=== PATIENT | male | born 1980 | race Two or more races ===

== ENCOUNTER 2023-10-29 08:32 | Emergency (ER) | payer MEDICAID, SELFPAY ==
[2023-10-29 08:35] VITALS: BP 142/93; PULSE 77; RESP 14; TEMP 36.6; O2SAT 99; BMI 21.1
--- NOTE | 2023-10-29 08:53 | EX.ED.DYSGE1 ---
HPI History of Present Illness Chief Complaint: Nausea/Vomiting Informant: patient Onset/Context/Timing Onset: Today Current Severity: Mild Maximum Severity: Mild Narrative Narrative: 43-year-old male currently homeless uses meth and cocaine did use meth in the last 12 hours. Also states he may be diabetic. Currently does not have a primary care physician. States he is having some nausea and feels lightheaded. He denies any headache, chest or abdominal pain. No fever. No dysuria. No melena. Denies any recent illness or hospitalization. Prior similar symptoms: Yes Recent Illness/Hospitalization: No PFSH PFSH Medical History Arthritis PTSD (post-traumatic stress disorder) Home Medications NK 10/29/23 [History Last Taken Unknown] ondansetron 4 mg disintegrating tablet 4 mg PO Q6H PRN nausea and vomiting #10 tabs 10/29/23 [Rx Last Taken Unknown] Allergy/AdvReac Type Severity Reaction Status Date / Time strawberry AdvReac Mild Hives Verified 10/29/23 08:38 Social History Smoking Status: Current every day smoker tobacco type: cigarettes ROS ROS ED ROS Narrative Nausea. Lightheadedness. Review of Systems ROS Unobtainable: Denies due to encephalopathy Constitutional Constitutional ED: Denies chills or fever(s) Eyes Eyes: Denies blurry vision ENT ENT ED: Denies ear pain Cardiovascular Cardiovascular: Denies chest pain Respiratory/Chest Respiratory/Chest: Denies cough or dyspnea Gastrointestinal Gastrointestinal: Reports nausea; Denies abdominal pain, constipation, diarrhea, melena or vomiting Genitourinary Genitourinary ED: Denies dysuria or hematuria Musculoskeletal Musculoskeletal: Denies arthralgias Integumentary Denies abscess Neurologic Neurologic: Denies headache(s) Psychiatric Psychiatric: Denies anxiety Endocrine Endocrinology: Denies cold intolerance or heat intolerance Hematologic/Lymphatic Hematologic/Lymphatic: Reports none Allergic/Immunologic Allergic/Immunologic ED: Denies mouth swelling, tongue swelling or urticaria EXAM Physical Exam Narrative Exam Narrative: Well-appearing 43-year-old male. Vital signs stable afebrile. Pulse ox 99% on room air no hypoxia. No distress. H EENT exam pupils round and light. Moist mucous membranes. Neck nontender. No lymphadenopathy. Lungs clear to auscultation bilaterally. Heart regular rhythm rate about 75 no murmur. Chest wall and ribs nontender. Abdomen soft nontender. Nondistended. Normal bowel sounds no peritoneal signs. Right upper and right lower quadrant unremarkable. No hernia or mass. No distention. Moving all 4 extremities. Nontender without edema. Normal motor strength. Calves are nontender without edema or cords. Back nontender. Several tattoos. Neurologically is awake and alert. Answering questions following commands. He does seem to be intoxicated. No smell of alcohol. Const Vital Signs: 10/29/23 08:35 Temperature 97.9 F Temperature Source Temporal Pulse Rate 77 Respiratory Rate 14 Blood Pressure 142/93 H Blood Pressure Mean 109 Pulse Ox 99 Oxygen Delivery Method Room Air Positive well nourished and well developed; Negative for obese, cachectic, contractures or unkempt General Appearance ED: well developed and NAD; Negative for unkempt, cachectic, contractures, cyanotic, diaphoretic or pallor Nutritional Appearance: Negative for cachectic or obese HEENT Reports moist mucous membranes Negative for trauma or tenderness Eyes EOMs intact bilaterally General Eye ED: Negative for pale conjunctiva or scleral icterus Neck no lymphadenopathy, supple and no JVD General: Negative for tenderness Lymph Lymphatic: Negative for other Chest Wall inspection of chest normal and palpation of chest normal Chest: Negative for other Resp normal respiratory effort and clear to auscultation bilaterally Effort and Inspection: Negative for retractions Auscultation: Negative for rales, rhonchi or wheezes Cardio regular rate, regular rhythm, S1 normal heart sound, S2 normal heart sound and no murmurs Palpation: Negative for palpable S3 or palpable S4 Rate: Negative for bradycardia or tachycardic Rhythm: Negative for abnormal rhythm GI normal to inspection, nondistended, normoactive bowel sounds, non-tender, non-distended and no masses Inspection: Negative for abdominal distention Auscultation: normoactive bowel sounds Palpation: soft; Negative for tender or guarding Back/Spine no CVA tenderness General Back: Negative for CVA tenderness Cervical Spine: Negative for cervical spine tenderness Thoracic Spine / Upper Back: Negative for thoracic spinal tenderness or paraspinal muscle tenderness Lumbar Spine / Lower Back: Negative for lumbar spinal tenderness Extremity General Extremety ED: Negative for edema or tenderness General Extremity: Negative for edema Neuro oriented x3 and CN's II-XII intact bilaterally Sensorium / Orientation: alert; Negative for orientation impaired, lethargic or stuporous Sensory Exam: No sensory level loss detected Motor Exam: strength 5/5 throughout; Negative for general weakness or strength abnormal Psych mental status grossly normal Appearance: Negative for unkempt or other Attitude: No agitated Mood & Affect: Negative for depressed, anxious or tearful Skin no rashes or lesions noted, no wounds and skin turgor normal General Skin Exam: elasticity normal; Negative for jaundice or pallor Lesions: No lesion noted Rashes: No rashes noted Trauma: Negative for abrasion Wounds: Negative for wounds noted MDM MDM MDM Narrative Medical decision making narrative: 43-year-old history of drug abuse and homeless complaining of nausea and lightheadedness. Exam normal. He appears high. Screening labs. IV Zofran. Repeat exam at 9:35 AM patient doing well. Abdomen benign. Patient doing well. I discussed with him following up with 180 for his meth amphetamine abuse. History & Record Review Discussion w/independent historian: Patient Lab Data Attestation: I reviewed the patient's lab results. Lab results narrative: CBC normal. White count of 5. H&H 15 and 46. Platelets 286.\ Chemistries show a gap of 3. Normal BUN of 16 creatinine 1. Glucose 96. Liver enzymes normal. Labs: Laboratory Results - last 24 hr 10/29/23 08:45 WBC 5.1 RBC 5.66 Hgb 15.4 Hct 46.7 MCV 82.5 MCH 27.2 MCHC 33.0 RDW Std Deviation 40.2 RDW Coeff of Disha 13.6 Plt Count 286 MPV 9.9 Immature Gran % (Auto) 0.200 Neut % (Auto) 75.2 H Lymph % (Auto) 16.3 L Simpson % (Auto) 6.7 Eos % (Auto) 1.0 Baso % (Auto) 0.6 Absolute Neuts (auto) 3.8 Absolute Lymphs (auto) 0.83 Nucleated RBC % 0 Sodium 137 Potassium 3.5 Chloride 109 H Carbon Dioxide 25.0 Anion Gap 3 L BUN 16 Creatinine 1.00 Estim Creat Clear Calc 84.88 Est GFR (MDRD) Af Amer 105 Est GFR (MDRD) Non-Af 87 BUN/Creatinine Ratio 16.0 Glucose 96 Calcium 9.7 Total Bilirubin 0.60 AST 20 ALT 26 Alkaline Phosphatase 88 Total Protein 9.1 H Albumin 4.3 Globulin 4.8 H Albumin/Globulin Ratio 0.9 Discharge Plan Triage Chief Complaint: Nausea/Vomiting ED Provider: Ghulam Walton Dx/Rx/DC Orders Clinical Impression: History of drug abuse, Nausea & vomiting Instructions: Treating Drug Abuse and Addiction, ED Vomiting (Adult) Prescriptions: New ondansetron 4 mg tablet,disintegrating 4 mg PO Q6H PRN (Reason: nausea and vomiting) Qty: 10 0RF No Action NK Primary Care Provider: Care Physician,Ruplai Primary Referrals: Traci Nagy [Non-Staff] - As Needed NOT,DEFINED [Non-Staff] - [facility] [Non-Staff] - As soon as possible Activity Restrictions/Additional Instructions: Strongly consider following up with [facility] drug abuse counseling and treatment. Zofran as needed for nausea which she can either swallowed or let it dissolve under your tongue. Plenty of fluids and rest. Increase your diet slowly as tolerated. Disposition Disposition: Home, Self Care
[2023-10-29] MEDS: Ondansetron 4 MG/2 ML Vial IV (08:59)
[2023-10-29 09:12] LABS: Absolute Lymphocyte Count 0.83 X10^3/uL (0.83-4.51); Absolute Neutrophil Count 3.8 X10^3/uL (2.0-7.7); Basophil# 0.03 X10^3/uL; Basophil% 0.6 % (0-1); Eosinophil# 0.05 X10^3/uL; Hematocrit 46.7 % (40-54); Hemoglobin 15.4 g/dL (13.0-16.5); Lymphocyte # 0.83 X10^3/ul (0.83-4.51); Lymphocyte % 16.3 % (19-41); Mean Corpuscular Hgb 27.2 pg (27.0-32.0); Mean Corpuscular Volume 82.5 fL (80-94); Mean Platelet Vol. 9.9 fl (6.2-12.0); Monocyte# 0.34 X10^3/uL; Monocyte% 6.7 % (0-10); NRBC Flagged by Analyzer 0 % (0-5); Neutrophil # 3.83 X10^3/uL (2.7-7.7); Neutrophil % 75.2 % (47-70); Platelet Count 286 K/mm3 (150-450); RBC Distribution Width CV 13.6 % (11.6-14.6); RBC Distribution Width SD 40.2 fl (35.1-43.9); Red Blood Count 5.66 M/mm3 (4.6-6.2); White Blood Count 5.1 K/mm3 (4.4-11.0)
[2023-10-29 09:30] LABS: ALB/GLOB Ratio 0.9 RATIO (0.9-2.4); AST(SGOT) 20 U/L (15-37); Alanine Aminotransfer ALT/SGPT 26 U/L (16-61); Albumin, Serum 4.3 g/dL (3.2-5.0); Alkaline Phosphatase 88 U/L (45-117); Anion Gap 3 (5-15); BUN 16 mg/dL (7-18); Calcium,Total 9.7 mg/dL (8.5-10.1); Chloride 109 mmol/L (98-107); EST Glomerular Filtration Rate 87 mL/min (>60); Est Glom Filt Rate - Afr Amer 105 mL/min (>60); Estimated Creatinine Clearance 84.88 ml/min; Globulin 4.8 g/dL (2.2-4.2); Glucose 96 mg/dL (74-106); Potassium 3.5 mmol/L (3.5-5.1); Protein, Total 9.1 g/dL (6.4-8.2); Sodium Level 137 mmol/L (136-145)
[2023-10-29 09:54] VITALS: BP 143/88; PULSE 76; RESP 16; TEMP 36.6; O2SAT 99
== END 2023-10-29 09:57 | disposition home or self-care (01) ==
PROVIDERS: Emergency Provider Emergency Medicine; Visit Provider Emergency Medicine
DX: R11.2 Nausea with vomiting, unspecified (principal); F15.11 Other stimulant abuse, in remission; F17.210 Nicotine dependence, cigarettes, uncomplicated; Z59.00 Homelessness unspecified
CPT/HCPCS: 80053; 85025; 96374; 99283; J7030; A4216; J2405

== ENCOUNTER 2023-10-30 18:00 | Emergency (ER) | payer MEDICAID, SELFPAY ==
[2023-10-30 18:00] VITALS: BP 151/78; PULSE 101; RESP 18; TEMP 36.6; O2SAT 99; BMI 21.2
--- NOTE | 2023-10-30 18:19 | ED.RN ---
given fluids and sandwich per dr request. to seen how pt tolerates
--- OUTSIDE RECORDS SUMMARY | 2023-10-30 18:34 | XMS RPT_ITS | CCD ---
Author Name Unknown Address [address] [place] [address] Organization [facility] Care Team Providers Care Engine Service Repairer Name Role Phone SUNNY LAI Unavailable Unavailabl court Samson MD, Freddy Barnhart Primary Care Provider Self, Self Primary Care Provider Unavailabl e CONSULT, ADDICTION MEDICINE Consulting Unav ailable SELF, SELF Primary Care Unavailable ALESSANDRO HENSON Attending Unavailable IZA JOLLEY Admitting Unavailable Meagan Irwin Primary Care Physician Stephen Marsh Attending Unavailabl Stephen Baker Admitting Unavailabl Meagan Cleaning Primary Care Unavailable Boogie Martinez Attending Unavailable No, Physician Primary Care Provider [facility] Primary Care Provider [phone] NO, PHYSICIAN Primary Care Unavailable PIOTR HURST Attending Unava ilable NO, PHYSICIAN Primary Care Unavailable LINDSAY TAFOYA Attending Unavailable NO, PHYSICIAN Primary Care Unavailable [facility] Consulting Unavai SAURAV Bateman Admitting Unavailab LOREE Greer Attending Unavaila ble NEO LAM Consulting Unavai lable NO, PHYSICIAN Primary Care Unavailable LILA MEDRANO Admitting Unavailable LILIANA TOLEDO Attending Unav ailNEO Mosquera Consulting Unavai lable NO, PHYSICIAN Primary Care Unavailable STANTON HENDERSON Attending Unavailable ALECIA BYRD Consulting Unavailabl e Allergies Allergy Classification Reported Allergen(s) Allergy Type Date of Onset Reaction(s) Facility (2 sources) Penicillin; Translations: [penicillin] Drug Allergy [facility] (2 sources) Penicillins; Translations: [PENICILLINS] Drug allergy (disorder) 3 [facility] Repository (1 source) No Known Medication Allergies; Translations: [No Known Medication Allergies] Propensity to adverse reactions (disorder) [facility] Repository (1 source) Penicillins Propensity to adverse reactions to drug 3 [facility] Medications Current Medications Medication Drug Class(es) Dates Sig (Normalized) Sig (Original) CHOLECALCIFEROL, VITAMIN D3, ORAL (2 sources) take 1 capsule by mo ut once daily CHOLECALCIFEROL, VITAMIN D3, ORAL Take 1 capsule by mouth once daily . 0 Active Completed/Discontinued Medications Medication Drug Class(es) Dates Sig (Normalized) Sig (Original) acetaminophen 325 mg oral tablet (4 sources) Start: 09-23-2023 End: 09-27-2023 take 1 tablet by mouth every six hours as needed for pain acetaminophen (TYLENOL) tablet 650 mg Problems Active Problems Problem Classification Problem Date Documented Date Episodic/Chronic Abdominal pain (1 source) Left upper quadrant pain; Translations: [Abdominal pain, left upper quadrant] Episodic Deficiency and other anemia (1 source) Anemia; Translations: [Anemia, unspecified] Episodic Essential hypertension (2 sources) Essential (primary) hypertension; Translations: [Essential (primary) hypertension] Onset: 10-23-2022 Chronic Genitourinary symptoms and ill-defined conditions (4 sources) Asymptomatic bacteriuria; Translations: [Bacteriuria] Onset: 09-04-2022 Episodic HIV infection (11 sources) H/O: viral illness; Translations: [Human immunodeficiency virus [HIV] disease] Onset: 09-01-2022 Chronic Miscellaneous mental health disorders (1 source) Mental disorder; Translations: [Mental disorder, not otherwise specified] Onset: 11-13-2022 Chronic Miscellaneous mental health disorders (6 sources) Symptoms of depression; Translations: [Other symptoms and signs involving emotional state] Onset: 09-01-2022 Episodic Mood disorders (2 sources) Bipolar disorder, unspecified; Translations: [Recurrent major depressive episodes, moderate ] Onset: 11-04-2022 11-04-2022 Chronic Residual codes; unclassified (1 source) Noncompliance with medication regimen; Translations: [Noncompliance with medication regimen] 09-21-2023 Episodic Schizophrenia and other psychotic disorders (13 sources) Psychotic disorder; Translations: [Unspecified psychosis not due to a substance or known physiological condition] Onset: 09-01-2022 Chronic Substance-related disorders (15 sources) Methamphetamine abuse; Translations: [Other stimulant abuse, uncomplicated] Onset: 09-01-2022 Chronic Substance-related disorders (11 sources) Finding related to substance use; Translations: [Other stimulant use, unspecified, uncomplicated] Onset: 09-01-2022 Episodic Unclassified (2 sources) New Patient Onset: 10-05-2022 10-05-2022 Unclassified (2 sources) Access to Medication(s) Onset: 10-05-2022 10-05-2022 Unclassified (2 sources) Safety: Avoid toxicity that would cause discontinuation Onset: 10-05-2022 10-05-2022 Unclassified (2 sources) Identify and eliminate barriers to patient adherence Onset: 10-05-2022 10-05-2022 Unclassified (2 sources) Ensure that patient is receiving therapeutic benefit Onset: 10-05-2022 10-05-2022 Unclassified (1 source) Patient's other noncompliance with medication regimen for other reason; Translations: [Patient's other noncompliance with medication regimen for other reason] Onset: 09-20-2023 Urinary tract infections (1 source) Renal abscess; Translations: [Renal and perinephric abscess] Episodic Viral infection (2 sources) Disease caused by 2019-nCoV; Translations: [COVID-19] Onset: 09-21-2023 09-21-2023 Episodic Past or Other Problems Problem Classification Problem Date Documented Date Episodic/Chronic Administrative/social admission (2 sources) Encounter for administrative examinations, unspecified; Translations: [Encounter for administrative examinations, unspecified] Onset: 05-17-2017 Episodic Attention-deficit, conduct, and disruptive behavior disorders (2 sources) Other symptoms and signs involving appearance and behavior; Translations: [Other symptoms and signs involving appearance and behavior] Onset: 01-18-2023 Episodic Cardiac dysrhythmias (2 sources) Tachycardia, unspecified; Translations: [Tachycardia, unspecified] Onset: 10-20-2022 Episodic Open wounds of head; neck; and trunk (2 sources) Laceration without foreign body of scalp, initial encounter; Translations: [Laceration without foreign body of scalp, initial encounter] Onset: 10-23-2022 Episodic Other injuries and conditions due to external causes (2 sources) Elevated urine levels of drugs, medicaments and biological substances; Translations: [Elevated urine levels of drugs, medicaments and biological substances] Onset: 01-18-2023 Episodic Other screening for suspected conditions (not mental disorders or infectious disease) (2 sources) Unspecified abnormal finding in cerebrospinal fluid; Translations: [Unspecified abnormal finding in cerebrospinal fluid] Onset: 11-03-2022 Episodic Residual codes; unclassified (1 source) Altered mental status; Translations: [Altered mental status, unspecified] Onset: 11-03-2022 11-04-2022 Episodic Residual codes; unclassified (1 source) At risk of self-injurious behavior; Translations: [Other specified personal risk factors, not elsewhere classified] Onset: 11-04-2022 11-04-2022 Episodic Residual codes; unclassified (2 sources) Altered mental status, unspecified; Translations: [Altered mental status, unspecified] Onset: 11-03-2022 Episodic Schizophrenia and other psychotic disorders (1 source) Brief reactive psychosis; Translations: [Brief psychotic disorder] Onset: 10-23-2022 10-23-2022 Episodic Screening and history of mental health and substance abuse codes (3 sources) H/O: schizophrenia; Translations: [Personal history of other mental and behavioral disorders] Onset: 01-18-2023 09-21-2023 Episodic Septicemia (except in labor) (4 sources) Sepsis; Translations: [Sepsis, unspecified organism] Onset: 11-24-2021 Episodic Suicide and intentional self-inflicted injury (6 sources) Suicidal thoughts; Translations: [Suicidal ideations] Onset: 09-01-2022 Episodic Unclassified (1 source) Patient's other noncompliance with medication regimen for other reason; Translations: [Patient's other noncompliance with medication regimen for other reason] Onset: 09-20-2023 Results Test Name Value Interpretation Reference Range Facil ity Vital Signs Date Time Vital Sign Value Performing Clinician Faci lity 09-27-2023 15:19-0500 Body temperature 97.81 [degF] Liliana Toledo DO Work Phone: [facility] 09-27-2023 15:19-0500 Diastolic blood pressure 74 mm[Hg] Liliana Earlmilagrosourav DO Work Phone: [facility] 09-27-2023 15:19-0500 Heart rate 81 /min Liliana Earlallisoneleki DO Work Phone: [facility] 09-27-2023 15:19-0500 Respiratory rate 18 /min Liliana Earlmilagrosourav DO Work Phone: [facility] 09-27-2023 15:19-0500 SaO2% (BldA) [Mass fraction] 97 % Liliana Earlmilagrosourav DO Work Phone: [facility] 09-27-2023 15:19-0500 Systolic blood pressure 114 mm[Hg] Liliana Earlmilagrosourav DO Work Phone: [facility] 09-27-2023 03:58-0500 Body mass index (BMI) [Ratio] 21.58 kg/m2 Liliana Earlnoérm DO Work Phone: [facility] 09-27-2023 03:58-0500 Body weight 62.5 kg Liliana Earlnoérm DO Work Phone: [facility] 09-21-2023 21:53-0500 Body height 170.2 cm Liliana Earlallisoncarmelo DO Work Phone: [facility] 09-21-2023 09:00-0500 SaO2% (BldA) [Mass fraction] 136 % Liliana Earlmilagromariahki DO Work Phone: [facility] 09-21-2023 09:00-0500 SaO2% (BldA) [Mass fraction] 85 % Liliana Madyearleneki DO Work Phone: [facility] 11-13-2022 14:06-0400 Body temperature 98.6 [degF] Boogie Martinez [facility] 03-17-2023 14:06-0400 Diastolic blood pressure 91 mm[Hg] Boogie Martinez [facility] 11-13-2022 14:06-0400 Heart rate 105 /min Boogie Martinez [facility] 11-13-2022 14:06-0400 Respiratory rate 16 /min Boogie Martinez [facility] 11-13-2022 14:06-0400 SaO2% (BldA) [Mass fraction] 99 % Boogie Martinez [facility] 11-13-2022 14:06-0400 Systolic blood pressure 146 mm[Hg] Boogie Martinez [facility] 09-08-2022 06:34-0500 Body temperature 97.81 [degF] Horace Henry MD Work Phone: [facility] 09-08-2022 06:34-0500 Diastolic blood pressure 79 mm[Hg] Horace Henry MD Work Phone: [facility] 09-08-2022 06:34-0500 Heart rate 64 /min Horace Henry MD Work Phone: [facility] 09-08-2022 06:34-0500 Respiratory rate 16 /min Horace Henry MD Work Phone: [facility] 09-08-2022 06:34-0500 SaO2% (BldA) [Mass fraction] 98 % Horace Henry MD Work Phone: [facility] 09-08-2022 06:34-0500 Systolic blood pressure 127 mm[Hg] Horace Henry MD Work Phone: [facility] 09-03-2022 13:21-0500 Body height 170.2 cm Horace Henry MD Work Phone: [facility] 09-03-2022 13:21-0500 Body mass index (BMI) [Ratio] 18.97 kg/m2 Horace Henry MD Work Phone: [facility] 09-03-2022 13:21-0500 Body weight 54.93 kg Horace Henry MD Work Phone: [facility] 11-29-2021 09:07-0400 Respiratory rate 16 /min Jarret Fisher MD Work Phone: [facility] 11-29-2021 07:25-0400 Body temperature 98.71 [degF] Jarret Fisher MD Work Phone: [facility] 11-29-2021 07:25-0400 Diastolic blood pressure 79 mm[Hg] Jarret Fisher MD Work Phone: [facility] 11-29-2021 07:25-0400 Heart rate 82 /min Jarret Fisher MD Work Phone: [facility] 11-29-2021 07:25-0400 SaO2% (BldA) [Mass fraction] 98 % Jarret Fisher MD Work Phone: [facility] 11-29-2021 07:25-0400 Systolic blood pressure 122 mm[Hg] Jarret Fisher MD Work Phone: [facility] 11-29-2021 03:15-0400 Body mass index (BMI) [Ratio] 19.98 kg/m2 Jarret Fisher MD Work Phone: [facility] 11-29-2021 03:15-0400 Body weight 59.6 kg Jarret Fisher MD Work Phone: [facility] 11-25-2021 09:12-0400 Body height 172.7 cm Jarret Fisher MD Work Phone: [facility] Encounters Encounter Date Encounter Type Care Provider Facility Start: 09-20-2023 End: 09-27-2023 ambulatory PHYSICIAN ALIRIO [facility] Start: 09-20-2023 End: 09-27-2023 Emergency department patient visit Torsten Scott Ld EVANS Work Phone: [facility] Start: 01-18-2023 End: 01-20-2023 Emergency department patient visit PHYSICIAN ALIRIO [facility] Start: 11-14-2022 End: 11-23-2022 Evaluation and management of inpatient Stephen Marsh Facility:[facility] Start: 11-13-2022 End: 11-14-2022 Emergency department patient visit Boogie Martinez Facility:[facility] Start: 11-13-2022 End: 11-13-2022 Emergency department patient visit Boogie Martinez [facility] Start: 11-03-2022 End: 11-05-2022 Evaluation and management of inpatient PHYSICIAN ALIRIO [facility] Start: 11-02-2022 ambulatory Mitchel Trevino [facility] Work Phone: [facility] [place] Start: 11-02-2022 Patient encounter procedure Mitchel Trevino [facility] Work Phone: [facility] [place] Start: 10-23-2022 End: 10-25-2022 Emergency department patient visit PHYSICIAN ALIRIO [facility] Start: 10-20-2022 End: 10-21-2022 Emergency department patient visit PHYSICIAN [facility] Start: 09-01-2022 End: 09-08-2022 Evaluation and management of inpatient ADDICTION MEDICINE CONSULT Facility:[facility] Start: 09-01-2022 End: 09-08-2022 Evaluation and management of inpatient Horace Henry MD Work Phone: [facility] Procedures Date Procedure Procedure Detail Performing Clinician Start: 09-25-2023 Basic metabolic panel calcium total Nan Feldman MD Work Phone: Start: 09-21-2023 SARS-CoV-2 (COVID-19) RNA [Presence] in Respiratory specimen by TALHA with probe detection Kenisha Liz MD Work Phone: Start: 09-20-2023 T cells absolute cd4 count Aysha allen DO Work Phone: Start: 09-20-2023 Acetaminophen blood measurement Aysha Reed DO Work Phone: Start: 09-20-2023 Basic metabolic panel calcium total Aysha Reed DO Work Phone: Start: 09-20-2023 Blood ethanol measurement Aysha Huizar ick DO Work Phone: Start: 09-20-2023 LAVENDER TOP Triage Protocol Emergency MD Start: 09-20-2023 MINT GREEN TOP Triage Protocol Emergency MD Start: 09-20-2023 RAINBOW DRAW Triage Protocol Emergency MD Start: 09-20-2023 Salicylate blood measurement Aysha lugo DO Work Phone: Start: 09-20-2023 Ecg routine ecg w/least 12 lds w/i&r Aysha Reed DO Work Phone: Start: 09-07-2022 Hepatitis b core antibody hbcab total Logan Wharton MD Work Phone: Start: 09-05-2022 Hemoglobin glycosylated a1c Katelyn Gonzales s SALES ESTIMATOR-EXHIBIT ARTIST Work Phone: Start: 09-05-2022 Lipid panel Katelyn Raymundo SALES ESTIMATOR-C WATER LEAK REPAIRER Work Phone: Start: 09-02-2022 SARS-CoV-2 (COVID-19) RNA [Presence] in Unspecified specimen by TALHA with probe detection Mitchel Ibrahim MD Work Phone: Start: 09-02-2022 ALCOHOL (ETHANOL),BLOOD Kell Castro DO Work Phone: Start: 09-02-2022 Assay of folic acid serum Kell Rea t DO Work Phone: Start: 09-02-2022 Culture bct isol&prsmptv id isolate ea urine Kell Castro DO Work Phone: Start: 09-02-2022 EXTRA MICRO Kell Castro DO Work Phone: Start: 09-02-2022 T cells absolute cd4&cd8 count ratio Kell Castro DO Work Phone: Start: 09-02-2022 URINALYSIS REFLEX TO CULTURE Kell Goldstein DO Work Phone: Start: 09-02-2022 Drug tst prsmv instrmnt chem analyzers pr date Flaca Mu Benavides SALES ESTIMATOR-EXHIBIT ARTIST Work Phone: Start: 09-01-2022 Basic metabolic panel calcium total Chris Díaz MD Work Phone: Start: 09-01-2022 CBC AND ELECTRONIC DIFF Chris powers MD Work Phone: Start: 09-01-2022 Complete blood count with white cell differential, automated Chris Díaz MD Work Phone: Start: 09-01-2022 Hepatic function panel Kell Castro D O Work Phone: Start: 11-29-2021 Creatinine blood Michelle Jose Elias RP,PharmD Start: 11-28-2021 Creatinine blood Michelle Jose Elias RP,PharmD Start: 11-28-2021 Echo transthorc r-t 2d w/wo m-mode rec f-up/lmtd Neo Lam MD Work Phone: Start: 11-27-2021 Drug screen quantitative vancomycin Levi Dorantes RPh,PharmD Start: 11-27-2021 Comprehensive metabolic panel Nickolas porter MD Work Phone: Start: 11-26-2021 Drug screen quantitative vancomycin Carina Hernandez PharmD Start: 11-26-2021 Comprehensive metabolic panel Nickolas porter MD Work Phone: Start: 11-25-2021 Img-guide fluid collxn drainag cath periton perq Nickolas Rowland MD Work Phone: Start: 11-25-2021 Ct thorax w/o contrast material Nickolas Rowland MD Work Phone: Start: 11-25-2021 End: 11-25-2021 T cells absolute cd4 count Nickolas qiu MD Work Phone: Start: 11-25-2021 Prothrombin time Parker Salmon MD Work Phone: Start: 11-25-2021 Electrocardiogram Provider Not In Syst em Start: 11-25-2021 End: 11-25-2021 Culture bacterial quanttative colony count urine Nickolas Rowland MD Work Phone: Start: 11-25-2021 Comprehensive metabolic panel Nickolas porter MD Work Phone: Start: 11-24-2021 Ct abdomen & pelvis w/contrast material Amisha Martinez DO Work Phone: Start: 11-24-2021 Culture bacterial blood aerobic w/id isolates Amisha Martinez DO Work Phone: Start: 11-24-2021 Radiologic exam chest single view Amisha Martinez DO Work Phone: Start: 11-24-2021 End: 11-24-2021 Comprehensive metabolic panel Amisha Marsh DO Work Phone: Start: 11-24-2021 Hepatic function panel Amisha Martinez DO Work Phone: Start: 11-24-2021 Influenza virus A and B RNA and SARS-CoV-2 (COVID-19) N gene panel - Respiratory specimen by TALHA with probe detection Amisha Martinez DO Work Phone: Start: 11-24-2021 Ecg routine ecg w/least 12 lds w/i&r Jarret Fisher MD Work Phone: Plan of Treatment Date Care Activity Detail Author Start: 10-23-2032 Tetanus vaccination [facility]ANUS [facility] Start: 07-07-2023 Tetanus vaccination TETANUS [facility] Start: 11-06-2022 End: 11-06-2022 Patient encounter procedure 11/06/2022 Office Visit Infectious Diseases Raf Garner MD, PhD [address] [place] [address] Infectious Diseases Care [facility] Start: 04-30-2022 Influenza vaccination INFLUENZA VACCINE (#1) [facility] Start: 03-11-2007 Zoster vaccine hzv live for subcutaneous use ZOSTER (SHINGLES) VACCINE (1 of 2) [facility] Start: 03-11-1994 PNEUMOCOCCAL VACCINE SERIES (1 - PCV) PNEUMOCOCCAL VACCINE SERIES (1 - PCV) [facility] Start: 09-11-1988 COVID-19 VACCINE (#1) COVID-19 VACCINE (#1) [facility] End: 09-23-2023 Aerobic microbial culture Wound Aerobic Culture Microbiology Routine Once for 1 Occurrences starting 09/23/2023 until 09/23/2023 [facility] Work Phone: Immunizations Immunization Date Immunization Notes Care Provider [facility] 10-23-2022 tetanus toxoid, redu flako diphtheria toxoid, and acellular pertussis vaccine, adsorbed Liliana Toledo DO Work Phone: [facility] 11-25-2021 pneumococcal vaccine , unspecified formulation Jarret Fisher MD Work Phone: [facility] 06-05-2020 influenza, injectabl e, quadrivalent, preservative free Jarret Fisher MD Work Phone: [facility] 06-05-2020 influenza virus vaccine, unspecified formulation Horace Henry MD Work Phone: [facility] 07-07-2013 influenza, injectabl e, quadrivalent, preservative free Jarret Fisher MD Work Phone: [facility] 07-07-2013 tetanus toxoid, redu flako diphtheria toxoid, and acellular pertussis vaccine, adsorbed Jarret Fisher MD Work Phone: [facility] 06-21-2009 influenza virus vaccine, live, attenuated, for intranasal use Jarret Fisher MD Work Phone: [facility] 05-23-2008 hepatitis A and hepatitis B vaccine Jarret Fisher MD Work Phone: [facility] 05-23-2008 tuberculin skin test ; purified protein derivative solution, intradermal Jarret Fisher MD Work Phone: [facility] 01-09-2008 yellow fever vaccine Nancy Fisher MD Work Phone: [facility] 11-02-2007 typhoid capsular polysaccharide vaccine Jarret Fisher MD Work Phone: [facility] 08-08-2007 hepatitis A and hepatitis B vaccine Jarret Fisher MD Work Phone: [facility] 08-08-2007 influenza virus vaccine, live, attenuated, for intranasal use Jarret Fisher MD Work Phone: [facility] 08-08-2007 poliovirus vaccine, inactivated Jarret Fisher MD Work Phone: [facility] 07-01-2007 hepatitis A and hepatitis B vaccine Jarret Fisher MD Work Phone: [facility] 07-01-2007 measles, mumps and rubella virus vaccine Jarret Fisher MD Work Phone: [facility] 07-01-2007 meningococcal polysaccharide (groups A, C, Y and W-135) diphtheria toxoid conjugate vaccine (MCV4P) Jarret Fisher MD Work Phone: [facility] 07-01-2007 meningococcal polysaccharide vaccine (MPSV4) Jarret Fisher MD Work Phone: [facility] 07-01-2007 tetanus and diphther ia toxoids, adsorbed, preservative free, for adult use (2 Lf of tetanus toxoid and 2 Lf of diphtheria toxoid) Jarret Fisher MD Work Phone: [facility] 07-01-2007 tetanus toxoid, redu flako diphtheria toxoid, and acellular pertussis vaccine, adsorbed Jarret Fisher MD Work Phone: [facility] 08-30-2005 tetanus toxoid, redu flako diphtheria toxoid, and acellular pertussis vaccine, adsorbed Jarret Fisher MD Work Phone: [facility] 05-11-2002 diphtheria and tetan us toxoids, adsorbed for pediatric use Jarret Fisher MD Work Phone: [facility] 05-11-2002 varicella virus vaccine Jonathon Fisher MD Work Phone: [facility] 05-11-2002 zoster vaccine, unspecified formulation Horace Henry MD Work Phone: [facility] 04-15-1999 hepatitis B vaccine, pediatric or pediatric/adolescent dosage Jarret Fisher MD Work Phone: [facility] 03-14-1999 measles, mumps and rubella virus vaccine Jarret Fisher MD Work Phone: [facility] 11-15-1998 hepatitis B vaccine, pediatric or pediatric/adolescent dosage Jarret Fisher MD Work Phone: [facility] 10-09-1998 hepatitis B vaccine, pediatric or pediatric/adolescent dosage Jarret Fisher MD Work Phone: [facility] 03-13-1993 diphtheria, tetanus toxoids and acellular pertussis vaccine, unspecified formulation Jarret Fisher MD Work Phone: [facility] 03-13-1993 poliovirus vaccine, inactivated Jarret Fisher MD Work Phone: [facility] 02-08-1991 haemophilus influenz ae type b vaccine, PRP-T conjugate Jarret Fisher MD Work Phone: [facility] 01-26-1991 measles, mumps and rubella virus vaccine Jarret Fisher MD Work Phone: [facility] 01-26-1991 poliovirus vaccine, inactivated Jarret Fisher MD Work Phone: [facility] 06-07-1989 diphtheria, tetanus toxoids and acellular pertussis vaccine, unspecified formulation Jarret Fisher MD Work Phone: [facility] 01-21-1989 poliovirus vaccine, inactivated Jarret Fisher MD Work Phone: [facility] 09-30-1988 diphtheria, tetanus toxoids and acellular pertussis vaccine, unspecified formulation Jarret Fisher MD Work Phone: [facility] 08-23-1988 diphtheria, tetanus toxoids and acellular pertussis vaccine, unspecified formulation Jarret Fisher MD Work Phone: [facility] 07-24-1988 diphtheria, tetanus toxoids and acellular pertussis vaccine, unspecified formulation Jarret Fisher MD Work Phone: [facility] 07-24-1988 poliovirus vaccine, inactivated Jarret Fisher MD Work Phone: [facility] 06-05-1988 poliovirus vaccine, inactivated Jarret Fisher MD Work Phone: [facility] Payers Date Payer Category Payer Self-pay 2022 Unknown FILIPE DENT [id number] 2022-Present [address] [address] [place] [address] [id number] 2020 Medicaid FILIPE RAY [place] [place] [employer] [employer] [place] [id number] 2020-Present [phone] [address] [address] [place] [address] [id number] 2020 Unknown [id number] 1988 Unknown [id number] 1988 Unknown [id number] 1988 Unknown [id number] 1988 Unknown [id number] 1988 Unknown [id number] 1988 Unknown [id number] 1988 Unknown [id number] Unknown [id number] Unknown [id number] Social History Date Type Detail Facility Start: 11-24-2021 End: 10-20-2022 Tobacco smoking status NHIS Smokes tobacco daily [facility] Start: 11-24-2021 End: 09-25-2023 Cigarettes smoked current (pack per day) - Reported 1 [facility] Start: 11-25-2021 Alcohol intake Current drinker of alcohol (finding) [facility] Start: 09-16-2015 History SDOH Alcohol Comment rarely [facility] Start: 03-11-1988 Sex Assigned At Not on file [facility] Start: 11-14-2021 End: 09-01-2022 Exposure to SARS-CoV-2 (event) Not sure [facility] History of tobacco use Cigarette Smoker [facility] Start: 09-01-2022 Tobacco use and exposure Smokeless tobacco non-user [facility] Start: 09-01-2022 End: 09-22-2023 Alcohol intake Ex-drinker (finding) [facility] Start: 09-03-2022 History SDOH Alcohol Frequency 1 [facility] Start: 09-03-2022 History SDOH Alcohol Std Drinks 0 [facility] Tobacco smoking status No Smokin g Status Entered [facility] Start: 09-22-2023 End: 09-25-2023 Sex Assigned At Male [facility] Has the Intell[employer], Lum[employer], or water [employer] threatened to shut off services in your home in past 12Mo No [facility] (I/We) worried wheth er (my/our) food would run out before (I/we) got money to buy more. Often true [facility] In the past 12 month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 clearance Patient requires continued hospitalization due to: Inpatient psych admission after COVID isolation Discharge Location: Inpatient psych Primary Contact Information Subjective Patient seen and examined. Complains of cough otherwise denies chest pain, shortness of breath, abdominal pain, nausea/vomiting. Afebrile. Objective BP (!) 138/90 (BP Location: Left arm, Patient Position: Lying) Pulse 75 Temp 98.4 F (36.9 C) (Oral) Resp 14 Ht 5' 7 Wt 59 kg (130 lb) SpO2 98% BMI 20.36 kg/m Physical Examination General Appearance: alert; well appearing; in no acute distress HEENT: Head- normocephalic; Eyes- EOMI, sclera anicteric; Throat- mucous membranes moist Cardiovascular: regular rate and rhythm; normal S1, S2; no murmurs, rubs, clicks or gallops; peripheral edema absent Respiratory: lungs clear to auscultation; without wheezes, rales or rhonchi; on room air Abdomen: soft, non-tender, non-distended Neurological: oriented x 3; normal speech; no focal findings or movement disorder noted Musculoskeletal: no significant deformity or tenderness to palpation Skin: normal coloration Psych: normal mood and affect Infectious Disease Progress Note Out of an abundance of caution, to protect all patients and providers from extraneous personal contact in the midst of the COVID-19 pandemic, this visit was performed via chart review only. I feel confident that I am able to address your clinical queston via this method. However, if there are clinical changes and/or any questions or concerns arise, please do not hesitate to reach out to our team at any time. Subjective: resting quietly Review of Systems: The following system(s) were reviewed: Constitutional, Cardiac, Pulmonary, GI, Dermatologic, Allergic, Musc Physical Examination: BP (!) 138/90 (BP Location: Left arm, Patient Position: Lying) Pulse 75 Temp 98.4 F (36.9 C) (Oral) Resp 14 Ht 5' 7 Wt 59 kg (130 lb) SpO2 98% BMI 20.36 kg/m Results/Medications Reviewed: Current Facility-Administered Medications Medication Dose Route Frequency Provider Last Rate Last Admin acetaminophen (TYLENOL) tablet 650 mg 650 mg Oral Q6H PRN Piotr Levi DO 650 mg at 09/23/23 0227 kzpmjmdlzua-ppiobnxigzrxy-gdxpkf vir (BIKTARVY) 50-200-25 mg per tablet 1 tablet 1 tablet Oral Daily Lila Medrano MD 1 tablet at 09/23/23 1052 cholecalciferol (vitamin D3) tablet 400 Units 400 Units Oral Daily Lila Medrano MD 400 Units at 09/23/23 0750 LORazepam (ATIVAN) tablet 2 mg 2 mg Oral Q6H PRN Marlon Hannah DO Or diazePAM (VALIUM) syringe 5 mg 5 mg Intramuscular Q6H PRN Marlon Hannah DO heparin (porcine) injection 5,000 Units 5,000 Units Subcutaneous Q8H Lila Ochoa MD 5,000 Units at 09/23/23 0750 nirmatrelvir-ritonavir (PAXLOVID) tablet therapy pack 3 tablet 3 tablet Oral Q12H Neo Burnett MD 3 tablet at 09/23/23 1053 ondansetron (ZOFRAN-ODT) disintegrating tablet 4 mg 4 mg Oral Q6H PRN Clarisa Webber MD 4 mg at 09/23/23 0750 sodium chloride (PF) (NS) flush 5 mL 5 mL Intravenous PRN Aysha Reed DO And sodium chloride 0.9% (NS) 0-150 mL/hr Intravenous PRN Aysha Reed DO sodium chloride (PF) (NS) flush 5 mL 5 mL Intravenous PRN Lila Medrano MD And sodium chloride (PF) (NS) flush 5 mL 5 mL Intravenous Q8H POONAM Lila Medrano MD 5 mL at 09/22/23 1400 And sodium chloride 0.9% (NS) 0-150 mL/hr Intravenous PRN Lila Medrano MD Lab Results Component Value Date WBC 4.99 09/20/2023 HGB 15.8 09/20/2023 HCT 47.4 09/20/2023 MCV 82.7 09/20/2023 PLT 262 09/20/2023 Results from last 7 days Lab Units 09/20/23 1642 SODIUM mmol/L 142 POTASSIUM mmol/L 3.8 CHLORIDE mmol/L 107 BUN mg/dL 23 CREATININE mg/dL 1.10 GLUCOSE mg/dL 102* CALCIUM mg/dL 9.2 Invalid input(s): LABALBU Cultures: SARS-CoV-2 Radiology: EKG 12-lead Result Date: 09/21/2023 Normal sinus rhythm with sinus arrhythmia Rightward axis Borderline ECG Confirmed by IBRAHIMA TAM, ARTIE PARKER ([id number]) on 09/21/2023 9:00:13 AM Assessment/Plan: 1)covid-19 2)HIV 3)schizophrenia 4)substance abuse 5)right axilla cellulitis All labs and cultures reviewed. Continue Biktarvy for HIV; patient will be going to inpatient psych at ID facility. Continue 5 day course of Paxlovid. Agree with addition of doxycycline. Prognosis is good for short term recovery. Neo Lam M.D. Per Sera Ye [phone] at ID patient follows with Yellow Team Jewel Rodriguez at [facility] he has a ID housing BENOIT Aldana [phone] if planning to admit to [facility] we will need to contact them and that is done through [facility] Progress Note Patient Name: Ced Hernandez Admit Date: [id number] MR #: [id number] : 03/11/1988 Perpetual Assessment Ced Hernandez is a 35 y.o. male with past medical history significant for HIV, nephrolithiasis, tobacco use who initially presented to the [facility] emergency department on 09/20/2023 via CPD after roommate called for help when he awoke to find the patient standing over him while sleeping in context of medication noncompliance. Roommate reported to police that patient has been progressively more agitated and saying things that do not make sense. Patient was initially lethargic and uncooperative with ED staff. He was evaluated by PSS on 09/21/2023. He was irritable, guarded, and remained uncooperative. He refused to consent for PSS to speak with his roommate. He did consent for him to speak with a friend but per friend he had not had contact with the patient since and could not comment on patient's current functioning or safety concerns. Patient was evaluated by ED psychiatrist (Dr. Gutiérrez) on 09/21/2023. He was noted to be psychotic on exam, with question of whether this was indicative of a substance-induced psychosis (UDS positive for amphetamines and cannabis) or an underlying organic psychosis. However, given the duration of time that he been in the ED with continued symptoms, recommendation was for inpatient psychiatric hospitalization. Plan was for transfer to the [facility] but patient incidentally tested positive for COVID and was medically admitted. Psychiatry has been consulted to follow while patient is on the medical floor. Diagnosis & Plan/Recommendations Stimulant use disorder Assessment & Plan Encourage cessation, particularly given potential for amphetamine use to cause and/or worsen psychotic symptoms. Mr. Hernandez was educated about the risks related to substance use, including overdose and/or withdrawal, as well as resources to address substance use issues. Motivational interviewing techniques were utilized to promote advancement through the states of change. Mr. Hernandez is difficult to engage andseems to be in the precontemplative stage of change related to his substance use. * Psychosis, unspecified (HCC) Assessment & Plan Patient remains delusional, perseverative on his and roommate, and refuses to engage in discussion about treatment. I am not able to even begin to consider or discuss an alternative disposition plan 1 patient is unable to tolerate a discussion about or engage meaningfully in his own treatment. Plan remains for psychiatric admission once medically clear from Covid isolation. In the meantime, continue No AMA / psychiatric precautions. Patient declines offer for psychiatric medications. Order in for PRN lorazepam for agitation management. Treatment options and alternatives reviewed with patient. Risks, benefits, side effects of all psychiatric medications discussed with patient and informed consent obtained. All questions were answered. Comorbid issues impacting my care plan include HIV, non-adherence, and substance use. Our service will follow as needed. Following for psychosis Interval History: Ced Hernandez was seen today as follow up from the initial psychiatric consultation. The chart and documented events since the last consultation note have been reviewed. Required as needed Tylenol and Zofran. On evaluation of the patient today, he is initially asleep. He is able to be woken. Eye contact is poor throughout assessment. Verbal responses are initially very limited. Tells me that he does not need any psychiatric care. Tells me all that he needs is to be linked with his VA benefits so that he can get away from his . However, later in assessment he asks that I try to contact his although he does not know his phone number and when I ask more details about the nature of their relationship, he describes as being supportive. Contradicts himself throughout assessment with regard to his marriage and marital stressors. Refuses to engage in any discussion about his psychiatric history. Will not talk about any medications that may or may not have been helpful. Volume of his speech continues to escalate over course of assessment. Ultimately he says I just need to get Siavashi off my shit. On asking him if he is referring to psychiatrist Dr. Katarzyna Briggs, he says yeah, he's a terrible doctor. When I ask what Dr. Malloy is treating him for, he says he just sees me for 5 minutes and give me some bullshit prescription. States that Dr. Malloy has diagnosed him with schizophrenia but insist I do not have any of that crazy shit. Again attempted to discuss with patient that there is some difficulty with regard to narrowing down his diagnoses and determining whether it is a primary thought disorder versus a substance-induced thought disorder given his ongoing amphetamine use, but patient does not engage and ultimately interrupts and tries to steer the conversation elsewhere. When asked if he would like me to try to reach out to Dr. Bañuelos for further information, he states no, I want him off my paperwork. Review of Systems: No acute physical complaints at time of assessment. Physical Examination: Vital Signs: BP (!) 143/80 (BP Location: Left arm, Patient Position: Lying) Pulse (!) 59 Temp 98.1 F (36.7 C) Resp 16 Ht 5' 7 Wt 59 kg (130 lb) SpO2 98% BMI 20.36 kg/m Mental Status Evaluation: General Appearance & Behavior: age appropiate, minimally engaged, defensive, and poor eye contact Grooming & Hygiene: hospital gown Psychomotor Activity: no psychomotor abnormalities or muscle atrophy noted Gait & Station gait and station not observed as patient laying in bed Speech: loud and profane language Flow of Thought: perseveration Thought Associations: Loose Content of Thought: No evidence of SI/HI Mood: I just need to get my VA benefits so I can get away from my Affect: irritable and labile Insight: impaired Judgment: impaired Orientation: alert and oriented to person, place, time, and circumstances Memory: Grossly intact Attention: impaired Concentration: impaired Language: intact Fund of Knowledge: estimated average intelligence Laboratory and Additional Data Reviewed: Laboratory 09/23/23 2:56 PM None new today; for reference, positive COVID-19 test was completed on 09/21/2023 Radiology 09/22/23 1:57 PM 11/03/2022 CT head of brain without contrast FINDINGS: The ventricles and the cortical sulci have normal size contour and symmetry. There is no evidence for intracranial hemorrhage. There is no mass effect and or midline shift. No extra-axial collections. Limited evaluation of the orbits and the paranasal sinuses are normal. IMPRESSION: No acute intracranial abnormality. Cardiology 09/22/23 1:57 PM 09/20/2023 EKG QT/QTc 350/418 Medications 09/23/23 2:56 PM Ashley Leslie MD 09/23/2023 2:56 PM [facility] PROGRESS NOTE Assessment and Plan Ced Hernandez is a 35 y.o. male patient of [facility] with history of schizophrenia, HIV, substance abuse presented to [facility] with psychiatric evaluation. Psychiatric evaluation Schizophrenia Patient was brought in by CPD secondary to thoughts of harming others and self Placed no AMA Agitated on presentation however denies suicidal or homicidal ideation on evaluation Admits to be noncompliant with medications BH consulted in the ED. Appreciate input. SW consulted for DC needs HIV Noncompliant with antiretroviral therapy Continue Biktarvy CD4 count 266 Consult ID Polysubstance abuse Urine tox positive for cannabinoid, amphetamine COVID-19 positive Vitals stable, afebrile, O2 sat 98% on RA Incidental finding Patient will need to be held for 5 days before he can be transferred to ID psychiatric unit Will consult ID given immunocompromised state if candidate for Paxlovid Quality Measures DVT Prophylaxis: heparin sc Perea Catheter: absent Code Status Full Code; code status verified on 09/21/2023 with patient (capacity intact) Discharge Planning Medically Stable for Discharge Date: Pending clearance Patient requires continued hospitalization due to: ID/BH recs Discharge Location: Possible inpatient psych Primary Contact Information Subjective Patient seen and examined. Complains of a headache and scratchy throat otherwise denies chest pain, shortness of breath, abdominal pain, nausea/vomiting. Afebrile. Objective BP 120/78 Pulse 77 Temp 97.8 F (36.6 C) (Oral) Resp 14 Ht 5' 7 Wt 59 kg (130 lb) SpO2 98% BMI 20.36 kg/m Physical Examination General Appearance: alert; well appearing; in no acute distress HEENT: Head- normocephalic; Eyes- EOMI, sclera anicteric; Throat- mucous membranes moist Cardiovascular: regular rate and rhythm; normal S1, S2; no murmurs, rubs, clicks or gallops; peripheral edema absent Respiratory: lungs clear to auscultation; without wheezes, rales or rhonchi; on room air Abdomen: soft, non-tender, non-distended Neurological: oriented x 3; normal speech; no focal findings or movement disorder noted Musculoskeletal: no significant deformity or tenderness to palpation Skin: normal coloration Psych: normal mood and affect [facility] reviewing ED work list noted that pt does not have a PCP. Upon further review, pt is being held for SI/HI. Substance abuse, mental health and Find-a-doc resources added to AVS. No further needs seen. Will remain available. 09/21/23 0828 Patient Information Source of Information Chart Does Patient have a PCP? No Interventions Community Resources Medication Resources;Health education;Substance abuse;Mental health services [facility] attempted to meet with pt at bedside and he was asleep. [facility] will attempt again later. Addendum: [facility] met with pt at bedside who refused PCP scheduling at this time. Pt stated he would work on this when he goes home. [facility] verbalized understanding. documented in this encounter [facility] 09-27-2023 Hospital course Narrative [facility] DISCHARGE SUMMARY -- [facility] Ced Hernandez Admitted: 09/20/2023 Discharge Date: 09/27/23 PCP Handoff Recommended Outpatient Testing Go to emergency intake on 09/30/[address] [facility] Get to homeless [facility] room before midnight 09/27 Results Pending At Discharge none Clinical Summary Ced Hernandez is a 35 y.o. male patient of [facility] with history of schizophrenia, HIV, substance abuse presented to [facility] with psychiatric evaluation. Psychosis Stimulant use disorder Patient was brought in by CPD secondary to thoughts of harming others and self Placed no AMA Agitated on presentation however denies suicidal or homicidal ideation on evaluation Admits to be noncompliant with medications consulted in the ED and following. Appreciate input. Discussed with Dr. Lou 09/27-has had improvement in psychosis without psychiatric medications with minimal antipsychotic medication load. High suspicion for recent methamphetamine use as a major contributor to recent psychosis. Although there was initial concern for psychosis on presentation delusions present in the context of active methamphetamine use and appears to have resolved with minimal medication load. Does not wish to be associated with certain friends. He has not displayed any lethality to self or others while hospitalized and has been attending to activities consistent with self-preservation. He has an appointment with the [facility] on 09/30/2023 and connected with the sales warehouse driver with the [facility] who will assist with permanent housing for patient. He has called for homelessness resources and has a spot at [facility] today. Given his improvement without further signs of psychotic decompensation and modification of risk factors including follow-up with the VA and housing he does not meet criteria for involuntary psychiatric hospitalization. Discontinue Abilify. Do not prescribe any benzodiazepines on discharge. No [facility] beds available. Homeless hotline provided patient. Already has follow-up appointment with [facility] mental health clinic. Declines rehabilitative services, voluntary inpatient psychiatric admission or referral/transfer to mental health or addiction rehabilitation facilities. Discontinue no AMA HIV Noncompliant with antiretroviral therapy Continue Biktarvy- continue on discharge- states he fills this medication at [facility] CD4 count 266 ID consulted. Appreciate input. Has declined paxlovid. Polysubstance abuse Urine tox positive for cannabinoid, amphetamine COVID-19 positive Vitals stable, afebrile, O2 sat 98% on RA Incidental finding Day 0 09/21 or day of positive test- on Day 6, no fevers in last 24 hrs ID consulted given immunocompromised state and possible need for Paxlovid. Started on Paxlovid- took 3 days worth and declined other doses Right axillary furuncle/wound cellulitis Noted swelling and wound in R axilla Wound culture- not collected, continue doxycycline- finish off 7 day total course Has 3 more days left Monitor Patient seen and examined. Doing well this morning denies any shortness of breath, chest pain, nausea/vomiting. Discussed with case management and nursing as well as behavioral health attending. Psychiatry not recommending inpatient psychiatric admission. They have already scheduled patient with a ID mental health clinic on 09/30/2023 at 2 PM. Patient called [facility] hotline 09/27 and they told him he has a room until midnight. States he will need to stop his place together as things. Conditional discharge orders placed. No admitted discontinue by behavioral health. AVS updated. Nursing to see about coming him to pharmacy and then homeless [facility] Discharge Medications Discharge Medications New Medications Details doxycycline hyclate 100 MG capsule Commonly known as: VIBRAMYCIN Take 1 (one) capsule (100 mg total) by mouth 2 (two) times a day First home dose due 9PM 09/27/23 for 3 days . Quantity: 6 capsule Modified Medications Details zlubdjzisox-mdeiymthacgwq-ebrynq vir 50-200-25 mg per tablet Commonly known as: BIKTARVY What changed: Another medication with the same name was removed. Continue taking this medication, and follow the directions you see here. Take 1 (one) tablet by mouth daily . Quantity: 30 tablet Medications To Continue Details CHOLECALCIFEROL (VITAMIN D3) ORAL Take 1 capsule by mouth once daily . Stopped Medications Biktarvy 50-200-25 mg per tablet Generic drug: bklysjjvyab-zlucmbthmlvik-cxrnao vir You also have another medication with the same name that you need to continue taking as instructed. buprenorphine-nalOXone 8-2 mg Film Commonly known as: SUBOXONE escitalopram oxalate 20 MG tablet Commonly known as: LEXAPRO OLANZapine 10 MG tablet Commonly known as: ZYPREXA paliperidone 3 MG 24 hr tablet Commonly known as: YONATAN Physician(s) Follow Up[facility] - [facility] - [address] [place] [address] Follow up on 09/30/2023 Please attend your Mental Health intake in person at the [facility] at 2:00pm on 09/30/23. Objective BP (!) 140/90 Pulse 65 Temp 97.8 F (36.6 C) (Oral) Resp 16 Ht 5' 7 Wt 62.5 kg (137 lb 12.6 oz) SpO2 97% BMI 21.58 kg/m Physical Examination General Appearance: alert; well appearing; in no acute distress HEENT: Head- normocephalic; Eyes- EOMI, sclera anicteric; Throat- mucous membranes moist Cardiovascular: regular rate and rhythm; normal S1, S2; no murmurs, rubs, clicks or gallops; peripheral edema absent Respiratory: lungs clear to auscultation; without wheezes, rales or rhonchi; on room air Abdomen: soft, non-tender, non-distended Neurological: oriented x 3; normal speech; no focal findings or movement disorder noted Musculoskeletal: no significant deformity Skin: normal coloration Psych: calm, coordinating discharge planning with BH Condition at Discharge: Stable Disposition: Homeless [facility] I reviewed discharge recommendations with the patient in person. Patient instructions, including activity, were given to the patient/family at discharge via provider instructions. On day of discharge I saw Ced Hernandez and spent: > 30 minutes on discharge. Completed by: Liliana Toledo on 09/27/23, 2:28 PM documented in this encounter [facility] 09-27-2023 Hospital Discharge instructions Liliana Toledo DO - 09/27/2023 2:22 PM EST Please attend your Mental Health intake in person at the [facility] at 2:00pm on 09/30/23. You are positive for COVID-19 on 09/21. If you did not have any symptoms prior to that day 0 of isolation would be 09/21/2023. That would make your discharge day day 6 from your positive test. You have not had any fevers for 24 hrs before discharge from the hospital 09/27/23 Continue your Biktarvy. Your absolute CD4 count was 266 09/20/2023. Continue compliance with your HIV medication as if your CD4 count falls to 200 or below or that would put you into the more high risk category for developing life-threatening infections ID recommendation was to continue a 1 week total course of antibiotics for the right axillary cellulitis. You have already received 4 total days of antibiotics she will have 3 remaining days or 6 remaining doses. Your next dose of doxycycline is due around 9 PM on 09/27/2023- complete full antibiotic course Avoid all amphetamine use as use Sandhya Lacey LISW - 09/21/2023 8:26 AM EST Images from the original note were not included. [facility] FIND A PROVIDER: Connecting with a Primary Care Provider or Family Doctor is important for your continued health. [email or web address] and search primary care You may also call [phone], or Or Call our Patient Service Center at [phone] to get set up with a primary care provider Wednesday-Wednesday 7am-5:30pm [facility] URGENT CARE LOCATIONS: [email or web address] SAME DAY APPOINTMENT CENTERS: *[facility] Express Appointment Center: (use only if you are established with an [facility] provider) Address: [facility] [facility], [place] [id number] [address] [facility] [address] [address] [address] [address] *[facility]- Walk in Primary Care Address: [address] [place] [address] *[facility]- Walk in Family Practice Wednesday-Wednesday 9-5pm Address: [address] [facility] *https://www.[place].[facility]/public health/programs/health-resources -lists/ Mental Health is health..... our emotional health can range from thriving to struggling. There are things that you can do to strengthen your mental health, for more details go to https://www.mentalhealthishealth .us/ and obtain resources for substance abuse, disaster relief, LGBTQ, teens and more. [facility] Mental Health Centers All have mental health counseling, psychiatry, case management, and substance abuse treatment Access [facility]: [address] [facility] [place] [address]; [phone] Central: [address] [facility] [address]; 444- North: [address] [facility] [address] [facility] [address]; [phone] West: [address] [facility] [address] [facility] [address]; [phone] [facility] [address] [facility] [address] North Community Counseling Four locations to choose from: West: [address] [place] [address]; [phone] The Bridge: [address] [place] [address]; [phone] South: [address] [place] [address]; [phone] North: [address] [place] [address]; [phone] [facility] [address] [facility] [address] WALK IN HOURS AT [facility] WEDNESDAY-WEDNESDAY 16 W [facility] AT 8:00 AM Mental Health and Crisis Hotline: call 988 or Mental Health & Counseling Services: [facility] Behavioral Health: [phone] [facility] Access: [phone]- 72 hour mental health & substance abuse services (walk[facility]) [facility]: [phone] [facility]: [phone] [facility]: [phone] [place] [phone] Primary One: [phone] or [phone] [facility] Out[facility] Clinic: [phone] [facility], [phone] Access [place]: [phone] ([facility]) [phone] ([facility]) [phone] ([facility]) [phone] ([facility]) [facility] [employer]ch Felled Seam Operator: [phone]- mental health, support, food/homemaker support for the community, transport for seniors, accepts most insurances (sliding scale) [place] [phone]- case management, anger management, senior programs, AOD counseling schizophrenic anonymous, support groups for families of the mental ill (sliding scale) [facility]: [phone]- anger management, AOD counseling/education, At a Loss Support Group Directions for Youth & Families: [phone]- behavioral health, AOD, violence, aggression, teen , child abuse/neglect Emotions Anonymous: [phone] [facility] Services: [phone]- outpatient children/adult counseling (sliding scale) [facility] Crime/Trauma Assistance Program: [phone] (sliding scale) [facility] [phone] [facility] Associates: [phone] [facility] [phone] Counseling LTD: [phone] [facility]: [phone] [facility] Counseling & Consultation [phone] [facility]: [phone]- comprehensive mental health, AOD prevention/treatment/recovery [facility] Counseling Services: [phone]- AOD evaluation/counseling, mental health [facility] Services: [phone]- outpatient mental health & AOD abuse/counseling [facility] Services: [phone]- outpatient counseling, AOD services for all ages [facility]: [phone] [place] [phone] [facility] [phone] Children & Adolescent Mental Health Services: Count Includes [facility]: [phone] [facility] Behavioral Health: [phone] [facility]: [phone] [facility]: [phone] [facility] in the [facility] Offers providers and parents resources to help children thrive and deal with some common issues that affect children s lives. Explore topics related to health and wellness, social-emotional skills, and school readiness. Managing Asthma, Autism, Divorce, Parents in Correction, Eating Well, Grief, Handling Emergencies [facility] hospitalreetincommunities.org Counseling on a sliding scale or free: Child/Adult Guidance Center: [phone] [facility]- mental health, AOD counseling, accepts Medicaid [facility] [phone] [facility] [phone] [place] [facility]: [phone]- counseling for adults and families, AOD services, [facility]: [phone]- mental health, anger management, DV counseling [facility]: [phone]- mental health, counseling for DV/sex offenders [facility]: [phone]: therapeutic offender program (cannot have a pending DV charge) Javier Montanez & Osorio: [phone]- outpatient therapy and counseling [facility]: [phone]- counseling only [facility] Counseling Services: [phone] Kriss[facility] [phone]- has a psychiatrist, sees both children and adults [facility]: [phone]- counseling and psychiatry, AOD counseling & hypnotherapy [facility] Counseling Services: [phone] [facility] Psychological Services: [phone] [facility] Family Focus: [phone] [facility]: [phone]- children, adult & family counseling Grieving Resources [facility] Grief Support Services Offers several grief support classes, support groups and one-on-one counseling for kids and parents of all ages at several different locations in [facility]. They have teen groups, preschool groups, infant loss groups and more. [address] [place], [place] [phone] [place] [address]: [place]: Toll-free [employer] International[facility]. [facility].InstallMonetizer/ytlwgxch-znf-pkkc tors/support/bcokb-wgmwsbe-zkhoa s [facility] Provides grief support to children, teens, and adults who are grieving the loss of a loved one. Services for individuals and families include counseling, support groups, in-school grief support groups, workshops, and camps; Camp Memory, a day camp for children ages 6-13 and Camp Soco, an overnight camp for children ages 8-17. Families may also participate in remembrance ceremonies such as a butterfly release and candle lighting. Self-pay and insurance options are both available for individual counseling. Click here for information about their summer camps and support offered to schools. [address] [place], [place] [address] [facility]: [facility].org/[place] Alive in My Heart Supports families impacted by and loss by connecting them to each other (through grief support) and to community resources in [facility]. Visit the website for contact information. [address], [place] [id number] [facility].MaxVision [place] Baljit This summer program is a free, week-long, overnight grief camp for children and teens who have experienced the of a parent, sibling, or primary caregiver. It s full of activities such as swimming, hiking, games and crafts, while having structured grief group counseling sessions with trained, licensed professionals. The camp takes place at [facility] karlee in [facility], operating under [employer] Brother Xolve of [facility]. Administration Office: [address] [place] [address] [facility] hospitalNixon Companions on a Journey Grief Support Open to anyone who grieves the of a loved one. Offers over 35 grief specific support groups assisting with every type of loss, including loss of a spouse, parent, sibling, child, infant (including miscarriage), friend and those whose loved ones who by suicide and murder. They also provide support through their newsletter, grief workshops, retreats and educational classes. [address] [place] [address] [facility].org [facility] Program: [facility] is a [facility]-accredited behavioral health agency, that offers comprehensive and multidisciplinary substance-abuse and behavioral health services. Substance use disorder services include: outpatient services, relapse prevention, case management and more. Their behavioral health services include: grief counseling, trauma intervention, stress management, school-based social work, case management and more. They also host a summer day camp for youth ages 5-15 years old. Eligibility: serves youth and adults Cost: contact the organization for cost information Referral: individuals may refer themselves or be referred by a physician or organization [place] Office: [address] [facility], [facility] B, [place] [id number] Po[facility]os [facility] Substance Abuse Rehabilitation Resources Mental Health is health..... Our emotional health can range from thriving to struggling. There are things that you can do to strengthen your mental health, for more details go to https://www.mentalhealthishealth .us/ and obtain resources for substance abuse, disaster relief, LGBTQ, teens and more. [place] Department of Health Alcohol and Drug Resources: https://www.[place].[facility]/public ealt/programs/Kdawxsh-ojh-Nhyf- Abuse/Rpttizw-wfe-Byii-Program/ https://www.FindLocalTreatment.c om/ Substance Use Navigator: Doctors ED: [phone] Additional Community Resources for substance use: Scan bar QR code to be linked with application for free Narcan Kit Addiction affects everyone Support groups for families and addicts INPATIENT CENTERS [facility] [address] [place] [address] [facility] [address] [place], [place] [id number] [place] [address]24 [place], [place] 6004125 [facility] [address] [place] [address] [address] (P) [phone] [facility] [address] [facility] [place], [place] [address] (P) [phone] WALK-IN CENTERS [facility] [address] [facility] [phone] http://[facility] o'bleness hospitalSuperBetter Labs/ [facility] Program [address] Walk-ins on Wednesday (1pm-2pm) [phone] [facility] Offer 22/03 assessments [facility] ([phone]) and [place] ([phone]) OUTPATIENT CENTERS [facility] (Several Locations) [address] [employer], [place] [address] (P) [phone] (Walk-ins welcomed) [facility] [address] [place] [address] [facility] for New Directions [address] [place] [address] [address] [place] [address] [facility] [address] [place] [address] [facility] [address] [facility] [address] [place] [address] (Walk-ins welcomed) [facility] [address] [place] [address] [facility] [address] [place] [address] [facility] Medical Services (Methadone Treatment) [address] [place], [place] [address] (D) [phone] [facility] (Methadone Treatment) [address] [place], [place] [address] (P) [phone] [facility] Suboxone/Methadone Clinics [facility] [address] [place] [address] [facility] [address] [place] [address] [facility] [address] [place] [address] [facility] Outpatient Addiction Medicine [address] [facility] [address], [place] [address] [facility] [address] [place] [address] [facility] [address] [place] [address] [facility] [place], [place] [address] [place] [address] [facility] [address] [place] [address] [facility] Treatment [place] [address] [place] [address] Opioid Treatment Options & Harm Reduction when Using Drugs We are ready and available 22/03 to help you with your substance use disorder (YOSELIN). If you chose to continue using drugs, then take these steps to reduce your harm. There are health risks associated with injection drug use, as well as other types of drug use. If you are using drugs, we want to make sure you know strategies to reduce drug related harms, and prevent things like skin and soft tissue infections, disease transmission, and overdose. The safest option for your physical health is to stop using drugs - if you're interested in treatment options, we have listed clinics at the bottom of this list. Feel free to call any of them for questions about treatment or to get started. 1. NEEDLE AND SYRINGE EXCHANGE Sharing needles increases your risk of diseases like HIV and Hepatitis. It is *very* important that you always use a new, sterile needle and syringe if you are going to inject drugs, even reusing your own can cause vein and tissue damage. 2. BE CLEAN & CAREFUL WHEN INJECTING! Always clean the area you are going to inject first with alcohol swabs or soap and water to prevent getting bacteria into your blood. You also want to be careful not to miss veins because this can lead to abscesses/infections and other complications. For details on how to inject more safely, search on YouTube for how to inject heroin and it will show you the safest ways. The National Harm Reduction Coalition (https://harmreduction.org) also has harm reduction strategies to reduce infections, take care of your veins and get the safest possible supplies. 3. IF YOU ARE USING ANY DRUGS, BUT ESPECIALLY OPIOIDS LIKE HEROIN OR FENTANYL, ALWAYS HAVE NALOXONE ( NARCAN ) WITH YOU IN CASE SOMEBODY OVERDOSES Naloxone is available free from several locations (https://www.[place].gov/public health/programs/Psuvkqs-rna-Rusb -Abuse/Wwdjaj-mh-Uivlwoor/), by mail (https://Jigsaw.MaxVision/[place]) or with a prescription from your doctor. You should *always* have Naloxone in your pocket since it can save somebody's life just by spraying it into the back of their nose after an overdose. Many drugs like methamphetamines or cocaine also contain fentanyl. So, it is best to always have Naloxone with you no matter what drug you are using. 4. WHEN IN DOUBT, YOU ALWAYS HAVE US HERE! We know drug use is complicated, scary, and has its ups and downs. If you get sick, overdose, are withdrawing from drugs, or have any other urgent concerns and need a safe place to go, you can *ALWAYS* come here!!! We are open 24 hours a day, 7 days a week, and 365 days of the year. We're here for you any time. [facility] Housing Resources: https://[facility].Slanissue/ Central Hotlines for Shelters & Crisis Housing Families and Single Adults: Victims of Domestic Violence: Youth: Street Card: [facility]/ [facility] ([facility]) Resource Lists These neighborhood resource lists are extremely helpful in finding resources in and around your neighborhood. They provide detailed listings of free and low cost health care, vision care, dental care, prescription help, food pantries, transportation, job help, transportation, resources and much more. They are updated frequently and reviewed by the [facility] social work team. www.[place].[facility]/publichealth/pr ograms/gmsefr-fsptpydkq-dhduo *[facility] Authority [address] [place] [address] Https://AMX/ *Coalition on Homelessness and Housing in [place] [address] General: Housing Information Line: *Coalition for the Homeless [address] [place] [address] *[employer] [place] [address] [place] [address] [phone] *norin.tv Housing [facility] for [place] and [facility] Simply type in your city, state and zip code to find a list of affordable homes and rentals in your neighborhood. Ritani *[facility] Senior Options Https://officeonaging.org/ *Homeless Families [facility] [address] [place] [id number] https://homelessfamiliesfoundati on.org/ *[employer]- single 1 bedroom occupancy & emergency family, men's & women's usp services available [phone] (women housing) [phone] (men housing) https://www.ywcacolumbus.org/patrick t-we-do/oxintyu-qfsvj-kt-need/yw wk-zoqjcj-ibsnnn/ [facility] Residences Helps low-income families, single persons and seniors find quality affordable housing throughout [place]. Also assists homeless and people with disabilities. Visit the website for additional contact and location information. (800) 388-215 Utility Resources: *[facility] Payment Assistance Customers who have received a disconnect notice or are unable to pay their electric bill can call the toll-free number to set up a payment extension or a discount plan. Customers who have special needs or medical conditions can request a medical certification form. *[facility] Is a multi-service omar-based agency that serves families and seniors in [place] and [facility]. [facility] helps working-poor families stabilize and become self-sufficient through case management, training, food and emergency assistance. They also offer supportive services and community-impact opportunities for low-income seniors. [place] [address] *[facility] Department Utilities Discount Programs Offers a utility discount for water and superintendent water and sewer systems charges for people with a low income. Seniors age 60 and older with limited income may qualify for a discount on electricity and/or water bills. Go online to complete the application offered in both Tu[place] and [place]. [address] [place] [address] *[facility] Payment & Billing Assistance Programs Offers several programs for customers with a low income, including extended payment plans, discounted programs and services for those with medical needs. Visit the website for more information about each program. Physical Address: [address] [place] [address] Payment Mailing Address: [facility] [address] [place] [address] *IMPACT Community Action [address] [place] [address] General: Emergency Assistance: AMP (Achieve More & [place]): or *[facility] ([facility]) Pride Centers & Neighborhood Social Workers Pride Centers are one-stop shops for city services, dedicated to protecting the health, safety and welfare of families living in the area. These centers house basic city services in one place, which include the Neighborhood Social Workers. Call first to make an appointment. Main [facility] Neighborhood Social Work Helpline God s Hygiene Help Center Provides free hygiene products and other items to individuals and families once every thirty days. Individuals must bring an ID. Visit the website for open hours. FREE LUNCH is served every Wednesday by the [facility] food truck [facility] [place] [address] https://www.[facility] centerpest [facility].org/frees [facility] Free Store Hours: Wednesday - Wednesday 10:00am - 1:00pm Wednesday 11:00am - 2:00pm 10:00am - 1:00pm Wednesday 12:00pm - 2:30pm Wednesday 10:00am - 1:00pm No appointments necessary. Walk-ins daily Hygiene Closets: Our hygiene closets are strategically placed within local service organizations that cater to the needs of their community members. These secure locations house pre-filled hygiene bags that are distributed to individuals in need on a monthly basis. The organization s client program manager selects which hygiene items are included in the bags, with some opting for a fixed set of products while others vary the contents each month. Our hygiene bags can be a personal care kit, a cleaning kit, or a combination of both. We work wbzs-bd-phjh with the managers to determine which hygiene products are included each month. To spread our message of God s love, we include a pamphlet and flier in every hygiene bag. Our hygiene closets require a secure location to store the bags, but they take up less space and require less time commitment from staff members. The bags are distributed by the organization s staff, ensuring that those in need receive the products they require in a timely manner. Hygiene Centers: a convenient solution for those in need of essential hygiene products. Our centers are located within a secure [facility], stocked with a diverse range of 20 different products. Once a month, individuals in the community [place] area can visit our hygiene center and fill out a client form to select up to 6 items they need. Our friendly [facility] center staff members will then fill a hygiene bag with the selected items and include a flier about [employer] and our message of sharing God s love. At our hygiene centers, we prioritize the safety and well-being of our clients. That s why we require a secure location to store our hygiene products and the dedicated time of our staff members to fulfill the clients requests. We believe that everyone deserves access to proper hygiene products, and our hygiene centers are here to help make that a reality. FOOD ASSISTANCE RESOURCES: https://www.findhelp.org/ https://sfk7zzjm.org/[place]/fo od/ Welcome to [place] Benefits *Use this site to manage or apply for healthcare, child welfare manager, food and walton benefits. Https://benefits.[place].gov/ Food Pantries https://www.foodpantries.org/ci/ [facility] On-Site Pantry *[address], [place] [address] *[address], [place] [address] Emulation and Verification Engineering For Eayun [facility] [address] [place] [address] [facility] Food Pantry [address] [place] [address] Food Distribution Center - [facility] pantry [address] [place] [address] The [employer] [address] [place] [address] [facility] Food Pantry [address] [place] [address] Outing Food Pantry [address] [place] [address] [facility] Food Pantry [address] [place] [address] [facility] Food Pantry [address] [place] [address] [place] Food Pantry [address] [place] [address] [facility] Food Pantry [address] [place] [address] [facility] [address], [place] [address] [facility] Food Pantry [address] [place] [address] The following are meal delivery services: -Meals on Wheels [phone] -COAAA (14 meals to 60 and older) [phone] -Senior Options [phone] -JOIN [phone] (appointment only) -Global Meals [phone] -Simply EZ Home Delivered Meals [phone] Request walton, medical or food assistance: https://jfs.[place].gov/ocomm/apply forbenefits.stm Locate your local food bank based on county: Https://Movile.org/foodba nks/ Supplemental Nutrition Assistance Program (SNAP) The Supplemental Nutrition Assistance Program (SNAP, formerly called food stamps) can provide funds to help you purchase groceries for yourself and your household. SNAP funds are loaded onto an Electronic Benefits Transfer (EBT) card, which works a lot like a debit card. SNAP can help you stretch your food purchasing and household budgets further, giving you more money to buy fruits, vegetables, dairy, protein, dry goods, and other grocery lit at your local food retailers. To see if you qualify please visit: https://ssp.benefits.[place].gov/ap spssp/indexOHLanding.jsp or call [phone] Prescription/Medication Assistance Help Go to RxAssist.org, a non-profit organization that maintains a comprehensive directory of drug assistance programs. You can type in the name of the drug you are taking and it will give you all information on any drug assistance programs, as well as a link to applications. Other helpful websites include: www.staterTraansmissionplans.us/[place].html Mat.org GoodRx.com Needymeds.org Familywize.org Rxhope.com ValSubimage.InstallMonetizer (also available as a phone hilton) [facility] By appointment only Call [phone] [place] [address] http://www.[facility].or raffi PIRES OF THE [facility] [address] [place] [address] *[facility] Department: or [phone] www.[facility].[place].[facility] *[facility]: [phone] *CrowdMed $4 list (you do not have to have a membership to fill here): https://The Community Foundation.org/download/all_fil es_&_forms/employee_resources/rx _information/Rx%20Walmart.pdf *[employer] $4 list: https://www.Adwo Media Holdings/cp/4-pre scriptions/7799983 *Target $4/$10 list: https://tgtfiles.BoosterMedia/kev barros/TQVH74-500087_ZdZlmvamccTgb t_NM10.pdf TRANSPORTATION [facility] Transportation Services Members who have Medicaid or Medicare through [facility] who have an appointment that is over 30 miles away can call Member Services to schedule a free ride to health appointments. If traveling less than 30 miles from your home, you can get transportation for certain services through the local psychiatric hospital department of job and family services ([facility]) Non-Emergency Transportation (NET) program Members can call directly 48 hours (two business days) in advance at or (TTY ) to schedule transportation. [employer]oia [employer]/member/ eng/benefits/transportation.aspx Service County Directory: [facility] shanthi.[facility] Transportation Services Orchards Blue Cross and Blue Shield members can receive free rides to and from their doctor's office, pharmacy, and other providers of covered services. Call Door [employer] toll-free at a minimum of two full business days (48 hours) prior to your scheduled routine appointment. For an urgent/same day appointment or facility discharge, members may call the [employer] toll-free reservation line at , 24 hours a day, seven days a week. Punpjr3Ddcn will try to find a ride for the member. Welcome Funds/ms/medicaid/benefits/ transportation Bikes for All People (B4AP) Provides affordable access to bicycles and cycling-related resources to those who rely on bikes as their sole means of transportation. They offer new and pre-owned bikes, parts, tools and cycling gear, free maintenance classes, an open repair shop and group rides. They also accept donations. [address] [place] [address] Night Up [facility] Transportation Provides round trip coverage for covered services 30+ miles away. In addition, [facility] offers up to 15 round-trip visits (30 one-way trips) per member per 12-month period to covered healthcare/dental appointments, WIC appointments, food palomino, food pantries, food clinics, and grocery stores, and re-determination appointments with your [facility] Job & Family Services research nutritionist. Members can call directly 48 hours (two business days) in advance at or TDD/TTY to schedule transportation. Members with questions or problems with transportation services may call [facility] Member Services at or TDD/TTY. Remember The Member.InstallMonetizer/members/mn dicaid/benefits-services/benefit q-stvxukt-jjvskampc.htmlJob & Family Service [facility] Directory: [facility].[place].[facility].stm Care[facility] Psychiatric Hospit[facility] Insurance Transportation Children and adults in [facility] who have Medicaid or Medicare through [facility] or if the health appointment is over 30 miles away can call Member Services to schedule a free ride to health appointments (including WIC appointments), food palomino, food pantries, food clinics, and grocery stores. Member Services: or TTY or 711 24-Hour Nurse Advice Line: or TTY or 718 24-Hour Behavioral Health Crisis Line: or TTY or 711 FairShare/oh/members/contac t-us/mycare [facility] Transit Air Ion Devices Offers a shared-ride service for people with disabilities, and rides must be scheduled in advance. This handicapped and wheelchair accessible van can provide iwtp-ek-mmpw service for eligible customers. Customers must complete the online application and have it signed by a physician to get the [employer] ADA card. [employer] Pass Sales Office [address] [place] [address] or TTY [employer] Mobility Services Facility [address] [place] [address] Yostro Mobility Services: Yostro/services/mosley-mainstrea m Discount Fairs: Yostro/riding-mosley/discount-fa res [facility] ([facility]) Pride Centers & Neighborhood Social Workers Pride Centers are one-stop shops for city services, dedicated to protecting the health, safety and welfare of families living in the area. These centers house basic city services in one place, which include the Neighborhood Social Workers. Call first to make an appointment. Main [facility] Neighborhood Social Work Helpline [facility] Department of Job & Family Services ([facility]) Transportation Services Transportation services are provided for non-emergency medical appointments for children and adults with Medicaid. Families may use the transportation services multiple times once they are approved. [address] [address] Transportation Unit: [facility]/medic wa-jiinihs-pfygmjbw Free Ubookoo Provides free donated vehicles to struggling families to assist them in their transition from dependency to self-sufficiency. Mumboe operates the largest free non-profit car-donation / distribution program in the nation and has awarded over 9000 free vehicles nationwide. For more information, visit their website. WebRadar.MusicXray Transportation Services Telerik PrestoBox members get 30 one-way (15 round) trips each calendar year. No approval needed. Rides are available for doctor appointments, job interviews, food palomino, grocery stores, Women Infants and Children (WIC) appointments and more. Call Yyyxmh3Vixl at (TTY: ) a minimum of two full business days (48 hours) prior to your scheduled routine appointment. Hatsize/medicaid/[place]/coverag e/transportation [facility] A non-profit ame, dedicated to providing non-emergency, long-distance ground transportation to financially disadvantaged, ambulatory patients who are traveling for treatment. They use the following resources for assisting patients: gas cards, bus, train and airline tickets. Trips within a local area or community is typically not handled, but exceptions are made on a nviw-yo-hcmh basis. Visit the website for contact information. [address] [place] [address] [facility] Regional Planning Commission ([facility]) Offers information and local resources about local biking events and trails, bicycle safety, promotes bicycling in [facility]. They also provide a [facility] Home Repair program low- and moderate-income homeowners, home energy efficiency and safety services at no cost to income-eligible homeowners and renters, and information on air quality. [address] [place], [place] [id number] or TTY Home Repair: Free Home Energy Efficiency & Safety Services: [facility].org Dent Transportation Services For Dent members they can call the number below to schedule a free ride. Hyperformix offers emergency medical transportation, non-emergency medical transport and non-emergency non-medical transportation; food palomino, food pantries, food clinics, and grocery stores. Patients who are in wheelchairs may have unlimited transportation to and from medical appointments each year. [place], [place] [address] Call to arrange transportation or if you have questions: or TTY/[place] Relay or 711 Member Services: or TTY/[place] Relay or 714 Stem.InstallMonetizer/members/[place]/ en-US/mem/medicaid/overvw/coverd /services/Pages/transport.aspx Private Companies that Transport Children with Wheelchairs & Special Needs Critical Care Transport [address] [place] [address] criticalascension providence hospitalport.[facility] Note: DEU9Cflr does not recommend or endorse any specific company. We encourage families to carefully review and evaluate all services. Hhaun6Plrq Provides medical transportation assistance to moms. To see if you qualify, call StepOne at . [facility]/healthy-co mmunity/tvvnt2kkgl [place].[facility]/celebrate-one/Rides 4Baby [facility] Transportation [place] Medicaid plan covers eligible families, women of any age, infants, children and young adults. The plan also offers extra support and care to adults and children with a disability, long-term illness or special health care needs. They pay for up to 30 one-way (15 round trip rides) to medical visits or the pharmacy, as well as food palomino, food pantries, food clinics, and grocery stores. or 072 TT Pharmacopeia.InstallMonetizer/[place]/medicaid /community-plan Housing / Shelters / Utilities Central Hotlines for Shelters & Crisis Housing Families and Single Adults: Victims of Domestic Violence: Youth: Street Card: [facility].org/ AEP [place] & uVore Neighbor to Neighbor Program Provides help for electric bills to people with a low income who have tried all other resources (HEAP and PIPP). To qualify, households must have disconnected electric service and must have made a sincere effort to pay their electric bill in the last 90 days. Go online to use their income calculator to find out whether you qualify. Click to find an agency in your area that will help you with the application process. Tenrox AEP [place]: Turnip Truck II/info/community/payme ntAssistancePrograms/Earnest montero.aspx [facility] Payment Assistance Customers who have received a disconnect notice or are unable to pay their electric bill can call the toll-free number to set up a payment extension or a discount plan. Customers who have special needs or medical conditions can request a medical certification form. Turnip Truck II/save/residential/pay ments Affordable Housing Online Simply type in your city, state and zip code to find a list of affordable homes and rentals in your neighborhood. Health Access Solutions Offers supportive services to men, women, young adults, children and families through their reentry, behavior health and developmental disabilities programs. Community Reentry Services: Helps people who are transitioning from the corrections system back into the community. Services include: cognitive-behavioral treatment at their residential reentry center, alcohol and drug addiction treatment, workforce development, case management, mentoring, housing assistance and links to community services and support. Behavioral Health Services: Donna offers a range of services to women and their families. Recovery Choices is a substance abuse treatment program. Developmental Disabilities Program: Services include residential care, behavioral intervention, vocational/job readiness skills training and supported living. [address] [id number] lcmix393.org TouristEye Offers support programs for veterans and their family, such as temporary financial assistance, a walton marcelina to support minor children of veterans who are eligible for Andorran Aspectiva membership. They also offer youth programming, award college scholarships, and list discounts and services and places to find counseling and mental health support. National Headquarters: [address] [address] Greenbird Integration Technology.org Contact Information: legion.org/contact Apprishernando Financial Counseling Offers counseling, education and advice on housing issues to new and existing homeowners including dealing with rental issues, preventing foreclosure, and bankruptcy counseling. 690 [facility] [address] [id number] or UNATION Association for the Developmentally Disabled (ADD) & Caitlin [facility] Services Provides residential, recreational, respite/home care and work training services to children and adults with intellectual and developmental disabilities. [address] [place], [place] [address]court [place], [place] [id number] [facility] Breathing Association Offers chronic obstructive pulmonary disease (COPD) supportive services, asthma management for children and adults, a free Lung Health Clinic (including smoking cessation classes for groups and individuals) and Mobile Medical Unit. They also help with winter heating and summer cooling programs through HEAP, electric bill assistance and window air conditioners to those without central air for households who are medically needy. [address] [place], [place] [address] [facility] Bridges [facility] Provides guidance and supportive services to young adults who left foster care in [place] at ages 18, 19 or 20 as they transition to adulthood. They offer services in housing, education, employment and help youth with getting health insurance, finding a doctor or improving physical or mental health in any way. [place] Counties: [place], [place], [place], [place], [place], [facility], [place], [place], [place], [place], [place], [place], [place], [facility], [place], [place], [facility] Region Counties: [place], [place], [place], [place], Carmela, Vini, Andrei, Malika, Tarun, [place], Jose Angel, Adiel, Jose Alberto, Leyda, Frank, Jered, Brooke, [facility].[place].gov [facility] Offers multiple programs in [place] individuals, youth and families in zip codes [address], [address], [address], [address], and [address]. Their [facility] Food Pantry helps families in need to have healthy meals; COMPASS provides limited rent and utility assistance; their drg-dl-auezzf and summer programs provide academic enrichment services for K-12 youth. [address] [place] [address] [facility].org/ministries Leila Mcmanus Provides family-focused mental health treatment and services for behavioral, emotional and substance-abuse disorders to children and families. Programs: in-home treatment, intensive and non-intensive residential treatment, family and outpatient counseling, foster care services, transitional living services, case management, alternative education day treatment, Permanent Family Solutions Network Eligibility: ages vary per program Cost: Fees range depending on the type of care needed, some service costs are offset by Medicaid, or the client's local Alcohol, Drug, and Mental Health Board Referral: For in-home and office-based services, individuals may refer themselves or be referred by their doctor. For residential services, referrals must come from the courts, the psychiatric hospital or another referring agency. [facility] [address] [address] Offerings: Same Day Access, Permanent Family Solutions Network (PFSN), Foster Care, Bridges, Clinical community Based Programs, Outpatient, Medication Management [address] [place] [address] Offerings: Residential programs, Outpatient counseling, and Training [facility] ([place]) [address] [place] [address] Offerings: Same Day Access, The [employer] at [facility], Outpatient Counseling, Home-Based Services, and Multisystemic Therapy Team (MST) [facility] [address] [place] [address] Offerings: Transitional Living Facility [address], [place], [place] [address] Intake/Referral: [facility] Provides a variety of social service programs to residents living in the [employer]. Some of the programs available are a community food pantry, emergency assistance, holiday assistance, senior transportation and more. [address] [place] [address] [facility] Chainstitch Felled Seam Operator Is a multi-service o[place]-based agency that serves families and seniors in [place] and [facility]. [facility] Chainstitch Felled Seam Operator helps working-poor families stabilize and become self-sufficient through case management, training, food and emergency assistance. They also offer supportive services and community-impact opportunities for low-income seniors. [place] [address] [place], [place] [id number] [facility] Brunson [address] [place], [place] 7[address] [place] [address] [place] [address] [id number] Toutle Physical Address: [address] [place] [address] Mailing Address: [address], [place], [place] [address] [facility] [address] [place] [address] TerraWi.MaxVision [facility] Human Needs ([employer] [place]T) Connects people in need in the [facility] district with community resources. Services include summer lunches, school supply distribution, walton assistance (rent, utilities, prescription, etc.), distribution of household items, hcowg-o-ahrsgc and more. [address], [place], [place] [address] Scintera Networks.com/SPECIAL CARE HOSPITALN [facility].org [facility] Usp & Services Serves: Single Adults & Families Provides free, confidential emergency usp and supportive services, including support groups and therapeutic groups, to community members in [facility] who are victims of a domestic violence situation and need help. A free, confidential 24-hour crisis line is available for those who may have questions or concerns about domestic violence and for those who are in search of a safe home. [address] [place], [place] [address] [facility]/mreeke-jcj-rxgIndiana [facility] A neighborhood-based community center that serves the near east and near south neighborhoods of [employer], [place]. They offer soft skills training, employment assistance, financial education training and emergency housing programs to help access rent or mortgage assistance, food nutrition programs, utility services, health care, parenting workshops and more. Additionally they offer tunnel heading inspector programs, summer programs, and child welfare manager for ages six-weeks through fxqd-dgqzk-oke. [address] [place], [place] [address] bluff[place] hospitalBluetrain.io.MaxVision [facility] ([facility]) A nonprofit organization that creates and preserves affordable housing in the [employer], [place] area. Find home listings on their website. KaraokeSmart.co is a subsidiary of [facility]. [address] [place], [place] [id number] Hiveoo.MaxVision [facility]: ADVENTRX Pharmaceuticals [facility] Code Enforcement Division Provides inspection and enforcement for rental housing when landlords do not fix problems. Enforces housing codes such as maintenance and safety issues (leaks, plumbing, broken fixtures and appliances, pest problems, leaking roof, gutters and downspouts, chipping and peeling paint, flood, etc.), high grass and weeds, trash, and vacant structures. To address a problem, call the [facility] Service Center or enter a complaint online at their website. 311.[facility]/development/Code-En forcement [facility] Department Utilities Discount Programs Offers a utility discount for water and superintendent water and sewer systems charges for people with a low income. Seniors age 60 and older with limited income may qualify for a discount on electricity and/or water bills. Go online to complete the application offered in both Tuvaluan and Ken[place]. [address] [place] [address] [facility]/utilities/customers /Rsmytcs-Sztnmhwr-Iemdfubl [facility] Housing Division / Homeowner Assistance Programs Provides assistance to residents on issues such as unsafe buildings, unsanitary conditions, carbon monoxide inspections, high weeds, sourcing manager refusal to make repairs and animal maintenance. Their homeowner assistance program include: down payment assistance, acquisition and relocation due to a federally funded projects, roof replacement, deaf modification, and other programs assisting individuals and families to remain in their homes and live independently in a safe and sound environment. [address] [place] [address] [facility]/development/Housing -Division [facility]/development/housing -division/Homeowner-Assistance Coalition on Homelessness & Housing in [place] (COHCOO) Supports [place] residents and organizations seeking guidance on landlord-tenant law and the Fair Housing Act. If you need free legal advice on how to deal with a specific issue, email them or call them using the Housing Information Line. [address] [place] [address] General: Housing Information Line: [employer] [facility] Payment & Billing Assistance Programs Offers several programs for customers with a low income, including extended payment plans, discounted programs and services for those with medical needs. Visit the website for more information about each program. Physical Address: [address] [place] [address] Payment Mailing Address: [address], [place], [place] [address] Sekai Lab/zwjjq-pem-qk yments/financial-support Services ([facility]) Offers a wide variety of individualized programs and services designed to promote self-advocacy, increase independence, and enhance the lives of individuals living with developmental and intellectual disabilities. Some services include transportation, housing, job training, art, in-home support and more. [address] [place] [address] madison medical centerISH.MaxVision [place] Coalition for the Homeless ([facility]) Advocates services for those experiencing homelessness, educates the [facility] community about homelessness, and actively works to reduce hate crimes. They also provide homeless persons with a Street Card , that lists information on most needed services in [facility] for which they may be eligible. [address] [id number] Emergency Usp: mid-valley hospitalAccurence.org Street Card: UCloud Information Technology.org/?page_id=43 #page-content [facility] A omar-based organization that serves low-income, homeless, and under-served individuals and families. They provide free, routine outpatient health and wellness services through the [facility] General Manager, hot meals and pre-packed lunches for kids, after school programs, holiday help, and adwl-nx-crbvho supply giveaways. They also have shower and laundry times throughout the week and other supportive services for homeless people. Visit the website for contact information. [address] [place] [address] columbusdreamcenter.org Scintera Networks.com/cbusdreamcenter [facility] ([facility]) Provides low-income and Section 8 housing and helps people access decent, safe and affordable housing. They can help Section 8 families become homeowners and become economically independent of housing assistance. They also offer care coordination services, homeownership and self-sufficiency programs for residents. [address] [address] AMX Additional Contact Information: AMX/Home/Contact [facility] ([facility]) Healthy Homes Program Provides assistance and advice on creating a safe home environment. This program is for eligible residents in [place] and [place]. Services include: Phone consultations Mandatory lead inspections for homes with lead poisoned children Free HEPA vacuum loan for lead hazard clean-up Community presentations and displays of healthy home educational information at fairs and special events Referrals to services for landlords, tenants, and homeowners [address] [place], [place] [id number] [place].[facility]/publichealth/progra ms/healthy-homes [facility] Provides affordable housing and childcare to student parents. Qualified participants attend an accredited college or university full-time while residing in the [facility]. The student parents receive supportive services through the [employer] ACCESS Collaborative program to help them stay in school and maintain their grades while also providing for the needs of their children. [facility] ([facility]) Management [address] [place] [address] or TT cpoimpact.org/scholarhouse.aspx [facility] (CUL) A community?based, non?profit, advocacy organization that works to empower Americans and marginalized groups through economic, educational and social progress with programs, classes and services. Visit the website to learn more about the different programs that fall under these six categories: Restoring Citizens - Reentry support Keeping My Home - Homebuyer education and landlord-tenant mediation Growing Our Kids - Head Start, mentoring, after-school, and summer programs that offer paid work Money Management & Mortgages - Financial and credit score help Jobs & Training - My Brother's Closet and job training Business Assistance Center - Empowering small and minority business [address] [place], [place] [address] cul.org Community Development for All People (CD4AP) & All People's Fresh Market This omar-based organization provides free produce, clothing and household items to families in need, affordable housing on the [place], youth development, nutrition education and more. They also have two Fresh Market locations, which have free fresh food 5 days a week. Go online to find out more information about different programs. Physical Address: [address] [place] [address] Mailing Address: [address], [place] [address] All People's Fresh Market Address: [address] [place] [address] OWM Market Address: [address] [place] [address] Main Free Store Coolerado.MaxVision Community Housing Network (CHN) Provides housing assistance to people experiencing homelessness, mental illness, addiction, and other trauma related issues. [facility] collaborates with a network of partners to offer residents access to services like service coordination with case management, crisis intervention, healthcare, counseling, food access, employment training, benefit assistance and more. [address] [address] [facility].org Community Mediation Services ([facility]) of [facility] Offers an alternative to the court system by providing an impartial cap blocker who helps work out conflicts. They provide problem-solving services for domestic and family issues, divorce, neighborhood conflicts, tenant-landlord disputes to prevent eviction, workplace issues and consumer rights disputes. Services are offered on a sliding fee scale. [address] [id number] Kiwi [facility] ([facility]) Provides Section 8 and low-income affordable housing in [place] and other [facility] throughout [place]. [address] [address] Main Office: 24-Hour Maintenance Hotline: Safety TipLine (to anonymously report suspicious or criminal activity on or near a [facility] property): Resident Services (for referrals for eviction prevention, childhood initiatives, basic needs and more): [facility] [facility].org Community Usp Board (CSB) Provides information on usp beds during winter weather, warming stations, and services to people living on the streets, in public rasmussen, under bridges, in vehicles and abandoned buildings ([facility] Outreach). [address], [place], [place] [address] Homeless Hotline, 24-hour line: [facility] Outreach, 24-hour line: csb.org/Get-Help Consumer Financial Protection Young (CFPB) Offers financial education tools for kids and adults, answers common questions, and provides tips that help consumers navigate their financial choices. Topics that are covered include loans, fraud and scams, savings, paying for college and more. or TTY/TTD Ask CFPB: Healthpoint Services Global.gov/ask-cfpb Free Bulk Publications: angela.Combinature Biopharmo.gov/CFPBPubs/CFPBPubs .php Healthpoint Services Global.gov Creative Housing Provides accessible and affordable housing for people with disabilities in the [facility]. People served by the [facility] Board of Developmental Disabilities should contact their patient services representative regarding housing waiting list information. Also, they provide accessible renovation and construction services through their program Aquantia. [facility] [place], [place] [address] BPA Solutions.MaxVision Disaster Assistance Improvement Program (DAIP) Provides disaster survivors with information, support, services, and a means to access and apply for disaster assistance. The site also provides resources to help you learn how to prepare for, respond to, and recover from disasters. [facility] Disaster Assistance Helpline: (also for 711 & VRS) or TT disasterassistance.gov Do More [facility] Offers financial assistance for families who need financial help due to a medically needy child. Includes help with utility/rent bills, meal expenses while at the hospital, gas expenses for travel to and from hospital or doctor visits, non-covered medical expenses, non-covered supplies that would aid the child in their treatment and expenses related to the of a child. Complete an online application to apply for assistance. Visit the website for additional contact information. [address] Julianna 1981, [place], [place] [address] thereynolds county general memorial hospitaloreundation.org [facility] A licensed foster care agency serving youth with developmental disabilities. They offer several services including foster care, in-home services, residential services, respite care and developmental services. They support children and adults living in [facility]. [address] [place], [place] [id number] or Toll-free [employer] International/[facility]/[place] ECHO Residential Support Provides support to individuals so that they may live where they want and with whomever they choose. ECHO helps in a variety of ways including housekeeping, money management, finding housing, transportation, and serves as a friendly face to support and encourage people with developmental disabilities to make their own decisions. [address] [facility], [address], [place], [place] [id number] [employer]ux[employer] Energy Saving Ideas Click here for energy saving ideas from [facility]. Click here for low/no cost energy saving tips from [facility]. EveryoneOn Find low-cost Internet, affordable computers and/or free digital literacy training courses in your area. [address] [place] [address], [place] everyoneon.org [facility] Department of Job & Family Services (S) Provides information about food assistance ([place] Direction Card / EBT), [place] assistance, medical assistance (like Medicaid), job training, emergency assistance (PRC), help with paying for child welfare manager and more. Each center serves certain zip codes. People outside of [facility] should visit their local psychiatric hospital Department of Job and Family Services. Refugees and immigrants can apply for services as well. [facility] [address] [place], [place] [address] [facility] [address] [place], [place] [address] [facility] [address] [place], [place] [address] Call to apply for SNAP/OWF [place] assistance/Medicaid benefits Boilermaker Helper: Medical Transportation: Workforce Development: jfs.[facility] Self-Service [place] Benefits Portal: benefits.[place].gov [facility] Law Library Is a psychiatric hospital law library that offers free legal clinic, legal research guides, legal forms and self-help legal resources for the public. [address] [facility][Note 2], 10th floor, [place] [id number] lawlibrary.birminghamYoulicituntRESAAS.go v [place] Bar Welder Portal: [place]legalhelp.MaxVision [facility] ([facility]) Offers many services and resources, some of them include: / certificates Plumbing inspections Low cost healthcare and immunization clinics Community training on naloxone and opioid overdoses Lead inspection Free home radon test kits [address] [place], [place] [address] or TTY/TDD Weekend, Holiday and After Hours Emergency Hotline: [facility] In Need (GRIN) A community wide, [place]-based organization committed to helping the residents of the [facility] in a time of need with a hand-up . They help provide food through their food pantry (by appointment), diapers, utility assistance, school supplies, holiday gifts and meals, and summer lunches. Physical Address: [address] [place] [address] Mailing Address: [address], [place] [phone] [address] ([facility]) A omar-based organization that provides opportunities and offer supportive services for youth and families living in the [facility]. Some of their initiatives have included annual school supply giveaways, financial literacy and credit christianity classes, and help with house maintenance and getting affordable housing. [address] [phone] [employer] [facility] Is a settlement house located in [place] on the near west side of [place], [place]. They provide emergency financial assistance (e.g., rent, utilities, prescriptions, and other critical needs), offers access to a mobile medical unit access from The Bre[employer], and case management services. Provides emergency food assistance to households living within the service area (zip codes [address], [address], and [address]). Other services available at the pantry: home delivery to people with disabilities, and diapers are available. They also provide educational services such as preschool, after-school, summer day camp and team sport programming. [address] [phone] middlesex county hospitalChequed.com, Inc.[facility] Offers employment and job training programs, social and education programs for people with developmental disabilities and other barriers to employment. They also offer supportive living, art, health and wellness programs, and a variety of activities in community settings including volunteering, recreation and leisure, and community awareness. At their [facility] Stores are thrift clothing, furniture, vehicles, art and more. Visit the website or call for center and store locations in [facility]. [address] [phone] or [facility] Health Shands Hospitalrelocality.Night Up [facility] Curran affordable homes to people with a low income who are first-time homebuyers. Participants must go through a screening process and demonstrate their ability to repay a mortgage and help build their home. They also offer a low cost home repair program to current homeowners in [facility]. [address] [phone] Home Repair Program: Zuki.MaxVision [facility] ReStore A discount home improvement store open to the public. Shop or donate gently used furniture, home accessories, building materials and appliances. The money they make goes to [facility]. Visit the website for store hours. [address] [place], [place] [address] [address] [place], [place] [address] [address] [place], [place] [phone] [employer] LLC/restore Twyla [place] Serves: Single Adult Women & Families A omar-based group of community houses serving those in the inner city of [place], [place]. Their program Girls With Attitude celebrate, empower, and mentor women of all ages via community outreach, study groups, and celebrations. [address] [id number] Grama Vidiyal [employer] Finance.InstallMonetizer/Leona Healthy Homes Healthy Homes is one portion of the Healthy Neighborhoods, Healthy Families initiative (HNHF) started by [facility]'s [facility]. The goal is to address vacant and abandoned properties in the [address], [address] and [address] zip codes on the [place], in order to provide safe and healthy homes for individuals to live in. Programs include home lease buyer assistance, education, housing rehabilitation and marcelina home repair for existing homeowners. Mailing Address: [address]ine [address], [place] [address] [facility].MaxVision [place] Food Pantry Provides eligible individuals with canned and boxed food, bread, produce, and personal care items, as well as utility assistance. These services are offered to residents who live in the [facility]. [address] [place], [place] [id number] [facility] Homeless Families Foundation (HFF) Serves: Families Serves children and their families living in poverty, helping them to get housing and resources, while providing educational after-school/summer programming and support for kids grades K-8. They also host Supporting Partnerships to Assure Ready Kids (SPARK) a program for three and khtb-bkma-pwp children, not enrolled in Pre-K, who will soon enter Kindergarten. [address] [id number] Homeless & Emergency Usp: homelessfamiliesfoundation.org Homeownership Preservation Foundation (HPF): Foreclosure & Financial Counseling Hotline For people who may be in danger of facing foreclosure, they offer free and confidential assistance from a financial counselor. The financial counselor helps review your ability to afford a mortgage now or plan for one later, how to sustain it, as well as get help with navigating the homebuying process. [facility]-certified counselors can work with individuals to find a solution and set up a plan of action. [address] [place] [address] [place] [address].[facility] Homeport Provides a list of low-cost rental properties and homes, offers money management help for people who have fallen behind on mortgage payments, and offers homebuyer education, credit and budget counseling for a minimal fee. They can also help people buy a home and assist with down payments. [address] [place], [place] [address] Find Housing: homeportliving.org Education: homeportlearning.org homeportohio.org [employer] on [facility] Up My Game [facility] ([facility]) Provides affordable redeveloped housing on the evening [place]ide of [place], [place]. They also offer renter and homebuyer education programs, one-on-one budget, credit and financial counseling sessions, and can provide down payment assistance and mortgage counseling to prevent foreclosure. [address] [place], [place] [phone] [facility].org Tahira Quijano Serves: Youth & Teens Works with [facility]'s youth ages 12 to 24 and families who are dealing with issues like abuse, violence, neglect, poverty, and homelessness. Programs include: Crisis Usp - Provides emergency usp and crisis intervention for youth ages 12 to 17. Transitional Living Program - Assists youth ages 17 to 21 with independent living skills, mental health support and securing living arrangements. Teens meet with counselors for free and confidential support. Family Support Program - Counseling services are available to youth ages 12 to 22 and their families. Youth Outreach Program (YOP) & YOP Shop - Meet with youth ages 12 to 24, anywhere, to help connect or make aware of support that's available in the community to help you with housing, education, employment, and other needs. YOP Shop is the location where that assistance can occur. [address] [place], [place] [address] YOP Shop: [address] [place] [phone] 24-Hour Crisis Hotline: st. rita's hospitalSecureMedia HUD (Housing & Urban Development) Resource Supervisor Specialty Plant Lists [facility] rentals and homes online throughout [place]. The [facility] office in [place] services [address] [facility] in [place] and [facility]. The [facility] website provides useful information on avoiding foreclosure, home improvements, buying homes, housing discrimination and more. [place] Field Office ([facility]) [address] [facility], 7th Floor, [place] [phone] resources.[facility].gov [facility] in [place]: [facility].gov/[facility]/[place] [facility] Community Action Provides income-based case management services, emergency assistance services, financial services, computer literacy and workforce development programs. Most of the programs are for [facility] residents living at or below 125% of the Federal Poverty Level. Visit the website or call for more information. Emergency assistance services: household items, burial support, rent/mortgage, transportation, water and energy (HEAP) assistance, food giveaways during the summer Empowerment services: computer classes, financial services, re-entry program, programs for foster youth and youth, ages 14-24 not enrolled in school and are not employed (AMP program), workforce development/employment, vocational training and certification, mobile medical unit in partnership with the Breathing Association Energy assistance services: free home repairs through their Home Weatherization Assistance Program (HWAP) and energy efficient lighting and refrigerator/freezer replacement through their AEP Program [address] [place] [address] General: Emergency Assistance: AMP (Achieve More & [place]): or impactSellrBuyr Free Classifieds India.org AMP website: jfs.ummc holmes countyo.gov/amp Joint Organization for [facility] Needs (JOIN) Provides limited financial assistance for water and gas/fuel for low-income people whose utilities have been shut-off or have a shut-off notice. Also, they offer toiletries, cleaning supplies, disposable diapers, one time certificates and monetary contributions. Makes referrals to community agencies who assist in the prevention of repeat crises. [address] [place], [place] [address] [facility] Resource Center Serves those who are homeless and have a substance use disorder by offering services and resources (like mentoring, food, clothing, documentation/ID assistance, laundry and shower services, a cooling and heating station, and more) and making referrals to other community service providers. Visit the website to see all the services and resources they provide. [address] [place], [place] [address] [facility].MaxVision [facility] Foundation Youth Brunson Supports youth ages who identify as LGBTQ+. They offer a range of programs and activities, including discussion groups, a housing program, social activities and leadership training. [address] [place], [place], [address] Envia Lá.MaxVision Bar Welder Society of [place] (LAS) Provides free civil legal assistance and guidance to low income residents and senior citizens of [place] and [facility]. Bar Welder attorneys may be able to help you with the following types of cases or legal problems: consumer law, family law, housing, foreclosure, public benefits, reentry, seniors, tax, veterans, education and Brief Advice clinics. [place] Office: (serves [facility]) [address] [place], [place] [address] Intake: or Toll-free General Inquiries: or Toll-free [place] Office: (serves [facility] [address] [facility]) [address] [place] [address] [phone] or Toll-free community hospital.org [facility] ([facility]) A one-stop shop for housing resources in [facility]. They assist low-income people and anyone needing to find more affordable housing, or those who are at risk of utility disconnection. They also offer financial coaching, personal finance classes and foreclosure prevention services. Physical Address: [address] [place] [address], [address], [place] [address] Mailing Address: Julianna [address] [place] [address] Toll-free or lcchousing.org Long-Term Care Homes [facility] Caitlin Lawrence [address] [place], [place] [address] [facility] center[facility]bay[facility] noble hospital.[facility] Aristocrat [place] [address] [place], [place] [address] AutoRef.comcreedmoor psychiatric center.InstallMonetizer [facility] [address] [place], [place] [address] edmonson.[facility] Filling Home [address] [place] [address] [phone] fillinghome.[facility] [address] [phone] [facility] [address] [place] [address] progenyfamilytrainingcenter.org [facility] [address] [address] [address] [facility] FullContact [facility] ([facility]) A omar-based organization that serves individuals, families and [facility] members. They offer transitional housing for previously incarcerated women, low-income families and individuals, and females with substance use disorders. They also provide free meals, finance, employment, education, life coaching, hair and beauty salon services, as well as host a summer day camp, offer homework help and mentoring for at-risk youth ages 7-[address]. [address] [place], [place] [phone] Recovery Program: Ensemble Discoverymercy[facility].MaxVision [address] [place] [address] FullContact [facility] Hospitalon: Tripvistofoundations behavioral health.InstallMonetizer [address] (formerly known as [facility]) This comprehensive information and referral service connects those in need with thousands of social service, government and community resources. They help find a solution to any need. Free and confidential, available throughout [facility] 24 hours a day, 7 days a week. Information Referral: or Homeless Hotline: Foodline: or text Food to [facility].Microsonic Systemsfriendsville.MaxVision/211centralo paulao Rastafarian Chainstitch Felled Seam Operator (LSS) Serves: Single Adults & Families Offers services to provide for the basic needs of all people, including usp, affordable housing for seniors, food, health care, case management, services; support for women, men and their children escaping intimate partner violence (CHOICES), transitional job training and more. They provide services in multiple [facility] in [place]. Visit the website for detailed information about each program, location and contact information. [address], [address], [place] [address] 24-hour crisis line (Domestic Violence): [facility].MaxVision Pantry Locations: CrowdTorch/foodpantrie s/services/pantry-locations List of [facility] Locations: ITCdelta community medical centerFuturederm.MaxVision/contact-us/ locations Making Home Affordable Offers no-cost, HUD-approved housing counseling on foreclosure prevention, budgeting, refinancing, mortgage assistance, avoiding scams and more. Services are offered in multiple languages. [facility] Diana Specializes in the treatment of people who are dependent on/addicted to drugs and alcohol. Program: inpatient, outpatient and group substance abuse counseling, gender-based stabilization center, family recovery housing and support for women; homeless services, gambling addiction treatment, family counseling; mental health treatment (including psychiatry), and medically assisted treatment for those struggling from opioid addiction Eligibility: age 13 and older Cost: government insurance (Medicaid, Dent, Caresource), private insurance and self-pay Referral: individuals may refer themselves or be referred by a physician or organization [address] [address] [address] [address] [address] [place], [place] [address] [address] [address] Trumpet Search [facility] ([facility] Sunset Teaching Opportunity Cobb by Connecting Hearts) This program is for low income youth, ages 16 through 24, who have dropped out of school or have graduated high school and need guidance on what direction to head in, such as , college, trade school, workforce, etc. The program offers workforce development and educational services, as well as education support and career preparation for high school juniors and seniors. TOUCH also helping ex-offenders gain, through reentry services, the skills and confidence needed to obtain workforce and educational opportunities, participants may also receive access to housing and clothing assistance. [facility]0 [place] [id number] [facility] – tulsaNatero.MaxVision Mental Health [facility] ([facility]) Offers advocacy, and mental health services, support groups for people struggling with various mental health challenges, workplace and community educational programs, professional training and an online resource directory. Their free, confidential Ombudsman Program for residents of [facility] offers a caring, knowledgeable mental health professional who helps individuals and their family members resolve problems related to mental health services. They listen to concerns or complaints and can help parents and families find needed community resources. Long-term Care Ombudsman Program [facility] Support Groups Free Mental Health Screening Online Mental Health & Recovery Services Directory [address] [place] [phone] Mental Health Clara: Ombudsman Program: [facility] medical centero.org [facility] Regional Planning Commission ([facility]) Offers information and local resources about local biking events and trails, bicycle safety, promotes bicycling in [facility]. They also provide a [facility] Home Repair program low- and moderate-income homeowners, home energy efficiency and safety services at no cost to income-eligible homeowners and renters, and information on air quality. [address] [place] [address] or TTN Home Repair: Free Home Energy Efficiency & Safety Services: mor.org Natera Offers a low cost tool Mandy & Pandying library, that has over 5,000 tools. Yearly low-cost membership is offered on a sliding scale, based upon income. The only restrictions to become a member is to live in [facility] and own your home or have permission from the property sourcing manager (no income restrictions). They also offer free home repair and maintenance to income-eligible seniors and people with disabilities. [facility]0 [place] [phone] Dynamics Expert Move to [place] Provides access to affordable rental homes for very low income households with children ages 13 and under in [place], [place], [facility] and [place] school districts. They offer workshops and coaching on reaching your financial, career, educational and wellness goals for you and your family. Visit the website for contact and application information. movesaint joseph's hospitalPerceptual Networkser.MaxVision [facility] Helps low-income families, single persons and seniors find quality affordable housing throughout [place]. Also assists homeless and people with disabilities. Visit the website for additional contact and location information. st. [facility] behavioral health hospitalces.org on license of [facility].org/bus iness-services/supportive-housin g-fbobxfrs-tpxhioot [facility] Bridges A charitable organization that helps match families in need with local businesses, volunteers and service organizations that offer resources such as food, volunteering, clothing, supplies and more. [address] [place], [place] [address] Big Patriot neighborhoodbridges.org/communit y/BigAstria Toppenish Hospitalnut-oh [place]: neighborhoodbridges.org/communit y/emiliano-oh [place]: neighborhoodbridges.org/communit y/gahanna-oh [place] neighborhoodbridges.org/communit y/newalb[place] neighborhoodbridges.org/communit y/pataskala-oh [place] neighborhoodbridges.org/communit y/fudvx-guwgreaqj-wj Olentangy neighborhoodbridges.org/communit y/olentangy-oh [place]: neighborhoodbridges.org/communit y/[facility] neighborhoodbridges.org/communit y/palomar mountain-oh Office of the [place] Consumers' Economics Lecturer (OCC) Provides a variety of free education materials to help consumers understand current utility (like electric, natural gas, telephone and water) issues. They also provide free knowledgeable outreach and education professionals to talk about a variety of topics to groups. [address] [place], [place] [phone] or [facility].[place].[facility] Consumer Assistance: [facility].[place].gov/utilityassistance [place] Department of Up My Game Energy Assistance Programs Provides heating and cooling assistance and utility discounts, with eligibility based on household income. The HEAP program offers a one-time payment for utility customers during the winter and summer throughout [place]. Call or download an application from the website. They also provide weatherization services. [address] [phone] or TDD Noomeo.[place].[facility]/Antares Energys/portal/ gov/development/individual/energ y-assistance/energy-assistance [facility] ([facility]) Lead Poisoning Prevention Program Provides lead poisoning prevention programs throughout [place]. [place] residents have access to resources to test for lead and help families with the cost of lead repair work. [address] [place], [place] [address] [facility].[place].[facility]/wps/portal/gov/[facility] for children/ xizc-upp-bkumbtnv/Childhood-Lead -Poisoning [facility] Serves: Single Adults & Families, Youth & Teens Provides counseling and treatment services for children and adults, and parenting support, respite care, domestic violence usp, and foster care services, as well as substance abuse and addiction recovery that include peer support and housing, and more throughout [place]. Visit the website for additional contact and location information. Crisis Line: [facility].org [place] Housing Finance Agency ([place]) Helps the development, rehabilitation and financing of low- to moderate-income rental housing. Offers programs for first-time homebuyers, renters, and others find affordable housing that meets their needs. Offers low-interest loans and down payment assistance to qualified homebuyers. Other programs include assistance for recent college grads and low-interest loans for firefighters, teachers, police officers, personnel and health care workers. Call , to be directed to a HUD approved counseling agency to help you work with your lender for a foreclosure resolution. [address] [phone] or Toll-free or TDD [facility] Legal Help Helps [place]ans access the civil justice system. They provide plain language legal help information, interactive self-help tools and connections to local legal and community resources that can help people resolve their legal issues. [address] [facility], [address], [place] [phone] [facility].MaxVision [facility] ([facility]) Extension Works with families and children, farmers and business owners, community leaders and elected officials to build better lives, better businesses and better communities in [place]. Many programs fall into four categories, including; 4-H Development: clubs, school enrichment, after-school and STEM programming for a minimal fee Community Development: HUD-certified home lease buyer education, free money management, renter education, investing, and student loan debt workshops Agriculture & Natural Resources: urban agriculture education programs Family & Consumer Sciences: nutritional education programs (EFNEP and SNAP-Ed) [facility]0 [place], [place] [address] [facility] Office: b[place].[facility]/home extension.[facility] (Formerly [place] Aminex Therapeuticsochsner st [facility]) Located inside [facility], the [facility] offers programs to assist [facility] families who are temporarily in need. Those programs include: Irumj-V-Pzradz, Free Shop (offers new and gently-used clothing, household and personal care items), Mobile Free Shops, Bed Donation Program, Back to School Outreach and Emergency Household Assistance. [address] [place] [address] [facility] Opportunity Port Started by [facility] as an initiative aimed at expanding employment and housing opportunities for residents of [place] and [facility] by sealing their criminal records. Opportunity Port does not provide legal advice but helps former offenders seal their record. If a person qualifies, they are connected with an attorney recruiter and if the survey manager approves the application, the court will remove past offenses from public view. Visit their website for more information. opportunityport.org PALS A EVRST Provide support to individuals with developmental disabilities by building on the foundation of physical activity and life skills (PALS). They offer adult day services, residential services, life skill classes, activities and vocational training programs. [address] [address] Alien Technology [place], [place] [phone] Oolitic [address] [place], [place] [address] Klickitat [address] [place], [place] [address] Art Outside the Lines [address] [place] [address] Scanntech Pro Nohemy Legal Clinics Local attorneys answer legal questions free of charge. Click below for a list of free legal clinic locations and times. community hospital.org/get-involve d/attorney recruiter/taq-baiv-xwyqrap/ Public Utilities Commission [facility] ([facility]) Energy Assistance Programs Assistance is available for both gas and electric bills. The assistance may be in the form of a reduction of heating bills and/or a set amount based on household income. The [facility] website gives information on how to sign up, who is eligible and what programs are available (including a program providing protections and benefits to personnel and their families). [address] [place], [place] [address] or or TDD [facility].[place].gov/wps/portal/gov/puc o/consumers [facility] Provides omar-based, free residential rehabilitation services, including addiction recovery for men and women ages 18 and older. They help men and women transition from homelessness to home-ownership. [address], [place], [place] [address] EnishDermTech International.org Rentful: [facility] Rental Assistance A rent assistance hub for both tenants and landlords. Provides simple, reliable, and cesl-yt-ihsvbz links to [facility] rent assistance programs. They also dispel common myths, provide eviction information customized to [facility], and highlight some of the places you can go to get even more help. The website can be translated in Kenyan, Tuvaluan, or Pakistani. Acacia Communications Resident Resources Network (RRN) Helps connect residents of [facility] and other affordable housing communities to supportive services. Services are coordinated through on-site Service Coordinators who make referrals to local community organizations, and bring resources on-site (like financial/emergency, educational, employment, health and wellness and legal assistance). [address] [place], [place] [address] residentreslake charles memorial hospital for womences.MaxVision Information about [facility]: Hispanic Media.InstallMonetizer Beatriz Hubbard Serves: Single Adults & Families Offers various services for [facility] families throughout the year. Their services include: an in-residence rehabilitation program, after school learning centers for youth to get tutoring and homework help, Blanche assistance and food meal boxes; housing and rent assistance, utility assistance, help trafficking survivors and support services. Visit the website for their Family Thrift Store locations in [facility] and for more information on each program. Administrative Office [address] [place] [address] or [facility] & Service [address] [address] [facility] Centerhip & Service [place] [address] [place], [place] [address] [facility] [address] [place], [place] [address] [facility] [place] & Service [place] [address] [place], [place] [id number] [facility] Western Massachusettship & Service [place] [address] [place], [place] [id number] pittsfordCreditPing.com.memorial hermann–texas medical centerAntriaBio.org/[facility]/home Link to Family Thrift Store list: Myrl.[facility] eastern pennsylvaniaStretch.org/[facility]/thrift- stores Smoke-Free Housing in [facility] Public Health highlights smoke-free housing options in [employer], [place]. [place].gov/publichealth/progra ms/Jvipkjxk-Vxtjurp-Ehmajckzjxb/ Uyytrvqp-Qitcrn-Gzkyvgg-Free-Col laborative/Imuip-Zuvd-Ezkpbhq-Op tions Pakistani Community Association [facility] (SCAO) Provides a variety of supportive services for Pakistani youth and adults. Immigration and citizenship programs and community advocacy Housing availability and affordability guidance Ken[place] Second Language (ESL) classes Employment assistance and job training Youth development and summer programs Interpretation and translation services Case management [facility]2 [place], [place] [address] [facility].Orckit Communications [facility] HospitalSally Friends of the Homeless Program Serves: Single Adults Provides support to homeless men and women through emergency usp, transitional and supportive/permanent housing. These services are available to persons living with certain medical conditions and chronically homeless people. To access emergency usp services in [facility] please call [phone]. [address] [place], [place] [address] Logisticare.MaxVision/services/homeles s-services St. Emeterio Saucedo ([facility]) Raisen Program Provides individuals with low-interest loans. Loans will be provided for one-time expenses to individuals who can demonstrate that they can pay back the loan. Loans are for expenses such as a car repair, a home repair, educational expenses, and medical expenses not covered by insurance. They do not provide loans for expenses such as rent, food, or utilities. Individuals will also be provided with their own credit union account. They can also use this account for direct deposit of paychecks and to walton checks for free. All applicants will be visited by [facility] financial mentors who will provide information on finances, consumer protection information, and connect to other community resources. [address] [place], [place] [address] or Cardiola.MaxVision/microloan_carolinas continuecare hospital at kings mountaini on Contact for FloridaKhushbooJohsRobles [place] and [facility]: Cardiola.org/contact_info Note: YVB6Irpa does not recommend or endorse any specific company. We encourage families to carefully review and evaluate all services. [facility] Serves: Youth & Teens This 22/03 drop-in center provides free and confidential assistance to homeless youth ages 14 to 24. Offers help with food, clothing, laundry, hygiene items, rest, internet services, telephone calls, linkages to community resources and counseling; as well as healthcare, education support, housing help, job-seeking skills and more. They also help provide stable housing for youth ages 18-24 who have aged out of the foster care system or are homeless, through Hilaria Hoskins located in [place]. [address] [place], [place] [address] [facility] The Open Usp Serves: Single Adults & Families Provides emergency usp and assistance for homeless and marginally housed persons in [facility]. They also offer coordinated, supportive services, and transitional and/or permanent housing. [address] [place], [place] [address] or [facility].MaxVision [facility] ([facility]) Offers moderately priced 1-, 2- and 3-bedroom units of multifamily housing and provides workforce training and support service space for residents and project partners. [address] [phone] [facility] Job Training Center: [facility] st. nicholas hospitalHaivision Turning Point Serves: Single Adults & Families Provides temporary usp for victims/survivors of domestic violence and their children, food, transportation, individual and group education and support; as well as advocacy support and a crisis line that provides victims with supportive listening, information and referral resources and access to agency services. All services are free of charge and confidential. They serve primarily domestic violence victims and their families in [place], [place], [facility]. [address] [place] [address] 24-Hour Hotline: or or text turningpoint , turning point , tphelp or turning to turningpoint6.org [facility] Map is a health and human services referral service. Click on the link below to find resources and help in your county. 211.org Upreach Provides continuing adult education and wellness to adult individuals with developmental disabilities. The Upreach program offers services encouraging independence (including supported living services), self-determination and empowerment. The Learning Never Ends program provides life-long learning and wellness opportunities. Upreach [address] iHydroRun [place], [place] [phone] Learning Never Ends - Central/Putting Abilities to Work [address] [place], [place] [phone] Learning Never Ends - [address] [phone] Learning Never Ends - [address] [phone] Learning Never Ends - [address] [phone] Agralogics USAGov Provides an official guide to government information and services at the federal level. Examples of topics include financial help, disability services, how to prepare for and recover from disasters and emergencies, housing, jobs and unemployment, as well as taxes, immigration, how to research common [place] laws, and file a complaint against the government and more. usa.gov [employer] Provide supportive services for veterans and their families including individual case management, housing, financial planning and more. They also partner with local agencies to distribute new backpacks and school supplies to [facility] children in need every year. Note that they do not provide backpacks directly to individuals and families. [address], [place] [id number] [email or web address] [facility] Serves: Single Adults & Families, Youth & Teens Their programs, services and initiatives are for men, women and children of all ages covering health and fitness, swimming, age-specific activities, child welfare manager, camps, juvenile justice, housing, programming for infants and children with special needs (ECRN+), loanable adaptive equipment, and more. In their [facility] Stable Families coordinated service program, families with children (from Pre-K to 12th grade) who live in [facility] have access to a patient services representative who can help in increasing household income, obtaining/maintaining safe and stable housing, and increasing the academic achievement of school-aged children. Visit the website or contact a [facility] center for additional information. [facility] Administrative Office: Elisabet Sutton, [place] [phone] [facility] Stable Families: [email or web address] Stable Families: [email or web address] [facility] Locations & Contacts: [email or web address] [facility] Serves: Families (referring to emergency usp access) Provide affordable housing and supportive services for women recovering from drug-related, alcohol-related, and mental illnesses. The [facility] provides emergency usp and critical services including, family assistance, family advocacy, childcare, employment and resource center to help [facility] families find housing. The [facility] offers affordable childcare during the school year and summer programs for families in [place] and [facility]. They also provide leadership training for high school girls and adult women. [facility] [address] [place] [id number] [id number] [email or web address] documented in this encounter [facility] 09-26-2023 Note Formatting of this n ote might be different from the original. Problem: Actual or potential alteration in health Goal: Absence of healthcare acquired conditions Outcome: Partially Met Goal: Knowledge of Interdisciplinary Plan of Care Outcome: Partially Met Goal: Knowledge of Enviroment Outcome: Partially Met Problem: Coping- Ineffective Goal: Effective coping Outcome: Partially Met Problem: Health Maintenance - Impaired Goal: Knowledge of lifestyle modifications Outcome: Partially Met Problem: Injury - Risk of, Substance Overdose Goal: Absence of injury Outcome: Partially Met Goal: Absence of drug withdrawal signs and symptoms Outcome: Partially Met Problem: Mood - Altered Goal: Mood stable Outcome: Partially Met Problem: Violence - Risk of, Self/Other-Directed Goal: Absence of violence Outcome: Partially Met Problem: Plan for Discharge Goal: Knowledge of discharge plan and instructions Outcome: Partially Met Problem: Confusion - Acute Goal: Cognitive status restored to baseline Outcome: Partially Met Problem: Injury - Risk of, Physical Injury Goal: Absence of physical injury Outcome: Partially Met Problem: Sensory Perception - Impaired Goal: Accurate sensory perception Outcome: Partially Met Problem: Plan for Discharge Goal: Knowledge of discharge plan and instructions Outcome: Partially Met Problem: Pain Goal: Manage acute pain Outcome: Partially Met Goal: Manage chronic pain Outcome: Partially Met Goal: Reduced pain sensation Outcome: Partially Met Goal: Achievement of comfort function goal Outcome: Partially Met [facility] 09-26-2023 Note Formatting of this n ote might be different from the original. Ced Hernandez is a 35 y/o M with a history of HIV, nephrolithiasis, Stimulant Use DO, Opiate Use DO, PTSD, Unspecified Psychosis 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 Per documentation, patient's roommate had contacted the police after finding patient standing over her while she was asleep, expressing concerns for her safety. UDS + amphetamines and cannabis which was believed to potentially contributing however due to patient's lack of improvement with ongoing behaviors during admission the [facility] Unfortunately, the patient tested positive for COVID on 09/21/2023 therefore medically admitted for quarantine period. consulted for continued evaluation and treatment. Seems the patient has been guarded, uncooperative, refusing psychotropics ordered, irritable, delusional and paranoid. Initially he agreed to voluntary psych admission, medications and/or engagement in partial programming in an outpatient setting for dual diagnosis treatment. Though per recent notes by providers, the patient now refusing any intervention and requesting discharge home. Patient would benefit from serial assessments to determine treatment and discharge needs. Would consider obtaining collateral as reportedly the patient had alleged fpc stability until relapsing on stimulants. Continue No AMA and associated monitoring per [facility] policy. to follow up on 09/27/2023 for further recommendations and assistance. Diagnosis & Plan/Recommendations Stimulant use disorder Assessment & Plan Encourage cessation, particularly given potential for amphetamine use to cause and/or worsen psychotic symptoms. Mr. Hernandez was educated about the risks related to substance use, including overdose and/or withdrawal, as well as resources to address substance use issues. Motivational interviewing techniques were utilized to promote advancement through the states of change. Mr. Hernandez is difficult to engage andseems to be in the precontemplative stage of change related to his substance use and declines resources or assistance with connection to addiction rehabilitative services * Psychosis, unspecified (HCC) Assessment & Plan The patient continues to appeared improved overall, as he is logical and linear, and is without acute delusions or perseverations. However, he will not engage in disposition planning at this time (does not want to see current psychiatrist at [facility]) and does not want medication management. Again, concern for paranoid delusions today noted though appear fixed and chronic. Given improvement in psychosis without psychiatric medications this hospitalization, high suspicion for recent methamphetamine use to be a major contributor to recent psychosis. However, given history and continued delusional content, schizophrenia or other primary psychotic disorder cannot be ruled out. Although patient continues to report delusional content, it appears fixed and chronic x 4 months per patient. Continued concern for risk factor modification given significance of psychosis on presentation and history of primary psychotic illness. Continued hospitalization is warranted at thi time, to observe behaviors and medication compliance as we continue working on discharge planning, and observe for continued stability. -Continue with Aripiprazole 5mg Daily for psychosis. Please hold if Qtc interval is greater than 500 -Continue Lorazepam PO and Diazepam IM for agitation -Discussed case with [facility] case manager at [facility]. No [facility] beds available. Voicemail left with [facility] clinic for assistance with follow up -Patient declines want for rehabilitative services, voluntary inpatient psychiatric admission, or referral/transfer to Mental Health or Addiction rehabilitative facilities -Continue No AMA with lethality precautions and 1:1 monitoring given elopement risk Please call/page/secure chat or reconsult with acute concerns. Darshana Amador CNP, [facility] Pager: [phone] 09/26/2023 5:01 PM [facility] Work Phone: 09-25-2023 Note Formatting of this n ote might be different from the original. Problem: Actual or potential alteration in health Goal: Absence of healthcare acquired conditions Outcome: Partially Met Goal: Knowledge of Interdisciplinary Plan of Care Outcome: Partially Met Goal: Knowledge of Enviroment Outcome: Partially Met Problem: Coping- Ineffective Goal: Effective coping Outcome: Partially Met Problem: Health Maintenance - Impaired Goal: Knowledge of lifestyle modifications Outcome: Partially Met Problem: Injury - Risk of, Substance Overdose Goal: Absence of injury Outcome: Partially Met Goal: Absence of drug withdrawal signs and symptoms Outcome: Partially Met Problem: Mood - Altered Goal: Mood stable Outcome: Partially Met Problem: Violence - Risk of, Self/Other-Directed Goal: Absence of violence Outcome: Partially Met Problem: Plan for Discharge Goal: Knowledge of discharge plan and instructions Outcome: Partially Met Problem: Confusion - Acute Goal: Cognitive status restored to baseline Outcome: Partially Met Problem: Injury - Risk of, Physical Injury Goal: Absence of physical injury Outcome: Partially Met Problem: Sensory Perception - Impaired Goal: Accurate sensory perception Outcome: Partially Met [facility] 09-23-2023 Consult note Associated Order (s): IP CONSULT TO CARE MANAGEMENT Care Management Consult Note Date: 09/23/2023 Time: 12:43 PM Patient Name: Ced Hernandez Date of : 03/11/1988 Reason for Consult: Discharge Needs AMA Decision maker BULK G[employer] SPECIALIST consulted for legal next of kin identification. Surrogate Decision Making: When a patient lacks decision making capacity, [facility] turns to surrogates below, listed in descending order of priority: 1. Guardian 2. HCPOA 3. Legal spouse 4. Adult Children (All have equal decision making power) 5. Parents 6. Adult Siblings 7. Nearest adult relative (aunt/uncle/niece/nephew/cousin/ grandchild) Case Findings: Chart reviewed. Patient unable to make medical decisions. Chart mentions patient is but indicates he is estranged from . Placed call to Pt's father Vicente Hernandez who is listed on demographic sheet. He didn't know patient was at [facility]. He reports patient is not and has no children. He reports that he and patient are somewhat estranged. He would consider being his decision maker but also wants to discus with spouse. He states he can't talk at this time but will call this worker back when he is able to provide additional information. Provided B[employer]K GAS SPECIALIST information for returned call. Spoke to Stewart who is significant other listed on demographic sheet. He reports that he is patients ex-boyfriend and they are not . He states patient was never to him or anybody else. He reports patients father Vicente and his are patients only emergency contact. 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 BULK GAS SPECIALIST also contacted the [facility] to determine if patient has HCPOA papers on file; awaiting a response. Reviewed Media tab and no paperwork on file. 2:30pm. Received a returned call from [facility] housing case manager Pete Aldana. He reports that he has known patient for many years. He states at one time he provided patient with a housing vocher but states patient has recently stopped utilizing services and has been either homeless or staying with a friend. He states if patient wants linked back to his service; patient can call him directly and he will provide assistance ([phone] Work Cell). He states patient does not have any LNOK on file. If patient needs admitted to [facility] contact line is [phone]. If he needs admitted to [facility] [place] [phone]. He states they do provide comprehensive care and therefore can be a good resource. Legal next of kin: (Name, Contact #) Vicente Hernandez [phone]. nd Information: Living Arrangements: Homeless Support Systems: Spouse/significant other Assistance Needed: yes Type of Residence: Homeless Prior to Admission Home Care Services: No Current Home Equipment: None Holistic Assessment Medication adherence problem:: (!) Yes History of falls in last 6 months:: No [facility] 09-23-2023 Consult note Associated Order (s): IP CONSULT TO CARE MANAGEMENT Care Management Consult Note Date: 09/23/2023 Time: 12:43 PM Patient Name: Ced Hernandez Date of : 03/11/1988 Reason for Consult: Discharge Needs AMA Decision maker BULK GAS SPECIALIST consulted for legal next of kin identification. Surrogate Decision Making: When a patient lacks decision making capacity, [facility] turns to surrogates below, listed in descending order of priority: 1. Guardian 2. HCPOA 3. Legal spouse 4. Adult Children (All have equal decision making power) 5. Parents 6. Adult Siblings 7. Nearest adult relative (aunt/uncle/niece/nephew/cousin/ grandchild) Case Findings: Chart reviewed. Patient unable to make medical decisions. Chart mentions patient is but indicates he is estranged from . Placed call to Pt's father Vicente Hernandez who is listed on demographic sheet. He didn't know patient was at [facility]. He reports patient is not and has no children. He reports that he and patient are somewhat estranged. He would consider being his decision maker but also wants to discus with spouse. He states he can't talk at this time but will call this worker back when he is able to provide additional information. Provided BULK GAS SPECIALIST information for returned call. Spoke to Stewart who is significant other listed on demographic sheet. He reports that he is patients ex-boyfriend and they are not . He states patient was never to him or anybody else. He reports patients father Vicente and his are patients only emergency contact. 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 Health Services (Community Support): No Skills In Problem Solving and Conflict Resolution (Coping Skills): No Cultural and Buddhism Beliefs: No Access to Weapons: No TREATMENT RECOMMENDATIONS AND CLINICAL SUMMARY Treatment Recommendations and Clinical Summary Current Recommendations: Hold over for reassessment RATIONALE/PLAN FOR TREATMENT: Pt is a 35 year old male who presented to the ED with police after roommate woke up to pt standing over her. Pt's UDS was positive for amphetamines and cannabis. Pt initially presented with disorganized speech. On assessment, pt's speech was no longer disorganized, but pt was irritable, guarded, and at times uncooperative. Pt refused to let PSS speak with roommate, but let PSS speak with a friend with whom he has not had contact with since . Friend was unable to speak to pt's current functioning or any safety concerns. Pt is HIV+ and is noncompliant with his antivirals. Pt has had multiple psychiatric hospitalizations last year. Per records from 05/25/23, pt was exhibiting symptoms of psychosis, but was only positive for marijuana. It is unclear if pt's presentation is organic or substance induced. C/L consult was placed to assist in disposition. Patient's risk factors include: history of suicidal ideation, history of suicide attempts, history of psychiatric hospitalization, history of trauma, no current mental health linkage, medication non-compliance, limited social support, unemployment, poor insight, poor judgment, psychosocial stressors, conflict, and substance abuse. Patient's protective factors include: no current suicidal ideation, housing, and no access to firearms. [facility] 09-21-2023 Emergency department Note Pt sleeping, eyes closed resp easy. [facility] 09-21-2023 Emergency department Note Pt sleeping resp easy. [facility] 09-20-2023 Emergency department Note Pt up at cart side eating a banana. Pt denies c/o or need at this time [facility] 09-20-2023 Emergency department Note PSS attempted to meet with pt to complete an assessment. Pt was lethargic and unable to stay awake. Pt will be assessed once he is able to participate in a meaningful way. [facility] 09-20-2023 Emergency department Note Received pt after report resting quietly on cart, eyes closed resp easy. Pt cooperative with assessment and vs. Pt provided with warm blanket for comfort. [facility] 09-20-2023 Emergency department Note Meal tray delivered [facility] 09-20-2023 Emergency department Note Meal tray ordered for patient [facility] 09-20-2023 Emergency department Note Urine and blood work sent to lab. [facility] 09-20-2023 Note Formatting of this n ote might be different from the original. Medical Decision Making Brought in by law enforcement. Roommate has found him standing over her and states he has not been taking his medication as prescribed. He is agitated on initial assessment but is willing to take oral medication. Awaiting MHE, will be signed out to overnight physician. ED attestation: I have personally taken the patient's history, performed an exam, and agree with the physical findings, clinical impression, and management plan as documented by the Resident physician, unless I state otherwise. I was present during all critical and torres portions of any procedure documented, as well as being immediately available to furnish services during all procedures performed unless I state otherwise. I have personally reviewed and interpreted all ECGs obtained in the department documented by the resident physician, and agree with the interpretation as documented unless I have added an attestation of additional findings. A voice dictation system may have been used to complete this note, and there can unfortunately be orthopedics pediatric physician errors. [facility] Work Phone: 09-20-2023 Emergency department Note Pt changed into blue gown Pt belongings Black bag Jacket Shirt Pants Shoes Underwear Earrings Necklace [facility] 09-20-2023 Physician Emergency department Note [facility] ED Resident Note: NAME: Ced Hernandez 35 y.o. CSN: [id number] PCP: No, Physician History: Chief Complaint: Psychiatric Evaluation HPI: The history was obtained from the [employer] . Ced is a 35 y.o. male PMH significant for schizophrenia, substance misuse, HIV on retroviral's who presents by [facility] for the patient having thoughts of harming others and potentially being a risk to himself as well. On arrival, patient is refusing to answer most questions. The patient's female roommate called police as she was scared for his and her safety. She reported that the patient has been standing over her in the middle of the night while she has been sleeping. He has been progressively more agitated and saying things that do not make much sense. Unsure whether or not the patient is taking his medications as prescribed, including his antiretrovirals. Patient appears agitated and anxious on arrival but is not being aggressive with any of the ED staff or [facility]. Otherwise, no acute distress. HPI and ROS are somewhat limited due to the patient not wanting to answer questions at this time. PMHx: Past Medical History: Diagnosis Date HIV disease (HCC) 2012 HIV + - on antiretrovirals since HIV positive (HCC) 2012 antiretrovirals Nephrolithiasis passed Tobacco abuse PMSx: Past Surgical History: Procedure Laterality Date COLONOSCOPY COLPOSCOPY N/A 09/16/2015 Procedure: HIGH RESOLUTION ANOSCOPY ; Surgeon: Ezequiel Martines MD; [place] [facility]; Service: CT ABSCESS DRAINAGE RENAL 11/25/2021 CT ABSCESS DRAINAGE RENAL 11/25/2021 CT FULGURATION CONDYLOMA RECTAL WITH LASER N/A 09/16/2015 Procedure: CONDYLOMA RECTAL FULGURATION CO2 LASER; Surgeon: Ezequiel Martines MD; Location[facility]; Service: WISDOM TOOTH EXTRACTION FAM. Hx: Family History Adopted: Yes Family history unknown: Yes SOC. Hx: Social History Socioeconomic History Marital status: Single Tobacco Use Smoking status: Every Day Packs/day: 1.00 Years: 10.00 Additional pack years: 0.00 Total pack years: 10.00 Types: Cigarettes Vaping Use Vaping Use: Never used Substance and Sexual Activity Alcohol use: Not Currently Comment: rarely Drug use: Yes Types: Marijuana, Methamphetamines Comment: meth, fenta, weed MEDs: Previous Medications Medication Sig ovuqogenixi-voukrqsifbhzk-zlpesj vir (BIKTARVY) 50-200-25 mg per tablet Take 1 (one) tablet by mouth daily . CHOLECALCIFEROL, VITAMIN D3, ORAL Take 1 capsule by mouth once daily . tcnwnzhjgsb-xcywtlaupjhum-eqobcd vir (Biktarvy) 50-200-25 mg per tablet Take 1 (one) tablet by mouth daily . buprenorphine-nalOXone (SUBOXONE) 8-[address] 1 (one) each (1 Film total) under the tongue 2 (two) times a day . escitalopram oxalate (LEXAPRO) 20 MG tablet Take 1 (one) tablet (20 mg total) by mouth daily for 15 days . OLANZapine (ZYPREXA) 10 MG tablet Take 1 (one) tablet (10 mg total) by mouth every night at bedtime . paliperidone (INVEGA) 3 MG 24 hr tablet Take 1 (one) tablet (3 mg total) by mouth at bedtime for 15 days . ALL: Allergies Allergen Reactions Penicillins Rash ROS: Review of Systems Positives and pertinent negatives as per HPI. All other systems were reviewed and are negative. Physical Exam: Patient Vitals for the past 24 hrs: BP Temp Temp src Pulse Resp SpO2 09/21/23 0137 122/72 -- -- 74 16 98 % 09/20/23 2057 118/68 -- -- 63 12 99 % 09/20/23 1917 111/65 -- -- 64 12 99 % 09/20/23 1633 136/85 98.6 F (37 C) Oral 94 16 99 % Physical Exam Constitutional: Comments: Awake and alert. Patient is aware of his name, year, and where he is. However, when asking him about how he is feeling or what been going on, the patient gives nonsensical answers. Although, speaking in full sentences without difficulty breathing. Thin and chronically ill-appearing, slightly diaphoretic. HENT: Head: Normocephalic and atraumatic. Right Ear: External ear normal. Left Ear: External ear normal. Nose: Nose normal. No congestion. Mouth/Throat: Mouth: Mucous membranes are moist. Pharynx: Oropharynx is clear. Eyes: General: No scleral icterus. Extraocular Movements: Extraocular movements intact. Pupils: Pupils are equal, round, and reactive to light. Cardiovascular: Rate and Rhythm: Normal rate and regular rhythm. Pulses: Normal pulses. Heart sounds: Normal heart sounds. Musculoskeletal: General: No swelling or signs of injury. Normal range of motion. Cervical back: Normal range of motion and neck supple. No rigidity or tenderness. Pulmonary: Effort: Pulmonary effort is normal. No respiratory distress. Breath sounds: Normal breath sounds. No stridor. No wheezing. Abdominal: General: Abdomen is flat. Bowel sounds are normal. Palpations: Abdomen is soft. Tenderness: There is no abdominal tenderness. Skin: General: Skin is warm. Capillary Refill: Capillary refill takes less than 2 seconds. Coloration: Skin is pale (Mild). Neurological: General: No focal deficit present. Cranial Nerves: No cranial nerve deficit. Sensory: No sensory deficit. Motor: No weakness. Gait: Gait normal. Psychiatric: Comments: Anxious and mildly agitated appearing. Declines to answer questions. When he does answer questions, the answers are nonsensical and does not make much sense. Appears to not have much insight. Overall, being cooperative. Laboratory & Radiological Imaging (if done): Labs Reviewed BASIC METABOLIC PANEL - Abnormal; Notable for the following components: Result Value Glucose 102 (*) BUN/Creatinine Ratio 20.9 (*) All other components within normal limits Narrative: [facility] has implemented the eGFR calculation approach that does not have a coefficient for race that conforms to the NKF-ASN Task Force Recommendations. DRUGS OF ABUSE SCREEN, URINE - Abnormal; Notable for the following components: Amphetamine Screen, Urine Presumptive Positive (*) Cannabinoid Screen, Urine Presumptive Positive (*) All other components within normal limits Narrative: Screen results should be used for treatment purposes only. Specimen will be kept for 2 weeks, if the sample is adequate. Confirmation testing can be initiated by calling the lab within 2 weeks. T-HELPER CELLS CD4 - Abnormal; Notable for the following components: %CD4 (Help/Ind) 29 (*) CD4 Absolute 266 (*) All other components within normal limits ALCOHOL, MEDICAL - Normal ACETAMINOPHEN LEVEL - Normal Narrative: Therapeutic Range: 10-30 mcg/mL Potentially Toxic: >200 mcg/mL (4 hours post dose) >100 mcg/mL (8 hours post dose) >50 mcg/mL (12 hours post dose) SALICYLATE LEVEL - Normal Narrative: Therapeutic Range: 10-20 mg/dL Potentially Toxic: >30 mg/dL CBC AND DIFFERENTIAL Narrative: The following orders were created for panel order CBC w/ Diff. Procedure Abnormality Status --------- ------ CBC Auto Differential[[id number]] Final result Please view results for these tests on the individual orders. CBC WITH AUTO DIFFERENTIAL No orders to display Procedures: Procedures ED Course / Medical Decision Making: Ced is a 35-year-old male with history of schizophrenia, substance abuse, and HIV who presents by CPD with concern of harming himself or others. Patient is anxious and mildly agitated appearing. Not answering many questions. The answers that he does provide do not make much sense. Appears to not have much insight. Unsure whether or not he is having auditory or visual hallucinations. Vital signs are stable on arrival. Patient placed on no AMA hold. Awaiting psych/social work evaluation and further recommendations as far as potential psychiatric placement. Labs pending. EKG with normal sinus rhythm, negative for acute ischemic changes and reassuring appearing. UDS shows positive for amphetamines and cannabinoids. CBC negative for leukocytosis or anemia. Salicylate, acetaminophen, and alcohol levels are negative. Electrolytes and renal function are within normal limits. CD4 count low at 29 which is approximately the same as 3 weeks ago when the patient was at [facility]. Once patient is treated for his psychiatric illness and can consistently take his medicines or have someone help him consistently take his medicines, patient should be restarted on his HIV antiretrovirals. Patient has been comfortably sleeping/resting in ED bed with stable vital signs. He is medically cleared at this time. Pending psych/social work evaluation and recommendations. Patient will be signed out to co-resident pending psychiatric recommendations. Disposition pending per recommendations. Follow-up much appreciated. Ced case was discussed with my attending physician who agrees with the patient's ED management and final disposition. Please refer to their attestation to this encounter for additional information. ED Course as of 09/21/23226 Mon Sep 20, [id number] Urine Drug Screen(!) Positive for amphetamines and cannabinoids. [VH] 1845 Salicylate and acetaminophen levels negative. [VH] 1846 Alcohol negative. [VH] ED Course User Index [VH] Aysha Reed DO Clinical Impression: 1. Thoughts of harming others 2. Amphetamine misuse 3. Noncompliance with medication regimen 4. History of schizophrenia Medications Ordered/Given During ED Visit Medications sodium chloride (PF) (NS) flush 5 mL (has no administration in time range) And sodium chloride 0.9% (NS) (has no administration in time range) OLANZapine zydis (ZYPREXA) disintegrating tablet 5 mg (5 mg Oral Given 09/20/23 1645) sodium chloride 0.9% (NS) bolus 1,000 mL (0 mL Intravenous Stopped 09/20/231838) Disposition: No AMA hold, awaiting psych/social work evaluation. Follow-up Information Follow-up information has not been specified. Contact information for after-discharge care Follow-up information has not been specified. Aysha Reed D.O. Emergency Medicine PGY-2 [facility] (Please note that portions of this note have been completed with a voice recognition software. Efforts were made to correct any errors, but occasionally words are mis-transcribed.) Aysha Reed DO Resident 09/21/23226 [facility] 09-20-2023 Emergency department Triage note Patient arrives by police from home after room mate called for patient to be evaluated. Per room mate patient was standing over him while she was sleeping. Patient states history of schizophrenia, denies taking medication. Pt states he only takes medication for HIV at this time. Pt denies SI/HI, hallucinations. Per police, patient is voluntary for a psych eval. Patient a&Ox4 skin pwd respirations eu, calm cooperative at this time. [facility] 11-02-2022 History of Present illness Narrative [facility] RX [facility]REACH [facility]: Call Information: Date and Time of Contact: 11/02/2022 2:32 PM Method of Contact: By Phone Contact Type: Prescriptions Contactor: [facility] Contactee: Patient Contact Outcome: Left message and Call back later Shipping/Pickup: Medication Name: Biktarvy Contact Info: Specialty ([place]) [phone] [facility] [phone] [facility] [phone] [place] [phone] Bedside Delivery ([facility]) [phone] [facility] RX OUTREACH [facility]VANCED: Call Information: Date and Time of Contact: 11/04/2022 9:21 AM Method of Contact: By Phone Contact Type: Prescriptions Contactor: [facility] Contactee: Patient Contact Outcome: Left message and Follow-up Shipping/Pickup: Medication Name: Biktarvy 50-200-25mg Contact Info: Specialty ([place]) [phone] [facility] [phone] [facility] [phone] [place] [phone] Bedside Delivery ([facility]) [phone] documented in this encounter [facility] 11-02-2022 History of Present illness Narrative [facility] OUTREACH [facility]VANC[facility]: Call Information: Date and Time of Contact: 11/02/2022 2:32 PM Method of Contact: By Phone Contact Type: Prescriptions Contactor: [facility] Contactee: Patient Contact Outcome: Left message and Call back later Shipping/Pickup: Medication Name: Biktarvy Contact Info: Specialty ([place]) [phone] [facility] [phone] [facility] [phone] [facility] [phone] Bedside Delivery ([facility]) [phone] [facility] OUTREACH ADVANCED: Call Information: Date and Time of Contact: 11/04/2022 9:21 AM Method of Contact: By Phone Contact Type: Prescriptions Contactor: [facility] Contactee: Patient Contact Outcome: Left message and Follow-up Shipping/Pickup: Medication Name: Biktarvy 50-200-25mg Contact Info: Specialty ([place]) [phone] [facility] [phone] [facility] [phone] [facility] [phone] Bedside Delivery ([facility]) [phone] [facility] RX OUTREACH [facility]VANCED: Call Information: Date and Time of Contact: 11/09/2022 11:59 AM Method of Contact: By Phone Contact Type: Prescriptions Contactor: [facility] Contactee: Patient Contact Outcome: Left message Shipping/Pickup: Medication Name: Biktarvy Contact Info: Specialty ([place]) [phone] [facility] [phone] [facility] [phone] [facility] [phone] Bedside Delivery ([facility]) [phone] documented in this encounter [facility] 09-08-2022 Miscellaneous Notes Problem: Patient Care Overview Goal: Plan of Care Review Outcome: Adequate for Discharge Goal: Individualization & Mutuality Outcome: Adequate for Discharge Goal: Discharge Needs Assessment Outcome: Adequate for Discharge Goal: Interdisciplinary Rounds/Family Conf Outcome: Adequate for Discharge Problem: Overarching Goals (Adult) Goal: Adheres to Safety Considerations for Self and Others Outcome: Adequate for Discharge Goal: Optimized Coping Skills in Response to Life Stressors Outcome: Adequate for Discharge Goal: Develops/Participates in Therapeutic [place] to Support Successful Transition Outcome: Adequate for Discharge Problem: Suicide Risk (Adult) Goal: Identify Related Risk Factors and Signs and Symptoms Description: Related risk factors and signs and symptoms are identified upon initiation of Human Response Clinical Practice Guideline (CPG) Outcome: Adequate for Discharge Goal: Strength-Based Wellness/Recovery Description: Patient will demonstrate the desired outcomes by discharge/transition of care. Outcome: Adequate for Discharge Goal: Physical Safety Description: Patient will demonstrate the desired outcomes by discharge/transition of care. Outcome: Adequate for Discharge Problem: Cognitive Impairment (Psychotic Signs/Symptoms) (Adult) Goal: Improved Thought Clarity/Organization Outcome: Adequate for Discharge Problem: Sensory Perception Impairment (Psychotic Signs/Symptoms) (Adult) Goal: Decrease Frequency/Intensity of Sensory Symptoms Outcome: Adequate for Discharge Problem: Psychomotor Movement Impairment (Psychotic Signs/Symptoms) (Adult) Goal: Improved Psychomotor Symptoms Outcome: Adequate for Discharge Problem: Mental State/Mood Impairment (Psychotic Signs/Symptoms) (Adult) Goal: Improved Mental State/Mood Outcome: Adequate for Discharge Problem: Gratification/Engagement Impairment (Psychotic Signs/Symptoms) (Adult) Goal: Increased Interaction/Expression Outcome: Adequate for Discharge Problem: Social/Occupational/Functional Impairment (Psychotic Signs/Symptoms) (Adult) Goal: Improved Social/Occupational/Functional Skills Outcome: Adequate for Discharge Problem: Self-expression Impairment (Psychotic Signs/Symptoms) (Adult) Goal: Improved Self-Expression Outcome: Adequate for Discharge Problem: Sleep Impairment (Adult) Goal: Improved Sleep Hygiene Outcome: Adequate for Discharge Problem: Impaired Control (Excessive Substance Use) (Adult) Goal: Participates in Recovery Program Outcome: Adequate for Discharge Problem: Social/Occupational/Functional Impairment (Excessive Substance Use) (Adult) Goal: Improved Social/Occupational/Functional Skills Outcome: Adequate for Discharge Problem: Safety Awareness Impairment (Excessive Substance Use) (Adult) Goal: Enhanced Safety Awareness Outcome: Adequate for Discharge Problem: Physiological Impairment (Excessive Substance Use) (Adult) Goal: Improved Physiologic Symptoms Outcome: Adequate for Discharge Problem: Emotion/Temperament Impairment (Disruptive Behavior) (Adult) Goal: Improved Emotion/Temperament/Mood Symptoms Outcome: Adequate for Discharge Problem: Behavioral Regulation Impairment (Disruptive Behavior) (Adult) Goal: Improved Impulse/Aggression Control Outcome: Adequate for Discharge Problem: Social/Occupational/Functional Impairment (Disruptive Behavior) (Adult) Goal: Improved Social/Occupational/Functional Skills Outcome: Adequate for Discharge Problem: Sleep Impairment (Adult) Goal: Improved Sleep Hygiene Outcome: Adequate for Discharge Problem: OT [place] Goals Goal: SELF-CARE ADLS - Hygiene and grooming Description: Patient will attend to 3 hygiene and grooming tasks daily and track performance to increase attention and motivation to complete self-care tasks. Outcome: Adequate for Discharge Goal: COPING SKILLS - Occupational performance Description: Patient will identify and independently implement 5 new coping strategies to manage depression, deter suicidal ideation, and promote mental health and wellness in order to optimize occupational performance. Outcome: Adequate for Discharge Goal: RELAPSE PREVENTION - Complete Activities Description: Patient will complete relapse prevention activities with independence to deter substance use and promote sobriety upon discharge. Outcome: Adequate for Discharge Goal: SELF AWARENESS - Motivation for meaningful occupations Description: Patient will engage in therapeutic activities with independence in order to increased self-awareness, increased future-orientation, and improved self-esteem to increase motivation for participation in meaningful occupations. Outcome: Adequate for Discharge Goal: MEDICATION MANAGEMENT - Compliance strategies Description: Patient will demonstrate ability to utilize 5 medication management strategies with independence in order to improve medication compliance. Outcome: Adequate for Discharge Goal: TIME MANAGEMENT - Daily routine Description: Patient will create To Do List and self-care checklist with independence to facilitate an active role in daily routine. Outcome: Adequate for Discharge RN assumed care for pt at 7am. Pt denied SI/HI and hallucinations, remained calm and cooperative, medication compliant, no PRNs given, denies medication side effects or abnormal symptoms. Discharge order placed. AVS reviewed with pt. RN gathered pt belongings, pt verbalized they have all of their things. Tech escorted pt out of unit for discharge via LYFT. [phone] Patient observed in bed and appears to have slept 6 hours 30 min. No distress noted. Nursing Note Per Tour of Duty Patient Daily Goal(s): refer to care plan goal(s) Psychiatric Assessment Reported and Observed signs and symptoms: Patient is calm and cooperative, denies SI/HI/AH/VH. Patient was compliant with medication and contracted for safety. Safety checks maintained per order. Non-pharmacological interventions and effectiveness: provided emotional support Medications Pharmacological PRNs indications and effectiveness: none requested or required Medication adherence: yes Psychotropic medication side effects: none reported or observed Functional Assessment - Activities of Daily Living Self-care: dressed Socialization (group, peer interactions): appropriately interacted with peers in milieu Nutrition and elimination interventions and effectiveness: offered frequent meals/snacks Last Bowel Movement: 09/07/22 Mobility: up for meals Sleep Number of hours this shift: Evening Shift 0 Non-pharmacological interventions and effectiveness: bedtime routine Additional Information Problem: Patient Care Overview Goal: Plan of Care Review Outcome: Ongoing Goal: Individualization & Mutuality Outcome: Ongoing Goal: Discharge Needs Assessment Outcome: Ongoing Goal: Interdisciplinary Rounds/Family Conf Outcome: Ongoing Nursing Note Per Tour of Duty Patient Daily Goal(s): I don't have one Psychiatric Assessment Reported and Observed signs and symptoms: Patient is anxious, cooperative, and distant, affect restricted. Grooming and hygiene fair, eye contact and posture good, speech wnl for rate and volume. Christiano denies suicidal and homicidal thoughts as well as auditory and visual hallucinations and does not appear to be attending to internal stim at this time. He denies pain. Non-pharmacological interventions and effectiveness: provided emotional support, provided distraction/activity, and encouraged relaxation Medications Pharmacological PRNs indications and effectiveness: none requested or required Medication adherence: yes Psychotropic medication side effects: none reported or observed Functional Assessment - Activities of Daily Living Self-care: dressed Socialization (group, peer interactions): isolated in room Nutrition and elimination interventions and effectiveness: offered frequent meals/snacks and encouraged fluid intake Last Bowel Movement: 09/06/22 Mobility: up for meals, performed active range of motion , and demonstrated safe ambulation techniques Sleep Number of hours this shift: Day Shift Non-pharmacological interventions and effectiveness: mindfulness , reduction in caffeine intake, and bedtime routine Additional Information Problem: Patient Care Overview Goal: Plan of Care Review Outcome: Met This Shift Goal: Individualization & Mutuality Outcome: Met This Shift Goal: Discharge Needs Assessment Outcome: Ongoing Goal: Interdisciplinary Rounds/Family Conf Outcome: Ongoing 2300-730 pt care assumed , no concerns voiced during this shift. Safety checks maintained, pt slept for 8.5hrs. Problem: Patient Care Overview Goal: Plan of Care Review Outcome: Progressing Toward Goal Goal: Individualization & Mutuality Outcome: Progressing Toward Goal Goal: Discharge Needs Assessment Outcome: Progressing Toward Goal Goal: Interdisciplinary Rounds/Family Conf Outcome: Progressing Toward Goal Problem: Overarching Goals (Adult) Goal: Adheres to Safety Considerations for Self and Others Outcome: Progressing Toward Goal Goal: Optimized Coping Skills in Response to Life Stressors Outcome: Progressing Toward Goal Goal: Develops/Participates in Therapeutic [place] to Support Successful Transition Outcome: Progressing Toward Goal Problem: Suicide Risk (Adult) Goal: Identify Related Risk Factors and Signs and Symptoms Description: Related risk factors and signs and symptoms are identified upon initiation of Human Response Clinical Practice Guideline (CPG) Outcome: Progressing Toward Goal Goal: Strength-Based Wellness/Recovery Description: Patient will demonstrate the desired outcomes by discharge/transition of care. Outcome: Progressing Toward Goal Goal: Physical Safety Description: Patient will demonstrate the desired outcomes by discharge/transition of care. Outcome: Progressing Toward Goal Problem: Cognitive Impairment (Psychotic Signs/Symptoms) (Adult) Goal: Improved Thought Clarity/Organization Outcome: Progressing Toward Goal Problem: Sensory Perception Impairment (Psychotic Signs/Symptoms) (Adult) Goal: Decrease Frequency/Intensity of Sensory Symptoms Outcome: Progressing Toward Goal Problem: Psychomotor Movement Impairment (Psychotic Signs/Symptoms) (Adult) Goal: Improved Psychomotor Symptoms Outcome: Progressing Toward Goal Problem: Mental State/Mood Impairment (Psychotic Signs/Symptoms) (Adult) Goal: Improved Mental State/Mood Outcome: Progressing Toward Goal Problem: Gratification/Engagement Impairment (Psychotic Signs/Symptoms) (Adult) Goal: Increased Interaction/Expression Outcome: Progressing Toward Goal Problem: Social/Occupational/Functional Impairment (Psychotic Signs/Symptoms) (Adult) Goal: Improved Social/Occupational/Functional Skills Outcome: Progressing Toward Goal Problem: Self-expression Impairment (Psychotic Signs/Symptoms) (Adult) Goal: Improved Self-Expression Outcome: Progressing Toward Goal Problem: Sleep Impairment (Adult) Goal: Improved Sleep Hygiene Outcome: Progressing Toward Goal Problem: Impaired Control (Excessive Substance Use) (Adult) Goal: Participates in Recovery Program Outcome: Progressing Toward Goal Problem: Social/Occupational/Functional Impairment (Excessive Substance Use) (Adult) Goal: Improved Social/Occupational/Functional Skills Outcome: Progressing Toward Goal Problem: Safety Awareness Impairment (Excessive Substance Use) (Adult) Goal: Enhanced Safety Awareness Outcome: Progressing Toward Goal Problem: Physiological Impairment (Excessive Substance Use) (Adult) Goal: Improved Physiologic Symptoms Outcome: Progressing Toward Goal Problem: Emotion/Temperament Impairment (Disruptive Behavior) (Adult) Goal: Improved Emotion/Temperament/Mood Symptoms Outcome: Progressing Toward Goal Problem: Behavioral Regulation Impairment (Disruptive Behavior) (Adult) Goal: Improved Impulse/Aggression Control Outcome: Progressing Toward Goal Problem: Social/Occupational/Functional Impairment (Disruptive Behavior) (Adult) Goal: Improved Social/Occupational/Functional Skills Outcome: Progressing Toward Goal Problem: Sleep Impairment (Adult) Goal: Improved Sleep Hygiene Outcome: Progressing Toward Goal Problem: OT [place] Goals Goal: SELF-CARE ADLS - Hygiene and grooming Description: Patient will attend to 3 hygiene and grooming tasks daily and track performance to increase attention and motivation to complete self-care tasks. Outcome: Progressing Toward Goal Goal: COPING SKILLS - Occupational performance Description: Patient will identify and independently implement 5 new coping strategies to manage depression, deter suicidal ideation, and promote mental health and wellness in order to optimize occupational performance. Outcome: Progressing Toward Goal Goal: RELAPSE PREVENTION - Complete Activities Description: Patient will complete relapse prevention activities with independence to deter substance use and promote sobriety upon discharge. Outcome: Progressing Toward Goal Goal: SELF AWARENESS - Motivation for meaningful occupations Description: Patient will engage in therapeutic activities with independence in order to increased self-awareness, increased future-orientation, and improved self-esteem to increase motivation for participation in meaningful occupations. Outcome: Progressing Toward Goal Goal: MEDICATION MANAGEMENT - Compliance strategies Description: Patient will demonstrate ability to utilize 5 medication management strategies with independence in order to improve medication compliance. Outcome: Progressing Toward Goal Goal: TIME MANAGEMENT - Daily routine Description: Patient will create To Do List and self-care checklist with independence to facilitate an active role in daily routine. Outcome: Progressing Toward Goal Unit Specific Patient Information Nursing Note Per Tour of Duty 1358-5193 Patient Daily Goal(s): Psychiatric Assessment Reported and Observed signs and symptoms: Christiano pérez as two female friends left the unit after visitation. Had nice visit, belongings were brought in, and Christiano gave these girls his house keys. The girls stated don't worry, we'll take care of the house. Tired this shift, hard to assess. Denied S/I, H/I, AVH, and pain, endorses anxiety, mostly about his future. Non-pharmacological interventions and effectiveness: Medications Pharmacological PRNs indications and effectiveness: No PRNs given. Medication adherence: none given. Psychotropic medication side effects: none Functional Assessment - Activities of Daily Living Self-care: all care Socialization (group, peer interactions): no, isolative to room mostly this shift. Nutrition and elimination interventions and effectiveness: good appetite. Last Bowel Movement: 09/05/22 Mobility: no issues Sleep Number of hours this shift: Non-pharmacological interventions and effectiveness: Additional Information Waiting on lab results for Toxoplasmosis infection. Waiting on lab results for Hepatitis Battery. HIV(+) Sexual precautions. [id number]: Pt. denied SI/HI/AVH and pain. Pt. Was med compliant. Pt. Stated that he was alright but appeared to be depressed. Pt. Reported a BM yesterday. No issues to note. Will continue to monitor. Nursing Note Per Tour of Duty [id number] Patient Daily Goal(s): refer to care plan goal(s) Psychiatric Assessment Reported and Observed signs and symptoms: Pt tearful, sad, restricted and guarded during assessment, express that he just wants to go home. Denies pain and discomfort ,denies SI, AH,VH,HI. Med compliant , safety checks maintained per order Non-pharmacological interventions and effectiveness: provided emotional support Medications Pharmacological PRNs indications and effectiveness: benadryl Medication adherence: yes Psychotropic medication side effects: none reported or observed Functional Assessment - Activities of Daily Living Self-care: self care encouraged Socialization (group, peer interactions): appropriately interacted with peers in milieu Nutrition and elimination interventions and effectiveness: offered frequent meals/snacks Last Bowel Movement: 09/05/22 Mobility: independent 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 Non-pharmacological interventions and effectiveness: mindfulness Additional Information Problem: Patient Care Overview Goal: Plan of Care Review Outcome: Progressing Toward Goal Goal: Individualization & Mutuality Outcome: Progressing Toward Goal Goal: Discharge Needs Assessment Outcome: Progressing Toward Goal Goal: Interdisciplinary Rounds/Family Conf Outcome: Progressing Toward Goal Problem: Overarching Goals (Adult) Goal: Adheres to Safety Considerations for Self and Others Outcome: Progressing Toward Goal Goal: Optimized Coping Skills in Response to Life Stressors Outcome: Progressing Toward Goal Goal: Develops/Participates in Therapeutic [place] to Support Successful Transition Outcome: Progressing Toward Goal Problem: Suicide Risk (Adult) Goal: Identify Related Risk Factors and Signs and Symptoms Description: Related risk factors and signs and symptoms are identified upon initiation of Human Response Clinical Practice Guideline (CPG) Outcome: Progressing Toward Goal Goal: Strength-Based Wellness/Recovery Description: Patient will demonstrate the desired outcomes by discharge/transition of care. Outcome: Progressing Toward Goal Goal: Physical Safety Description: Patient will demonstrate the desired outcomes by discharge/transition of care. Outcome: Progressing Toward Goal Problem: Cognitive Impairment (Psychotic Signs/Symptoms) (Adult) Goal: Improved Thought Clarity/Organization Outcome: Progressing Toward Goal Problem: Sensory Perception Impairment (Psychotic Signs/Symptoms) (Adult) Goal: Decrease Frequency/Intensity of Sensory Symptoms Outcome: Progressing Toward Goal Problem: Psychomotor Movement Impairment (Psychotic Signs/Symptoms) (Adult) Goal: Improved Psychomotor Symptoms Outcome: Progressing Toward Goal Problem: Mental State/Mood Impairment (Psychotic Signs/Symptoms) (Adult) Goal: Improved Mental State/Mood Outcome: Progressing Toward Goal Problem: Gratification/Engagement Impairment (Psychotic Signs/Symptoms) (Adult) Goal: Increased Interaction/Expression Outcome: Progressing Toward Goal Problem: Social/Occupational/Functional Impairment (Psychotic Signs/Symptoms) (Adult) Goal: Improved Social/Occupational/Functional Skills Outcome: Progressing Toward Goal Problem: Self-expression Impairment (Psychotic Signs/Symptoms) (Adult) Goal: Improved Self-Expression Outcome: Progressing Toward Goal Problem: Sleep Impairment (Adult) Goal: Improved Sleep Hygiene Outcome: Progressing Toward Goal Problem: Impaired Control (Excessive Substance Use) (Adult) Goal: Participates in Recovery Program Outcome: Progressing Toward Goal Problem: Social/Occupational/Functional Impairment (Excessive Substance Use) (Adult) Goal: Improved Social/Occupational/Functional Skills Outcome: Progressing Toward Goal Problem: Safety Awareness Impairment (Excessive Substance Use) (Adult) Goal: Enhanced Safety Awareness Outcome: Progressing Toward Goal Problem: Physiological Impairment (Excessive Substance Use) (Adult) Goal: Improved Physiologic Symptoms Outcome: Progressing Toward Goal Problem: Emotion/Temperament Impairment (Disruptive Behavior) (Adult) Goal: Improved Emotion/Temperament/Mood Symptoms Outcome: Progressing Toward Goal Problem: Behavioral Regulation Impairment (Disruptive Behavior) (Adult) Goal: Improved Impulse/Aggression Control Outcome: Progressing Toward Goal Problem: Social/Occupational/Functional Impairment (Disruptive Behavior) (Adult) Goal: Improved Social/Occupational/Functional Skills Outcome: Progressing Toward Goal Problem: Sleep Impairment (Adult) Goal: Improved Sleep Hygiene Outcome: Progressing Toward Goal Problem: OT Childress Goals Goal: SELF-CARE ADLS - Hygiene and grooming Description: Patient will attend to 3 hygiene and grooming tasks daily and track performance to increase attention and motivation to complete self-care tasks. Outcome: Progressing Toward Goal Goal: COPING SKILLS - Occupational performance Description: Patient will identify and independently implement 5 new coping strategies to manage depression, deter suicidal ideation, and promote mental health and wellness in order to optimize occupational performance. Outcome: Progressing Toward Goal Goal: RELAPSE PREVENTION - Complete Activities Description: Patient will complete relapse prevention activities with independence to deter substance use and promote sobriety upon discharge. Outcome: Progressing Toward Goal Goal: SELF AWARENESS - Motivation for meaningful occupations Description: Patient will engage in therapeutic activities with independence in order to increased self-awareness, increased future-orientation, and improved self-esteem to increase motivation for participation in meaningful occupations. Outcome: Progressing Toward Goal Goal: MEDICATION MANAGEMENT - Compliance strategies Description: Patient will demonstrate ability to utilize 5 medication management strategies with independence in order to improve medication compliance. Outcome: Progressing Toward Goal Goal: TIME MANAGEMENT - Daily routine Description: Patient will create To Do List and self-care checklist with independence to facilitate an active role in daily routine. Outcome: Progressing Toward Goal [id number]: Pt. Had an irritable edge this morning during fur feeder. Pt. was dismissive and shrugged when asked if he wanted to participate in the fur feeder. Pt. was med compliant. Pt. allowed for the PCT to draw his labs this morning. Pt. was visible at times during this shift. This evening pt. was approached again and pt. did answer fur feeder questions. Pt. denied SI/HI/AVH and pain. Pt. was calm and visible on the unit. Pt. appeared to be depressed. Problem: Overarching Goals (Adult) Goal: Optimized Coping Skills in Response to Life Stressors 09/05/2022 1215 by Porsha Godwin RN Outcome: Not Met This Shift 09/05/2022 1203 by Porsha Godwin RN Outcome: Ongoing Problem: Overarching Goals (Adult) Goal: Optimized Coping Skills in Response to Life Stressors Outcome: Ongoing [id number] Patient presented with flat affect and isolative to room. Patient refused his evening scheduled Zyprexa. No PRNs given. Patient slept 10 hrs. Patient denied anxiety/depression/SI/HI/AVH. Safety checks maintained per orders. Problem: Patient Care Overview Goal: Plan of Care Review Outcome: Ongoing Problem: Overarching Goals (Adult) Goal: Adheres to Safety Considerations for Self and Others Outcome: Ongoing Problem: Suicide Risk (Adult) Goal: Identify Related Risk Factors and Signs and Symptoms Description: Related risk factors and signs and symptoms are identified upon initiation of Human Response Clinical Practice Guideline (CPG) Outcome: Ongoing Nursing Note Per Tour of Duty 6734-5545 Patient Daily Goal(s): pt does not voice goal Psychiatric Assessment Reported and Observed signs and symptoms: pt primarily isolates to room, comes out for some meals, withdrawn, guarded. Denies SI/HI, hallucinations, pain. Brief with assessment. Safety checks maintained per orders Non-pharmacological interventions and effectiveness: provided emotional support Medications Pharmacological PRNs indications and effectiveness: none requested or required Medication adherence: yes Psychotropic medication side effects: none reported or observed Functional Assessment - Activities of Daily Living Self-care: none observed this shift Socialization (group, peer interactions): isolated in room Nutrition and elimination interventions and effectiveness: offered frequent meals/snacks and encouraged fluid intake Last Bowel Movement: 09/03/22 Mobility: up for meals Sleep Number of hours this shift: Day Shift 10 hrs CORE Programming Group Therapy Progress Note Group Topic: Comfort Cart Date: 09/04/2022 Start Time: 1315 End Time: 1330 Total Time: 15 min of group time Hand Lens Polisher: HOOD Murphy Department: Patient [facility] Clinical Users Topic Discussed/Skill Practiced: Comfort Cart-Patients were given handouts on positive affirmations, healthy eating, lifestyle education, Mental health applications for your tablet/cell phone, coping skills, discharge planning and how to manage life post hospitalization while there is a pandemic going on. They were also offered supplies and activities to work on over the weekend including comfort boxes, journals, journal prompts, stickers, stress balls, and coloring supplies. Other Comments: Patient was asleep at the time of intervention HOOD Murphy 09/04/2022 Recreational Therapy Assessment Attempt WIRELINE OPERATOR attempted to complete RT assessment at this time, however, patient was with another provider upon approach. Will continue to monitor and complete assessment as appropriate. Time In: 1105 Time Out: 1105 I used a protective facemask during today's patient interaction. JANIYA Jenkins Problem: OT Childress Goals Goal: SELF-CARE ADLS - Hygiene and grooming Description: Patient will attend to 3 hygiene and grooming tasks daily and track performance to increase attention and motivation to complete self-care tasks. Outcome: Ongoing Goal: COPING SKILLS - Occupational performance Description: Patient will identify and independently implement 5 new coping strategies to manage depression, deter suicidal ideation, and promote mental health and wellness in order to optimize occupational performance. Outcome: Ongoing Goal: RELAPSE PREVENTION - Complete Activities Description: Patient will complete relapse prevention activities with independence to deter substance use and promote sobriety upon discharge. Outcome: Ongoing Goal: SELF AWARENESS - Motivation for meaningful occupations Description: Patient will engage in therapeutic activities with independence in order to increased self-awareness, increased future-orientation, and improved self-esteem to increase motivation for participation in meaningful occupations. Outcome: Ongoing Goal: MEDICATION MANAGEMENT - Compliance strategies Description: Patient will demonstrate ability to utilize 5 medication management strategies with independence in order to improve medication compliance. Outcome: Ongoing Goal: TIME MANAGEMENT - Daily routine Description: Patient will create To Do List and self-care checklist with independence to facilitate an active role in daily routine. Outcome: Ongoing 23:00-07:00 Patient slept for about 8 hrs, no issues noted or reported, stayed in room all night. Safety checks completed as ordered. Patient was noted sitting in the dining room, he stated The police picked me up thing I am crazy, what medications do you want to give me, is it to help reduce my craziness? I really don't know why I am here Patient has not insight in to his illness, looked and sounded hopeless. Patient was reassured about his safety and nursing role to help him get to his functional level. He denied SI/HI AVH. Safety checks completed as ordered. 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 Closet: Blue adidas shoes. Belongings at bedside: Black CK pajama pants, charisma crew neck sweatshirt and green beanie. Belongings sent to security: $402.00. Pt admitted to [address] room 542 from ED via wheelchair with voluntary consent. Pt cooperative with height/weight, vitals, assessment, skin check, questions, and education. Pt denies SI/HI, hallucinations, and pain, remained calm and cooperative throughout admission, denies abnormal symptoms. Pt states they are here because I guess I'm crazy. RN oriented pt to unit, room, and rules. All questions answered. Problem: Overarching Goals (Adult) Goal: Adheres to Safety Considerations for Self and Others Outcome: Met This Shift Problem: Overarching Goals (Adult) Goal: Develops/Participates in Therapeutic [place] to Support Successful Transition Outcome: Progressing Toward Goal Problem: Cognitive Impairment (Psychotic Signs/Symptoms) (Adult) Goal: Improved Thought Clarity/Organization Outcome: Progressing Toward Goal I certify that this patient requires inpatient services at this time. I anticipate the expected length of stay will include at least two midnights. Inpatient services are due to the following medical concerns psychosis. Plans for post hospitalization care will be discharge to home. documented in this encounter [facility] 09-08-2022 Note Formatting of this n ote might be different from the original. Problem: Patient Care Overview Goal: Plan of Care Review Outcome: Adequate for Discharge Goal: Individualization & Mutuality Outcome: Adequate for Discharge Goal: Discharge Needs Assessment Outcome: Adequate for Discharge Goal: Interdisciplinary Rounds/Family Conf Outcome: Adequate for Discharge Problem: Overarching Goals (Adult) Goal: Adheres to Safety Considerations for Self and Others Outcome: Adequate for Discharge Goal: Optimized Coping Skills in Response to Life Stressors Outcome: Adequate for Discharge Goal: Develops/Participates in Therapeutic [place] to Support Successful Transition Outcome: Adequate for Discharge Problem: Suicide Risk (Adult) Goal: Identify Related Risk Factors and Signs and Symptoms Description: Related risk factors and signs and symptoms are identified upon initiation of Human Response Clinical Practice Guideline (CPG) Outcome: Adequate for Discharge Goal: Strength-Based Wellness/Recovery Description: Patient will demonstrate the desired outcomes by discharge/transition of care. Outcome: Adequate for Discharge Goal: Physical Safety Description: Patient will demonstrate the desired outcomes by discharge/transition of care. Outcome: Adequate for Discharge Problem: Cognitive Impairment (Psychotic Signs/Symptoms) (Adult) Goal: Improved Thought Clarity/Organization Outcome: Adequate for Discharge Problem: Sensory Perception Impairment (Psychotic Signs/Symptoms) (Adult) Goal: Decrease Frequency/Intensity of Sensory Symptoms Outcome: Adequate for Discharge Problem: Psychomotor Movement Impairment (Psychotic Signs/Symptoms) (Adult) Goal: Improved Psychomotor Symptoms Outcome: Adequate for Discharge Problem: Mental State/Mood Impairment (Psychotic Signs/Symptoms) (Adult) Goal: Improved Mental State/Mood Outcome: Adequate for Discharge Problem: Gratification/Engagement Impairment (Psychotic Signs/Symptoms) (Adult) Goal: Increased Interaction/Expression Outcome: Adequate for Discharge Problem: Social/Occupational/Functional Impairment (Psychotic Signs/Symptoms) (Adult) Goal: Improved Social/Occupational/Functional Skills Outcome: Adequate for Discharge Problem: Self-expression Impairment (Psychotic Signs/Symptoms) (Adult) Goal: Improved Self-Expression Outcome: Adequate for Discharge Problem: Sleep Impairment (Adult) Goal: Improved Sleep Hygiene Outcome: Adequate for Discharge Problem: Impaired Control (Excessive Substance Use) (Adult) Goal: Participates in Recovery Program Outcome: Adequate for Discharge Problem: Social/Occupational/Functional Impairment (Excessive Substance Use) (Adult) Goal: Improved Social/Occupational/Functional Skills Outcome: Adequate for Discharge Problem: Safety Awareness Impairment (Excessive Substance Use) (Adult) Goal: Enhanced Safety Awareness Outcome: Adequate for Discharge Problem: Physiological Impairment (Excessive Substance Use) (Adult) Goal: Improved Physiologic Symptoms Outcome: Adequate for Discharge Problem: Emotion/Temperament Impairment (Disruptive Behavior) (Adult) Goal: Improved Emotion/Temperament/Mood Symptoms Outcome: Adequate for Discharge Problem: Behavioral Regulation Impairment (Disruptive Behavior) (Adult) Goal: Improved Impulse/Aggression Control Outcome: Adequate for Discharge Problem: Social/Occupational/Functional Impairment (Disruptive Behavior) (Adult) Goal: Improved Social/Occupational/Functional Skills Outcome: Adequate for Discharge Problem: Sleep Impairment (Adult) Goal: Improved Sleep Hygiene Outcome: Adequate for Discharge Problem: OT Childress Goals Goal: SELF-CARE ADLS - Hygiene and grooming Description: Patient will attend to 3 hygiene and grooming tasks daily and track performance to increase attention and motivation to complete self-care tasks. Outcome: Adequate for Discharge Goal: COPING SKILLS - Occupational performance Description: Patient will identify and independently implement 5 new coping strategies to manage depression, deter suicidal ideation, and promote mental health and wellness in order to optimize occupational performance. Outcome: Adequate for Discharge Goal: RELAPSE PREVENTION - Complete Activities Description: Patient will complete relapse prevention activities with independence to deter substance use and promote sobriety upon discharge. Outcome: Adequate for Discharge Goal: SELF AWARENESS - Motivation for meaningful occupations Description: Patient will engage in therapeutic activities with independence in order to increased self-awareness, increased future-orientation, and improved self-esteem to increase motivation for participation in meaningful occupations. Outcome: Adequate for Discharge Goal: MEDICATION MANAGEMENT - Compliance strategies Description: Patient will demonstrate ability to utilize 5 medication management strategies with independence in order to improve medication compliance. Outcome: Adequate for Discharge Goal: TIME MANAGEMENT - Daily routine Description: Patient will create To Do List and self-care checklist with independence to facilitate an active role in daily routine. Outcome: Adequate for Discharge [facility] 09-08-2022 Note Formatting of this n ote might be different from the original. RN assumed care for pt at 7am. Pt denied SI/HI and hallucinations, remained calm and cooperative, medication compliant, no PRNs given, denies medication side effects or abnormal symptoms. Discharge order placed. AVS reviewed with pt. RN gathered pt belongings, pt verbalized they have all of their things. Tech escorted pt out of unit for discharge via LYFT. [facility] 09-08-2022 History of Present illness Narrative Images from the original note were not included. [facility] Delivery Note: The following medications were Delivered to the nurse's station: handed to nurse JESSIKA Rojas Bedside Delivery: [phone] [facility] Bedside Delivery: [phone] East: [phone] Images from the original note were not included. [facility] Note: [facility] for the following medications: Total cost: No cost. Medication reconciliation was completed with Logan Wharton. The prescription(s) will be delivered to the patient's bedside on 09/08/22. [facility] ([place]) [phone] [place] [phone] [facility] [phone] [place] [phone] [place] [phone] [place] [phone] Bedside Delivery ([facility]) [phone] SOCIAL WORK DISCHARGE NOTE: Met with patient to discuss discharge planning, including follow up appointments. Patient declined to complete safety plan and declined referral for AOD services at discharge. Patient was cooperative with meeting with treatment team. Patient was informed that information would be provided in discharge paperwork for AOD services and [facility]. Patient was provided with referrals to substance abuse treatment. Patient declined referral to tobacco cessation counseling Patient declined to provide collateral information to ensure readiness for discharge. Follow up Appointments: see AVS for details Discharge instructions faxed to all outpatient treatment providers listed in the AVS for continuity of care; confirmation received. Social Work Note nozzle and sleeve worker met with patient in the milieu of the unit. Patient was agitated and frustrated, refused to respond to any of the questions asked by TW. Patient repeatedly expressed his desire to discharge and refused any services from this hospital. I don't want to give any more blood I just want to go home. I want you people to leave me alone. Patient refused referral for outpatient services. SW will provide patient with resource to contact at discharge. PROGRESS NOTE/TREATMENT REVIEW 09/07/2022 TREATMENT TEAM Reviewed by Treatment Team, following member present: nurse, delinquency prevention social worker, faculty physician, resident physician. Subjective/Interval History/ROS Interval History: VS: VSS Labs/Iaging: reviewed, no new Sleep: 8.5 hrs Medications: Compliant PRNs: for psychiatric needs, specifically benadryl and hydroxyzine Behavior: noted to be tearful and sad after friends visited Subjective: On interview, the patient engages moderately with the interview team and is reluctant to meet with the team. Pt met at bedside. Pt superficially engaged with questions about events preceding admission. Pt reports maybe it was a joke by my friends, maybe it wasn't. Pt denied AVH, paranoia. Pt reports he has used meth pretty much all my life and would consider rehab. Pt reports sleep and appetite are fair. Review of Systems: Psychiatric: Anxiety: mild Irritability: mild Constitutional: No recent change in weight or fever Musculoskeletal: No back, neck, muscle, or joint pain endorsed Gastrointestinal: No abdominal pain, nausea vomiting, or diarrhea endorsed Skin: No rash or wound 24 HOUR LAB RESULTS No results found for this or any previous visit (from the past 24 hour(s)). MEDICATIONS Scheduled: Xyyefgbsibr-Wdgpfpdejv-Kregzul (BIKTARVY) 50-200-25 MG per tablet 1 tablet, 1 tablet, Daily OLANZapine (ZYPREXA ZYDIS) disintegrating tablet 10 mg, 10 mg, QHS PRN: Acetaminophen, 650 mg, Q4H PRN alum/mag hydrox.-simethicone, 30 mL, Q6H PRN Benztropine, 1 mg, Q6H PRN Or Benztropine mesylate, 1 mg, Q6H PRN diphenhydrAMINE, 50 mg, QHS PRN hydrOXYzine HCl, 25 mg, Q6H PRN OLANZapine, 10 mg, Q4H PRN Or OLANZapine, 10 mg, Q4H PRN Polyethylene glycol, 17 g, Daily PRN PHYSICAL AND MENTAL STATUS EXAM Blood pressure 107/70, pulse 65, temperature 98 F (36.7 C), temperature source Infrared, resp. rate 16, height 1.702 m (5' 7 ), weight 54.9 kg (121 lb 1.6 oz), SpO2 98 %. Musculoskeletal: gait not assessed, station is within normal limits; tremor absent Constitutional: well-appearing; fair hygiene; no acute distress Attention/concentration: alert and capable of maintaining prolonged focus, poor eye contact Orientation: oriented to self, location, date and situation Mood: I'm fine Affect: congruent and irritable; constricted; increased emotional reactivity Motor Activity: normokinetic and neither restless nor sedated Speech: fluent Kenyan, average rate and rhythm, quiet volume, whining tone Thought Process: superficially linear and guarded, minimizing symptoms Associations: loosening Suicidal Ideation: did not endorse Homicidal Ideation: did not endorse Delusions: persecutory and paranoid Hallucination: denies hearing voices and not apparently responding to internal stimuli Insight/Judgment: poor insight, poor judgment Memory: impaired by effort Language: appropriate for the patient's level of education Fund of knowledge: average for the patient's level of education Cognition: intact, no indication of cognitive disorder DIAGNOSTIC IMPRESSION Christiano Hernandez is a 34 y.o. male with a history of depression, PTSD by report, meth use, cannabis use, fentanyl use who is admitted to [facility] with a diagnosis of Psychosis, unspecified psychosis type. Since admission, the patient was started on Zyprexa and has remained isolative and irritable. Informed Consent: Discussed informed consent for all medication with the patient/guardian. The following elements were reviewed: the recommended medication name, frequency, route, and purpose; that dosage and route may be changed based on changes to physical or psychological status; risks and benefits of each medication, including common side effects and applicable long-term risks; the right to refuse medication, unless in an emergency, under a court order, or under guardianship; the anticipated results of not receiving the medication and all alternatives to the medication. The patient/guardian did not agree, but was informed they would be offered the medication to treat their illness and had the right to refuse it. . Treatment Plan Update/Medical Decision Making The multidisciplinary treatment team continues to implement the following: Psychiatric status The patient s admission and precautionary status, medication administration, and safety since last assessment have been reviewed. Social work continuing to coordinate care and discharge planning and collateral information has been reviewed. Legal Status: Voluntary Continued Stay Criteria (select all that apply) Patient is unable to care for self or unable to perform activities of daily living because of psychiatric condition causion deterioration of physical or mental health, Persistence of severe symptoms despite active treatment and/or emergence of additional problems consistent with admission criteria and Clinical evidence that less intensive treatment will result in unwanted regression Psychiatric decision making and treatment modifications with consent from patient/guardian are as follows: #Psychosis, unspecified psychosis type -Concern for substance-induced psychosis -Continue Zyprexa 10mg at bedtime 09/03: Started Zyprexa 5mg at bedtime 09/04: Increased Zyprexa to 10mg at bedtime Substance use disorder Nicotine replacement treatment was not indicated due to no use #Meth Use -recommend cessation -consider substance referral #Fentanyl Use -recommend cessation -consider substance referral #Cannabis Use -recommend cessation -consider substance referral Medical status Continue monitoring vital signs, current DVT prophylaxis, and diet Laboratory studies, radiology results, ECG, or other information reviewed and discussed with patient and plan to address comorbid medical conditions as follows: #HIV with poor ART compliance Per ID consult: 1. Start biktarvy once daily. Send him with script on discharge. 2. Send Hep A/B/C and Toxo serologies. - HBV negative, HCV negative 3. Followup in ID clinic in 2-3 months (will have clinic reach out to him). #Asymptomatic Bacteriuria -Proteus and enterococcus positive -no treatment recommended by ID Level of Observation, Suicide Risk Assessment and Safety Planning: The patient DOES NOT have medical equipment or a medical bed. Current risk of suicide is LOW as evidenced by recent progress and current mental status examination Safety plan will be completed prior to discharge. Current level of precautions: Sexual I re-certify that this inpatient psychiatric hospital admission is medically necessary for diagnostic study and/or active treatment, which could reasonably be expected to improve the patient's condition. Logan Wharton MD PGY-2, Psychiatry Associated attestation - Alessandro Henson MD - 09/07/2022 11:55 PM EST Attending Physician Attestation I saw and independently examined the patient on date of 09/07/22 and reviewed the documentation by Dr. Wharton. I agree with the history, examination, and medical decision making as noted. Additional information based on my assessment: Patient was irritable initially / perseverating on discharge. He slept for a reported 8.5 hours last night. He has been complaint with his medication. He said that there was no reason for him in the hospital. He acknowledged his substance use / and also possibility the drug effect on his mind. He further stated that it was his choice and in fact / thought about staying away from drugs. He deneid any SI / HI. There was no evident of responding, later he was found interacting with peers with no apparent paranoia / delusion. VSS. PSYCHOTHERAPY 57779 (16-37 minutes) Time spent specifically on therapy: 20 minutes Participants: Patient, attending psychiatrist Location: [address] [place] [address] Therapeutic Intervention Type: behavior modifying psychotherapy, supportive psychotherapy Why chosen therapy is appropriate versus another modality: relevant to diagnosis, patient responds to this modality, evidence based practice Target symptoms: Mood, Anxiety and substance use disorder Primary focus: Improve insight and coping, encourage abstinence Psychotherapeutic techniques: supportive/validation and psychoeducational Outcome monitoring methods: self-report, observation Patient's response to intervention: The patient's response to intervention is fair Progress toward goals: The patient's progress toward goals is fair Psychotherapy Narrative: Patient used denial as his primary coping for his substance use. Education provided especially in relation to his symptoms. LOW RISK: Will initiate/continue standard precautions per unit policy TREATMENT PLAN UPDATE Plan of Care Discussed with Patient and the following Action was reviewed: Continue plan of care as previously discussed and documented and discharge planning Patient's Response: Verbalizes agreement with plan or modifications to plan. Continued Stay Criteria (select all that apply) Clinical evidence that less intensive treatment will result in unwanted regression Current Length of Stay: 5 Days Expected Discharge Date: 09.08.2022 I re-certify that this inpatient psychiatric hospital admission is medically necessary for diagnostic study and/or active treatment, which could reasonably be expected to improve the patient's condition. Alessandro Henson MD PROGRESS NOTE/TREATMENT REVIEW 09/06/2022 TREATMENT TEAM Reviewed by Treatment Team, following member present: nurse, delinquency prevention social worker, faculty physician Subjective/Interval History/ROS Reason for admission: Patient is a 34 y.o. male with a past psychiatric history notable for Adjustment disorder with depression, PTSD by report, and depression by report, presenting today with hallucinations. Patient presented to the ED involuntarily on a [place] (application for involuntary admission) on 09/01/2022 with concern for hallucinations which has been occurring for an unknown amount of time Subjective / objective: Patient was uncooperative / re;luctant to be interview with no eye contact. He was lying in bed / awoke but did not attempt to make eye contact. He slept for a reported 9 hours last night. He has been compliant with his medication, denied any side effect. There was no symptom of responding to internal stimuli during the interview, however, was guarded with questionable paranoia. He denied any SI / HI though reported was tearful when assessed by nurse and when visitor left. VSS. Review of Systems: Psychiatric: Anxiety: mild Irritability: mild Constitutional: No recent change in weight or fever Musculoskeletal: No back, neck, muscle, or joint pain endorsed Gastrointestinal: No abdominal pain, nausea vomiting, or diarrhea endorsed Skin: No rash or wound 24 HOUR LAB RESULTS No results found for this or any previous visit (from the past 24 hour(s)). MEDICATIONS Scheduled: Khxdrqavnqb-Dljkrachch-Xgoptzz (BIKTARVY) 50-200-25 MG per tablet 1 tablet, 1 tablet, Daily OLANZapine (ZYPREXA ZYDIS) disintegrating tablet 10 mg, 10 mg, QHS PRN: Acetaminophen, 650 mg, Q4H PRN alum/mag hydrox.-simethicone, 30 mL, Q6H PRN Benztropine, 1 mg, Q6H PRN Or Benztropine mesylate, 1 mg, Q6H PRN diphenhydrAMINE, 50 mg, QHS PRN hydrOXYzine HCl, 25 mg, Q6H PRN OLANZapine, 10 mg, Q4H PRN Or OLANZapine, 10 mg, Q4H PRN Polyethylene glycol, 17 g, Daily PRN PHYSICAL AND MENTAL STATUS EXAM Blood pressure 127/69, pulse 69, temperature 97.3 F (36.3 C), temperature source Infrared, resp. rate 16, height 1.702 m (5' 7 ), weight 54.9 kg (121 lb 1.6 oz), SpO2 98 %. Musculoskeletal: gait not assessed, station not assessed; tremor absent Constitutional: well-appearing; fair hygiene; no acute distress Attention/concentration: alert and reluctant to make focus, no eye contact Orientation: oriented to self, location, date and situation Mood: I dont know Affect: congruent and on edge; constricted; decreased emotional reactivity Motor Activity: hypokinetic and neither restless nor sedated Speech: fluent Kenyan, average rate and rhythm, quiet volume, whining tone Thought Process: superficially linear and guarded, minimizing symptoms Associations: loosening Suicidal Ideation: did not endorse Homicidal Ideation: did not endorse Delusions: persecutory and paranoid Hallucination: denies hearing voices and not apparently responding to internal stimuli Insight/Judgment: poor insight, poor judgment Memory: impaired by effort Language: appropriate for the patient's level of education Fund of knowledge: average for the patient's level of education Cognition: intact, no indication of cognitive disorder DIAGNOSTIC IMPRESSION Christiano Hernandez is a 34 y.o. male with a history of depression, PTSD by report, meth use, cannabis use, fentanyl use who is admitted to [facility] with a diagnosis of Psychosis, unspecified psychosis type. Since admission, the patient was started on Zyprexa and has remained isolative and irritable. Informed Consent: Discussed informed consent for all medication with the patient/guardian. The following elements were reviewed: the recommended medication name, frequency, route, and purpose; that dosage and route may be changed based on changes to physical or psychological status; risks and benefits of each medication, including common side effects and applicable long-term risks; the right to refuse medication, unless in an emergency, under a court order, or under guardianship; the anticipated results of not receiving the medication and all alternatives to the medication. The patient/guardian did not agree, but was informed they would be offered the medication to treat their illness and had the right to refuse it. . Treatment Plan Update/Medical Decision Making The multidisciplinary treatment team continues to implement the following: Psychiatric status The patient s admission and precautionary status, medication administration, and safety since last assessment have been reviewed. Social work continuing to coordinate care and discharge planning and collateral information has been reviewed. Legal Status: Voluntary Continued Stay Criteria (select all that apply) Patient is unable to care for self or unable to perform activities of daily living because of psychiatric condition causion deterioration of physical or mental health, Persistence of severe symptoms despite active treatment and/or emergence of additional problems consistent with admission criteria and Clinical evidence that less intensive treatment will result in unwanted regression Psychiatric decision making and treatment modifications with consent from patient/guardian are as follows: #Psychosis, unspecified psychosis type -Concern for substance-induced psychosis -Increase Zyprexa to 10mg at bedtime 09/03: Started Zyprexa 5mg at bedtime 09/04: Increased Zyprexa to 10mg at bedtime Substance use disorder Nicotine replacement treatment was not indicated due to no use #Meth Use -recommend cessation -consider substance referral - pt declined #Fentanyl Use -recommend cessation -consider substance referral #Cannabis Use -recommend cessation -consider substance referral Medical status Continue monitoring vital signs, current DVT prophylaxis, and diet Laboratory studies, radiology results, ECG, or other information reviewed and discussed with patient and plan to address comorbid medical conditions as follows: #HIV with poor ART compliance Per ID consult: 1. Start biktarvy once daily. Send him with script on discharge. 2. Send Hep A/B/C and Toxo serologies. 3. Followup in ID clinic in 2-3 months (will have clinic reach out to him). #Asymptomatic Bacteriuria -Proteus and enterococcus positive -no treatment recommended by ID Level of Observation, Suicide Risk Assessment and Safety Planning: The patient DOES NOT have medical equipment or a medical bed. Current risk of suicide is LOW as evidenced by recent progress and current mental status examination Safety plan will be completed prior to discharge. Current level of precautions: Sexual I re-certify that this inpatient psychiatric hospital admission is medically necessary for diagnostic study and/or active treatment, which could reasonably be expected to improve the patient's condition. Christiano asking for Benadryl already, stated I just want to sleep. Discussed that if Benadryl for Insomnia is given now, his nurse will have to wake him later for nighttime meds. Asked him to watch TV, read, use tablet, shower, anything to stay awake until HS meds. Asked for toiletries and towels to shower. Several noticeable open sores on face and neck. Pt stated I don't care, I don't want to talk about it please. Items brought in today: 1 black long-sleeved shirt 1 black short-sleeved shirt with Spider Man 2 muscle shirts: Layne and black 1 red long-sleeved shirt 1 pair jeans 1 layne and white striped shirt 2 black underwear 2 socks All items given to patient. 1 cartoon zip book bag and 1 pair layne joggers with a string returned to two female visitors. PROGRESS NOTE/TREATMENT REVIEW 09/05/2022 TREATMENT TEAM Reviewed by Treatment Team, following member present: nurse, delinquency prevention social worker, faculty physician, resident physician. Subjective/Interval History/ROS Interval History: VS: VSS Labs/Imaging: reviewed, notable for low HDL Sleep: 10 hrs Medications: Non-Compliant with Zyprexa PRNs: none required Behavior: isolative to room Subjective: On interview, the patient engages moderately with the interview team and is reluctant to meet with the team. Pt met at bedside. Pt stated he did not know why he was admitted, noting he is no longer experiencing any paranoia, noting it was just a sick joke by someone I know. Pt continued to decline needing medications after education provided. Pt declined wanting substance referral. Pt stated he wants to discharge and get back to his life- pt reminded about 3 day letter. Review of Systems: Psychiatric: Anxiety: mild Irritability: mild Constitutional: No recent change in weight or fever Musculoskeletal: No back, neck, muscle, or joint pain endorsed Gastrointestinal: No abdominal pain, nausea vomiting, or diarrhea endorsed Skin: No rash or wound 24 HOUR LAB RESULTS Recent Results (from the past 24 hour(s)) LIPID PANEL W CALCULATED LDL Collection Time: 09/05/22 8:45 AM Result Value Ref Range Cholesterol 140 <200 mg/dL Triglycerides 93 <150 mg/dL HDL Cholesterol 37 (L) >=40 mg/dL Calculated LDL Cholesterol 84 0 - 99 mg/dL Total Cholesterol/HDL Ratio 3.8 <4.5 Non HDL Cholesterol 103 <130 mg/dL MEDICATIONS Scheduled: Piwqzvuwcsk-Kjtepsqarl-Bipvenv (BIKTARVY) 50-200-25 MG per tablet 1 tablet, 1 tablet, Daily OLANZapine (ZYPREXA ZYDIS) disintegrating tablet 10 mg, 10 mg, QHS PRN: Acetaminophen, 650 mg, Q4H PRN alum/mag hydrox.-simethicone, 30 mL, Q6H PRN Benztropine, 1 mg, Q6H PRN Or Benztropine mesylate, 1 mg, Q6H PRN diphenhydrAMINE, 50 mg, QHS PRN hydrOXYzine HCl, 25 mg, Q6H PRN OLANZapine, 10 mg, Q4H PRN Or OLANZapine, 10 mg, Q4H PRN Polyethylene glycol, 17 g, Daily PRN PHYSICAL AND MENTAL STATUS EXAM Blood pressure 120/78, pulse 78, temperature 97.7 F (36.5 C), temperature source Infrared, resp. rate 16, height 1.702 m (5' 7 ), weight 54.9 kg (121 lb 1.6 oz), SpO2 96 %. Musculoskeletal: gait not assessed, station is within normal limits; tremor absent Constitutional: well-appearing; fair hygiene; no acute distress Attention/concentration: alert and capable of maintaining prolonged focus, poor eye contact Orientation: oriented to self, location, date and situation Mood: I'm fine Affect: congruent and irritable; constricted; increased emotional reactivity Motor Activity: normokinetic and neither restless nor sedated Speech: fluent Kenyan, average rate and rhythm, quiet volume, whining tone Thought Process: superficially linear and guarded, minimizing symptoms Associations: loosening Suicidal Ideation: did not endorse Homicidal Ideation: did not endorse Delusions: persecutory and paranoid Hallucination: denies hearing voices and not apparently responding to internal stimuli Insight/Judgment: poor insight, poor judgment Memory: impaired by effort Language: appropriate for the patient's level of education Fund of knowledge: average for the patient's level of education Cognition: intact, no indication of cognitive disorder DIAGNOSTIC IMPRESSION Christiano Hernandez is a 34 y.o. male with a history of depression, PTSD by report, meth use, cannabis use, fentanyl use who is admitted to [facility] with a diagnosis of Psychosis, unspecified psychosis type. Since admission, the patient was started on Zyprexa and has remained isolative and irritable. Informed Consent: Discussed informed consent for all medication with the patient/guardian. The following elements were reviewed: the recommended medication name, frequency, route, and purpose; that dosage and route may be changed based on changes to physical or psychological status; risks and benefits of each medication, including common side effects and applicable long-term risks; the right to refuse medication, unless in an emergency, under a court order, or under guardianship; the anticipated results of not receiving the medication and all alternatives to the medication. The patient/guardian did not agree, but was informed they would be offered the medication to treat their illness and had the right to refuse it. . Treatment Plan Update/Medical Decision Making The multidisciplinary treatment team continues to implement the following: Psychiatric status The patient s admission and precautionary status, medication administration, and safety since last assessment have been reviewed. Social work continuing to coordinate care and discharge planning and collateral information has been reviewed. Legal Status: Voluntary Continued Stay Criteria (select all that apply) Patient is unable to care for self or unable to perform activities of daily living because of psychiatric condition causion deterioration of physical or mental health, Persistence of severe symptoms despite active treatment and/or emergence of additional problems consistent with admission criteria and Clinical evidence that less intensive treatment will result in unwanted regression Psychiatric decision making and treatment modifications with consent from patient/guardian are as follows: #Psychosis, unspecified psychosis type -Concern for substance-induced psychosis -Increase Zyprexa to 10mg at bedtime 09/03: Started Zyprexa 5mg at bedtime 09/04: Increased Zyprexa to 10mg at bedtime Substance use disorder Nicotine replacement treatment was not indicated due to no use #Meth Use -recommend cessation -consider substance referral - pt declined #Fentanyl Use -recommend cessation -consider substance referral #Cannabis Use -recommend cessation -consider substance referral Medical status Continue monitoring vital signs, current DVT prophylaxis, and diet Laboratory studies, radiology results, ECG, or other information reviewed and discussed with patient and plan to address comorbid medical conditions as follows: #HIV with poor ART compliance Per ID consult: 1. Start biktarvy once daily. Send him with script on discharge. 2. Send Hep A/B/C and Toxo serologies. 3. Followup in ID clinic in 2-3 months (will have clinic reach out to him). #Asymptomatic Bacteriuria -Proteus and enterococcus positive -no treatment recommended by ID Level of Observation, Suicide Risk Assessment and Safety Planning: The patient DOES NOT have medical equipment or a medical bed. Current risk of suicide is LOW as evidenced by recent progress and current mental status examination Safety plan will be completed prior to discharge. Current level of precautions: Sexual I re-certify that this inpatient psychiatric hospital admission is medically necessary for diagnostic study and/or active treatment, which could reasonably be expected to improve the patient's condition. Logan Wharton MD PGY-2, Psychiatry Associated attestation - Iza Jolley DO - 09/05/2022 2:14 PM EST Attending Physician Attestation I saw and independently examined the patient on date of 09/05/22 and reviewed the documentation by Dr. Wharton. I agree with the history, examination, and medical decision making as noted. Additional information based on my assessment: Christiano is guarded and irritable with assessment. He reports that the events leading to admission were just a sick joke. He declines to discuss this further, and he becomes increasingly irritable when this is attempted. He does not endorse suicidal or homicidal ideation. Discussed importance of compliance with medications. MODERATE RISK: Will initiate/continue suicide precautions per unit policy TREATMENT PLAN UPDATE Plan of Care Discussed with Patient and the following Action was reviewed: Modifiy plan of care as follows: Changes in Medication Regimen: Continue Zyprexa to 10 mg at bedtime. Given patient's report of a suicide attempt prior to admission, patient's psychosis represents a threat to self-harm. Patient's Response: Patient has the following concerns: wants to be discharged. Continued Stay Criteria (select all that apply) Patient is unable to care for self or unable to perform activities of daily living because of psychiatric condition causion deterioration of physical or mental health, Persistence of severe symptoms despite active treatment and/or emergence of additional problems consistent with admission criteria, Patient is progressing in treatment but has not yet acheived a base line, and Clinical evidence that less intensive treatment will result in unwanted regression Current Length of Stay: 3 Days Expected Discharge Date: Unknown I re-certify that this inpatient psychiatric hospital admission is medically necessary for diagnostic study and/or active treatment, which could reasonably be expected to improve the patient's condition. Iza Jolley DO Social Work Note Ground Support Agent attempted to meet with patient in patient's room. Patient was in bed upon approach. Patient refused to cooperate with interview at this time. SW will attempt to meet with patient at a later date and time. SOCIAL WORK INITIAL ASSESSMENT: Christiano Hernandez is a 34 y.o., male admitted to [facility] due to hallucinations, depression. Patient was subsequently admitted to [facility] after evaluation for further stabilization and safety. PRESENTING PROBLEM: Christiano Hernandez is a 34 y.o. male with a past psychiatric history notable for Adjustment disorder with depression, PTSD by report, and depression by report, presenting today with hallucinations. Patient presented to the ED involuntarily on a [place] Slip (application for involuntary admission) on 09/01/2022 with concern for hallucinations which has been occurring for an unknown amount of time Per patient report, Everything they have done to me is a cruel joke . Upon interview, pt is resting in bed and does not appear to be in acute distress. Pt was agreeable with speaking with TW at this time. When asked how pt presented to the ED pt stated, They did this to me. It's been awful. They have been messing with me and I am here because this is a cruel joke . Pt was unable to fully elaborate as to how he got to the ED. Pt is disorganized in his thought process. He is not logical and has tangential and flight of ideas in reference to the questions TW is asking. When asked if pt is feeling suicidal he shrugs his shoulders. Later in the interview pt admits that he attempted to kill himself and was upset that no one stopped him. Pt stated, Everyone was around me and no one was willing to stop me it just makes me so upset . Pt is unable to elaborate further on this attempted suicide. Pt denies HI, or access to guns. Pt endorses AVH. Pt reports that he hears multiple voices all the time as well as seeing projections of people and their ideas. Additinally, he endorses paranoid and persecutory delusions. He reports that people have been playing tricks on him and attempting to hurt him physically, mentally, and emotionally. He reports that he is constantly worried about people having sex in his apartment and in the [place]. He notes that he does not understand why people would do these types of things in his apartment as he has never hurt anyone before. When asked how pts mood has been he reports sad . He again notes that people have been messing with him and that he does not enjoy these jokes anymore. At this point in the interview pt becomes tearful. He reports that he is unable to recall the last time he has slept. Pt notes that his energy has been low and he has felt hopeless. He reports that he enjoy nothing and wishes that people would just stop having sex in his apartment and he would be able to enjoy his hobbies again. Pt admits to methamphetamine use. Pt stated, Yes, I know that I use meth. Yes, I am sure that fentanyl was also mixed in as I am aware of that. I am telling you I have used meth for years and I don't know what is going with me right now . TW ends conversation at this time as pt again reports his distress related to individuals having sex in the [place] of his apartment and that people are intentionally trying to hurt him. Throughout the interview pt was calm and cooperative. Pt was disorganized in his thought process. He made lose associations when asked questions and was tangential in his responses. While TW did not observe pt actively responding to internal stimuli he did struggle with answering questions and did need prompted. Pt appears disheveled and he was unable to identify if he has been caring for his ADL's or not. Per consult note from DINO Rosenbaum, dated 09/02/2022 Social Work Assessment completed by patient interview and review of chart documentation. ++++++++++++++++++++ Admission Status: Application for Emergency Admission Dated 09/01/2022 Patient perception of need/treatment goals: Unable to assess to due to non response by patient Family perception of need/treatment goals: Unknown SOCIAL HISTORY: Childhood history: Unable to assess to due to non response by patient Other Relevant Social History: Diagnoses: Adjustment Disorder with depressed mood, Methamphetamine use with dependence Hospitalizations: Pt reports once but unable to identify when Suicide attempts: Attempted to walk into traffic. Pt could not elaborate further Self-injurious behavior: none Psychiatrist (current): none manager mobile (current): none Therapist/Counselor (current): none Past psychiatric medications: none Psychotherapy: none History of Trauma: Unable to assess Current home environment: Lives alone in apartment Concerns about current home environment: no Leisure and Recreation: Unable to assess Service History: yes - honorably discharged ([employer] [id number]) Buddhism/Spiritual concerns: Yes, describe: Spiritual- believes in manifesting the spirit Sexual Orientation: unknown sexual history Gender Identity: Male Support system: alone & isolated; limited; unknown Support System Contact Information: Name: Relationship: Address: Phone: Cell: Home: Patient Release of Information signed & filed for chart? Impact of illness on family/guardian: Unknown at this time Employment/Work History/Financial Status: Unable to assess SSI/SSDI: no Payee: Factors Impacting Illness & Treatment: Culture: no Ethnicity: no Social/Peer: no Health Status: no Treatment Issues to be Addressed: Non-adherence with treatment:yes - Substance use Support System-Family: yes - SW will contact pt's social supports for collateral information Support System-Community: yes - SW will coordinate OP linkage for pt to ensure continuity of care upon discharge. Homeless/Housing Problems:no Legal Problems: no Problems with Self-care:yes - Substance use Food Insecurity:no Education/Training/Work History: no Drug/Alcohol:yes - Methamphetamine, Cannabis, Fentanyl Tobacco Use:no Pt declined tobacco cessation counseling resources. [] SW met with the patient, provided with practical counseling, which included information regarding: recognizing dangerous situations, development of coping skills and basic information about quitting, including a simple treatment guide. Patient Strengths/Assets: Able to communicate needs: no Employed: no Treatment Compliant:no Family Support: no Financially Secure:no Connected with community base services: no Motivated:no Insightful: no Physically Healthy: yes Educated: yes Other Strengths: hopefulness Anticipated Living Arrangements After Discharge: Home: Apartment: x Family: Homeless: Other: Home Health Required: no Follow-up Mental Health Care to be Provided by: RANDY manager mobile: RANDY Other aftercare treatment considerations: Has Financial Resources for: Aftercare: yes - DENT - DENT Medication: yes - DENT - DENT Discharge Barriers/Limitations: Lack of Stable Housing: Poor support system: x No/Limited outpatient providers: Poor Insight/Judgment: x Non-adherence with outpatient treatment: x Lack of transportation: Financial Limitations: Medical Directives: Power of Organic Chemistry Teacher?: No Living Will?: No Has Guardian?: No Advance Directive: Does Mr. Hernandez have an Medical/Psychiatric advance directive in his electronic medical record? no. The patient has NO advance directive - not interested in additional information. DINO Smith. [place] Occupational Therapy Evaluation AM-PAC score(s): CURRENT AM-PAC Activity Raw Score: 24 Patient seen for initial evaluation, including chart review, interview, and observation. Instructed in the role of psychiatric Occupational Therapy. Explained the role and goals of occupational therapy, including evaluation, course of treatment, and discharge planning. Based on the above AM-PAC score and OT clinical judgement, the discharge destination recommendation is Home. Patient may benefit from the following community-based programs to support ongoing stability: IOP/PHP, community services/therapy treatment to develop positive coping skills Equipment recommendations for discharge: none ADL Equipment Available at Home: none Mobility Equipment Available at Home: none used Current therapy frequency recommendation(s) in acute: OT:Therapy Frequency: 1 time a week HPI: HPI authored by : Will Bauman Christiano Hernandez is a 34 y.o. male with a past psychiatric history notable for Adjustment disorder with depression, PTSD by report, and depression by report, presenting today with hallucinations. Patient presented to the ED involuntarily on a [place]ip (application for involuntary admission) on 09/01/2022 with concern for hallucinations which has been occurring for an unknown amount of time Per patient report, Everything they have done to me is a cruel joke . Upon interview, pt is resting in bed and does not appear to be in acute distress. Pt was agreeable with speaking with TW at this time. When asked how pt presented to the ED pt stated, They did this to me. It's been awful. They have been messing with me and I am here because this is a cruel joke . Pt was unable to fully elaborate as to how he got to the ED. Pt is disorganized in his thought process. He is not logical and has tangential and flight of ideas in reference to the questions TW is asking. When asked if pt is feeling suicidal he shrugs his shoulders. Later in the interview pt admits that he attempted to kill himself and was upset that no one stopped him. Pt stated, Everyone was around me and no one was willing to stop me it just makes me so upset . Pt is unable to elaborate further on this attempted suicide. Pt denies HI, or access to guns. Pt endorses AVH. Pt reports that he hears multiple voices all the time as well as seeing projections of people and their ideas. Additinally, he endorses paranoid and persecutory delusions. He reports that people have been playing tricks on him and attempting to hurt him physically, mentally, and emotionally. He reports that he is constantly worried about people having sex in his apartment and in the [place]. He notes that he does not understand why people would do these types of things in his apartment as he has never hurt anyone before. When asked how pts mood has been he reports sad . He again notes that people have been messing with him and that he does not enjoy these jokes anymore. At this point in the interview pt becomes tearful. He reports that he is unable to recall the last time he has slept. Pt notes that his energy has been low and he has felt hopeless. He reports that he enjoy nothing and wishes that people would just stop having sex in his apartment and he would be able to enjoy his hobbies again. Pt admits to methamphetamine use. Pt stated, Yes, I know that I use meth. Yes, I am sure that fentanyl was also mixed in as I am aware of that. I am telling you I have used meth for years and I don't know what is going with me right now . TW ends conversation at this time as pt again reports his distress related to individuals having sex in the [place] of his apartment and that people are intentionally trying to hurt him. Throughout the interview pt was calm and cooperative. Pt was disorganized in his thought process. He made lose associations when asked questions and was tangential in his responses. While TW did not observe pt actively responding to internal stimuli he did struggle with answering questions and did need prompted. Pt appears disheveled and he was unable to identify if he has been caring for his ADL's or not. Prior Psychiatric Admissions: Yes Current Active [facility]: No History of: other, see comments ( trauma) Activity Orders/Precautions: sexual behavior precautions, moderate risk suicide precautions Occupational Profile Time in: 1101 Time out: 1109 Total Visit time: 8 minutes Reason for Admission: suicide attempt, auditory/visual hallucinations, mental health decompensation ( I'm supposedly crazy and supposedly hear voices. I don't want to talk about it ) Current Life Stressors: mental health decompensation, limited social support Coping with Stress Positive: other, see comments ( I don't know. I don't have any friends so. ) Negative: drugs, isolate Living Situation: lives alone (has cats) Where are you from? [facility] Typical Daily Routine: It looked like this. Staying in bed. Pt shrugged shoulders when asked if there was any changes in ADL/IADL participation Medication Management: non-compliant ( sort of ) Changes in Participation with Typical Daily Routine: decreased participation in ADLs, decreased participation in IADLs, decreased participation in leisure activities, recent change due to decreased motivation due to mental health decompensation Quality of Sleep: decreased Appetite: other, see comments ( kind of ) Physical Disabilities/Medical Concerns: see medical chart Leisure/Hobbies: read, music, movies, nature, TV, socialization Community Mobility: public transport Social/Community Support: denies supports Interactions with Others: lack of social contact Employment Status: other, see comments ( I get a check from the government, I don't know ) Job Performance: unemployed Personal Strengths: I don't know Values/Morals: I don't know Patient Goals of Hospitalization: I want friends Occupational Performance General Appearance Appearance: suboptimal hygiene/grooming, disheveled Current Affect: dejected, despondent Occupational Performance Current Mood: depressed, frustrated Psychosocial Behavior: labile, showing signs of depressed state, irritable Thought Process: brevity Communication: limited eye contact Cooperation/Engagement: Cooperation/Engagement: participates passively Orientation: person, place, time/date Attention: at risk Follows Commands: WFL Memory: Memory: client reports difficulty Insight: limited Problem Solving: impaired Level of Function (if appropriate/relevant to admission) ADLs Bed Mobility/Transfers: independent Bathing: independent Upper Body Dressing: independent Lower Body Dressing: independent Grooming: independent Toileting: independent Eating: independent IADLs: independent Mobility: independent History of Falls: none Assessment Strengths: able-bodied, stable housing Risk Factors: difficulty sleeping, difficulty coping with changes, increased sadness/depression, lack of support system, low self-esteem, medication noncompliance history, poor coping, polysubstance abuse history, unemployed, financial stressor Impairments: Mental Functions: psychosocial Sensory: not applicable Body Systems/Musculoskeletal: not applicable Performance Deficits: ADLs: personal hygiene due to lack of motivation IADLs: health management and maintenance, home establishment and management, safety and emergency maintenance Other: social participation, rest and sleep, leisure/play Plan of Care OT Goals: Acute OT Goals Plan of Care by Shanita Roe OT at 09/04/2022 11:01 AM Version 1 of 1 Problem: OT [place] Goals Goal: SELF-CARE ADLS - Hygiene and grooming Description: Patient will attend to 3 hygiene and grooming tasks daily and track performance to increase attention and motivation to complete self-care tasks. Outcome: Ongoing Goal: COPING SKILLS - Occupational performance Description: Patient will identify and independently implement 5 new coping strategies to manage depression, deter suicidal ideation, and promote mental health and wellness in order to optimize occupational performance. Outcome: Ongoing Goal: RELAPSE PREVENTION - Complete Activities Description: Patient will complete relapse prevention activities with independence to deter substance use and promote sobriety upon discharge. Outcome: Ongoing Goal: SELF AWARENESS - Motivation for meaningful occupations Description: Patient will engage in therapeutic activities with independence in order to increased self-awareness, increased future-orientation, and improved self-esteem to increase motivation for participation in meaningful occupations. Outcome: Ongoing Goal: MEDICATION MANAGEMENT - Compliance strategies Description: Patient will demonstrate ability to utilize 5 medication management strategies with independence in order to improve medication compliance. Outcome: Ongoing Goal: TIME MANAGEMENT - Daily routine Description: Patient will create To Do List and self-care checklist with independence to facilitate an active role in daily routine. Outcome: Ongoing Treatment Plan: ADLs/self-care, communication skills/socialization, coping skills, health management, medication management, self-esteem/self-worth, sleep hygiene, time management, vocational/educational rehabilitation, relapse prevention Treatment Session: Pt participated in OT session focusing on increasing participation in self-care tasks and education on (+) coping skills in managing AVH to optimize overall mental health and wellness. Patient provided with monthly calendar to increase orientation to date and assist in creating (+) daily structure to complete meaningful occupations. Patient provided with handout and extensive education surrounding (+) coping skills proven to be effective when experiencing AVH to strengthen stress management skills. Patient asked to ID when they experience AVH most often in their daily routine to see if there are any patterns. Patient asked to review list of coping skills and [place] the coping skills they have already found to be helpful when experiencing AVH and place a * next to the coping skills they would like to trial while here. Patient despondent and did not want to further discuss AVH or about his mental health further. Pt asked why are you all keeping me here for weeks? and was informed he will be able to further discharge POC and discharge options with tx team . Patient voiced no further questions or concerns at this time. OT to continue POC. Patient educated surrounding role of OT and Plan of Care to ensure understanding of treatment course. Upon discontinuation of Acute Care Occupational Therapy Services or patient discharge from the hospital this note represents the current Occupational Therapy Discharge Summary. I used protective eye shield, facemask in today's patient interaction. Shanita Roe OTR/L Occupational Therapist License #: [id number] Pager#: [phone] 09/04/2022 PROGRESS NOTE/TREATMENT REVIEW 09/04/2022 TREATMENT TEAM Reviewed by Treatment Team, following member present: nurse, delinquency prevention social worker, faculty physician, resident physician. Subjective/Interval History/ROS Interval History: VS: none recorded today. Labs/Imaging: reviewed, notable for covid negative Sleep: 8 hrs Medications: Compliant PRNs: none required Behavior: isolative to room Subjective: On interview, the patient engages poorly with the interview team and is unwilling to meet with the team. Pt met at bedside. Pt stated I don't want to talk, it was just a sick joke, but I'm better now and I don't hear anything anymore. Pt stated he wants to go back home to his cats. Pt declined Zyprexa increase. Pt denied other concerns at this time. Review of Systems: Psychiatric: Anxiety: moderate Irritability: mild Constitutional: No recent change in weight or fever Musculoskeletal: No back, neck, muscle, or joint pain endorsed Respiratory: No cough or shortness of breath endorsed Cardiovascular: No chest pain, palpitations, or leg swelling endorsed Gastrointestinal: No abdominal pain, nausea vomiting, or diarrhea endorsed Genitourinary: No pain on urination endorsed Neurologic: No dizziness, seizures, or headaches endorsed Eyes: No change in vision endorsed HENT: No congestion, hearing problem, tinnitus, dysphagia, or sore throat endorsed Skin: No rash or wound 24 HOUR LAB RESULTS No results found for this or any previous visit (from the past 24 hour(s)). MEDICATIONS Scheduled: OLANZapine (zyPREXA ZYDIS) disintegrating tablet 5 mg, 5 mg, QHS PRN: Acetaminophen, 650 mg, Q4H PRN alum/mag hydrox.-simethicone, 30 mL, Q6H PRN Benztropine, 1 mg, Q6H PRN Or Benztropine mesylate, 1 mg, Q6H PRN diphenhydrAMINE, 50 mg, QHS PRN hydrOXYzine HCl, 25 mg, Q6H PRN OLANZapine, 10 mg, Q4H PRN Or OLANZapine, 10 mg, Q4H PRN Polyethylene glycol, 17 g, Daily PRN PHYSICAL AND MENTAL STATUS EXAM Blood pressure 126/68, pulse 76, temperature 97.8 F (36.6 C), temperature source Oral, resp. rate 16, height 1.702 m (5' 7 ), weight 54.9 kg (121 lb 1.6 oz), SpO2 98 %. Musculoskeletal: gait not assessed, station is within normal limits; tremor absent Constitutional: disheveled; fair hygiene; no acute distress Attention/concentration: alert and capable of maintaining prolonged focus, poor eye contact Orientation: oriented to self, location, date and situation Mood: I don't want to talk Affect: congruent and irritable; constricted; increased emotional reactivity Motor Activity: normokinetic and neither restless nor sedated Speech: fluent Ken[place], rapid rate and rhythm, quiet volume, whining tone Thought Process: superficially linear and guarded Associations: loosening Suicidal Ideation: did not endorse Homicidal Ideation: did not endorse Delusions: persecutory and paranoid Hallucination: denies hearing voices and not apparently responding to internal stimuli Insight/Judgment: poor insight, poor judgment Memory: impaired by effort Language: appropriate for the patient's level of education Fund of knowledge: average for the patient's level of education Cognition: intact, no indication of cognitive disorder DIAGNOSTIC IMPRESSION Christiano Hernandez is a 34 y.o. male with a history of depression, PTSD by report, meth use, cannabis use, fentanyl use who is admitted to [facility] with a diagnosis of Psychosis, unspecified psychosis type. Since admission, the patient was started on Zyprexa and has remained isolative and irritable. Informed Consent: Discussed informed consent for all medication with the patient/guardian. The following elements were reviewed: the recommended medication name, frequency, route, and purpose; that dosage and route may be changed based on changes to physical or psychological status; risks and benefits of each medication, including common side effects and applicable long-term risks; the right to refuse medication, unless in an emergency, under a court order, or under guardianship; the anticipated results of not receiving the medication and all alternatives to the medication. The patient/guardian did not agree, but was informed they would be offered the medication to treat their illness and had the right to refuse it. . Treatment Plan Update/Medical Decision Making The multidisciplinary treatment team continues to implement the following: Psychiatric status The patient s admission and precautionary status, medication administration, and safety since last assessment have been reviewed. Social work continuing to coordinate care and discharge planning and collateral information has been reviewed. Legal Status: Voluntary Continued Stay Criteria (select all that apply) Patient is unable to care for self or unable to perform activities of daily living because of psychiatric condition causion deterioration of physical or mental health, Persistence of severe symptoms despite active treatment and/or emergence of additional problems consistent with admission criteria and Clinical evidence that less intensive treatment will result in unwanted regression Psychiatric decision making and treatment modifications with consent from patient/guardian are as follows: #Psychosis, unspecified psychosis type -Concern for substance-induced psychosis -Increase Zyprexa to 10mg at bedtime 09/03: Started Zyprexa 5mg at bedtime 09/04: Increased Zyprexa to 10mg at bedtime Substance use disorder Nicotine replacement treatment was not indicated due to no use #Meth Use -recommend cessation -consider substance referral #Fentanyl Use -recommend cessation -consider substance referral #Cannabis Use -recommend cessation -consider substance referral Medical status Continue monitoring vital signs, current DVT prophylaxis, and diet Laboratory studies, radiology results, ECG, or other information reviewed and discussed with patient and plan to address comorbid medical conditions as follows: #HIV with poor ART compliance Per ID consult: 1. Start biktarvy once daily. Send him with script on discharge. 2. Send Hep A/B/C and Toxo serologies. 3. Followup in ID clinic in 2-3 months (will have clinic reach out to him). #Asymptomatic Bacteriuria -Proteus and enterococcus positive -no treatment recommended by ID Level of Observation, Suicide Risk Assessment and Safety Planning: The patient DOES NOT have medical equipment or a medical bed. Current risk of suicide is MODERATE as evidenced by recent progress and current mental status examination Safety plan will be completed prior to discharge. Current level of precautions: Moderate-risk Suicide (twice in 15 minutes) and Sexual I re-certify that this inpatient psychiatric hospital admission is medically necessary for diagnostic study and/or active treatment, which could reasonably be expected to improve the patient's condition. Logan Wharton MD PGY-2, Psychiatry Associated attestation - Iza Jolley DO - 09/05/2022 10:33 AM EST Attending Physician Attestation I saw and independently examined the patient on date of 09/04/22 and reviewed the documentation by Dr. Wharton. I agree with the history, examination, and medical decision making as noted. Please see psychiatric evaluation by DINO Rosenbaum dated 09/02/2022 for medical, psychiatric, family, social, and substance use history. I have reviewed and confirm this information, with changes as follows: None Additional information based on my assessment: Christiano is guarded and irritable with assessment. He does not endorse suicidal or homicidal ideation. He reports that he wants to be discharged to take care of his cats. He does not wish to discuss events leading to admission, and then states that it was just a sick joke. He does not elaborate on this. He does not endorse suicidal or homicidal ideation. MODERATE RISK: Will initiate/continue suicide precautions per unit policy TREATMENT PLAN UPDATE Plan of Care Discussed with Patient and the following Action was reviewed: Modifiy plan of care as follows: Changes in Medication Regimen: Increase Zyprexa to 10 mg at bedtime. Given patient's report of a suicide attempt prior to admission, patient's psychosis represents a threat to self-harm. Patient's Response: Patient has the following concerns: wants to be discharged. Continued Stay Criteria (select all that apply) Patient is unable to care for self or unable to perform activities of daily living because of psychiatric condition causion deterioration of physical or mental health, Persistence of severe symptoms despite active treatment and/or emergence of additional problems consistent with admission criteria, Patient is progressing in treatment but has not yet acheived a base line, and Clinical evidence that less intensive treatment will result in unwanted regression Current Length of Stay: 3 Days Expected Discharge Date: Unknown I re-certify that this inpatient psychiatric hospital admission is medically necessary for diagnostic study and/or active treatment, which could reasonably be expected to improve the patient's condition. Iza Jolley DO PSYCHIATRIC EMERGENCY SERVICES PROGRESS NOTE/TREATMENT PLAN UPDATE SUBJECTIVE Chief complaint: This is a cruel joke Presenting and interval history: Pt less labile today, but remains perseverative on paranoid delusions surround family and friends colluding against me in regards to sexual acts. Pt denies seeing any ghosts today, but admits to seeing them yesterday. Appears internally preoccupied. Remains ambivalent when discussing suicidality, initially admitting to ongoing passive wish vs SI but denying current plan. Denies HI. Has not required prns. Was verbally agitated yesterday 2/2 another peer's behavior, but was easily redirectable. He is requesting discharge however when explained ongoing concerns pt was amenable to transfer to inpatient unit for further treatment including olanzapine. Please see psychiatric evaluation by HOOD Rosenbaum dated 09/02/22 for medical, psychiatric, family, social, and substance use history. I have reviewed and confirm this information, with changes as follows: None. Christiano Hernandez's review of systems today is positive for problems with paranoid delusions, SI, recent VH. Patient denies fever, rashes, weight changes, hearing loss, blurred vision, chest pain, palpitations, shortness of breath, abdominal pain, diarrhea, falls, seizures, sweating, easy bruising/bleeding, headaches. OBJECTIVE I have reviewed the vitals, lab results, and current medications on 09/03/22 Mental Status Exam: Musculoskeletal: gait normal, station is within normal limits; tremor absent Constitutional: malodorous and disheveled; poor hygiene; no acute distress Attention/concentration: alert and easily distracted, fair eye contact Orientation: oriented to self, location, date and situation Mood: not good Affect: calm; full-range; increased emotional reactivity Motor Activity: restless Speech: fluent Kenyan, average rate and rhythm, appropriate volume, normal prosody Thought Process: tangential Associations: loosening Suicidal Ideation: endorsed vague ideations without plan or intent Homicidal Ideation: denied by the patient Delusions: persecutory and paranoid Hallucination: denies hearing voices, not apparently responding to internal stimuli and endorses seeing ghosts Insight/Judgment: poor insight, poor judgment Memory: impaired by mental illness Language: appropriate for the patient's level of education Fund of knowledge: average for the patient's level of education Cognition: impaired by mental illness FORMULATION AND DIAGNOSTIC IMPRESSION Primary Diagnosis: Psychosis NOS F29 Secondary diagnoses: Amphetamine use unspecified F15.9 PLAN Level of care: Inpatient Psychiatric Treatment Christiano Hernandez will require inpatient care. ALOC Order and Certification Note have been completed. Legal status: Voluntary Level of observation: Moderate-risk Suicide (twice in 15 minutes) Suicide Risk Assessment: MODERATE RISK: Will initiate/continue suicide precautions per unit policy Additional work-up and treatment recommendations: 1. Medical work-up: No additional diagnostics required at this time 2. Medications: Started olanzapine 5mg po qhs as psyhosis is improving w/ time but not resolving despite adequate time to metabolize methamphetamines. Informed Consent: Discussed informed consent for all medication with the patient/guardian. The following elements were reviewed: the recommended medication name, frequency, route, and purpose; that dosage and route may be changed based on changes to physical or psychological status; risks and benefits of each medication, including common side effects and applicable long-term risks; the right to refuse medication, unless in an emergency, under a court order, or under guardianship; the anticipated results of not receiving the medication and all alternatives to the medication. The patient/guardian agreed to the proposed treatment. 3. Coordination of care: Is linkage needed? Yes, describe: outpatient mental health and AOD linkage; [facility] 4. Collateral information: Is further information needed prior to treatment decision? No From whom? 5. Further evaluations considered: Alcohol and Drug 6. Treatment for nicotine use disorder: Nicotine replacement treatment as indicated - not ordered, the patient declined nicotine replacement Kell Castro DO Attending Psychiatrist Psych[facility] Emergency Services Met with pt to discuss voluntary admission. Pt agreeable to signing in voluntarily. Form completed and placed in physical chart on unit. Department of Pharmacy ED Discharge Prescription Review Patient: Christiano Hernandez Due to the specific medication prescribed, the following ED discharge prescriptions were reviewed after discharge at 09/01/2022 5:35 PM: Naloxone nasal spray Based upon review of above discharge prescriptions, No interventions were necessary for the above prescription(s). No follow-up actions are necessary at this time. Please feel free to contact me with any further questions. Name: Juliana Barber RPH Phone: [phone] Date/Time: 09/01/2022 5:35 PM This Peer Recovery Supporter (PRS) attempted to see Mr. Hernandez. Upon talking with RN, they said he has been sleeping and didn't wake up to eat. ED addiction medicine team will follow up at a later time. PRS will work in conjunction with [Addiction Medicine or MAT] Team for any care coordination concerns. BECKY Anders, [facility] RECOVERY SUPPORTER ED Addiction Medicine Consult Service Available Wednesday-Wednesday, 8-4 Re[employer] by [employer] chat or phone, at [phone] documented in this encounter [facility] 09-08-2022 Note Formatting of this n ote might be different from the original. [id number] Patient observed in bed and appears to have slept 6 hours 30 min. No distress noted. [facility] 09-07-2022 Note Formatting of this n ote might be different from the original. Nursing Note Per Tour of Duty Patient Daily Goal(s): refer to care plan goal(s) Psychiatric Assessment Reported and Observed signs and symptoms: Patient is calm and cooperative, denies SI/HI/AH/VH. Patient was compliant with medication and contracted for safety. Safety checks maintained per order. Non-pharmacological interventions and effectiveness: provided emotional support Medications Pharmacological PRNs indications and effectiveness: none requested or required Medication adherence: yes Psychotropic medication side effects: none reported or observed Functional Assessment - Activities of Daily Living Self-care: dressed Socialization (group, peer interactions): appropriately interacted with peers in milieu Nutrition and elimination interventions and effectiveness: offered frequent meals/snacks Last Bowel Movement: 09/07/22 Mobility: up for meals Sleep Number of hours this shift: Evening Shift 0 Non-pharmacological interventions and effectiveness: bedtime routine Additional Information [facility] [place] 09-07-2022 Note Formatting of this n ote might be different from the original. Problem: Patient Care Overview Goal: Plan of Care Review Outcome: Ongoing Goal: Individualization & Mutuality Outcome: Ongoing Goal: Discharge Needs Assessment Outcome: Ongoing Goal: Interdisciplinary Rounds/Family Conf Outcome: Ongoing [facility] 09-07-2022 Note Formatting of this n ote might be different from the original. Nursing Note Per Tour of Duty Patient Daily Goal(s): I don't have one Psychiatric Assessment Reported and Observed signs and symptoms: Patient is anxious, cooperative, and distant, affect restricted. Grooming and hygiene fair, eye contact and posture good, speech wnl for rate and volume. Christiano denies suicidal and homicidal thoughts as well as auditory and visual hallucinations and does not appear to be attending to internal stim at this time. He denies pain. Non-pharmacological interventions and effectiveness: provided emotional support, provided distraction/activity, and encouraged relaxation Medications Pharmacological PRNs indications and effectiveness: none requested or required Medication adherence: yes Psychotropic medication side effects: none reported or observed Functional Assessment - Activities of Daily Living Self-care: dressed Socialization (group, peer interactions): isolated in room Nutrition and elimination interventions and effectiveness: offered frequent meals/snacks and encouraged fluid intake Last Bowel Movement: 09/06/22 Mobility: up for meals, performed active range of motion , and demonstrated safe ambulation techniques Sleep Number of hours this shift: Day Shift Non-pharmacological interventions and effectiveness: mindfulness , reduction in caffeine intake, and bedtime routine Additional Information Problem: Patient Care Overview Goal: Plan of Care Review Outcome: Met This Shift Goal: Individualization & Mutuality Outcome: Met This Shift Goal: Discharge Needs Assessment Outcome: Ongoing Goal: Interdisciplinary Rounds/Family Conf Outcome: Ongoing [facility] [place] 09-07-2022 Note Formatting of this n ote might be different from the original. 2300-730 pt care assumed , no concerns voiced during this shift. Safety checks maintained, pt slept for 8.5hrs. [facility] 09-06-2022 Note Formatting of this n ote might be different from the original. Problem: Patient Care Overview Goal: Plan of Care Review Outcome: Progressing Toward Goal Goal: Individualization & Mutuality Outcome: Progressing Toward Goal Goal: Discharge Needs Assessment Outcome: Progressing Toward Goal Goal: Interdisciplinary Rounds/Family Conf Outcome: Progressing Toward Goal Problem: Overarching Goals (Adult) Goal: Adheres to Safety Considerations for Self and Others Outcome: Progressing Toward Goal Goal: Optimized Coping Skills in Response to Life Stressors Outcome: Progressing Toward Goal Goal: Develops/Participates in Therapeutic [place] to Support Successful Transition Outcome: Progressing Toward Goal Problem: Suicide Risk (Adult) Goal: Identify Related Risk Factors and Signs and Symptoms Description: Related risk factors and signs and symptoms are identified upon initiation of Human Response Clinical Practice Guideline (CPG) Outcome: Progressing Toward Goal Goal: Strength-Based Wellness/Recovery Description: Patient will demonstrate the desired outcomes by discharge/transition of care. Outcome: Progressing Toward Goal Goal: Physical Safety Description: Patient will demonstrate the desired outcomes by discharge/transition of care. Outcome: Progressing Toward Goal Problem: Cognitive Impairment (Psychotic Signs/Symptoms) (Adult) Goal: Improved Thought Clarity/Organization Outcome: Progressing Toward Goal Problem: Sensory Perception Impairment (Psychotic Signs/Symptoms) (Adult) Goal: Decrease Frequency/Intensity of Sensory Symptoms Outcome: Progressing Toward Goal Problem: Psychomotor Movement Impairment (Psychotic Signs/Symptoms) (Adult) Goal: Improved Psychomotor Symptoms Outcome: Progressing Toward Goal Problem: Mental State/Mood Impairment (Psychotic Signs/Symptoms) (Adult) Goal: Improved Mental State/Mood Outcome: Progressing Toward Goal Problem: Gratification/Engagement Impairment (Psychotic Signs/Symptoms) (Adult) Goal: Increased Interaction/Expression Outcome: Progressing Toward Goal Problem: Social/Occupational/Functional Impairment (Psychotic Signs/Symptoms) (Adult) Goal: Improved Social/Occupational/Functional Skills Outcome: Progressing Toward Goal Problem: Self-expression Impairment (Psychotic Signs/Symptoms) (Adult) Goal: Improved Self-Expression Outcome: Progressing Toward Goal Problem: Sleep Impairment (Adult) Goal: Improved Sleep Hygiene Outcome: Progressing Toward Goal Problem: Impaired Control (Excessive Substance Use) (Adult) Goal: Participates in Recovery Program Outcome: Progressing Toward Goal Problem: Social/Occupational/Functional Impairment (Excessive Substance Use) (Adult) Goal: Improved Social/Occupational/Functional Skills Outcome: Progressing Toward Goal Problem: Safety Awareness Impairment (Excessive Substance Use) (Adult) Goal: Enhanced Safety Awareness Outcome: Progressing Toward Goal Problem: Physiological Impairment (Excessive Substance Use) (Adult) Goal: Improved Physiologic Symptoms Outcome: Progressing Toward Goal Problem: Emotion/Temperament Impairment (Disruptive Behavior) (Adult) Goal: Improved Emotion/Temperament/Mood Symptoms Outcome: Progressing Toward Goal Problem: Behavioral Regulation Impairment (Disruptive Behavior) (Adult) Goal: Improved Impulse/Aggression Control Outcome: Progressing Toward Goal Problem: Social/Occupational/Functional Impairment (Disruptive Behavior) (Adult) Goal: Improved Social/Occupational/Functional Skills Outcome: Progressing Toward Goal Problem: Sleep Impairment (Adult) Goal: Improved Sleep Hygiene Outcome: Progressing Toward Goal Problem: OT [place] Goals Goal: SELF-CARE ADLS - Hygiene and grooming Description: Patient will attend to 3 hygiene and grooming tasks daily and track performance to increase attention and motivation to complete self-care tasks. Outcome: Progressing Toward Goal Goal: COPING SKILLS - Occupational performance Description: Patient will identify and independently implement 5 new coping strategies to manage depression, deter suicidal ideation, and promote mental health and wellness in order to optimize occupational performance. Outcome: Progressing Toward Goal Goal: RELAPSE PREVENTION - Complete Activities Description: Patient will complete relapse prevention activities with independence to deter substance use and promote sobriety upon discharge. Outcome: Progressing Toward Goal Goal: SELF AWARENESS - Motivation for meaningful occupations Description: Patient will engage in therapeutic activities with independence in order to increased self-awareness, increased future-orientation, and improved self-esteem to increase motivation for participation in meaningful occupations. Outcome: Progressing Toward Goal Goal: MEDICATION MANAGEMENT - Compliance strategies Description: Patient will demonstrate ability to utilize 5 medication management strategies with independence in order to improve medication compliance. Outcome: Progressing Toward Goal Goal: TIME MANAGEMENT - Daily routine Description: Patient will create To Do List and self-care checklist with independence to facilitate an active role in daily routine. Outcome: Progressing Toward Goal [facility] [place] 09-06-2022 Note Formatting of this n ote might be different from the original. Unit Specific Patient Information Nursing Note Per Tour of Duty [id number] Patient Daily Goal(s): Psychiatric Assessment Reported and Observed signs and symptoms: Christiano pérez as two female friends left the unit after visitation. Had nice visit, belongings were brought in, and Christiano gave these girls his house keys. The girls stated don't worry, we'll take care of the house. Tired this shift, hard to assess. Denied S/I, H/I, AVH, and pain, endorses anxiety, mostly about his future. Non-pharmacological interventions and effectiveness: Medications Pharmacological PRNs indications and effectiveness: No PRNs given. Medication adherence: none given. Psychotropic medication side effects: none Functional Assessment - Activities of Daily Living Self-care: all care Socialization (group, peer interactions): no, isolative to room mostly this shift. Nutrition and elimination interventions and effectiveness: good appetite. Last Bowel Movement: 09/05/22 Mobility: no issues Sleep Number of hours this shift: Non-pharmacological interventions and effectiveness: Additional Information Waiting on lab results for Toxoplasmosis infection. Waiting on lab results for Hepatitis Battery. HIV(+) Sexual precautions. [facility] [place] 09-06-2022 Note Formatting of this n ote might be different from the original. [id number]: Pt. denied SI/HI/AVH and pain. Pt. Was med compliant. Pt. Stated that he was alright but appeared to be depressed. Pt. Reported a BM yesterday. No issues to note. Will continue to monitor. [facility] 09-06-2022 Note Formatting of this n ote might be different from the original. Nursing Note Per Tour of Duty [id number] Patient Daily Goal(s): refer to care plan goal(s) Psychiatric Assessment Reported and Observed signs and symptoms: Pt tearful, sad, restricted and guarded during assessment, express that he just wants to go home. Denies pain and discomfort ,denies SI, AH,VH,HI. Med compliant , safety checks maintained per order Non-pharmacological interventions and effectiveness: provided emotional support Medications Pharmacological PRNs indications and effectiveness: benadryl Medication adherence: yes Psychotropic medication side effects: none reported or observed Functional Assessment - Activities of Daily Living Self-care: self care encouraged Socialization (group, peer interactions): appropriately interacted with peers in milieu Nutrition and elimination interventions and effectiveness: offered frequent meals/snacks Last Bowel Movement: 09/05/22 Mobility: independent 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 Problem: Patient Care Overview Goal: Plan of Care Review Outcome: Progressing Toward Goal Goal: Individualization & Mutuality Outcome: Progressing Toward Goal Goal: Discharge Needs Assessment Outcome: Progressing Toward Goal Goal: Interdisciplinary Rounds/Family Conf Outcome: Progressing Toward Goal Problem: Overarching Goals (Adult) Goal: Adheres to Safety Considerations for Self and Others Outcome: Progressing Toward Goal Goal: Optimized Coping Skills in Response to Life Stressors Outcome: Progressing Toward Goal Goal: Develops/Participates in Therapeutic [place] to Support Successful Transition Outcome: Progressing Toward Goal Problem: Suicide Risk (Adult) Goal: Identify Related Risk Factors and Signs and Symptoms Description: Related risk factors and signs and symptoms are identified upon initiation of Human Response Clinical Practice Guideline (CPG) Outcome: Progressing Toward Goal Goal: Strength-Based Wellness/Recovery Description: Patient will demonstrate the desired outcomes by discharge/transition of care. Outcome: Progressing Toward Goal Goal: Physical Safety Description: Patient will demonstrate the desired outcomes by discharge/transition of care. Outcome: Progressing Toward Goal Problem: Cognitive Impairment (Psychotic Signs/Symptoms) (Adult) Goal: Improved Thought Clarity/Organization Outcome: Progressing Toward Goal Problem: Sensory Perception Impairment (Psychotic Signs/Symptoms) (Adult) Goal: Decrease Frequency/Intensity of Sensory Symptoms Outcome: Progressing Toward Goal Problem: Psychomotor Movement Impairment (Psychotic Signs/Symptoms) (Adult) Goal: Improved Psychomotor Symptoms Outcome: Progressing Toward Goal Problem: Mental State/Mood Impairment (Psychotic Signs/Symptoms) (Adult) Goal: Improved Mental State/Mood Outcome: Progressing Toward Goal Problem: Gratification/Engagement Impairment (Psychotic Signs/Symptoms) (Adult) Goal: Increased Interaction/Expression Outcome: Progressing Toward Goal Problem: Social/Occupational/Functional Impairment (Psychotic Signs/Symptoms) (Adult) Goal: Improved Social/Occupational/Functional Skills Outcome: Progressing Toward Goal Problem: Self-expression Impairment (Psychotic Signs/Symptoms) (Adult) Goal: Improved Self-Expression Outcome: Progressing Toward Goal Problem: Sleep Impairment (Adult) Goal: Improved Sleep Hygiene Outcome: Progressing Toward Goal Problem: Impaired Control (Excessive Substance Use) (Adult) Goal: Participates in Recovery Program Outcome: Progressing Toward Goal Problem: Social/Occupational/Functional Impairment (Excessive Substance Use) (Adult) Goal: Improved Social/Occupational/Functional Skills Outcome: Progressing Toward Goal Problem: Safety Awareness Impairment (Excessive Substance Use) (Adult) Goal: Enhanced Safety Awareness Outcome: Progressing Toward Goal Problem: Physiological Impairment (Excessive Substance Use) (Adult) Goal: Improved Physiologic Symptoms Outcome: Progressing Toward Goal Problem: Emotion/Temperament Impairment (Disruptive Behavior) (Adult) Goal: Improved Emotion/Temperament/Mood Symptoms Outcome: Progressing Toward Goal Problem: Behavioral Regulation Impairment (Disruptive Behavior) (Adult) Goal: Improved Impulse/Aggression Control Outcome: Progressing Toward Goal Problem: Social/Occupational/Functional Impairment (Disruptive Behavior) (Adult) Goal: Improved Social/Occupational/Functional Skills Outcome: Progressing Toward Goal Problem: Sleep Impairment (Adult) Goal: Improved Sleep Hygiene Outcome: Progressing Toward Goal Problem: OT Childress Goals Goal: SELF-CARE ADLS - Hygiene and grooming Description: Patient will attend to 3 hygiene and grooming tasks daily and track performance to increase attention and motivation to complete self-care tasks. Outcome: Progressing Toward Goal Goal: COPING SKILLS - Occupational performance Description: Patient will identify and independently implement 5 new coping strategies to manage depression, deter suicidal ideation, and promote mental health and wellness in order to optimize occupational performance. Outcome: Progressing Toward Goal Goal: RELAPSE PREVENTION - Complete Activities Description: Patient will complete relapse prevention activities with independence to deter substance use and promote sobriety upon discharge. Outcome: Progressing Toward Goal Goal: SELF AWARENESS - Motivation for meaningful occupations Description: Patient will engage in therapeutic activities with independence in order to increased self-awareness, increased future-orientation, and improved self-esteem to increase motivation for participation in meaningful occupations. Outcome: Progressing Toward Goal Goal: MEDICATION MANAGEMENT - Compliance strategies Description: Patient will demonstrate ability to utilize 5 medication management strategies with independence in order to improve medication compliance. Outcome: Progressing Toward Goal Goal: TIME MANAGEMENT - Daily routine Description: Patient will create To Do List and self-care checklist with independence to facilitate an active role in daily routine. Outcome: Progressing Toward Goal [facility] [place] 09-05-2022 Note Formatting of this n ote might be different from the original. [id number]: Pt. Had an irritable edge this morning during fur feeder. Pt. was dismissive and shrugged when asked if he wanted to participate in the fur feeder. Pt. was med compliant. Pt. allowed for the PCT to draw his labs this morning. Pt. was visible at times during this shift. This evening pt. was approached again and pt. did answer fur feeder questions. Pt. denied SI/HI/AVH and pain. Pt. was calm and visible on the unit. Pt. appeared to be depressed. [facility] [place] 09-05-2022 Note Formatting of this n ote might be different from the original. Problem: Overarching Goals (Adult) Goal: Optimized Coping Skills in Response to Life Stressors 09/05/2022 1215 by Porsha Godwin RN Outcome: Not Met This Shift 09/05/2022 1203 by Porsha Godwin RN Outcome: Ongoing [facility] [place] 09-05-2022 Note Formatting of this n ote might be different from the original. Problem: Overarching Goals (Adult) Goal: Optimized Coping Skills in Response to Life Stressors Outcome: Ongoing [facility] [place] 09-05-2022 Note Formatting of this n ote might be different from the original. [id number] Patient presented with flat affect and isolative to room. Patient refused his evening scheduled Zyprexa. No PRNs given. Patient slept 10 hrs. Patient denied anxiety/depression/SI/HI/AVH. Safety checks maintained per orders. [facility] [place] 09-04-2022 Note Formatting of this n ote might be different from the original. Problem: Patient Care Overview Goal: Plan of Care Review Outcome: Ongoing Problem: Overarching Goals (Adult) Goal: Adheres to Safety Considerations for Self and Others Outcome: Ongoing Problem: Suicide Risk (Adult) Goal: Identify Related Risk Factors and Signs and Symptoms Description: Related risk factors and signs and symptoms are identified upon initiation of Human Response Clinical Practice Guideline (CPG) Outcome: Ongoing [facility] [place] 09-04-2022 Note Formatting of this n ote might be different from the original. Nursing Note Per Tour of Duty [id number] Patient Daily Goal(s): pt does not voice goal Psychiatric Assessment Reported and Observed signs and symptoms: pt primarily isolates to room, comes out for some meals, withdrawn, guarded. Denies SI/HI, hallucinations, pain. Brief with assessment. Safety checks maintained per orders Non-pharmacological interventions and effectiveness: provided emotional support Medications Pharmacological PRNs indications and effectiveness: none requested or required Medication adherence: yes Psychotropic medication side effects: none reported or observed Functional Assessment - Activities of Daily Living Self-care: none observed this shift Socialization (group, peer interactions): isolated in room Nutrition and elimination interventions and effectiveness: offered frequent meals/snacks and encouraged fluid intake Last Bowel Movement: 09/03/22 Mobility: up for meals Sleep Number of hours this shift: Day Shift 10 hrs [facility] [place] 09-04-2022 Group counseling note CORE Programming Group Therapy Progress Note Group Topic: Comfort Cart Date: 09/04/2022 Start Time: 1315 End Time: 1330 Total Time: 15 min of group time Hand Lens Polisher: HOOD Murphy Department: Patient Mgmt Child[facility] Clinical Users Topic Discussed/Skill Practiced: Comfort Cart-Patients were given handouts on positive affirmations, healthy eating, lifestyle education, Mental health applications for your tablet/cell phone, coping skills, discharge planning and how to manage life post hospitalization while there is a pandemic going on. They were also offered supplies and activities to work on over the weekend including comfort boxes, journals, journal prompts, stickers, stress balls, and coloring supplies. Other Comments: Patient was asleep at the time of intervention HOOD Murphy 09/04/2022 [facility] [place] 09-04-2022 Note Formatting of this n ote might be different from the original. Recreational Therapy Assessment Attempt WIRELINE OPERATOR attempted to complete RT assessment at this time, however, patient was with another provider upon approach. Will continue to monitor and complete assessment as appropriate. Time In: 1105 Time Out: 1105 I used a protective facemask during today's patient interaction. JANIYA Jenkins [facility] [place] 09-04-2022 Note Formatting of this n ote might be different from the original. Problem: OT Childress Goals Goal: SELF-CARE ADLS - Hygiene and grooming Description: Patient will attend to 3 hygiene and grooming tasks daily and track performance to increase attention and motivation to complete self-care tasks. Outcome: Ongoing Goal: COPING SKILLS - Occupational performance Description: Patient will identify and independently implement 5 new coping strategies to manage depression, deter suicidal ideation, and promote mental health and wellness in order to optimize occupational performance. Outcome: Ongoing Goal: RELAPSE PREVENTION - Complete Activities Description: Patient will complete relapse prevention activities with independence to deter substance use and promote sobriety upon discharge. Outcome: Ongoing Goal: SELF AWARENESS - Motivation for meaningful occupations Description: Patient will engage in therapeutic activities with independence in order to increased self-awareness, increased future-orientation, and improved self-esteem to increase motivation for participation in meaningful occupations. Outcome: Ongoing Goal: MEDICATION MANAGEMENT - Compliance strategies Description: Patient will demonstrate ability to utilize 5 medication management strategies with independence in order to improve medication compliance. Outcome: Ongoing Goal: TIME MANAGEMENT - Daily routine Description: Patient will create To Do List and self-care checklist with independence to facilitate an active role in daily routine. Outcome: Ongoing [facility] [place] 09-04-2022 Consult note Associated Order (s): IP CONSULT TO INFECTIOUS DISEASE Images from the original note were not included. Infectious Disease Consult Note REQUESTING PHYSICIAN: Breanne REASON FOR CONSULTATION: Patient with HIV, no antiretroviral use in >3 years, requesting assistance with treatment. Thank you so much! HISTORY OF PRESENT ILLNESS: Christiano Hernandez is a 34 y.o. male with h/o HIV who presented to the hospital on 09/01/2022 with depression and hallucinations. PT with h/o HIV sins [id number] on ART for 6 years but stopped due to lapse in insurance and has been off the last 3 years. Denies Mark, other STIs ot TB exposures. States compliance with meds when he has access. Denies IVDU, but doing other drugs (drug screen + for fentanyl, MJ and MA). Has had flu shot this year, but not covid or mpox. REVIEW OF SYSTEMS Constitutional: No fevers or chills Eyes: No vision changes Ears: No hearing changes Cardiovascular: No chest pain or palpitations Respiratory: No shortness of breath or cough Gastrointestinal: No abdominal pain, nausea/vomiting/constipation/shruthi rrhea. Genitourinary: No urinary frequency or dysuria Musculoskeletal: No myalgia or arthralgia Skin: No rash Neurology: No paresthesias Hematology/Lymphatic: No edema CURRENT HOSPITALIZATION/LOS: Admit Date: 09/01/2022 [facility] LOS: 2 days MEDICAL HISTORY: No past medical history on file. SURGICAL HISTORY: No past surgical history on file. FAMILY HISTORY: No family history on file. SOCIAL HISTORY: Social History Tobacco Use Smoking status: Every Day Types: Cigarettes Smokeless tobacco: Never Substance Use Topics Alcohol use: Not Currently Drug use: Yes Types: Methamphetamines EXPOSURE HISTORY: Animals: 2 dogs ALLERGIES: No Known Allergies PRIOR TO ARRIVAL MEDS: No medications prior to admission. Scheduled Meds: OLANZapine 5 mg Oral QHS Continuous Infusions: PRN Meds:Acetaminophen, alum/mag hydrox.-simethicone, Benztropine OR Benztropine mesylate, diphenhydrAMINE, hydrOXYzine HCl, OLANZapine OR OLANZapine, Polyethylene glycol OBJECTIVE FINDINGS: Vital Signs (24hrs): Pulse (Heart Rate): [76] 76 Resp Rate: [16] 16 BP: (126)/(68) 126/68 O2 Sat (%): [98 %] 98 % Weight: [54.9 kg (121 lb 1.6 oz)] 54.9 kg (121 lb 1.6 oz) Lines/Drains/Airways/Wounds: Patient Lines/Drains/Airways Status Active Lines, Drains, Airways, & Wound Overview None PHYSICAL EXAM: General: Laying in bed, no apparent distress. HEENT: Pupils equal and reactive, extraocular muscles intact. Mucous membranes are moist. Neck: Supple, no lymphadenopathy. CV: S1 and S2 normal, no murmurs, clicks, gallops or rubs. Regular rate and rhythm. Pulm: Chest is clear, no wheezing or rales. Normal symmetric air entry throughout both lung hahn. No chest wall deformities or tenderness. Trunk/Abd: The abdomen is soft without tenderness, guarding, mass, rebound or organomegaly. Bowel sounds are normal. Ext & Skin: No rash. Neuro: Patient is alert and oriented times three. Cranial nerves II-XII grossly intact, no focal deficits. DIAGNOSTIC RESULTS/PROCEDURES: No results found for: SEDRATE No results found for: CRP Additional Labs: Cultures: Reviewed ASSESSMENT: 1. HIV, off ART x 3 yrs, recent genotype data full susceptible 2. Asymptomatic bacteruria 3. H/o renal abscess RECOMMENDATIONS: 1. Start biktarvy once daily. Send him with script on discharge. 2. Send Hep A/B/C and Toxo serologies. 3. Followup in ID clinic in 2-3 months (will have clinic reach out to him). 4. ID will sign off Raf Garner MD, PhD [facility]-Infectious Diseases [facility] Work Phone: 09-04-2022 Consult note Associated Order (s): IP CONSULT TO INFECTIOUS DISEASE Images from the original note were not included. Infectious Disease Consult Note REQUESTING PHYSICIAN: Breanne REASON FOR CONSULTATION: Patient with HIV, no antiretroviral use in >3 years, requesting assistance with treatment. Thank you so much! HISTORY OF PRESENT ILLNESS: Christiano Hernandez is a 34 y.o. male with h/o HIV who presented to the hospital on 09/01/2022 with depression and hallucinations. PT with h/o HIV sins [id number] on ART for 6 years but stopped due to lapse in insurance and has been off the last 3 years. Denies Mark, other STIs ot TB exposures. States compliance with meds when he has access. Denies IVDU, but doing other drugs (drug screen + for fentanyl, MJ and MA). Has had flu shot this year, but not covid or mpox. REVIEW OF SYSTEMS Constitutional: No fevers or chills Eyes: No vision changes Ears: No hearing changes Cardiovascular: No chest pain or palpitations Respiratory: No shortness of breath or cough Gastrointestinal: No abdominal pain, nausea/vomiting/constipation/shruthi rrhea. Genitourinary: No urinary frequency or dysuria Musculoskeletal: No myalgia or arthralgia Skin: No rash Neurology: No paresthesias Hematology/Lymphatic: No edema CURRENT HOSPITALIZATION/LOS: Admit Date: 09/01/2022 [facility] LOS: 2 days MEDICAL HISTORY: No past medical history on file. SURGICAL HISTORY: No past surgical history on file. FAMILY HISTORY: No family history on file. SOCIAL HISTORY: Social History Tobacco Use Smoking status: Every Day Types: Cigarettes Smokeless tobacco: Never Substance Use Topics Alcohol use: Not Currently Drug use: Yes Types: Methamphetamines EXPOSURE HISTORY: Animals: 2 dogs ALLERGIES: No Known Allergies PRIOR TO ARRIVAL MEDS: No medications prior to admission. Scheduled Meds: OLANZapine 5 mg Oral QHS Continuous Infusions: PRN Meds:Acetaminophen, alum/mag hydrox.-simethicone, Benztropine OR Benztropine mesylate, diphenhydrAMINE, hydrOXYzine HCl, OLANZapine OR OLANZapine, Polyethylene glycol OBJECTIVE FINDINGS: Vital Signs (24hrs): Pulse (Heart Rate): [76] 76 Resp Rate: [16] 16 BP: (126)/(68) 126/68 O2 Sat (%): [98 %] 98 % Weight: [54.9 kg (121 lb 1.6 oz)] 54.9 kg (121 lb 1.6 oz) Lines/Drains/Airways/Wounds: Patient Lines/Drains/Airways Status Active Lines, Drains, Airways, & Wound Overview None PHYSICAL EXAM: General: Laying in bed, no apparent distress. HEENT: Pupils equal and reactive, extraocular muscles intact. Mucous membranes are moist. Neck: Supple, no lymphadenopathy. CV: S1 and S2 normal, no murmurs, clicks, gallops or rubs. Regular rate and rhythm. Pulm: Chest is clear, no wheezing or rales. Normal symmetric air entry throughout both lung hahn. No chest wall deformities or tenderness. Trunk/Abd: The abdomen is soft without tenderness, guarding, mass, rebound or organomegaly. Bowel sounds are normal. Ext & Skin: No rash. Neuro: Patient is alert and oriented times three. Cranial nerves II-XII grossly intact, no focal deficits. DIAGNOSTIC RESULTS/PROCEDURES: No results found for: SEDRATE No results found for: CRP Additional Labs: Cultures: Reviewed ASSESSMENT: 1. HIV, off ART x 3 yrs, recent genotype data full susceptible 2. Asymptomatic bacteruria 3. H/o renal abscess RECOMMENDATIONS: 1. Start biktarvy once daily. Send him with script on discharge. 2. Send Hep A/B/C and Toxo serologies. 3. Followup in ID clinic in 2-3 months (will have clinic reach out to him). 4. ID will sign off Raf Garner MD, PhD [facility]-Infectious Diseases Associated Order(s): IP CONSULT TO ADDICTION MEDICINE Consult Note Patient: Christiano Hernandez, 03/11/1988, [id number] Weights And Measures Inspector Flaca Benavides, MAY-EXHIBIT ARTIST, Emergency Addiction Medicine [phone] Date of patient encounter: 09/01/2022. Reason for Consult: evaluation of substance use Consulting Provider: Dr. Díaz I spent 30 minutes on chart review, counseling and/or care coordination. IMPRESSION/PLAN Mr. Hernandez was seen by Elizabeth Salgado, ED Addiction Medicine, and politely declined evaluation by the Addiction Medicine service. Therefore, I am unable to assess for the presence or severity of alcohol or substance use disorders. Based on the concerns raised in the clinical consult, such a disorder (or harmful or hazardous use which does not rise to the threshold of a disorder) may or may not be present. Potential for clinically significant withdrawal: Please remain vigilant for signs of clinically significant withdrawal. I recommend monitoring vital signs and clinical withdrawal assessments and offering symptomatic treatment per hospital protocol. Data review: I have reviewed all relevant cinical data including vital signs, clinical withdrawal assessments, labs, medications, OARRS report (no findings). Additional recommended work up: Additional urine drug screens should be considered only if results would serve Mr. Hernandez's best interest to help with decision making and hospital care. Testing that may be considered depending on clinical scenario HIV, liver panel, viral hepatitis testing, STI testing (chlamydia, gonorrhea, syphilis). Discharge planning: Given that Mr. Hernandez has declined our services, we are unable to assess the most appropriate ASA level of care or assist and discharge planning. However, please feel free to reach out to us with additional questions or concerns. Accidental Opioid Overdose Prevention Fentanyl has permeated into supply of many street substances and carries risk of opioid overdose. All patients who use illicit substances should be offered Narcan. Mr. Hernandez is at risk of accidental opioid overdose. Placed order for Naloxone (4 mg nasal spray) CARMEN kit, with communication order to RN to dispense at the time of discharge. Provided education about signs and symptoms of overdose Project CARMEN instructions will be included in discharge paperwork. Fentanyl test strips, with instructions for use and how to obtain additional strips, provided. Harm Reduction - Vaccination Please offer Hepatitis A vaccination if Mr. Hernandez is at increased risk and no prior vaccine documented. Please offer Hepatitis B vaccination if Mr. Hernandez is non-immune or at increased risk and no prior vaccine documented. Please offer Tetanus vaccination if no documentation of prior vaccine within last 10 years. HISTORY OF PRESENT ILLNESS Christiano Hernandez is a 34 y.o. male admitted to [facility] Emergency Department for a mental health evaluation. He is seen today in consultation for evaluation of substance use. Elizabeth Salgado, ED Addiction Medicine SW met with Mr. Christiano Hernandez and he politely declined bedside assessment by the Addiction Medicine team. All remaining history per chart review. Per my IHIS flowsheets the patient has experienced the following vital sign abnormalities or symptoms indicative of possible withdrawal: none MEDICAL HISTORY No past medical history on file. No past surgical history on file. SOCIAL HISTORY Social History Tobacco Use Smoking status: Every Day Types: Cigarettes Smokeless tobacco: Never Substance Use Topics Alcohol use: Not Currently Social History Substance and Sexual Activity Drug Use Yes Types: Methamphetamines Unable to obtain additional social history. Patient declined to be interviewed. FAMILY HISTORY family history is not on file. Unable to obtain additional family history. Patient declined to be interviewed. MEDICATIONS See MAR ALLERGIES No Known Allergies REVIEW OF SYSTEMS Unable to obtain ROS. Patient declined to be interviewed. PHYSICAL EXAM Vitals: 09/01/22 09 BP: (!) 137/101 Pulse: 92 Resp: 16 Temp: 98.3 F (36.8 C) O2 Device: room air (09/01/2245) Orientation: Unable to assess Thought Process: Unable to assess Suicidal Ideation: Unable to assess Homicidal Ideation: Unable to assess Hallucination: Unable to assess Delusion: Unable to assess Memory: Unable to assess Insight/Judgment: Unable to assess DATA REVIEW WBC/Hgb/Hct/Plts: 5.11/15.2/45.3/228 (09/01 1416) Na/K+/Phos/Mg/Ca: 138/3.8/--/--/9.6 (09/01 1416) Bun/Creat/Cl/CO2/Glucose: 14/1.13/102/30/87 (09/01 1416) Signed, Flaca Benavides, SALES ESTIMATOR-EXHIBIT ARTIST Emergency Addiction Medicine [phone] (This note was written in part using voice recognition software; despite attempts at proofreading, it may contain errors and mis-transcribed words inherent to this process) Associated attestation - Onelia Shelton DO, MPH - 09/01/2022 9:26 PM EST I have not personally seen nor evaluated this patient, but I have reviewed all available clinical data related to today's encounter including, but not limited to, radiology images and reports, laboratory data, and procedure reports. I agree with the HILTON's findings and have been fully involved in the formulation of the medical decision making involved in the assessment and plan. I was also immediately available for urgent questions or concerns by phone. Onelia Shelton DO, MPH Clinical Technical Services Consultant Department of Hospital and Emergency Medicine [facility] ED CONSULT TO ADDICTION MEDICINE - Social Work Brief Assessment and Intervention HPI and Content of Interview: Received order for ED Consult to Addiction Medicine due to methamphetamine use. Met with patient, introduced self, explained reason for consult, and offered assistance. Patient declines the consult, denies having needs for our service at this time. Reports yeah, I use Meth, so what? Plan/Progress: 1. Provided business card for our service, encouraged him to call as needed, and reviewed how to access care. 2. Provided patient with harm reduction education, including fentanyl test strips. Educated re: risk of accidental OD and/or with illicit substance use. All street drugs in [facility] are currently being laced with fentanyl. 3. Recommend Narcan kit be dispensed at the bedside prior to DC. Addiction Medicine HILTON ordering. 4. AVS updated with plan and additional resources, and primary team updated. Substance Use Disorders are chronic diseases of the brain characterized by a compulsive drive to self-administer substances despite serious adverse consequences, loss of control over intake and the emergence of a negative emotional state during abstinence. The natural history of this disease often involves deterioration across multiple domains of functioning and risk of relapse. [facility] ED Addiction Medicine Consult Service Available Wednesday-Wednesday, 8-4 [employer] chat or phone, at [phone] Recovery is for everyone. Every person, every family, every community. documented in this encounter [facility] 09-04-2022 Note Formatting of this n ote might be different from the original. 23:00-07:00 Patient slept for about 8 hrs, no issues noted or reported, stayed in room all night. Safety checks completed as ordered. [facility] 09-03-2022 Note Formatting of this n ote might be different from the original. Patient was noted sitting in the dining room, he stated The police picked me up thing I am crazy, what medications do you want to give me, is it to help reduce my craziness? I really don't know why I am here Patient has not insight in to his illness, looked and sounded hopeless. Patient was reassured about his safety and nursing role to help him get to his functional level. He denied SI/HI AVH. Safety checks completed as ordered. [facility] 09-03-2022 Note Formatting of this n ote might be different from the original. Problem: Patient Care Overview Goal: Plan of Care Review Outcome: Progressing Toward Goal Goal: Individualization & Mutuality Outcome: Progressing Toward Goal Goal: Discharge Needs Assessment Outcome: Progressing Toward Goal Goal: Interdisciplinary Rounds/Family Conf Outcome: Progressing Toward Goal [facility] 09-03-2022 Note Formatting of this n ote might be different from the original. 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 Closet: Blue adidas shoes. Belongings at bedside: Black CK pajama pants, charisma crew neck sweatshirt and green beanie. Belongings sent to security: $402.00. [facility] 09-03-2022 Note Formatting of this n ote might be different from the original. Pt admitted to [address] room 542 from ED via wheelchair with voluntary consent. Pt cooperative with height/weight, vitals, assessment, skin check, questions, and education. Pt denies SI/HI, hallucinations, and pain, remained calm and cooperative throughout admission, denies abnormal symptoms. Pt states they are here because I guess I'm crazy. RN oriented pt to unit, room, and rules. All questions answered. [facility] [place] 09-03-2022 Note Formatting of this n ote might be different from the original. Problem: Overarching Goals (Adult) Goal: Adheres to Safety Considerations for Self and Others Outcome: Met This Shift Problem: Overarching Goals (Adult) Goal: Develops/Participates in Therapeutic [place] to Support Successful Transition Outcome: Progressing Toward Goal Problem: Cognitive Impairment (Psychotic Signs/Symptoms) (Adult) Goal: Improved Thought Clarity/Organization Outcome: Progressing Toward Goal [facility] [place] 09-02-2022 Note Formatting of this n ote might be different from the original. I certify that this patient requires inpatient services at this time. I anticipate the expected length of stay will include at least two midnights. Inpatient services are due to the following medical concerns psychosis. Plans for post hospitalization care will be discharge to home. [facility] [place] 09-02-2022 History and physical note PSYCHIATRY ADMISSION DOCUMENTATION PHYSICAL EXAM AND TREATMENT RECOMMENDATIONS COVID EXPOSURE/IMMUNOSUPPRESSION SCREENING Has the patient tested positive for COVID-19 within the last 90 days? no Has the patient been in close contact with anyone confirmed to have COVID-19 infection within the last 14 days? No Is the patient immunosuppressed? HIV. 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 Use Disorder) The patient's current condition demonstrates a need for Inpatient psychiatric hospitalization due to the following: Represents a substantial and immediate risk of serious physical impairment or injury to self as manifested by evidence that the person is unable to provide for and is not providing for the person's basic physical needs because of the person's mental illness and that appropriate provision for those needs cannot be made immediately available in the community Suicide Risk Assessment: MODERATE RISK: Will initiate/continue suicide precautions per unit policy Recommended Precautions for Inpatient Treatment: Moderate-risk Suicide (twice in 15 minutes) RECOMMENDATIONS Level of care: The patient will require inpatient care for safety and stabilization. ALOC Order and Certification Note have been completed. Legal status: Involuntary, pink slip dated 09/01/2022 Medical Bed: Based on clinical assessment and review of medical history, the patient does not require a medical bed. Guardianship: The patient does not have a guardian. Suicide Risk Screening: Based on risk assessment performed during this interview, this patient will benefit from the following level of observation: Patient's risk may be downgraded to Moderate Suicide Precautions in the emergency department and in psych-certified area (inpatient psych) Additional work-up and treatment recommendations: 1. Medical work-up: Previously ordered: BMP CBC/edif/platelet TSH w/ FT4 reflex Vitamin B12, folate Hepatic function panel BAL, UDS Syphilis AB w/ RPR reflex Toxicology screen COVID-19 PCR [place]/suppressor quant (CD4) HIV viral load quant UA w/ reflex to culture EKG Will also order HbA1c, lipids Will consult ID team for assistance with HIV management, appreciate recommendations 2. Medications: Defer initiation of new psychotropics to inpatient team (patient does not want medications at this time) 3. Mobility/Fall risk: patient does not have mobility assist devices and is not a fall risk 4. Treatment for nicotine use disorder: Nicotine replacement treatment as indicated - not ordered, the patient declined nicotine replacement Discussed patient history, assessment, and treatment plan with faculty attending, Dr. Bhupinder Raymundo, SALES ESTIMATOR-EXHIBIT ARTIST SUMMARY OF CLINICAL PRESENTATION Christiano Hernandez is a 34 y.o. male with history of Adjustment Disorder with depressed mood vs. Depression and PTSD who presented to the [facility] ED on 09/01/22 for evaluation of hallucinations. Per chart, patient has been exhibiting disorganized behaviors, tangential speech and thought processes, and reporting paranoid ideas. Please see note by HOOD Rosenbaum on date of 09/02/22 for additional history. On exam today patient is tearful, appears depressed, and perseverates on a situation that occurred with his friends. He states, I just wish they would have told me and while he does not want to elaborate right now, he reports feeling left out from his social [place] and wonders if he still has friends. There are no obvious signs of disorganization and patient does not appear to be attending to internal stimuli. He denies wanting to start any medications or begin counseling. MEDICAL/SURGICAL HISTORY Patient has no past medical history on file. Patient has no past surgical history on file. CURRENT MEDICATIONS (Not in an outpatient encounter) Current Facility-Administered Medications Medication Dose Route Frequency Provider Last Rate Last Admin Acetaminophen (TYLENOL) tablet 650 mg 650 mg Oral Q6H PRN Chris Díaz MD diphenhydrAMINE (BENADRYL) tablet 50 mg 50 mg Oral Q4H PRN Kell Castro, DO Or diphenhydrAMINE (BENADRYL) injection 50 mg 50 mg Intramuscular Q4H PRN Kell Castro, DO Ibuprofen (MOTRIN) tablet 600 mg 600 mg Oral Q6H PRN Chris Díaz MD LORazepam (ATIVAN) tablet 2 mg 2 mg Oral Once PRN Britta Sibley MD OLANZapine (zyPREXA ZYDIS) disintegrating tablet 10 mg 10 mg Oral Q4H PRN Kell Castro, DO Or OLANZapine (ZYPREXA) injection 10 mg 10 mg Intramuscular Q4H PRN Kell Castro DO Current Outpatient Medications Medication Sig Dispense Refill naloxone 4 MG/0.1ML 1 spray by Nasal route As directed PRN for Opioid Reversal. Mcandrews into the nose as directed. Call 911. If no response in 2 minutes use a new nasal spray in other nostril. Repeat until help arrives. 2 Each 0 LABS AND IMAGING I have reviewed the labs and imaging 09/02/22 with the following findings: BMP, CBC/edif/platelet, TSH w/ FT4 reflex, vitamin B12, hepatic function panel, BAL, folate, and syphilis AB w/ RPR reflex unremarkable/WNL UDS + amphetamines/methamphetamines, Fentanyl, cannabinoids [place]/suppressor quant (CD4): CD4/CD4 dual 26.7% CD8/CD4 dual 56.7% Several pending labs: toxicology screen, COVID-19 PCR, HIV viral load quant, UA w/ reflex to culture Most Recent EKG: admission EKG ordered, pending PHYSICAL EXAM Vitals: 09/02/22 1031 BP: 126/68 Pulse: 100 Resp: 16 Temp: Constitutional: Appearance: Thin. Disheveled, fair hygiene. HENT: Head: Normocephalic and atraumatic. External nose and ears without lesion. Mouth: Mucous membranes are moist. No lesions. Eyes: Extraocular movements intact. Conjunctivae normal. Pupils are equal, round, and reactive to light. Cardiovascular: Normal rate and regular rhythm. Normal heart sounds, no murmurs, gallops, rubs. Pulmonary: Pulmonary effort is normal. No respiratory distress. Normal breath sounds. Abdominal: Abdomen is soft, nontender, nondistended. Normal bowel sounds. Musculoskeletal: Normal range of motion. Neck is supple, no meningismus. Skin: +Cuts and scrapes noted to hands (states he punched a painting at home last week). Clubbing noted to nails. Dry skin and scalp. Skin is warm. Capillary refill takes less than 2 seconds. Neurological: General: No focal deficit present. Mental Status: She is alert and oriented to person, place, and time. Cranial Nerves: No cranial nerve deficit. Motor: No weakness. Coordination: Coordination normal. Gait: Gait normal. Deep Tendon Reflexes: Reflexes normal. MENTAL STATUS EXAM Musculoskeletal: gait normal, station is hunched over; tremor absent Constitutional: disheveled; fair hygiene; no acute distress Attention/concentration: alert, little distractibility and capable of maintaining prolonged focus, poor eye contact (staring at the floor) Orientation: oriented to self, location, date and situation Mood: Stressed out Affect: appears depressed; blunted; lack of emotional reactivity Motor Activity: normokinetic and neither restless nor sedated Speech: fluent Kenyan, average rate and rhythm, appropriate volume, normal prosody Thought Process: linear and logical, a bit perseverative on a situation with his friends he does not want to elaborate on Associations: intact Suicidal Ideation: endorsed vague ideations without plan or intent Homicidal Ideation: denied by the patient Delusions: none evident Hallucination: denies hearing voices, denies seeing visions and not apparently responding to internal stimuli Insight/Judgment: poor insight, poor judgment Memory: no deficits noted/memory may be improving, but recent memory may be impaired by substance use Language: appropriate for the patient's level of education Fund of knowledge: average for the patient's level of education Cognition: intact, no indication of cognitive disorder MEDICAL REVIEW OF SYSTEMS Review of Systems Constitutional: Positive for fatigue. HENT: Negative. Eyes: Negative. Respiratory: Negative. Cardiovascular: Negative. Gastrointestinal: Negative. Endocrine: Negative. Genitourinary: Negative. Musculoskeletal: Negative. Skin: Reporting dry skin and scalp, pruritis. Allergic/Immunologic: Negative. Neurological: Negative. Hematological: Negative. Psychiatric/Behavioral: Positive for dysphoric mood, sleep disturbance and suicidal ideas. High risk sexual behavior denied SCREENINGS Rehab Services Evaluation Screening Tool Does the patient meet any exclusionary criteria for OT Consult? No If no, please order OT Consult. Choking/Aspiration Screen This patient has the following factors that may contribute to increased risk for choking or aspiration: No identified risk factors For patients with choking risk factors present, the following interventions have been ordered: N/A Oral health and hygiene: normal dentition for age Associated attestation - Bhupinder Randle MD - 09/02/2022 4:27 PM EST Attending Physician Attestation (SV) I did not examine the patient on 09/02/22 , but I reviewed with the nurse practitioner, Katelyn Raymundo, the patient's history, exam, and medical decision making, and I agree with the history, examination, and medical decision making as noted by the nurse practitioner, Katelyn Raymundo. Bhupinder Gallagher MD [facility] Work Phone: 09-02-2022 History and physical note PSYCHIATRY ADMISSION DOCUMENTATION PHYSICAL EXAM AND TREATMENT RECOMMENDATIONS COVID EXPOSURE/IMMUNOSUPPRESSION SCREENING Has the patient tested positive for COVID-19 within the last 90 days? no Has the patient been in close contact with anyone confirmed to have COVID-19 infection within the last 14 days? No Is the patient immunosuppressed? HIV. 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 Use Disorder) The patient's current condition demonstrates a need for Inpatient psychiatric hospitalization due to the following: Represents a substantial and immediate risk of serious physical impairment or injury to self as manifested by evidence that the person is unable to provide for and is not providing for the person's basic physical needs because of the person's mental illness and that appropriate provision for those needs cannot be made immediately available in the community Suicide Risk Assessment: MODERATE RISK: Will initiate/continue suicide precautions per unit policy Recommended Precautions for Inpatient Treatment: Moderate-risk Suicide (twice in 15 minutes) RECOMMENDATIONS Level of care: The patient will require inpatient care for safety and stabilization. ALOC Order and Certification Note have been completed. Legal status: Involuntary, pink slip dated 09/01/2022 Medical Bed: Based on clinical assessment and review of medical history, the patient does not require a medical bed. Guardianship: The patient does not have a guardian. Suicide Risk Screening: Based on risk assessment performed during this interview, this patient will benefit from the following level of observation: Patient's risk may be downgraded to Moderate Suicide Precautions in the emergency department and in psych-certified area (inpatient psych) Additional work-up and treatment recommendations: 1. Medical work-up: Previously ordered: BMP CBC/edif/platelet TSH w/ FT4 reflex Vitamin B12, folate Hepatic function panel BAL, UDS Syphilis AB w/ RPR reflex Toxicology screen COVID-19 PCR [place]/suppressor quant (CD4) HIV viral load quant UA w/ reflex to culture EKG Will also order HbA1c, lipids Will consult ID team for assistance with HIV management, appreciate recommendations 2. Medications: Defer initiation of new psychotropics to inpatient team (patient does not want medications at this time) 3. Mobility/Fall risk: patient does not have mobility assist devices and is not a fall risk 4. Treatment for nicotine use disorder: Nicotine replacement treatment as indicated - not ordered, the patient declined nicotine replacement Discussed patient history, assessment, and treatment plan with faculty attending, Dr. Bhupinder Raymundo, SALES ESTIMATOR-EXHIBIT ARTIST SUMMARY OF CLINICAL PRESENTATION Christiano Hernandez is a 34 y.o. male with history of Adjustment Disorder with depressed mood vs. Depression and PTSD who presented to the [facility] ED on 09/01/22 for evaluation of hallucinations. Per chart, patient has been exhibiting disorganized behaviors, tangential speech and thought processes, and reporting paranoid ideas. Please see note by HOOD Rosenbaum on date of 09/02/22 for additional history. On exam today patient is tearful, appears depressed, and perseverates on a situation that occurred with his friends. He states, I just wish they would have told me and while he does not want to elaborate right now, he reports feeling left out from his social [place] and wonders if he still has friends. There are no obvious signs of disorganization and patient does not appear to be attending to internal stimuli. He denies wanting to start any medications or begin counseling. MEDICAL/SURGICAL HISTORY Patient has no past medical history on file. Patient has no past surgical history on file. CURRENT MEDICATIONS (Not in an outpatient encounter) Current Facility-Administered Medications Medication Dose Route Frequency Provider Last Rate Last Admin Acetaminophen (TYLENOL) tablet 650 mg 650 mg Oral Q6H PRN Chris Díaz MD diphenhydrAMINE (BENADRYL) tablet 50 mg 50 mg Oral Q4H PRN Kell Castro DO Or diphenhydrAMINE (BENADRYL) injection 50 mg 50 mg Intramuscular Q4H PRN Kell Castro DO Ibuprofen (MOTRIN) tablet 600 mg 600 mg Oral Q6H PRN Chris Díaz MD LORazepam (ATIVAN) tablet 2 mg 2 mg Oral Once PRN Britta Sibley MD OLANZapine (zyPREXA ZYDIS) disintegrating tablet 10 mg 10 mg Oral Q4H PRN Kell Castro DO Or OLANZapine (ZYPREXA) injection 10 mg 10 mg Intramuscular Q4H PRN Kell Castro, DO Current Outpatient Medications Medication Sig Dispense Refill naloxone 4 MG/0.1ML 1 spray by Nasal route As directed PRN for Opioid Reversal. Mcandrews into the nose as directed. Call 911. If no response in 2 minutes use a new nasal spray in other nostril. Repeat until help arrives. 2 Each 0 LABS AND IMAGING I have reviewed the labs and imaging 09/02/22 with the following findings: BMP, CBC/edif/platelet, TSH w/ FT4 reflex, vitamin B12, hepatic function panel, BAL, folate, and syphilis AB w/ RPR reflex unremarkable/WNL UDS + amphetamines/methamphetamines, Fentanyl, cannabinoids [place]/suppressor quant (CD4): CD4/CD4 dual 26.7% CD8/CD4 dual 56.7% Several pending labs: toxicology screen, COVID-19 PCR, HIV viral load quant, UA w/ reflex to culture Most Recent EKG: admission EKG ordered, pending PHYSICAL EXAM Vitals: 09/02/22 1031 BP: 126/68 Pulse: 100 Resp: 16 Temp: Constitutional: Appearance: Thin. Disheveled, fair hygiene. HENT: Head: Normocephalic and atraumatic. External nose and ears without lesion. Mouth: Mucous membranes are moist. No lesions. Eyes: Extraocular movements intact. Conjunctivae normal. Pupils are equal, round, and reactive to light. Cardiovascular: Normal rate and regular rhythm. Normal heart sounds, no murmurs, gallops, rubs. Pulmonary: Pulmonary effort is normal. No respiratory distress. Normal breath sounds. Abdominal: Abdomen is soft, nontender, nondistended. Normal bowel sounds. Musculoskeletal: Normal range of motion. Neck is supple, no meningismus. Skin: +Cuts and scrapes noted to hands (states he punched a painting at home last week). Clubbing noted to nails. Dry skin and scalp. Skin is warm. Capillary refill takes less than 2 seconds. Neurological: General: No focal deficit present. Mental Status: She is alert and oriented to person, place, and time. Cranial Nerves: No cranial nerve deficit. Motor: No weakness. Coordination: Coordination normal. Gait: Gait normal. Deep Tendon Reflexes: Reflexes normal. MENTAL STATUS EXAM Musculoskeletal: gait normal, station is hunched over; tremor absent Constitutional: disheveled; fair hygiene; no acute distress Attention/concentration: alert, little distractibility and capable of maintaining prolonged focus, poor eye contact (staring at the floor) Orientation: oriented to self, location, date and situation Mood: Stressed out Affect: appears depressed; blunted; lack of emotional reactivity Motor Activity: normokinetic and neither restless nor sedated Speech: fluent Kenyan, average rate and rhythm, appropriate volume, normal prosody Thought Process: linear and logical, a bit perseverative on a situation with his friends he does not want to elaborate on Associations: intact Suicidal Ideation: endorsed vague ideations without plan or intent Homicidal Ideation: denied by the patient Delusions: none evident Hallucination: denies hearing voices, denies seeing visions and not apparently responding to internal stimuli Insight/Judgment: poor insight, poor judgment Memory: no deficits noted/memory may be improving, but recent memory may be impaired by substance use Language: appropriate for the patient's level of education Fund of knowledge: average for the patient's level of education Cognition: intact, no indication of cognitive disorder MEDICAL REVIEW OF SYSTEMS Review of Systems Constitutional: Positive for fatigue. HENT: Negative. Eyes: Negative. Respiratory: Negative. Cardiovascular: Negative. Gastrointestinal: Negative. Endocrine: Negative. Genitourinary: Negative. Musculoskeletal: Negative. Skin: Reporting dry skin and scalp, pruritis. Allergic/Immunologic: Negative. Neurological: Negative. Hematological: Negative. Psychiatric/Behavioral: Positive for dysphoric mood, sleep disturbance and suicidal ideas. High risk sexual behavior denied SCREENINGS Rehab Services Evaluation Screening Tool Does the patient meet any exclusionary criteria for OT Consult? No If no, please order OT Consult. Choking/Aspiration Screen This patient has the following factors that may contribute to increased risk for choking or aspiration: No identified risk factors For patients with choking risk factors present, the following interventions have been ordered: N/A Oral health and hygiene: normal dentition for age Associated attestation - Bhupinder Randle MD - 09/02/2022 4:27 PM EST Attending Physician Attestation (SV) I did not examine the patient on 09/02/22 , but I reviewed with the nurse practitioner, Katelyn Raymundo, the patient's history, exam, and medical decision making, and I agree with the history, examination, and medical decision making as noted by the nurse practitioner, Katelyn Raymundo. Bhupinder Gallagher MD documented in this encounter [facility] 09-02-2022 Physician Emergency department Note Signout: Christiano Hernandez 34 y.o. male with a chief complaint of Mental Health Problems and Hallucinations received in sign-out. Vitals: 09/01/22 0945 09/01/22 1838 09/02/22 0601 BP: (!) 137/101 122/84 134/90 Pulse: 92 108 104 Resp: 16 16 20 Temp: 98.3 degrees F (36.8 degrees C) TempSrc: Oral SpO2: 99% 98% 100% The patient presents with: pink slipped by process improvement consultant with concerns for AH/VH. Believes someone is in his [place] being held captive. Pending studies and plan include: psych consulted The expected disposition is: pink slipped Srini Long MD, PhD 09/02/22719 [facility] Work Phone: 09-02-2022 Emergency department Note Signout: Christiano Hernandez 34 y.o. male with a chief complaint of Mental Health Problems and Hallucinations received in sign-out. Vitals: 09/01/22 0945 09/01/22 1838 09/02/22 0601 BP: (!) 137/101 122/84 134/90 Pulse: 92 108 104 Resp: 16 16 20 Temp: 98.3 degrees F (36.8 degrees C) TempSrc: Oral SpO2: 99% 98% 100% The patient presents with: pink slipped by process improvement consultant with concerns for AH/VH. Believes someone is in his [place] being held captive. Pending studies and plan include: psych consulted The expected disposition is: pink slipped Srini Long MD, PhD 09/02/22719 Pt has been observed masturbating in room and humping the air for several hours off and on. Pt observed hanging off bed and humping bed. Pt coming to nurses station every so often to inquire why he is here. Pt informed that 911 was called and that he needs a psych consult and that is why he was brought in and what he is waiting on. Pt's questions answered by TW and RN. Pt verbalizes understanding then will come out again upset with staff stating I dont know why I am here, where is psychiatry . Pt educated each time that staff will keep him updated on plan of care and that we do not have an exact time for him at this moment. Pt educated on what the plan is for now and that he is just waiting to be seen. Pt offered comfort items but denies need at this time Pt exits his room multiple times very frustrated stating why am I here? . Each time pt has been educated on how he was brought to the ED and the plan of care. Pt has been observed for the last 8 hours having hypersexual activity, loudly moaning, laying in obscure places in his room, placing his feet up on the [place] while thrusting the air, and swinging his legs back and forth up in the air in attempt to reach his penis to his mouth. Staff made aware. This RN attempts to have a conversation with the pt as he is continuously yelling out im so fucking frustrated where is the psychiatrist . Pt unable to engage in conversation and begins yelling at this RN. Pt getting increasingly frustrated stating where the fuck is the psychiatrist . Psych team and MD notified Pt provided food and drinks as requested. Pts pants taken and placed in belongings This RN assumes care of patient at this time. ED ATTENDING NOTE Chief Complaint: Mental Health Problems and Hallucinations HPI: Christiano Hernandez is a 34 y.o. 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 Above information reviewed with the patient Family History: Noncontributory Social history: +meth Domiciled PHYSICAL EXAM VITAL SIGNS: were reviewed. BP (!) 137/101 Pulse 92 Temp 98.3 F (36.8 C) (Oral) Resp 16 SpO2 99% Smoking Status Every Day General: Awake, alert. In no acute distress Eyes: EOMI, non-icteric ENT: no congestion, airway open Respiratory: Normal lung exam Cardiovascular: Normal heart exam, no edema GI: Soft, nontender Musculoskeletal: back nontender Skin: warm, dry, no rash Neuro: Oriented x3. Normal cranial nerves. Normal gait, intact strength and sensation to bilat UE and LE Psych: Appropriate, cooperative, clinically sober, not responding to internal stim ED COURSE & MEDICAL DECISION MAKING Pertinent Labs & Imaging studies if performed reviewed. (See chart for details) Medication list reviewed. Assessment: Medical Decision Making 34yM presenting for AH/VH in setting of meth use, now sober, not forthcoming about SI HI which is concerning Amount and/or Complexity of Data Reviewed Independent Historian: EMS Labs: ordered. Risk OTC drugs. Prescription drug management. Plan: UDOA Psych consult Disposition: Pending psych eval Clinical Impression: psychosis This note was dictated using [employer] voice recognition software. Attempts at proofreading were made, but errors may occasionally still occur. On 09/01/2022 I saw and evaluated the patient with a resident physician or HILTON. I provided a substantive portion of the care for this patient. I personally performed all aspects of the medical decision making for this encounter. I have reviewed and verified this with the resident/HILTON so that it accurately reflects our care. Horace Henry MD MSCR Attending Physician Department of Emergency Medicine [facility] Horace Henry MD 09/01/22 1037 EMERGENCY DEPARTMENT ENCOUNTER CHIEF COMPLAINT Chief Complaint Patient presents with Mental Health Problems Hallucinations HPI Christiano Hernandez is a 34 y.o. male who presents with brought in by CPD with pink slipped for AVH and paranoia. Per pink slip, patient reportedly complaining of seeing people coming through his russell, and digging under his building to get him. Also reportedly had pressured speech and was agitated. Patient is quietly sitting and denying any AVH now. He denies any HI. When asked about SI, he states I do not know but does not have a specific plan, can not verify if he is previously attempted suicide. Patient does endorse smoking approximately half pack tobacco daily, denies alcohol use, endorses methamphetamine use. Last use all morning today. 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 He is VA service-connected 60% to include for PTSD. Does not take medications, states he refused any therapies. REVIEW OF SYSTEMS Review of Systems Constitutional: Negative for chills and fever. HENT: Negative for congestion, rhinorrhea and sore throat. Respiratory: Negative for cough. Cardiovascular: Negative for chest pain. Gastrointestinal: Negative for abdominal pain, nausea and vomiting. Genitourinary: Negative for flank pain. Musculoskeletal: Negative for back pain and neck pain. Skin: Negative for rash. Neurological: Negative for headaches. Psychiatric/Behavioral: Positive for dysphoric mood. Negative for hallucinations, self-injury and suicidal ideas. All other systems reviewed and are negative. PAST MEDICAL HISTORY No past medical history on file. SURGICAL HISTORY No past surgical history on file. CURRENT MEDICATIONS No current outpatient medications on file. ALLERGIES No Known Allergies FAMILY HISTORY No family history on file. SOCIAL HISTORY Social History Socioeconomic History Marital status: Not on file Spouse name: Not on file Number of children: Not on file Years of education: Not on file Highest education level: Not on file Occupational History Not on file Tobacco Use Smoking status: Every Day Types: Cigarettes Smokeless tobacco: Never Substance and Sexual Activity Alcohol use: Not Currently Drug use: Yes Types: Methamphetamines Sexual activity: Not on file Other Topics Concern Not on file Social History Narrative Not on file Social Determinants of Health Financial Resource Strain: Not on file Food Insecurity: Not on file Transportation Needs: Not on file Physical Activity: Not on file Stress: Not on file Social Connections: Not on file Intimate Partner Violence: Not on file Housing Stability: Not on file PHYSICAL EXAM Vital Signs:BP (!) 137/101 Pulse 92 Temp 98.3 F (36.8 C) (Oral) Resp 16 SpO2 99% Smoking Status Every Day Physical Exam Constitutional: General: He is not in acute distress. Appearance: Normal appearance. He is normal weight. He is not ill-appearing, toxic-appearing or diaphoretic. HENT: Head: Normocephalic and atraumatic. Right Ear: External ear normal. Left Ear: External ear normal. Nose: Nose normal. Mouth/Throat: Mouth: Mucous membranes are moist. Eyes: General: Right eye: No discharge. Left eye: No discharge. Extraocular Movements: Extraocular movements intact. Cardiovascular: Rate and Rhythm: Normal rate and regular rhythm. Pulses: Normal pulses. Heart sounds: Normal heart sounds. No murmur heard. No friction rub. No gallop. Pulmonary: Effort: Pulmonary effort is normal. No respiratory distress. Breath sounds: No wheezing, rhonchi or rales. Abdominal: General: Abdomen is flat. There is no distension. Palpations: Abdomen is soft. Tenderness: There is no abdominal tenderness. There is no guarding or rebound. Musculoskeletal: Right lower leg: No edema. Left lower leg: No edema. Skin: General: Skin is warm and dry. Neurological: General: No focal deficit present. Mental Status: He is alert. Psychiatric: Attention and Perception: Attention and perception normal. He is attentive. He does not perceive auditory or visual hallucinations. Mood and Affect: Mood is depressed. Affect is flat. Speech: Speech normal. Speech is not rapid and pressured, delayed, slurred or tangential. Behavior: Behavior is withdrawn. Behavior is not agitated, aggressive, hyperactive or combative. Behavior is cooperative. Thought Content: Thought content is not delusional. Thought content includes suicidal (Passive, states I don't know in response to question of thoughts for harming self) ideation. Thought content does not include homicidal ideation. Thought content does not include homicidal or suicidal plan. Cognition and Memory: Cognition is not impaired. Judgment: Judgment is inappropriate. Judgment is not impulsive. Labs: No results found for this visit on 09/01/22. Radiology: No orders to display ED COURSE & MEDICAL DECISION MAKING Assessment: Christiano Hernandez is a 34 y.o. male who presents with pink slipped by CPD for AVH cough paranoia, now with depressive symptoms and passive SI. DDx includes but not limited to: Depression, bipolar, substance use/withdrawal, schizoaffective disorder, depression with psychosis features ED Course: MDM: At this time, patient hemodynamically stable, afebrile, non tachypneic and saturating well on room air. I reviewed previous records, examined and spoke to the patient, and ordered the above labs, imaging, therapeutics, and consultations. I have discussed the patient with the attending physician and they agree with the work up and plan. Medical Decision Making Based on the H&P, there is concern for depressive symptoms and possible new MDD diagnosis. Patient is expressing passive SI without plan, no previous history of attempts. In the absence of other medical history, there is unlikely to be a comorbidity that is exacerbating his current symptoms. Methamphetamine use could be exacerbating his initial complaint was included AVH. These have now resolved, patient appears to be approaching clinical sobriety. Post methamphetamine use can exacerbate depressive symptoms which may be contributing, however given patient's situation and previous work history not working, and no supportive family friends in the he is at risk. Psych evaluation is warranted in this situation. Given his absence of previous psychiatric diagnoses, will obtain basic labs to include CBC, chemistries, and TSH in addition to routine UDS. Addiction counseling services also consulted due to his endorse use of amphetamines. Initial lab findings shows normal CBC without e/o anemia or leukocytosis. Chemistry and TSH pending at time of sign out. Per Addiction Medicine recommendations, patient to be provided with fentanyl testing strips and naloxone on discharge. Pending psych recommendations at time of sign-out. Amphetamine use: undiagnosed new problem with uncertain prognosis Passive suicidal ideations: acute illness or injury Symptoms of depression: acute illness or injury Amount and/or Complexity of Data Reviewed Labs: ordered. Decision-making details documented in ED Course. Risk OTC drugs. Prescription drug management. Impression: Depression, passive SI, amphetamine use Disposition: Pending psych eval This note was dictated with [employer] dictation software. Every effort was made to correct edits but please excuse any incorrections. I discussed the patient with the attending physician, Dr. Henry. Chris Díaz MD Resident 09/03/2252 Patient brought in by [facility], girlfriend called 911, girlfriend states hes been having auditory and visual hallucinations. Patient is pinkslipped. Patient states he does abuse meth, last use was today documented in this encounter [facility] 09-02-2022 Emergency department Note Pt has been observed masturbating in room and humping the air for several hours off and on. Pt observed hanging off bed and humping bed. Pt coming to nurses station every so often to inquire why he is here. Pt informed that 911 was called and that he needs a psych consult and that is why he was brought in and what he is waiting on. Pt's questions answered by TW and RN. Pt verbalizes understanding then will come out again upset with staff stating I dont know why I am here, where is psychiatry . Pt educated each time that staff will keep him updated on plan of care and that we do not have an exact time for him at this moment. Pt educated on what the plan is for now and that he is just waiting to be seen. Pt offered comfort items but denies need at this time [facility] 09-02-2022 Emergency department Note Pt exits his room multiple times very frustrated stating why am I here? . Each time pt has been educated on how he was brought to the ED and the plan of care. Pt has been observed for the last 8 hours having hypersexual activity, loudly moaning, laying in obscure places in his room, placing his feet up on the russell while thrusting the air, and swinging his legs back and forth up in the air in attempt to reach his penis to his mouth. Staff made aware. [facility] 09-02-2022 Emergency department Note This RN attempts to have a conversation with the pt as he is continuously yelling out im so fucking frustrated where is the psychiatrist . Pt unable to engage in conversation and begins yelling at this RN. [facility] 09-02-2022 Emergency department Note Pt getting increasingly frustrated stating where the fuck is the psychiatrist . Psych team and MD notified [facility] 09-01-2022 Emergency department Note Pt provided food and drinks as requested. [facility] 09-01-2022 Emergency department Note Pts pants taken and placed in belongings [facility] 09-01-2022 Hospital Discharge instructions HOOD Jerry - 09/01/2022 3:49 PM EST Some local options for substance use treatment: [facility] [address] [place], [place] *Detox, Partial Hospitalization, Intensive Outpatient, Outpatient. Medicaid, Medicare, and private insurance. Walk-in appointments for detox and outpatient services Wednesday-Wednesday, 04-10. [facility] [address] [facility], 4th Floor [place], [place] [phone] *Walk-ins for ASSESSMENTS, Wednesday-Wednesday, 03-30. Will screen and arrange treatment at the appropriate level of care. Walk-ins for DETOX, 22/03. [facility] [phone] *Call for help finding treatment, including detox. [facility] *Needle exchange, fentanyl test strips, and harm reduction resources. HIV testing, STI testing, PrEP, Hep C testing. [address] [place] Tuesdays and Wednesdays, 4-8 Saturdays, 04-30 For help finding other resources (addiction treatment, behavioral health treatment, food assistance, community resources), visit www.relink.org. [facility] [facility] 4[facility] [phone] *Multiple locations. Central Intake at this location. [facility] [address] [phone] *Walk-in assessments Mondays, Tuesdays, and at 8 AM. Assessments start at 1 PM. [facility] [address] [facility] [phone] *Walk-in assessments Wednesday and Wednesday-, and Wednesday-12. Only available for people who are eligible for Medicaid, and live on the [place]. [facility] [address] [facility] [phone] *Men only. Walk-in Wednesday-Wednesday from 04-10 to apply for admission. [facility] [address] [facility] [phone] *Medicare, Private Insurance, [employer]. [address] [phone] *Medicare, Private Insurance, [employer]. [address] [phone] *Medicare and private insurance only. [facility] [place] [facility] [facility] [phone] [facility] ([facility]) [facility] [phone] *Home-based treatment. [facility] [address] *Intensive Outpatient only. [facility] [address] [phone] *Walk-in assessments . & Wed. 8:00-9:00 [facility] ([facility], [facility], and [place]) [phone] [facility] [address] [phone] *If you want counseling, call to schedule an appointment. If you want MAT for opiates, bring a valid photo ID and insurance card, arrive at 6 am Wednesday-Wednesday, the first 3-5 people will be seen starting at 7 am. Be prepared to stay until 1 pm. You must be in withdrawal when you come. [facility] (women only) [address] [phone] *Walk-in Tuesdays at 8:30 or 12:30. Walk-in at 8:30. Bring photo ID and insurance information. [facility] [address] [phone] *Partial Hospitalization Program and Intensive Outpatient Program. [facility] [address] [facility] [phone] [facility] [phone] [facility] 100 [facility]. [phone] [facility] [address] [facility] [address] [phone] [facility] [address]. [phone] *PHP Wed-Wed, 9-2:20, includes lunch and transportation [address] [phone] *Outpatient services and recovery housing services for men and women. *Has Suboxone provider, individual counseling, and groups. *Medicaid plans only. Alcoholics Anonymous www.aacentral[place].org 777-540-8502 Narcotics Anonymous www.nacentral[place].org 094-758-1757 Cocaine Anonymous www.ca[place].org 745-931-4543 Marijuana Anonymous www.marijuana-anonymous.org 321-104-4533 [facility] www.smartrecovery.org [place] Quit Line (smoking) https://[place].quitlogix.org 994-LGTD-AIA ([phone]) [facility] s National Helpline 22/03 Treatment Supervisor [employer] 4-688-347-HELP (3217) 12-Step Education: Please consider attending a 12-Step meeting each day (such as AA or NA). If you go, we recommend you make it a goal to attend 90 meetings in 90 days. There are online meetings and phone meetings available as well. You can ask for a temporary sponsor at the first meeting. Contact your sponsor daily so you can work the 12 Steps together. Read AA's The Big Book. You can get a copy at any meeting. Many 12-step program have free apps to be downloaded onto your smartphone or tablet. Exercise helps to decrease cravings, therefore exercise as tolerated. Practice using HALT by making sure you are not getting too Hungry, Angry, Lonely, or Tired. Avoid people, places, and things that trigger you to use. Community Mental Health Agencies. Mental health agencies provide a number of services including counseling, case management services, medication management, and substance abuse treatment services. Please call to schedule or confirm your appointment: [facility] [address] [facility] [phone] *Walk-in screenings Wednesday-Wednesday at 8:00-12:00. [facility] [address] [phone] *Addiction Services, walk-in assessments . & Wed. 8:00-9:00. *Mental Health Services, walk-in assessments Wed-Wed 8:00-11:30. [facility] [address] [facility] [phone] [facility] (North, West, and [facility]) [phone] [facility] [address] [facility]. [phone] [facility] Fredrick Arizmendi [address] [phone] [facility] [address] [phone] [phone] Helpful phone numbers: Free Crisis Hotline: 5-975-255-TALK ( ) 22/03 Crisis Line: Text or Call 982 [facility] [place]: [phone] (free counseling) 24-hour crisis text hotline: Text the word 4hope to 412-241 for crisis support. Texting this number is free if you have Verizon, T-Mobile, AT&T or Sprint. [place] of Access, Homeless [facility] Intake Hotline: 774.482.8160 If you feel unsafe at any time, call 911 or go to the nearest emergency room. Positive coping skills are ways to decrease the negative effects of stress, anger, and anxiety. It is important to use these skills daily to maintain a manageable level of stress, decrease anxiety, and deal positively with anger. Here is a list of healthy coping skills: Exercise or take a walk daily. Use relaxation or deep breathing. Engage in a positive recreation interest. Listen to calming music. Manage your time well. Talk to someone. Take a break. Eat a balanced diet. Maintain a regular sleep schedule. Spend time with a support person or pet. The following are warning signs of suicide: Withdrawal from friends, family, and social activities. Increased feelings of hopelessness; belief that things will never get better, and nothing will ever change. Talking of feeling suicidal: directly- I want to kill myself or indirectly- I won't be a problem for much longer. Putting themselves down (example: I am no good or I am a bad person ). Putting affairs in order, giving away possessions. Loss of energy, loss of pleasure in activities that were previously enjoyed. Increased complaints of physical symptoms. Change of eating habits or sleep pattern. Deterioration of work or school performance. Increased anxiety. Increasing hostility or anger to others. The recent loss of family, friend, or relationship can be a trigger for suicide. Tips to make your home a safer place: Check the home carefully for items that need to be removed, thrown away, or stored at another location. Remove all firearms (even antiques ones that you think don't work). Lock away ALL medicines, including over the counter ones. Lock up and monitor medicines that are prescribed and must be taken. Remove or lock up any toxic materials. REASON FOR ADMISSION: Patient presented to the ED involuntarily on a [place] Slip (application for involuntary admission) on 09/01/2022 with concern for hallucinations which has been occurring for an unknown amount of time. PSYCHOSOCIAL ISSUES: Substance use, Lack of community supports, lack of insight into nature of illness has NO advanced directive - not interested in additional information RECOMMENDATIONS: * Continue to follow up with your outpatient psychiatric treatment providers [facility]. * Your medications have been adjusted during your stay. Continue to take medications as prescribed and follow-up with your outpatient provider as needed for medication management and continued treatment. Your attending psychiatrist during this hospitalization was Dr. Henson and your Ground Support Agent was DINO Quinones; They can be reached at the appropriate front edger as identified: p - [phone]; NP - [phone]; 4NP - [phone]; 5NP - [phone] If in the event you are unable to follow through with aftercare or are in acute crisis our [facility]mediate Care ([facility]) clinic is available to serve you. The Behavioral Health Immediate Care clinic ([facility]) is in outpatient behavioral health program that offers in-person or virtual medication management and therapy appointments for patients needing services bridged until they meet with their outpatient provider, as well as for those needing an appointment for urgent needs. Services may be provided on the same-day basis. Scheduled and walk-in appointments available. Hours of operation Wednesday - Wednesday 11:00 a.m. - 7:00 p.m. by appointment To schedule an in-person or virtual appointment call [phone]. Walk-in appointments also available Wednesday - Wednesday 11:00 a.m. to 5:30 p.m. or until appointments are full. Location [facility] 1st Floor (check-in at [facility] desk upon arrival) [address] [place] [address] Terms of services: Receive [facility] services for two months or until appointment with ongoing outpatient provider, whichever is sooner. Payment: Most Medicare, Medicaid, and private insurance is accepted. Self-pay also available. Other Resources Include: The Warm Line: 815-911-CRDW (9349) 10pm - 2am Daily Peer Center - (Peer support drop-in center) Consider for additional support and socialization. Call for additional information or activity information. EAST Location - [address] [place] [address] [place] # [phone] M - F (7am to 11pm) Sat/Sun 9am - 9pm Holidays 9am-7pm NORTH Location - [address] [place] [address] # [phone] M - T (10am to 6pm) Sat 11am - 5pm Closed Sundays and Holidays Housing: Call for a usp bed at # if needed. If you have an income: Consider [employer] # [phone] or Herve Zelaya [place] ( Jenni) # [phone] [facility])-The National [place] for Mental Illness ( patient and family education offered) [facility] [address] [facility], [address] [place] [address] - Email Address: [email or web address] Website: http://www.[email or web address] [email or web address] [email or web address] g If Appropriate: Chemical Dependency Treatment Options/ Recommendations: (Call if interested - They will want to hear from you directly) Call [place] #[phone], [place] #[phone], [place] #[phone], [facility] #[phone] or go to the [facility] Drug and Alcohol program [address] [facility] [phone] Go on Mon, Tue, or Thurs for an assessment. Assessments start at 1:00 pm. But it is important you go as early as 8:00am because there are only limited assessment slots each day and once they are full they will not do anymore on that day. It is first come first serve. Once you have an assessment - you then will be linked to services. Support groups: Alcoholics Anonymous # or 647-5754; Narcotics Anonymous #883.325.6934; Al-Anon #[phone] Residential - [facility]) # [phone] [place], [place]) # [phone] [facility] # [phone] [facility] - [place] # [phone] [facility] # [phone] or [phone] [facility] # [phone] If needed: Resources for Smoking Cessation: [place] Tobacco Quit Line - -NOW ( ) is a toll-free telephone counseling service that connects those who want to quit using tobacco with trained counselors who guide and support them through the process. [place] [employer] s Kick the Habit - Call the [place] [employer] s quit line at for resources or to talk with a counselor near you. [place] [employer] - Provides tools for quitting and tips on how to handle stress associated with quitting. Visit http://www.americanheart.org for smoking-related cardiovascular diseases information. [place] [employer], [place] From Smoking (FFS) - An online program specifically for those who want to quit smoking. Visit http://www.ffsonline.org/ or call 845-521-3121. Smokefree.gov - An online guide that includes professional support, a yxqi-ad-vtam plan for quitting and tips for fighting the urge to smoke. Go to www.smokefree.gov for more information. The [facility] [employer] Tobacco Cessation Clinic - Provides individual counseling andpersonal follow-up for those who wish to stop smoking or stop using any form of tobacco. Individualsmay refer themselves to the clinic or be referred by their dentist, dental hygienist, physician, nurse or other healthcare professional. For more information, visit [email or web address] [email or web address]. The following are warning signs of suicide: Withdrawal from friends, family, and social activities. Increased feelings of hopelessness; belief that things will never get better, and nothing will ever change. Talking of feeling suicidal: directly- I want to kill myself or indirectly- I won't be a problem for much longer. Putting themselves down (example: I am no good or I am a bad person ). Putting affairs in order, giving away possessions. Loss of energy, loss of pleasure in activities that were previously enjoyed. Increased complaints of physical symptoms. Change of eating habits or sleep pattern. Deterioration of work or school performance. Increased anxiety. Increasing hostility or anger to others. The recent loss of family, friend, or relationship can be a trigger for suicide. Tips to make your home a safer place: Check the home carefully for items that need to be removed, thrown away, or stored at another location. Remove all firearms (even antiques ones that you think don't work). Lock away ALL medicines, including over the counter ones. Lock up and monitor medicines that are prescribed and must be taken. Remove or lock up any toxic materials. Emergency Phone Numbers: Free Crisis Hotline: 988 Suicide Hotline: 344.989.4581 Seniors Suicide Hotline: 703.800.7234 [facility] Youth Psychiatric Crisis Line: 907.770.9877 Mental [facility]: [phone] (free counseling) [employer] Access Hotline: 974-310-QAJB (602-141-7352) 24-hour crisis text hotline: Text the word start to 644-649 for crisis support. Texting this number is free if you have Verizon, [employer]-Mobile, [employer] or [employer]. If you feel unsafe at any time, call 911 or go to the nearest emergency room. Discharge diagnosis: Psychosis, Meth Use Major procedures or tests performed during your inpatient stay, and their results: Major procedures performed during inpatient stay: None Tests performed during inpatient stay: Recent Results (from the past 336 hour(s)) BASIC METABOLIC PANEL Collection Time: 09/01/22 2:17 PM Result Value Ref Range Sodium 138 135 - 145 mmol/L Potassium 3.8 3.5 - 5.0 mmol/L Chloride 102 98 - 108 mmol/L CO2 30 21 - 31 mmol/L Glucose 87 70 - 99 mg/dL BUN 14 7 - 25 mg/dL Creatinine 1.13 0.70 - 1.30 mg/dL Calcium 9.6 8.6 - 10.5 mg/dL Bun/Crea Ratio 12 Osmolality (Calculated) 288 278 - 305 mOsm/kg Anion Gap 10 7 - 17 mmol/L eGFR, CKD-EPI, Male 87 >=60 mL/min/1.73m2 CBC AND ELECTRONIC DIFF Collection Time: 09/01/22 2:17 PM Result Value Ref Range WBC Count 5.11 3.73 - 10.10 K/uL RBC Count 5.61 4.38 - 5.83 M/uL Hemoglobin 15.2 13.4 - 16.8 g/dL Hematocrit 45.3 39.6 - 48.8 % Mean Cell Volume 80.7 79.0 - 94.5 fL Mean Cell Hgb 27.1 26.1 - 33.3 pg Mean Cell Hgb Conc 33.6 31.9 - 36.5 g/dL RBC Distribution 13.3 10.9 - 14.3 % Platelet Count 228 146 - 337 K/uL Mean Platelet Volume 10.5 8.7 - 12.3 fL DIFF STATUS Electronic Differential Segs + Bands Auto 69.2 % Immature Grans % 0.2 % Lymphocyte % Auto 19.4 % Monocyte % Auto 9.8 % Eosinophil % Auto 0.8 % Basophil % Auto 0.6 % Nucleated RBC 0.0 <=0.2 /100 WBC Segs + Bands,Absolute Auto 3.54 1.57 - 6.19 K/uL Immature Grans Absolute <0.04 <=0.07 K/uL Abs Lymph Auto 0.99 0.83 - 3.57 K/uL Abs [place] Auto 0.50 0.24 - 0.93 K/uL Abs Eos Auto 0.04 0.00 - 0.48 K/uL Abs Baso Auto <0.04 0.00 - 0.09 K/uL TSH W/FT4 REFLEX Collection Time: 09/01/22 2:17 PM Result Value Ref Range TSH 1.316 0.550 - 4.780 uIU/mL VITAMIN B12 Collection Time: 09/01/22 2:17 PM Result Value Ref Range Vitamin B12 495 211 - 911 pg/mL HEPATIC FUNCTION PANEL Collection Time: 09/01/22 2:17 PM Result Value Ref Range Albumin 4.2 3.5 - 5.0 g/dL Bilirubin Direct 0.2 <0.3 mg/dL Bilirubin Total 0.8 <1.5 mg/dL ALP 65 32 - 126 U/L ALT 10 10 - 52 U/L AST 17 10 - 39 U/L Total Protein 8.2 6.4 - 8.3 g/dL URINE DRUG SCREEN 10 Collection Time: 09/02/22 12:09 AM Result Value Ref Range Amphetamine/Methamphetamine Presumptive Positive (A) Cutoff: 500 ng/mL Barbiturates Negative Cutoff: 200 ng/mL Benzodiazepines Negative Cutoff: 200 ng/mL Buprenorphine Negative Cutoff: 5 ng/mL Cannabinoids (Marijuana) Presumptive Positive (A) Cutoff: 50 ng/mL Cocaine Negative Cutoff: 150 ng/mL Fentanyl Presumptive Positive (A) Cutoff: 1 ng/mL Methadone Negative Cutoff: 300 ng/mL Opiates Negative Cutoff: 300 ng/mL Oxycodone Negative Cutoff: 100 ng/mL TOXICOLOGY SCREEN URINE - UDRG Collection Time: 09/02/22 12:09 AM Result Value Ref Range Drugs Detected Urine Tox Cotinine Amphetamine Methamphetamine (A) Negative Cannabinoids (Marijuana) Presumptive Positive (A) Cutoff: 50 ng/mL Barbiturates Negative Cutoff: 200 ng/mL ALCOHOL (ETHANOL),BLOOD Collection Time: 09/02/22 9:28 AM Result Value Ref Range Alcohol, Serum <10 <10 mg/dL HELPER/SUPPRESSOR QUANT (CD4) Collection Time: 09/02/22 9:28 AM Result Value Ref Range CD4/CD3 Dual (T [place])% 26.7 (L) 32.0 - 62.0 % CD4/CD3 Dual (T [place]) 320 266 - 2,213 ABS/mm3 CD8/CD3 DUAL (T SUPPRESSOR)% 56.7 (H) 11.0 - 40.0 CD8/CD3 DUAL (T SUPPRESSOR) 680 91 - 1,428 ABS/mm3 [place] Suppressor Ratio 0.5 HIV VIRAL LOAD RNA PCR QUANT Collection Time: 09/02/22 9:28 AM Result Value Ref Range HIV Viral Load 5,418 (H) <40 copies/mL HIV Viral Load (Log) 3.73 (H) <1.60 copies/mL URINALYSIS REFLEX TO CULTURE PERFORMABLE Collection Time: 09/02/22 9:28 AM Result Value Ref Range Color Yellow Yellow Appearance Urine Cloudy (A) Clear Glucose Urine Negative Negative Ketones Urine 15 mg/dL = Small (A) Negative Specific [place] Urine 1.025 >1.001 - <1.035 Blood Urine Negative Negative pH Urine 6.0 5.0 - 7.0 Protein Urine 30 mg/dL (A) Negative Urobilinogen Urine 1.0 E.U./dL 0.2 E.U/dL, 1.0 E.U/dL Nitrites Urine Positive (A) Negative Leukocyte Esterase Negative Negative RBC Urine 0-2 0 - 2 /HPF WBC Urine 0-5 0 - 5 /HPF Squamous/Epithelial Cells 1/hpf = 1+ 1/hpf = 1+, 2-5/hpf = 2+, 0/hpf = 0+, ABSENT Bacteria PRESENT (A) ABSENT Amorphous 26-50% = Moderate (A) (none) FOLATE, SERUM Collection Time: 09/02/22 9:28 AM Result Value Ref Range Folate 21.06 >5.38 ng/mL SYPHILIS AB W/REFLEX RPR Collection Time: 09/02/22 9:28 AM Result Value Ref Range Syphilis IgG/IGM Total Non Reactive Non Reactive URINE CULTURE Collection Time: 09/02/22 9:28 AM Specimen: URINE - CLEAN CATCH Result Value Ref Range Culture Growth Culture <100,000 CFU/mL Proteus mirabilis (A) Culture <100,000 CFU/mL Enterococcus faecalis (A) NOVEL CORONAVIRUS PCR Collection Time: 09/02/22 2:35 PM Specimen: NASOPHARYNGEAL; Fluid/Swab Result Value Ref Range SARS-COV-2 NOT DETECTED NOT DETECTED LIPID PANEL W CALCULATED LDL Collection Time: 09/05/22 8:45 AM Result Value Ref Range Cholesterol 140 <200 mg/dL Triglycerides 93 <150 mg/dL HDL Cholesterol 37 (L) >=40 mg/dL Calculated LDL Cholesterol 84 0 - 99 mg/dL Total Cholesterol/HDL Ratio 3.8 <4.5 Non HDL Cholesterol 103 <130 mg/dL HEPATITIS BATTERY, CHRONIC Collection Time: 09/05/22 8:45 AM Result Value Ref Range Hepatitis B Surface Ag Negative Negative Hep B Surface Ab Positive (A) Negative Hep B Core Ab,Total (IgG+IgM) Negative Negative Hepatitis C Antibody Negative Negative HEMOGLOBIN A1C Collection Time: 09/05/22 6:25 PM Result Value Ref Range Hemoglobin A1C HPLC 5.0 4.7 - 5.6 % Estimated Average Glucose 97 mg/dL HEPATITIS BATTERY, ACUTE Collection Time: 09/07/22 2:17 PM Result Value Ref Range Hepatitis B Surface Ag Negative Negative Hep B Core Ab,Total (IgG+IgM) Negative Negative Hep B Core IgM Ab Negative Negative Hepatitis A IgM Ab Negative Negative Hepatitis C Antibody Negative Negative Studies pending at time of discharge: Toxoplasmosis PCR If applicable, you may obtain results of pending studies by contacting your treatment team doctor and/or delinquency prevention social worker at: Second Floor: Third Floor: Fourth Floor: Fifth Floor: Medication Safety Take your medication every day, even if feeling well. Do not take extra doses or skip doses. Keep a list of your medications, including [id number], herbal, vitamin, and dietary supplements. Also, include medications you cannot take due to allergic reactions. It is easy to mistake one pill or bottle for another. Double-check the label and dosing schedule before taking. Using a pill box can be helpful. Use phone/watch/tablet applications or alarms, calendars, or medication journals to remember to take your medications each day as scheduled. If you miss a dose of your medication ask your doctor or pharmacist what to do. If you take too much medication or do not feel well after taking medication, call your doctor or pharmacist, go to nearest emergency department, or call poison control for advice. Store your medications as instructed by a pharmacist and keep them in original containers, in a secure area, and away from children and others. Do not share medications prescribed for you with anyone else or take medications prescribed to others. Talk with the doctor or pharmacist about possible medication interactions, side effects, whether to take medication with or without food, and if certain foods should be avoided. medications or those no longer prescribed should be discarded. A pharmacist can direct you how to safely dispose of or unused medications. Medications can affect your alertness, reaction time, and judgment. This may impair your ability to drive or operate equipment safely. Be sure to use caution and seek advice from your doctor before driving, especially when taking a new medication or if changes in dosing occur. Avoid use of alcohol, nicotine, and drugs so that your medications can be effective. If you do use these substances, talk with your doctor about options to help you stop or lessen use. Medications can be dangerous to an unborn baby. Talk with your doctor if you are considering becoming, think you might be, or are . Prescribed medications and xnyo-xyr-yukahhp substances, such as acetaminophen (Tylenol), Ibuprofen, and aspirin can be dangerous and cause if not used correctly. Please be sure to read labels and use as directed. Be sure to attend appointments and receive recommended tests after discharge from the hospital. documented in this encounter [facility] 09-01-2022 Consult note Associated Order (s): IP CONSULT TO ADDICTION MEDICINE Consult Note Patient: Christiano Hernandez, 03/11/1988, [id number] Weights And Measures Inspector Flaca Benavides, MAY-EXHIBIT ARTIST, Emergency Addiction Medicine [phone] Date of patient encounter: 09/01/2022. Reason for Consult: evaluation of substance use Consulting Provider: Dr. Díaz I spent 30 minutes on chart review, counseling and/or care coordination. IMPRESSION/PLAN Mr. Hernandez was seen by Elizabeth Salgado, ED Addiction Medicine, and politely declined evaluation by the Addiction Medicine service. Therefore, I am unable to assess for the presence or severity of alcohol or substance use disorders. Based on the concerns raised in the clinical consult, such a disorder (or harmful or hazardous use which does not rise to the threshold of a disorder) may or may not be present. Potential for clinically significant withdrawal: Please remain vigilant for signs of clinically significant withdrawal. I recommend monitoring vital signs and clinical withdrawal assessments and offering symptomatic treatment per hospital protocol. Data review: I have reviewed all relevant cinical data including vital signs, clinical withdrawal assessments, labs, medications, OARRS report (no findings). Additional recommended work up: Additional urine drug screens should be considered only if results would serve Mr. Hernandez's best interest to help with decision making and hospital care. Testing that may be considered depending on clinical scenario HIV, liver panel, viral hepatitis testing, STI testing (chlamydia, gonorrhea, syphilis). Discharge planning: Given that Mr. Hernandez has declined our services, we are unable to assess the most appropriate ASA level of care or assist and discharge planning. However, please feel free to reach out to us with additional questions or concerns. Accidental Opioid Overdose Prevention Fentanyl has permeated into supply of many street substances and carries risk of opioid overdose. All patients who use illicit substances should be offered Narcan. Mr. Hernandez is at risk of accidental opioid overdose. Placed order for Naloxone (4 mg nasal spray) CARMEN kit, with communication order to RN to dispense at the time of discharge. Provided education about signs and symptoms of overdose Project CARMEN instructions will be included in discharge paperwork. Fentanyl test strips, with instructions for use and how to obtain additional strips, provided. Harm Reduction - Vaccination Please offer Hepatitis A vaccination if Mr. Hernandez is at increased risk and no prior vaccine documented. Please offer Hepatitis B vaccination if Mr. Hernandez is non-immune or at increased risk and no prior vaccine documented. Please offer Tetanus vaccination if no documentation of prior vaccine within last 10 years. HISTORY OF PRESENT ILLNESS Christiano Hernandez is a 34 y.o. male admitted to [facility] Emergency Department for a mental health evaluation. He is seen today in consultation for evaluation of substance use. Elizabeth Salgado, ED Addiction Medicine SW met with Mr. Christiano Hernandez and he politely declined bedside assessment by the Addiction Medicine team. All remaining history per chart review. Per my IHIS flowsheets the patient has experienced the following vital sign abnormalities or symptoms indicative of possible withdrawal: none MEDICAL HISTORY No past medical history on file. No past surgical history on file. SOCIAL HISTORY Social History Tobacco Use Smoking status: Every Day Types: Cigarettes Smokeless tobacco: Never Substance Use Topics Alcohol use: Not Currently Social History Substance and Sexual Activity Drug Use Yes Types: Methamphetamines Unable to obtain additional social history. Patient declined to be interviewed. FAMILY HISTORY family history is not on file. Unable to obtain additional family history. Patient declined to be interviewed. MEDICATIONS See MAR ALLERGIES No Known Allergies REVIEW OF SYSTEMS Unable to obtain ROS. Patient declined to be interviewed. PHYSICAL EXAM Vitals: 09/01/22 09 BP: (!) 137/101 Pulse: 92 Resp: 16 Temp: 98.3 F (36.8 C) O2 Device: room air (09/01/2245) Orientation: Unable to assess Thought Process: Unable to assess Suicidal Ideation: Unable to assess Homicidal Ideation: Unable to assess Hallucination: Unable to assess Delusion: Unable to assess Memory: Unable to assess Insight/Judgment: Unable to assess DATA REVIEW WBC/Hgb/Hct/Plts: 5.11/15.2/45.3/228 (09/01 1416) Na/K+/Phos/Mg/Ca: 138/3.8/--/--/9.6 (09/01 1416) Bun/Creat/Cl/CO2/Glucose: 14/1.13/102/30/87 (09/01 1416) Signed, Flaca Benavides, SALES ESTIMATOR-EXHIBIT ARTIST Emergency Addiction Medicine [phone] (This note was written in part using voice recognition software; despite attempts at proofreading, it may contain errors and mis-transcribed words inherent to this process) Associated attestation - Onelia Shelton DO, MPH - 09/01/2022 9:26 PM EST I have not personally seen nor evaluated this patient, but I have reviewed all available clinical data related to today's encounter including, but not limited to, radiology images and reports, laboratory data, and procedure reports. I agree with the HILTON's findings and have been fully involved in the formulation of the medical decision making involved in the assessment and plan. I was also immediately available for urgent questions or concerns by phone. Onelia Shelton DO, MPH Clinical Technical Services Consultant Department of Hospital and Emergency Medicine [id number]/epic chat [facility] 09-01-2022 Emergency department Note This RN assumes care of patient at this time. [facility] 09-01-2022 Consult note Formatting of th is note might be different from the original. ED CONSULT TO ADDICTION MEDICINE - Social Work Brief Assessment and Intervention HPI and Content of Interview: Received order for ED Consult to Addiction Medicine due to methamphetamine use. Met with patient, introduced self, explained reason for consult, and offered assistance. Patient declines the consult, denies having needs for our service at this time. Reports yeah, I use Meth, so what? Plan/Progress: 1. Provided business card for our service, encouraged him to call as needed, and reviewed how to access care. 2. Provided patient with harm reduction education, including fentanyl test strips. Educated re: risk of accidental OD and/or with illicit substance use. All street drugs in [facility] are currently being laced with fentanyl. 3. Recommend Narcan kit be dispensed at the bedside prior to DC. Addiction Medicine HILTON ordering. 4. AVS updated with plan and additional resources, and primary team updated. Substance Use Disorders are chronic diseases of the brain characterized by a compulsive drive to self-administer substances despite serious adverse consequences, loss of control over intake and the emergence of a negative emotional state during abstinence. The natural history of this disease often involves deterioration across multiple domains of functioning and risk of relapse. KELSI Cordero ED Addiction Medicine Consult Service Available Wednesday-Wednesday, 8-4 Reachable by IHIS chat or phone, at [phone] Recovery is for everyone. Every person, every family, every community. [facility] Work Phone: 09-01-2022 Physician Emergency department Note ED ATTENDING NOTE Chief Complaint: Mental Health Problems and Hallucinations HPI: Christiano Hernandez is a 34 y.o. 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 Above information reviewed with the patient Family History: Noncontributory Social history: +meth Domiciled PHYSICAL EXAM VITAL SIGNS: were reviewed. BP (!) 137/101 Pulse 92 Temp 98.3 F (36.8 C) (Oral) Resp 16 SpO2 99% Smoking Status Every Day General: Awake, alert. In no acute distress Eyes: EOMI, non-icteric ENT: no congestion, airway open Respiratory: Normal lung exam Cardiovascular: Normal heart exam, no edema GI: Soft, nontender Musculoskeletal: back nontender Skin: warm, dry, no rash Neuro: Oriented x3. Normal cranial nerves. Normal gait, intact strength and sensation to bilat UE and LE Psych: Appropriate, cooperative, clinically sober, not responding to internal stim ED COURSE & MEDICAL DECISION MAKING Pertinent Labs & Imaging studies if performed reviewed. (See chart for details) Medication list reviewed. Assessment: Medical Decision Making 34yM presenting for AH/VH in setting of meth use, now sober, not forthcoming about SI HI which is concerning Amount and/or Complexity of Data Reviewed Independent Historian: EMS Labs: ordered. Risk OTC drugs. Prescription drug management. Plan: UDOA Psych consult Disposition: Pending psych eval Clinical Impression: psychosis This note was dictated using [employer] voice recognition software. Attempts at proofreading were made, but errors may occasionally still occur. On 09/01/2022 I saw and evaluated the patient with a resident physician or HILTON. I provided a substantive portion of the care for this patient. I personally performed all aspects of the medical decision making for this encounter. I have reviewed and verified this with the resident/HILTON so that it accurately reflects our care. Horace Henry MD MSCR Attending Physician Department of Emergency Medicine [facility] Horace Henry MD 09/01/22 1037 [facility] Work Phone: 09-01-2022 Physician Emergency department Note EMERGENCY DEPARTMENT ENCOUNTER CHIEF COMPLAINT Chief Complaint Patient presents with Mental Health Problems Hallucinations NILA Hernandez is a 34 y.o. male who presents with brought in by CPD with pink slipped for AVH and paranoia. Per pink slip, patient reportedly complaining of seeing people coming through his [place], and digging under his building to get him. Also reportedly had pressured speech and was agitated. Patient is quietly sitting and denying any AVH now. He denies any HI. When asked about SI, he states I do not know but does not have a specific plan, can not verify if he is previously attempted suicide. Patient does endorse smoking approximately half pack tobacco daily, denies alcohol use, endorses methamphetamine use. Last use all morning today. 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 He is [facility] service-connected 60% to include for PTSD. Does not take medications, states he refused any therapies. REVIEW OF SYSTEMS Review of Systems Constitutional: Negative for chills and fever. HENT: Negative for congestion, rhinorrhea and sore throat. Respiratory: Negative for cough. Cardiovascular: Negative for chest pain. Gastrointestinal: Negative for abdominal pain, nausea and vomiting. Genitourinary: Negative for flank pain. Musculoskeletal: Negative for back pain and neck pain. Skin: Negative for rash. Neurological: Negative for headaches. Psychiatric/Behavioral: Positive for dysphoric mood. Negative for hallucinations, self-injury and suicidal ideas. All other systems reviewed and are negative. PAST MEDICAL HISTORY No past medical history on file. SURGICAL HISTORY No past surgical history on file. CURRENT MEDICATIONS No current outpatient medications on file. ALLERGIES No Known Allergies FAMILY HISTORY No family history on file. SOCIAL HISTORY Social History Socioeconomic History Marital status: Not on file Spouse name: Not on file Number of children: Not on file Years of education: Not on file Highest education level: Not on file Occupational History Not on file Tobacco Use Smoking status: Every Day Types: Cigarettes Smokeless tobacco: Never Substance and Sexual Activity Alcohol use: Not Currently Drug use: Yes Types: Methamphetamines Sexual activity: Not on file Other Topics Concern Not on file Social History Narrative Not on file Social Determinants of Health Financial Resource Strain: Not on file Food Insecurity: Not on file Transportation Needs: Not on file Physical Activity: Not on file Stress: Not on file Social Connections: Not on file Intimate Partner Violence: Not on file Housing Stability: Not on file PHYSICAL EXAM Vital Signs:BP (!) 137/101 Pulse 92 Temp 98.3 F (36.8 C) (Oral) Resp 16 SpO2 99% Smoking Status Every Day Physical Exam Constitutional: General: He is not in acute distress. Appearance: Normal appearance. He is normal weight. He is not ill-appearing, toxic-appearing or diaphoretic. HENT: Head: Normocephalic and atraumatic. Right Ear: External ear normal. Left Ear: External ear normal. Nose: Nose normal. Mouth/Throat: Mouth: Mucous membranes are moist. Eyes: General: Right eye: No discharge. Left eye: No discharge. Extraocular Movements: Extraocular movements intact. Cardiovascular: Rate and Rhythm: Normal rate and regular rhythm. Pulses: Normal pulses. Heart sounds: Normal heart sounds. No murmur heard. No friction rub. No gallop. Pulmonary: Effort: Pulmonary effort is normal. No respiratory distress. Breath sounds: No wheezing, rhonchi or rales. Abdominal: General: Abdomen is flat. There is no distension. Palpations: Abdomen is soft. Tenderness: There is no abdominal tenderness. There is no guarding or rebound. Musculoskeletal: Right lower leg: No edema. Left lower leg: No edema. Skin: General: Skin is warm and dry. Neurological: General: No focal deficit present. Mental Status: He is alert. Psychiatric: Attention and Perception: Attention and perception normal. He is attentive. He does not perceive auditory or visual hallucinations. Mood and Affect: Mood is depressed. Affect is flat. Speech: Speech normal. Speech is not rapid and pressured, delayed, slurred or tangential. Behavior: Behavior is withdrawn. Behavior is not agitated, aggressive, hyperactive or combative. Behavior is cooperative. Thought Content: Thought content is not delusional. Thought content includes suicidal (Passive, states I don't know in response to question of thoughts for harming self) ideation. Thought content does not include homicidal ideation. Thought content does not include homicidal or suicidal plan. Cognition and Memory: Cognition is not impaired. Judgment: Judgment is inappropriate. Judgment is not impulsive. Labs: No results found for this visit on 09/01/22. Radiology: No orders to display ED COURSE & MEDICAL DECISION MAKING Assessment: Christiano Hernandez is a 34 y.o. male who presents with pink slipped by CPD for AVH cough paranoia, now with depressive symptoms and passive SI. DDx includes but not limited to: Depression, bipolar, substance use/withdrawal, schizoaffective disorder, depression with psychosis features ED Course: MDM: At this time, patient hemodynamically stable, afebrile, non tachypneic and saturating well on room air. I reviewed previous records, examined and spoke to the patient, and ordered the above labs, imaging, therapeutics, and consultations. I have discussed the patient with the attending physician and they agree with the work up and plan. Medical Decision Making Based on the H&P, there is concern for depressive symptoms and possible new MDD diagnosis. Patient is expressing passive SI without plan, no previous history of attempts. In the absence of other medical history, there is unlikely to be a comorbidity that is exacerbating his current symptoms. Methamphetamine use could be exacerbating his initial complaint was included AVH. These have now resolved, patient appears to be approaching clinical sobriety. Post methamphetamine use can exacerbate depressive symptoms which may be contributing, however given patient's situation and previous work history not working, and no supportive family friends in the he is at risk. Psych evaluation is warranted in this situation. Given his absence of previous psychiatric diagnoses, will obtain basic labs to include CBC, chemistries, and TSH in addition to routine UDS. Addiction counseling services also consulted due to his endorse use of amphetamines. Initial lab findings shows normal CBC without e/o anemia or leukocytosis. Chemistry and TSH pending at time of sign out. Per Addiction Medicine recommendations, patient to be provided with fentanyl testing strips and naloxone on discharge. Pending psych recommendations at time of sign-out. Amphetamine use: undiagnosed new problem with uncertain prognosis Passive suicidal ideations: acute illness or injury Symptoms of depression: acute illness or injury Amount and/or Complexity of Data Reviewed Labs: ordered. Decision-making details documented in ED Course. Risk OTC drugs. Prescription drug management. Impression: Depression, passive SI, amphetamine use Disposition: Pending psych eval This note was dictated with [employer] dictation software. Every effort was made to correct edits but please excuse any incorrections. I discussed the patient with the attending physician, Dr. Henry. Chris Díaz MD Resident 09/03/2252 [facility] [place] Work Phone: 09-01-2022 Emergency department Note Patient brought in by [facility], girlfriend called 911, girlfriend states hes been having auditory and visual hallucinations. Patient is pinkslipped. Patient states he does abuse meth, last use was today [facility] [place] 11-29-2021 Hospital course Narrative DISCHARGE SUMMARY Patient: Ced Hernandez Date of : 03/11/1988 Site: [facility] Family Provider: Freddy Samson MD Admit Date: 11/24/2021 Discharge Date/Time: 11/29/21 6:25 PM Disposition: Home Clinical Summary Hospital Course/Discharge Diagnoses: Ced Hernandez is a 33 y.o. male patient of Freddy Samson MD with history of HIV not on antiretrovirals for 4 years, tobacco abuse presented with fever, cough, shortness of breath, body aches, left flank pain Sepsis--resolved Renal abscess Patient not on antiretroviral therapy for 4 years. T-max 101.6, HR 136 on presentation, normal lactic acid and white count. Afebrile since 11/26. Sepsis resolved CTAP showed an abscess involving upper to mid to lower pole of the left kidney along its lateral border extending beyond the renal capsule in the overlying pararenal space. Blood cultures x2 NGTD, UA unremarkable and urine culture negative VIR consulted, s/p drainage placement 11/25, culture grew--MRSA Patient has been insistent on being discharged since yesterday despite high output from drain. RUDY drain output has decreased today. Urology was consulted today-->however pt did not wait for evaluation. Plan was for repeat CT today to assess renal abscess, however patient declined. As a result follow with [facility] was arranged. [facility] appt scheduled for 12/04 at 11 am. He will need a repeat CTAP and if abscess improved, contact VIR to remove drain. ID consulted during admission-->Zosyn stopped 11/26, continue Vancomycin -->discharge on Bactrim, end date 12/09 HIV HIV positive history, not on antiretroviral therapy for 4 years. Previously followed with [facility] for HIV treatment. CD4 266 and HIV viral quantification 9200 Follow up with Infectious Disease as OP Methamphetamine use with dependence Polysubstance abuse Last smoked methamphetamine 11/24 UDS positive for amphetamines, cannabinoid, oxycodone Cessation advised Hyponatremia Sodium 130-->improved to 139 Improved with IVFs Surgeries: None Consults: Procedures Hospitalize Patient To : Inpatient consult to Care Management Inpatient consult to Infectious Diseases Inpatient consult to Urology Allergies: Patient has no known allergies. Discharge Diet: Condition: Good Discharge Medications: Discharge Medications New Medications Details sulfamethoxazole-trimethoprim 800-160 mg per tablet Commonly known as: BACTRIM DS,SEPTRA DS Take 1 (one) tablet by mouth 2 (two) times a day for 10 days . Quantity: 20 tablet Physician(s) Family Provider: Freddy Samson MD, Address: [address] [place] [address] Follow Up: Neo Lam MD [address] [facility] [id number] Schedule an appointment as soon as possible for a visit in 1 week(s) [facility] Clinical Decision Unit [address] [facility] [address] Follow up please come to shortstay unit (SSU) on 12/04/21 at 11 am to get repeat CT and consider removal of RUDY drain by YUNIEL Gallagher MD [address] [place] [address] Schedule an appointment as soon as possible for a visit make an appt as soon as possible for evaluation of abscess and drain Additional Information: Patient instructions, including activity, were given to the patient/family at discharge. Please see the After Visit Summary in the electronic medical record for details. Time spent on discharge: > 30 minutes Completed by: Lee Chanel MD on 11/29/21, 8:03 PM documented in this encounter [facility] 11-29-2021 Note Formatting of this n ote might be different from the original. Removed pt's IV and tele. RUDY drain clean, dry, and intact. Pt refused CT scan stated he was leaving. Provided discharge instructions. Answered all questions. Pt has no concerns or questions and is waiting for his ride to come. [facility] 11-29-2021 Miscellaneous Notes Removed pt's IV and tele. RUDY drain clean, dry, and intact. Pt refused CT scan stated he was leaving. Provided discharge instructions. Answered all questions. Pt has no concerns or questions and is waiting for his ride to come. Problem: Actual or potential alteration in health Goal: Absence of healthcare acquired conditions Outcome: Met Goal: Knowledge of Interdisciplinary Plan of Care Outcome: Met Goal: Knowledge of Enviroment Outcome: Met Problem: Pain Goal: Achievement of comfort function goal Outcome: Met Problem: Septic Shock, Risk of Goal: Absence of infection signs and symptoms Outcome: Met Problem: Venous Thromboembolism, Risk of Goal: Absence of venous thromboembolism Outcome: Met Problem: Plan for Discharge Goal: Knowledge of discharge plan and instructions Outcome: Met Problem: Falls, Risk of Goal: Absence of falls Outcome: Met Problem: Pain Goal: Manage acute pain Outcome: Partially Met Goal: Manage chronic pain Outcome: Partially Met Goal: Reduced pain sensation Outcome: Partially Met Problem: Septic Shock, Risk of Goal: goal Outcome: Partially Met Problem: Actual or potential alteration in health Goal: Absence of healthcare acquired conditions Outcome: Partially Met Goal: Knowledge of Interdisciplinary Plan of Care Outcome: Partially Met Goal: Knowledge of Enviroment Outcome: Partially Met Problem: Pain Goal: Manage acute pain Outcome: Partially Met Goal: Manage chronic pain Outcome: Partially Met Goal: Reduced pain sensation Outcome: Partially Met Goal: Achievement of comfort function goal Outcome: Partially Met Problem: Septic Shock, Risk of Goal: Absence of infection signs and symptoms Outcome: Partially Met Goal: goal Outcome: Partially Met Problem: Actual or potential alteration in health Goal: Absence of healthcare acquired conditions 11/28/2021 1214 by Hui Cramer RN Outcome: Partially Met 11/28/2021 1213 by Hui Cramer RN Outcome: Partially Met 11/28/2021 1211 by Hui Cramer RN Outcome: Partially Met Goal: Knowledge of Interdisciplinary Plan of Care 11/28/2021 1214 by Hui Cramer RN Outcome: Partially Met 11/28/2021 1213 by Hui Cramer RN Outcome: Partially Met 11/28/2021 1211 by Hui Shoaib, RN Outcome: Partially Met Goal: Knowledge of Enviroment 11/28/2021 1214 by Hui Cramer RN Outcome: Partially Met 11/28/2021 1213 by Hui Cramer RN Outcome: Partially Met 11/28/2021 1211 by Hui Cramer RN Outcome: Partially Met Problem: Pain Goal: Manage acute pain 11/28/2021 1214 by Hui Cramer RN Outcome: Partially Met 11/28/2021 1213 by Hui Cramer RN Outcome: Partially Met 11/28/2021 1211 by Hui Cramer RN Outcome: Partially Met Problem: Septic Shock, Risk of Goal: Absence of infection signs and symptoms 11/28/2021 1214 by Hui Cramer RN Outcome: Partially Met 11/28/2021 1213 by Hui Cramer RN Outcome: Partially Met 11/28/2021 1211 by Hui Cramer RN Outcome: Partially Met Goal: goal 11/28/2021 1214 by Hui Cramer RN Outcome: Partially Met 11/28/2021 1213 by Hui Cramer RN Outcome: Partially Met 11/28/2021 1211 by Hui Cramer RN Outcome: Partially Met Problem: Venous Thromboembolism, Risk of Goal: Absence of venous thromboembolism 11/28/2021 1214 by Hui Cramer RN Outcome: Partially Met 11/28/2021 1213 by Hui Cramer RN Outcome: Partially Met 11/28/2021 1211 by Hui Cramer RN Outcome: Partially Met Problem: Falls, Risk of Goal: Absence of falls 11/28/2021 1214 by Hui Cramer RN Outcome: Partially Met 11/28/2021 1213 by Hui Cramer RN Outcome: Partially Met 11/28/2021 1211 by Hui Cramer RN Outcome: Partially Met Spoke to IR about drain removal per Pt. Request. General rule is less than 10ml over three days for safe removal. Pt. Is considering leaving AMA. Attending notified. Problem: Actual or potential alteration in health Goal: Absence of healthcare acquired conditions Outcome: Met Goal: Knowledge of Interdisciplinary Plan of Care Outcome: Met Goal: Knowledge of Enviroment Outcome: Met Problem: Pain Goal: Manage acute pain Outcome: Met Goal: Manage chronic pain Outcome: Met Goal: Reduced pain sensation Outcome: Met Goal: Achievement of comfort function goal Outcome: Met Problem: Septic Shock, Risk of Goal: Absence of infection signs and symptoms Outcome: Met Goal: goal Outcome: Met Problem: Venous Thromboembolism, Risk of Goal: Absence of venous thromboembolism Outcome: Met Problem: Plan for Discharge Goal: Knowledge of discharge plan and instructions Outcome: Met Problem: Falls, Risk of Goal: Absence of falls Outcome: Met Signed by: Carmen Astudillo; Performed at: 11/25/21 0934; Procedures: left kidney abscess drainage with drain placement Correct Patient: Yes; Correct Site: Yes; Correct Laterality: Yes; Correct Procedure: Yes; Correct Position: Yes Problem: Actual or potential alteration in health Goal: Absence of healthcare acquired conditions Outcome: Partially Met Goal: Knowledge of Interdisciplinary Plan of Care Outcome: Partially Met Goal: Knowledge of Enviroment Outcome: Partially Met Problem: Pain Goal: Manage acute pain Outcome: Partially Met Goal: Manage chronic pain Outcome: Partially Met Goal: Reduced pain sensation Outcome: Partially Met Goal: Achievement of comfort function goal Outcome: Partially Met Problem: Septic Shock, Risk of Goal: Absence of infection signs and symptoms Outcome: Partially Met Goal: goal Outcome: Partially Met Problem: Venous Thromboembolism, Risk of Goal: Absence of venous thromboembolism Outcome: Partially Met Problem: Plan for Discharge Goal: Knowledge of discharge plan and instructions Outcome: Partially Met Associated Order(s): EKG 12-lead EKG 12-lead Date/Time: 11/24/2021 11:02 PM Performed by: Amisha Martinez DO Authorized by: Jarret Fisher MD Interpreted by ED attending physician Comparison: not compared with previous ECG Previous ECG: no previous ECG available Rhythm: sinus tachycardia BPM: 124 Clinical impression: sinus tachycardia Comments: Sinus tachycardia, rate of 124, rightward axis, NE interval of 120, QRS duration of 80, QTC of 413, signs of early repolarization without ST segment elevations, normal T waves no ectopy Associated Order(s): Critical Care Critical Care Performed by: Jarret Fisher MD Authorized by: Jarret Fisher MD Total critical care time: 45 minutes Critical care time was exclusive of separately billable procedures and treating other patients and teaching time. Critical care was necessary to treat or prevent imminent or life-threatening deterioration of the following conditions: sepsis. Critical care was time spent personally by me on the following activities: review of old charts, ordering and review of laboratory studies, ordering and review of radiographic studies, examination of patient, development of treatment plan with patient or surrogate, obtaining history from patient or surrogate and discussions with consultants. ED Attestation: I have reviewed the resident's documentation. In addition, I have personally introduced myself to the patient, and have taken his history and performed an examination. I agree with the physical findings, management, clinical impression and disposition. In brief, Ced Hernandez is a 33 y.o. male who presents with a chief complaint of Shortness of Breath. This a 33-year-old male with a history of HIV, says he had previously been on antiretrovirals, but has not been on anything for several years, does have a history of methamphetamine abuse last smoked methamphetamine today, denies any IV drug use. Patient initially presented to the hospital today with chief complaint of shortness of breath, patient was found to be febrile with temperatures 101.6 and was tachycardic to 136. Because of his history of HIV that has not been treated for several years, I recommend we do a broad-spectrum work-up. He was complaining of the left lower quadrant/left upper quadrant abdominal pain as well. Given that he has a compromised immune system recommended a full septic work-up including chest x-ray urinalysis urine culture blood cultures and a CT of the abdomen pelvis. CT and abdomen pelvis was remarkable for an abscess of the kidney. We will start him on broad-spectrum antibiotics, given the source of infection, tachycardia and fever he does meet sepsis criteria. This case will be discussed with urology, anticipate admission to medicine service with urology consult, may also require VIR placement of a drain resident procedure attestation: Ced Hernandez had the following procedure done: EKG interpretation. I was available for the critical portion of the procedure, in addition to being immediately available in the ED for the remainder of the procedure. He tolerated the procedure well, with no major complications. Jarret Fisher MD ED Attending Physician (Please note that portions of this note have been completed with a voice recognition software. Efforts were made to correct any errors, but occasionally words are mis-transcribed.) documented in this encounter [facility] 11-29-2021 Note Formatting of this n ote might be different from the original. Problem: Actual or potential alteration in health Goal: Absence of healthcare acquired conditions Outcome: Met Goal: Knowledge of Interdisciplinary Plan of Care Outcome: Met Goal: Knowledge of Enviroment Outcome: Met Problem: Pain Goal: Achievement of comfort function goal Outcome: Met Problem: Septic Shock, Risk of Goal: Absence of infection signs and symptoms Outcome: Met Problem: Venous Thromboembolism, Risk of Goal: Absence of venous thromboembolism Outcome: Met Problem: Plan for Discharge Goal: Knowledge of discharge plan and instructions Outcome: Met Problem: Falls, Risk of Goal: Absence of falls Outcome: Met Problem: Pain Goal: Manage acute pain Outcome: Partially Met Goal: Manage chronic pain Outcome: Partially Met Goal: Reduced pain sensation Outcome: Partially Met Problem: Septic Shock, Risk of Goal: goal Outcome: Partially Met [facility] 11-29-2021 History of Present illness Narrative Infectious Disease Progress Note Subjective: Resting quietly Review of Systems: The following system(s) were reviewed: Constitutional, Cardiac, Pulmonary, GI, Dermatologic, Allergic, Musc Physical Examination: BP 122/79 (BP Location: Left arm, Patient Position: Lying) Pulse 82 Temp 98.7 F (37.1 C) (Oral) Resp 16 Ht 5' 8 Wt 59.6 kg (131 lb 6.3 oz) SpO2 98% BMI 19.98 kg/m General: NAD; Alert and oriented x3 Eyes: Conjunctiva and sclera clear; EOMI Lungs: Clear without rales, rhonchi or wheezes; no increased respiratory effort Cardiovascular: RRR; no m/r/g Abdomen: Positive bowel sounds; soft; non tender Skin: No rashes Extremities: FROMX4, no c/c/e Psych: Mood and affect appropriate Results/Medications Reviewed: Current Facility-Administered Medications Medication Dose Route Frequency Provider Last Rate Last Admin acetaminophen (TYLENOL) tablet 650 mg 650 mg Oral Q4H PRN Nickolas Rowland MD 650 mg at 11/28/21 1414 enoxaparin (LOVENOX) syringe 40 mg 40 mg Subcutaneous Daily Nickolas Rowland MD 40 mg at 11/27/21 0857 iopamidoL (ISOVUE-370) 76 % injection 75 mL 75 mL Intravenous Once in imaging Arvin Stephon Gallagher MD melatonin Tab 5 mg 5 mg Oral Nightly PRN iNckolas Rowlnad MD 5 mg at 11/26/21 2305 naloxone (NARCAN) injection 0.1 mg 0.1 mg Intravenous PRN Nickolas Rowland MD And naloxone (NARCAN) injection 0.4 mg 0.4 mg Intravenous PRN Nickolas Rowland MD ondansetron (ZOFRAN-ODT) disintegrating tablet 4 mg 4 mg Oral Q6H PRN Nickolas Rowland MD Or ondansetron (ZOFRAN) injection 4 mg 4 mg Intravenous Q6H PRN Nickolas Rowland MD oxyCODONE (ROXICODONE) immediate release tablet 5 mg 5 mg Oral Q6H PRN Nickolas Rowland MD 5 mg at 11/26/21 194 pneumococcal conj. 13-valent (PREVNAR-13) vaccine 0.5 mL 0.5 mL Intramuscular Prior To Discharge Nickolas Jonnalagadda, MD senna (SENOKOT) tablet 8.6 mg 1 tablet Oral BID PRN Nickolas Rowland MD sodium chloride (PF) (NS) 0.9 % contrast line flush 10 mL 10 mL Intravenous Once in imaging Arvinfrancisco Gallagher MD And sodium chloride (PF) (NS) 0.9 % contrast line flush 80 mL 80 mL Intravenous Once in imaging Arvinedy Gallagher MD sodium chloride (PF) (NS) flush 5 mL 5 mL Intravenous PRN Nickolas Rowland MD And sodium chloride (PF) (NS) flush 5 mL 5 mL Intravenous Q8H POONAM Nickolas Rowland MD 5 mL at 11/29/21 1400 And sodium chloride 0.9% (NS) 0-150 mL/hr Intravenous PRN Nickolas Rowland MD 50 mL/hr at 11/28/21 1115 50 mL/hr at 11/28/21 1115 vancomycin (VANCOCIN) 1000 mg in sodium chloride (NS) 0.9% 250mL (vialmate) 1,000 mg Intravenous Q8H Levivaleri Dorantes [facility],PharmD Stopped at 11/29/21 1320 Lab Results Component Value Date WBC 5.51 11/27/2021 HGB 12.0 (L) 11/27/2021 HCT 38.3 (L) 11/27/2021 MCV 81.5 11/27/2021 PLT 345 11/27/2021 Results from last 7 days Lab Units 11/29/21 0858 11/28/21 1014 11/27/21 0658 SODIUM mmol/L -- -- 139 POTASSIUM mmol/L -- -- 4.3 CHLORIDE mmol/L -- -- 104 BUN mg/dL -- -- 7* CREATININE mg/dL 0.93 < > 0.97 GLUCOSE mg/dL -- -- 81 CALCIUM mg/dL -- -- 8.3* < > = values in this interval not displayed. Results from last 7 days Lab Units 11/27/21 0658 11/25/21 0022 11/24/21 1936 ALK PHOS U/L 77 < > 97 BILIRUBIN TOTAL mg/dL 0.2 < > 0.4 BILIRUBIN DIRECT mg/dL -- -- 0.1 TOTAL PROTEIN g/dL 6.4 < > 8.5* ALT U/L 13 < > 25 AST U/L 15 < > 21 < > = values in this interval not displayed. Cultures: mrsa Radiology: EKG 12-lead Result Date: 11/25/2021 Sinus tachycardia Rightward axis Borderline ECG Confirmed by Kell Flor ([id number]) on 11/25/2021 9:04:[address] Chest Without Contrast Result Date: 11/25/2021 EXAMINATION: CT CHEST WITHOUT CONTRAST HISTORY: ORDERING SYSTEM PROVIDED HISTORY: Cough, persistent; Respiratory illness, nondiagnostic xray; Sepsis; c, TECHNOLOGIST PROVIDED HISTORY: Illness/Other Reason for exam: shortness of breath Encounter Type: Initial Additional signs and symptoms: n/a ORDERING SYSTEM PROVIDED DIAGNOSIS CODES: N15.1 Renal abscess, left A41.9 Sepsis, due to unspecified organism, unspecified whether acute organ dysfunction present (HCC) R10.12 Left upper quadrant abdominal pain D64.9 Anemia, unspecified type B20 History of HIV infection (HCC) COMPARISON: Chest x-ray 11/24/2021. CT abdomen and pelvis 11/24/2021. TECHNIQUE: CT examination of the chest without IV contrast. Coronal and sagittal reformations were performed. Dose reduction techniques were achieved by using automated exposure control and/or adjustment of mA and/or kV according to patient size and/or use of iterative reconstruction technique. FINDINGS: The visualized portions of the thyroid and thoracic inlet are unremarkable. No enlarged supraclavicular or axillary lymphadenopathy by CT criteria. No enlarged mediastinal or hilar lymphadenopathy noted on this noncontrast study. The aorta and central pulmonary arteries are normal caliber. Heart size is within normal limits. No pericardial effusion. The trachea and central airways are patent. The lungs are clear without focal airspace consolidation. No pneumothorax or pleural effusion. Visualized portion of the upper abdomen unremarkable. No acute osseous abnormalities. No acute CT abnormality noted in the chest. [employer] Workstation ID: [id number] XR Chest 1 View Result Date: 11/24/2021 EXAMINATION: XR CHEST PA/AP 06/14/2021 1:19 pm HISTORY: ORDERING SYSTEM PROVIDED HISTORY: Chest pain rule out pneumonia, TECHNOLOGIST PROVIDED HISTORY: Illness/Other Reason for exam: Chest pain rule out pneumonia Cancer History: no Surgery, RadiationHistory: no heart/lung surg Encounter Type: Unknown Additional signs and symptoms: unknown ORDERING SYSTEM PROVIDED DIAGNOSIS CODES: COMPARISON: None FINDINGS: The heart size is normal. No dense focal consolidation, pneumothorax or pleural effusion is seen on this single view of the chest. No acute osseous abnormality is seen. No radiographic evidence for acute cardiopulmonary disease on this single view of the chest. Workstation ID: [id number] CT Abscess Drainage Renal Result Date: 11/25/2021 EXAMINATION: CT ABSCESS DRAINAGE RENAL HISTORY: ORDERING SYSTEM PROVIDED HISTORY: ct guided drainage of renal abscess, TECHNOLOGIST PROVIDED HISTORY: Illness/Other Reason for exam: renal abscess Encounter Type: Initial Additional signs and symptoms: n/a ORDERING SYSTEM PROVIDED DIAGNOSIS CODES: N15.1 Renal abscess, left A41.9 Sepsis, due to unspecified organism, unspecified whether acute organ dysfunction present (HCC) R10.12 Left upper quadrant abdominal pain D64.9 Anemia, unspecified type B20 History of HIV infection ([facility]) COMPARISON: CT abdomen and pelvis 11/24/2021. TECHNIQUE: Dose reduction techniques were achieved by using automated exposure control and/or adjustment of mA and/or kV according to patient size and/or use of iterative reconstruction technique. PROCEDURE: The risks (including bleeding, infection, and injury to adjacent structures), benefits, and alternatives to the procedure were discussed with the patient and informed consent was obtained. A time-out procedure was performed. The patient was placed on his right side on the CT table and the right perinephric collection was localized. The skin was prepped in the usual sterile fashion and 1% lidocaine was used to anesthetize the skin and subcutaneous tissues. Under CT guidance, a 15-gauge introducer needle was inserted into the collection with return of purulent material. A J-wire was inserted and the needle exchanged for serial dilators followed by a 10-Scottish pigtail catheter. The catheter was sutured in place and secured with a skin adhesive device. Catheter was then attached to a bulb suction device. The patient tolerated the procedure well. No immediate complications. PROCEDURAL SEDATION: Moderate sedation with continuous physiological monitoring was performed utilizing intravenous Versed and fentanyl with direct physician and RN supervision beginning at 0937 hours and ending at 1011 hours. CONCLUSION: CT-guided drain placement into left perinephric abscess. Procedural sedation. [facility]/lab Workstation ID: [id number] CT Abdomen Pelvis With IV Contrast Only Result Date: 11/24/2021 EXAMINATION: ENHANCED CT SCAN OF THE ABDOMEN AND PELVIS: 11/24/2021. HISTORY: Injury/Trauma or Illness?:Illness/Other How long have you had these symptoms (acute/chronic)?:Acute LUQ tenderness, hx of HIV COMPARISON FILMS: None. TECHNIQUE: 3.75 mm axial images from lung bases through ischial tuberosities following administration of intravenous contrast were obtained. Sagittal, coronal reconstructions were performed. Dose reduction techniques were achieved by using automated exposure control and/or adjustment of mA and/or kV according to patient size and/or use of iterative reconstruction technique. FINDINGS: Visualized lung bases, cardiac, posterior mediastinal structures seem normal. CT ABDOMEN: The liver, gallbladder, spleen, pancreas, adrenal glands, right kidney appears normal. There is a large abscess involving upper to midpole posterolateral aspect of the left kidney, extending beyond the renal capsule in the overlying retroperitoneal/pararenal space, measuring 3.6 x 6.0 cm with some septations, enhancement of the periphery as well as the septations with average Hounsfield units of 39. This results in some mass effect on the renal parenchyma, as well as slightly less enhancement of the renal parenchyma beneath the sepsis. The rest of the left kidney is normal. The abdominal aorta has normal caliber. There is no significant retroperitoneal or mesenteric adenopathy. The bowel loops are of normal caliber. Normal appendix is not seen with confidence. CT PELVIS: The bladder, prostate, seminal vesicles appear normal. There is no pelvic adenopathy. There are no focal fluid collections. The visualized osseous structures seem normal. 1. There is an abscess involving upper to mid to lower pole of the left kidney along its lateral border extending beyond the renal capsule in the overlying pararenal space. There is no hydronephrosis of the left kidney. 2. No nephro or ureterolithiasis. 3. Normal appendix is not seen but no secondary signs of acute appendicitis. [facility] Workstation ID: [id number] Assessment/Plan: 1)renal abscess 2)HIV 3)fever 4)tobacco abuse All labs and cultures reviewed. MRSA on abscess culture. Fevers remain down. TTE non-diagnostic. Continue vancomycin while in house; when ready for dc, send on bactrim ds 2 tabs po bid through 12/09/21. Await HIV genotype; he would benefit from restarting HAART, but this can be done as outpatient. Neo Lam M.D. Spiritual Care Progress Note Completed by: Hazel Jones Person(s) Present During this Visit: Patient Time Spent in Direct Patient Care: 15 Narrative: The rotary envelope machine operator provided information regarding spiritual care services, 24x7 availability, and how to request additional visits. Rev. Hazel Jones MDiv, [facility] [employer] Manager Pastoral Care Department, [facility] To call a rotary envelope machine operator: [facility] Call [phone] Patients Response to Pastoral Care: Expressed Gratitude for Visit Planning for Future Visits: PRN Patient's Spiritual Needs Assessment Sources of Connection Unable to Determine Beliefs and Practices Not Discussed Image of the Divine Role of Divine in Patient's Illness Spiritual Wellness - Activities and Resources Grief Assessment Expressed / Stated Feelings Attitude Towards Own Illness Understanding of Patients Coping Mechanisms Spiritual Diagnosis Spiritual Support and Connection Facilitated Interventions Explained Role of the Beef [employer]attle [employer] Manager Spiritual and Emotional Outcomes Appreciative Resources Provided Bereavement Resources Spiritual Plan of Care Continue Healing Process Patient's Buddhism Needs Assessment Buddhism Connection Buddhism Home Episcopalian Affiliation Local Jewish Name Buddhism Resources Buddhism Rituals Buddhism Materials Provided Expressed Outcomes Family / Caregiver Needs Assessment Relationship to Patient Affect at Time of Visit Emotions Expressed During Visit Expressed Concerns Regarding Illness Sources of Hope and Strength Support and Participation in Care Grief Assessment Spiritual Assessment Interventions with Family / Friend Outcomes with Family / Friend COMPLEX DISCHARGE Date: 11/28/2021 Time: 3:13 PM Patient Name: Ced Hernandez Date of : 03/11/1988 Sex: Male Pt is referred to [facility] for monitoring of RUDY drain and reconnecting pt to [facility] when ready to dc. AVS updated with date and time to arrive. Ambulatory referral placed to infectious disease for OP follow up. Contact information for Dr Lam placed on AVS. addndm [id number] Spoke w pt in room. Provided pt w [facility] medicaid information, including his ID number.DIscussed follow up in [facility]. Provided with directions for parking and arrival. DIscussed follow up with ID as an outpatient. Pt states understanding. Living Arrangements: Spouse/significant other Support Systems: Spouse/significant other Assistance Needed: no Type of Residence: Private residence Prior to Admission Home Care Services: No Patient expects to be discharged to:: home Current Home Equipment: None [facility] PROGRESS NOTE 11/28/2021 PATIENT: CED HERNANDEZ DATE OF : 03/11/1988 Assessment/Plan: Ced Hernandez is a 33 y.o. male patient of Freddy Samson MD with history of HIV not on antiretrovirals for 4 years, tobacco abuse presented with fever, cough, shortness of breath, body aches, left flank pain Sepsis--resolved Renal abscess Patient not on antiretroviral therapy for 4 years. T-max 101.6, HR 136 on presentation, normal lactic acid and white count. Afebrile since 11/26 CTAP showed an abscess involving upper to mid to lower pole of the left kidney along its lateral border extending beyond the renal capsule in the overlying pararenal space. Blood cultures x2 NGTD, UA unremarkable and urine culture negative [facility]IR consulted, s/p drainage placement 11/25, culture grew--MRSA Monitor drain output, will remove drain when output is less than 10 cc in a 3 day period. [facility] appt scheduled for 12/03/21 to assess OP, if meets goal, will need to consult IR to remove drain at [facility] appt ID consulted/following-->Zosyn stopped 11/26, continue Vancomycin HIV HIV positive history, not on antiretroviral therapy for 4 years. Previously followed with S[facility] Whitney for HIV treatment. CD4 266 and HIV viral quantification 9200 ID following Methamphetamine use with dependence Polysubstance abuse Last smoked methamphetamine 11/24 UDS positive for amphetamines, cannabinoid, oxycodone Hyponatremia Sodium 130-->improved to 139 Stop IVFs Quality Measures DVT Prophylaxis: lovenox Perea Catheter: none Disposition Discharge Location: home Estimated Discharge Date: tbd Written and signed electronically by: Lee Chanel MD Subjective: Patient seen and examined. No acute complaints, wants to be discharged soon Review of Systems: All systems reviewed and all negative except pertinent positives and negatives listed above. Physical Exam:/ BP 127/76 (BP Location: Right arm, Patient Position: Lying) Pulse 78 Temp 98 F (36.7 C) (Oral) Resp 16 Ht 5' 8 Wt 59.9 kg (132 lb 0.9 oz) SpO2 98% BMI 20.08 kg/m General appearance in no acute distress. Head/Neck: Head- normocephalic. Neck- supple, non-tender, without lymphadenopathy Eyes: PERRL; EOMI ENT: Ears- hearing intact. Nose- normal and patent. Throat- mucous membranes moist, pharynx without lesions. Cardiovascular: regular rate and rhythm; normal S1, S2; no murmurs, rubs, clicks or gallops; no peripheral edema. Respiratory: lungs clear to auscultation; without wheezes, rales or rhonchi Abdomen: soft, non-tender, non-distended; positive bowel sounds. Left flank with drain in place Neurological: alert, oriented, normal speech; no focal findings or movement disorder noted Musculoskeletal: no significant deformity or tenderness to palpation Skin: normal coloration, texture and turgor; no lesions or eruptions Medications: Scheduled Meds: enoxaparin (LOVENOX) injection 40 mg Subcutaneous Daily sodium chloride (PF) 5 mL Intravenous Q8H POONAM vancomycin 1,000 mg Intravenous Q8H Continuous Infusions: sodium chloride 0.9 % 50 mL/hr (11/28/21 1115) PRN Meds:.acetaminophen, melatonin, nalOXone AND Notify physician AND naloxone, ondansetron OR ondansetron, oxyCODONE, perflutren lipid microspheres, pneumococcal conj. 13-valent, senna, Saline lock IV AND sodium chloride (PF) AND sodium chloride (PF) AND sodium chloride 0.9 % Results/Medications Reviewed 11/28/21 2:59 PM: Laboratory, Microbiology, Pathology, Radiology, Cardiology, Medications and Transcriptions Infectious Disease Progress Note Subjective: Resting quietly Review of Systems: The following system(s) were reviewed: Constitutional, Cardiac, Pulmonary, GI, Dermatologic, Allergic, Musc Physical Examination: BP 127/76 (BP Location: Right arm, Patient Position: Lying) Pulse 78 Temp 98 F (36.7 C) (Oral) Resp 16 Ht 5' 8 Wt 59.9 kg (132 lb 0.9 oz) SpO2 98% BMI 20.08 kg/m General: NAD; Alert and oriented x3 Eyes: Conjunctiva and sclera clear; EOMI Lungs: Clear without rales, rhonchi or wheezes; no increased respiratory effort Cardiovascular: RRR; no m/r/g Abdomen: Positive bowel sounds; soft; non tender Skin: No rashes Extremities: FROMX4, no c/c/e Psych: Mood and affect appropriate Results/Medications Reviewed: Current Facility-Administered Medications Medication Dose Route Frequency Provider Last Rate Last Admin acetaminophen (TYLENOL) tablet 650 mg 650 mg Oral Q4H PRN Nickolas Rowland MD 650 mg at 11/28/21 1414 enoxaparin (LOVENOX) syringe 40 mg 40 mg Subcutaneous Daily Nickolas Rowland MD 40 mg at 11/27/21 0857 melatonin Tab 5 mg 5 mg Oral Nightly PRN Nickolas Rowland MD 5 mg at 11/26/21 2305 naloxone (NARCAN) injection 0.1 mg 0.1 mg Intravenous PRN Nickolas Rowland MD And naloxone (NARCAN) injection 0.4 mg 0.4 mg Intravenous PRN Nickolas Rowland MD ondansetron (ZOFRAN-ODT) disintegrating tablet 4 mg 4 mg Oral Q6H PRN Nickolas Rowland MD Or ondansetron (ZOFRAN) injection 4 mg 4 mg Intravenous Q6H PRN Nickolas Rowland MD oxyCODONE (ROXICODONE) immediate release tablet 5 mg 5 mg Oral Q6H PRN Nickolas Rowland MD 5 mg at 11/26/21 1949 perflutren lipid microspheres (DEFINITY) 0.143 mg/mL solution 0-10 mL of mixture 0-10 mL of mixture Intravenous Once in imaging Neo Lam MD pneumococcal conj. 13-valent (PREVNAR-13) vaccine 0.5 mL 0.5 mL Intramuscular Prior To Discharge Nickolas Jonnalagadda, MD senna (SENOKOT) tablet 8.6 mg 1 tablet Oral BID PRN Nickolas Rowland MD sodium chloride (PF) (NS) flush 5 mL 5 mL Intravenous PRN Nickolas Rowland MD And sodium chloride (PF) (NS) flush 5 mL 5 mL Intravenous Q8H POONAM Nickolas Rowland MD 5 mL at 11/28/21 1117 And sodium chloride 0.9% (NS) 0-150 mL/hr Intravenous PRN Nickolas Rowland MD 50 mL/hr at 11/28/21 1115 50 mL/hr at 11/28/21 1115 vancomycin (VANCOCIN) 1000 mg in sodium chloride (NS) 0.9% 250mL (vialmate) 1,000 mg Intravenous Q8H Levi Jayna [facility],PharmD 250 mL/hr at 11/28/21 1115 1,000 mg at 11/28/21 1115 Lab Results Component Value Date WBC 5.51 11/27/2021 HGB 12.0 (L) 11/27/2021 HCT 38.3 (L) 11/27/2021 MCV 81.5 11/27/2021 PLT 345 11/27/2021 Results from last 7 days Lab Units 11/28/21 1014 11/27/21 0658 SODIUM mmol/L -- 139 POTASSIUM mmol/L -- 4.3 CHLORIDE mmol/L -- 104 BUN mg/dL -- 7* CREATININE mg/dL 0.86 0.97 GLUCOSE mg/dL -- 81 CALCIUM mg/dL -- 8.3* Results from last 7 days Lab Units 11/27/21 0658 11/25/21 0022 11/24/21 1936 ALK PHOS U/L 77 < > 97 BILIRUBIN TOTAL mg/dL 0.2 < > 0.4 BILIRUBIN DIRECT mg/dL -- -- 0.1 TOTAL PROTEIN g/dL 6.4 < > 8.5* ALT U/L 13 < > 25 AST U/L 15 < > 21 < > = values in this interval not displayed. Cultures: mrsa Radiology: EKG 12-lead Result Date: 11/25/2021 Sinus tachycardia Rightward axis Borderline ECG Confirmed by Kell Flor ([id number]) on 11/25/2021 9:04:[address] Chest Without Contrast Result Date: 11/25/2021 EXAMINATION: CT CHEST WITHOUT CONTRAST HISTORY: ORDERING SYSTEM PROVIDED HISTORY: Cough, persistent; Respiratory illness, nondiagnostic xray; Sepsis; c, TECHNOLOGIST PROVIDED HISTORY: Illness/Other Reason for exam: shortness of breath Encounter Type: Initial Additional signs and symptoms: n/a ORDERING SYSTEM PROVIDED DIAGNOSIS CODES: N15.1 Renal abscess, left A41.9 Sepsis, due to unspecified organism, unspecified whether acute organ dysfunction present (HCC) R10.12 Left upper quadrant abdominal pain D64.9 Anemia, unspecified type B20 History of HIV infection ([facility]) COMPARISON: Chest x-ray 11/24/2021. CT abdomen and pelvis 11/24/2021. TECHNIQUE: CT examination of the chest without IV contrast. Coronal and sagittal reformations were performed. Dose reduction techniques were achieved by using automated exposure control and/or adjustment of mA and/or kV according to patient size and/or use of iterative reconstruction technique. FINDINGS: The visualized portions of the thyroid and thoracic inlet are unremarkable. No enlarged supraclavicular or axillary lymphadenopathy by CT criteria. No enlarged mediastinal or hilar lymphadenopathy noted on this noncontrast study. The aorta and central pulmonary arteries are normal caliber. Heart size is within normal limits. No pericardial effusion. The trachea and central airways are patent. The lungs are clear without focal airspace consolidation. No pneumothorax or pleural effusion. Visualized portion of the upper abdomen unremarkable. No acute osseous abnormalities. No acute CT abnormality noted in the chest. [employer] Workstation ID: [id number] XR Chest 1 View Result Date: 11/24/2021 EXAMINATION: XR CHEST PA/AP 06/14/2021 1:19 pm HISTORY: ORDERING SYSTEM PROVIDED HISTORY: Chest pain rule out pneumonia, TECHNOLOGIST PROVIDED HISTORY: Illness/Other Reason for exam: Chest pain rule out pneumonia Cancer History: no Surgery, RadiationHistory: no heart/lung surg Encounter Type: Unknown Additional signs and symptoms: unknown ORDERING SYSTEM PROVIDED DIAGNOSIS CODES: COMPARISON: None FINDINGS: The heart size is normal. No dense focal consolidation, pneumothorax or pleural effusion is seen on this single view of the chest. No acute osseous abnormality is seen. No radiographic evidence for acute cardiopulmonary disease on this single view of the chest. Workstation ID: [id number] CT Abscess Drainage Renal Result Date: 11/25/2021 EXAMINATION: CT ABSCESS DRAINAGE RENAL HISTORY: ORDERING SYSTEM PROVIDED HISTORY: ct guided drainage of renal abscess, TECHNOLOGIST PROVIDED HISTORY: Illness/Other Reason for exam: renal abscess Encounter Type: Initial Additional signs and symptoms: n/a ORDERING SYSTEM PROVIDED DIAGNOSIS CODES: N15.1 Renal abscess, left A41.9 Sepsis, due to unspecified organism, unspecified whether acute organ dysfunction present (HCC) R10.12 Left upper quadrant abdominal pain D64.9 Anemia, unspecified type B20 History of HIV infection (HCC) COMPARISON: CT abdomen and pelvis 11/24/2021. TECHNIQUE: Dose reduction techniques were achieved by using automated exposure control and/or adjustment of mA and/or kV according to patient size and/or use of iterative reconstruction technique. PROCEDURE: The risks (including bleeding, infection, and injury to adjacent structures), benefits, and alternatives to the procedure were discussed with the patient and informed consent was obtained. A time-out procedure was performed. The patient was placed on his right side on the CT table and the right perinephric collection was localized. The skin was prepped in the usual sterile fashion and 1% lidocaine was used to anesthetize the skin and subcutaneous tissues. Under CT guidance, a 15-gauge introducer needle was inserted into the collection with return of purulent material. A J-wire was inserted and the needle exchanged for serial dilators followed by a 10-Scottish pigtail catheter. The catheter was sutured in place and secured with a skin adhesive device. Catheter was then attached to a bulb suction device. The patient tolerated the procedure well. No immediate complications. PROCEDURAL SEDATION: Moderate sedation with continuous physiological monitoring was performed utilizing intravenous Versed and fentanyl with direct physician and RN supervision beginning at 0937 hours and ending at 1011 hours. CONCLUSION: CT-guided drain placement into left perinephric abscess. Procedural sedation. [employer]/lab Workstation ID: [id number] CT Abdomen Pelvis With IV Contrast Only Result Date: 11/24/2021 EXAMINATION: ENHANCED CT SCAN OF THE ABDOMEN AND PELVIS: 11/24/2021. HISTORY: Injury/Trauma or Illness?:Illness/Other How long have you had these symptoms (acute/chronic)?:Acute LUQ tenderness, hx of HIV COMPARISON FILMS: None. TECHNIQUE: 3.75 mm axial images from lung bases through ischial tuberosities following administration of intravenous contrast were obtained. Sagittal, coronal reconstructions were performed. Dose reduction techniques were achieved by using automated exposure control and/or adjustment of mA and/or kV according to patient size and/or use of iterative reconstruction technique. FINDINGS: Visualized lung bases, cardiac, posterior mediastinal structures seem normal. CT ABDOMEN: The liver, gallbladder, spleen, pancreas, adrenal glands, right kidney appears normal. There is a large abscess involving upper to midpole posterolateral aspect of the left kidney, extending beyond the renal capsule in the overlying retroperitoneal/pararenal space, measuring 3.6 x 6.0 cm with some septations, enhancement of the periphery as well as the septations with average Hounsfield units of 39. This results in some mass effect on the renal parenchyma, as well as slightly less enhancement of the renal parenchyma beneath the sepsis. The rest of the left kidney is normal. The abdominal aorta has normal caliber. There is no significant retroperitoneal or mesenteric adenopathy. The bowel loops are of normal caliber. Normal appendix is not seen with confidence. CT PELVIS: The bladder, prostate, seminal vesicles appear normal. There is no pelvic adenopathy. There are no focal fluid collections. The visualized osseous structures seem normal. 1. There is an abscess involving upper to mid to lower pole of the left kidney along its lateral border extending beyond the renal capsule in the overlying pararenal space. There is no hydronephrosis of the left kidney. 2. No nephro or ureterolithiasis. 3. Normal appendix is not seen but no secondary signs of acute appendicitis. [facility] Workstation ID: [id number] Assessment/Plan: 1)renal abscess 2)HIV 3)fever 4)tobacco abuse All labs and cultures reviewed. MRSA on abscess culture. Fevers down. TTE non-diagnostic. Patient wishes for dc. Send on bactrim ds 2 tabs po bid through 12/09/21 when dc'd. Await HIV genotype; he would benefit from restarting HAART, but this can be done as outpatient. Neo Lam M.D. PHARMACOTHERAPY NOTE: Antimicrobial Therapy Follow-up Assessment / Plan: Cde Hernandez is a 33 y.o. male initiated on vancomycin for sepsis and renal abscess. Vancomycin trough goal is 15-20 mcg/mL. Based on drug level of 17.3, will continue current dosing. Will monitor serum creatinine levels and urine output (if available) daily. Pharmacy will continue to follow, order levels, and make adjustments/recommendations as needed. Subjective: Current antibiotic regimen includes: Vancomycin 1000 mg q8h Objective: Labs include: WBC (K/mcL) Date Value 11/27/2021 5.51 Creatinine (mg/dL) Date Value 11/27/2021 0.97 Estimated Creatinine Clearance: 91.8 mL/min (by C-G formula based on SCr of 0.97 mg/dL). Patient Tmax (last 24 hours): 100.8 F Micro: 11/24 Blood cultures: no growth to date x2 11/25 Urine culture: no growth 11/25 Body fluid from left kidney: Heavy MRSA Pharmacist: Levi Dorantes RPh,PharmD Contact Number: Vocera Infectious Disease Progress Note Subjective: Resting quietly Review of Systems: The following system(s) were reviewed: Constitutional, Cardiac, Pulmonary, GI, Dermatologic, Allergic, Musc Physical Examination: BP 120/79 (BP Location: Left arm, Patient Position: Lying) Pulse 85 Temp 98.9 F (37.2 C) (Oral) Resp 18 Ht 5' 8 Wt 59.9 kg (132 lb 0.9 oz) SpO2 100% BMI 20.08 kg/m General: NAD; Alert and oriented x3 Eyes: Conjunctiva and sclera clear; EOMI Lungs: Clear without rales, rhonchi or wheezes; no increased respiratory effort Cardiovascular: RRR; no m/r/g Abdomen: Positive bowel sounds; soft; non tender Skin: No rashes Extremities: FROMX4, no c/c/e Psych: Mood and affect appropriate Results/Medications Reviewed: Current Facility-Administered Medications Medication Dose Route Frequency Provider Last Rate Last Admin acetaminophen (TYLENOL) tablet 650 mg 650 mg Oral Q4H PRN Nickolas Rowland MD 650 mg at 11/27/21 0016 enoxaparin (LOVENOX) syringe 40 mg 40 mg Subcutaneous Daily Nickolas Rowland MD 40 mg at 11/27/21 0857 melatonin Tab 5 mg 5 mg Oral Nightly PRN Nickolas Rowland MD 5 mg at 11/26/21 2305 naloxone (NARCAN) injection 0.1 mg 0.1 mg Intravenous PRN Nickolas Rowland MD And naloxone (NARCAN) injection 0.4 mg 0.4 mg Intravenous PRN Nickolas Rowland MD ondansetron (ZOFRAN-ODT) disintegrating tablet 4 mg 4 mg Oral Q6H PRN Nickolas Rowland MD Or ondansetron (ZOFRAN) injection 4 mg 4 mg Intravenous Q6H PRN Nickolas Rowland MD oxyCODONE (ROXICODONE) immediate release tablet 5 mg 5 mg Oral Q6H PRN Nickolas Rowland MD 5 mg at 11/26/21 1949 perflutren lipid microspheres (DEFINITY) 0.143 mg/mL solution 0-10 mL of mixture 0-10 mL of mixture Intravenous Once in imaging Neo Lam MD pneumococcal conj. 13-valent (PREVNAR-13) vaccine 0.5 mL 0.5 mL Intramuscular Prior To Discharge Nickolas Rowland MD senna (SENOKOT) tablet 8.6 mg 1 tablet Oral BID PRN Nickolas Rowland MD sodium chloride (PF) (NS) flush 5 mL 5 mL Intravenous PRN Nickolas Rowland MD And sodium chloride (PF) (NS) flush 5 mL 5 mL Intravenous Q8H POONAM Nickolas Rowland MD 5 mL at 11/25/21 1629 And sodium chloride 0.9% (NS) 0-150 mL/hr Intravenous PRN Nickolas Rowland MD Stopped at 11/26/21 0315 vancomycin (VANCOCIN) 1000 mg in sodium chloride (NS) 0.9% 250mL (vialmate) 1,000 mg Intravenous Q8H Levi Jayna, [facility],PharmD 250 mL/hr at 11/27/21 1050 1,000 mg at 11/27/21 1050 Lab Results Component Value Date WBC 5.51 11/27/2021 HGB 12.0 (L) 11/27/2021 HCT 38.3 (L) 11/27/2021 MCV 81.5 11/27/2021 PLT 345 11/27/2021 Results from last 7 days Lab Units 11/27/21 0658 SODIUM mmol/L 139 POTASSIUM mmol/L 4.3 CHLORIDE mmol/L 104 BUN mg/dL 7* CREATININE mg/dL 0.97 GLUCOSE mg/dL 81 CALCIUM mg/dL 8.3* Results from last 7 days Lab Units 11/27/21 0658 11/25/21 0022 11/24/21 1936 ALK PHOS U/L 77 < > 97 BILIRUBIN TOTAL mg/dL 0.2 < > 0.4 BILIRUBIN DIRECT mg/dL -- -- 0.1 TOTAL PROTEIN g/dL 6.4 < > 8.5* ALT U/L 13 < > 25 AST U/L 15 < > 21 < > = values in this interval not displayed. Cultures: mrsa Radiology: EKG 12-lead Result Date: 11/25/2021 Sinus tachycardia Rightward axis Borderline ECG Confirmed by Kell Flor ([id number]) on 11/25/2021 9:04:[address] Chest Without Contrast Result Date: 11/25/2021 EXAMINATION: CT CHEST WITHOUT CONTRAST HISTORY: ORDERING SYSTEM PROVIDED HISTORY: Cough, persistent; Respiratory illness, nondiagnostic xray; Sepsis; c, TECHNOLOGIST PROVIDED HISTORY: Illness/Other Reason for exam: shortness of breath Encounter Type: Initial Additional signs and symptoms: n/a ORDERING SYSTEM PROVIDED DIAGNOSIS CODES: N15.1 Renal abscess, left A41.9 Sepsis, due to unspecified organism, unspecified whether acute organ dysfunction present (HCC) R10.12 Left upper quadrant abdominal pain D64.9 Anemia, unspecified type B20 History of HIV infection (HCC) COMPARISON: Chest x-ray 11/24/2021. CT abdomen and pelvis 11/24/2021. TECHNIQUE: CT examination of the chest without IV contrast. Coronal and sagittal reformations were performed. Dose reduction techniques were achieved by using automated exposure control and/or adjustment of mA and/or kV according to patient size and/or use of iterative reconstruction technique. FINDINGS: The visualized portions of the thyroid and thoracic inlet are unremarkable. No enlarged supraclavicular or axillary lymphadenopathy by CT criteria. No enlarged mediastinal or hilar lymphadenopathy noted on this noncontrast study. The aorta and central pulmonary arteries are normal caliber. Heart size is within normal limits. No pericardial effusion. The trachea and central airways are patent. The lungs are clear without focal airspace consolidation. No pneumothorax or pleural effusion. Visualized portion of the upper abdomen unremarkable. No acute osseous abnormalities. No acute CT abnormality noted in the chest. [facility]/tde Workstation ID: [id number] XR Chest 1 View Result Date: 11/24/2021 EXAMINATION: XR CHEST PA/AP 06/14/2021 1:19 pm HISTORY: ORDERING SYSTEM PROVIDED HISTORY: Chest pain rule out pneumonia, TECHNOLOGIST PROVIDED HISTORY: Illness/Other Reason for exam: Chest pain rule out pneumonia Cancer History: no Surgery, RadiationHistory: no heart/lung surg Encounter Type: Unknown Additional signs and symptoms: unknown ORDERING SYSTEM PROVIDED DIAGNOSIS CODES: COMPARISON: None FINDINGS: The heart size is normal. No dense focal consolidation, pneumothorax or pleural effusion is seen on this single view of the chest. No acute osseous abnormality is seen. No radiographic evidence for acute cardiopulmonary disease on this single view of the chest. Workstation ID: [id number] CT Abscess Drainage Renal Result Date: 11/25/2021 EXAMINATION: CT ABSCESS DRAINAGE RENAL HISTORY: ORDERING SYSTEM PROVIDED HISTORY: ct guided drainage of renal abscess, TECHNOLOGIST PROVIDED HISTORY: Illness/Other Reason for exam: renal abscess Encounter Type: Initial Additional signs and symptoms: n/a ORDERING SYSTEM PROVIDED DIAGNOSIS CODES: N15.1 Renal abscess, left A41.9 Sepsis, due to unspecified organism, unspecified whether acute organ dysfunction present (HCC) R10.12 Left upper quadrant abdominal pain D64.9 Anemia, unspecified type B20 History of HIV infection ([facility]) COMPARISON: CT abdomen and pelvis 11/24/2021. TECHNIQUE: Dose reduction techniques were achieved by using automated exposure control and/or adjustment of mA and/or kV according to patient size and/or use of iterative reconstruction technique. PROCEDURE: The risks (including bleeding, infection, and injury to adjacent structures), benefits, and alternatives to the procedure were discussed with the patient and informed consent was obtained. A time-out procedure was performed. The patient was placed on his right side on the CT table and the right perinephric collection was localized. The skin was prepped in the usual sterile fashion and 1% lidocaine was used to anesthetize the skin and subcutaneous tissues. Under CT guidance, a 15-gauge introducer needle was inserted into the collection with return of purulent material. A J-wire was inserted and the needle exchanged for serial dilators followed by a 10-Scottish pigtail catheter. The catheter was sutured in place and secured with a skin adhesive device. Catheter was then attached to a bulb suction device. The patient tolerated the procedure well. No immediate complications. PROCEDURAL SEDATION: Moderate sedation with continuous physiological monitoring was performed utilizing intravenous Versed and fentanyl with direct physician and RN supervision beginning at 0937 hours and ending at 1011 hours. CONCLUSION: CT-guided drain placement into left perinephric abscess. Procedural sedation. [employer]/lab Workstation ID: [id number] CT Abdomen Pelvis With IV Contrast Only Result Date: 11/24/2021 EXAMINATION: ENHANCED CT SCAN OF THE ABDOMEN AND PELVIS: 11/24/2021. HISTORY: Injury/Trauma or Illness?:Illness/Other How long have you had these symptoms (acute/chronic)?:Acute LUQ tenderness, hx of HIV COMPARISON FILMS: None. TECHNIQUE: 3.75 mm axial images from lung bases through ischial tuberosities following administration of intravenous contrast were obtained. Sagittal, coronal reconstructions were performed. Dose reduction techniques were achieved by using automated exposure control and/or adjustment of mA and/or kV according to patient size and/or use of iterative reconstruction technique. FINDINGS: Visualized lung bases, cardiac, posterior mediastinal structures seem normal. CT ABDOMEN: The liver, gallbladder, spleen, pancreas, adrenal glands, right kidney appears normal. There is a large abscess involving upper to midpole posterolateral aspect of the left kidney, extending beyond the renal capsule in the overlying retroperitoneal/pararenal space, measuring 3.6 x 6.0 cm with some septations, enhancement of the periphery as well as the septations with average Hounsfield units of 39. This results in some mass effect on the renal parenchyma, as well as slightly less enhancement of the renal parenchyma beneath the sepsis. The rest of the left kidney is normal. The abdominal aorta has normal caliber. There is no significant retroperitoneal or mesenteric adenopathy. The bowel loops are of normal caliber. Normal appendix is not seen with confidence. CT PELVIS: The bladder, prostate, seminal vesicles appear normal. There is no pelvic adenopathy. There are no focal fluid collections. The visualized osseous structures seem normal. 1. There is an abscess involving upper to mid to lower pole of the left kidney along its lateral border extending beyond the renal capsule in the overlying pararenal space. There is no hydronephrosis of the left kidney. 2. No nephro or ureterolithiasis. 3. Normal appendix is not seen but no secondary signs of acute appendicitis. [facility] Workstation ID: [id number] Assessment/Plan: 1)renal abscess 2)HIV 3)fever 4)tobacco abuse All labs and cultures reviewed. MRSA on abscess culture; continue vancomycin, to po atb as able, hopefully next couple days. Await echocardiogram. Fever curve improved. Await HIV genotype; he would benefit from restarting HAART, but this can be done as outpatient. Neo Lam M.D. [facility] PROGRESS NOTE 11/27/2021 PATIENT: CED HERNANDEZ DATE OF : 03/11/1988 Assessment/Plan: Ced Hernandez is a 33 y.o. male patient of Freddy Samson MD with history of HIV not on antiretrovirals for 4 years, tobacco abuse presented with fever, cough, shortness of breath, body aches, left flank pain Sepsis Renal abscess Patient not on antiretroviral therapy for 4 years. T-max 101.6, HR 136 on presentation, normal lactic acid and white count. Febrile this morning--100.8 CTAP showed an abscess involving upper to mid to lower pole of the left kidney along its lateral border extending beyond the renal capsule in the overlying pararenal space. Blood cultures x2 pending, UA unremarkable and urine culture pending VIR consulted, s/p drainage placement 11/25, culture pending--MRSA Monitor drain output Stopped IVFs, fever curve improving ID consulted/following-->Zosyn stopped 11/26, continue Vancomycin Echo ordered HIV HIV positive history. not on antiretroviral therapy for 4 years. Previously followed with [facility] for HIV treatment. CD4 266 and HIV viral quantification pending ID following Methamphetamine use with dependence Polysubstance abuse Last smoked methamphetamine 11/24 UDS positive for amphetamines, cannabinoid, oxycodone Hyponatremia Sodium 130-->improved to 139 Stop IVFs Quality Measures DVT Prophylaxis: lovenox Perea Catheter: none Disposition Discharge Location: home Estimated Discharge Date: tb Written and signed electronically by: Lee Chanel MD Subjective: Patient seen and examined. Pain at site of drain, otherwise no complaints Review of Systems: All systems reviewed and all negative except pertinent positives and negatives listed above. Physical Exam:/ BP 117/79 (BP Location: Left arm, Patient Position: Lying) Pulse 77 Temp 98.8 F (37.1 C) (Oral) Resp 18 Ht 5' 8 Wt 59.9 kg (132 lb 0.9 oz) SpO2 99% BMI 20.08 kg/m General appearance in no acute distress. Head/Neck: Head- normocephalic. Neck- supple, non-tender, without lymphadenopathy Eyes: PERRL; EOMI ENT: Ears- hearing intact. Nose- normal and patent. Throat- mucous membranes moist, pharynx without lesions. Cardiovascular: regular rate and rhythm; normal S1, S2; no murmurs, rubs, clicks or gallops; no peripheral edema. Respiratory: lungs clear to auscultation; without wheezes, rales or rhonchi Abdomen: soft, non-tender, non-distended; positive bowel sounds. Left flank with drain in place Neurological: alert, oriented, normal speech; no focal findings or movement disorder noted Musculoskeletal: no significant deformity or tenderness to palpation Skin: normal coloration, texture and turgor; no lesions or eruptions Medications: Scheduled Meds: enoxaparin (LOVENOX) injection 40 mg Subcutaneous Daily sodium chloride (PF) 5 mL Intravenous Q8H POONAM vancomycin 1,000 mg Intravenous Q8H Continuous Infusions: sodium chloride 0.9 % Stopped (11/26/21314) sodium chloride 0.9 % 125 mL/hr (11/27/21 0352) PRN Meds:.acetaminophen, melatonin, nalOXone AND Notify physician AND naloxone, ondansetron OR ondansetron, oxyCODONE, perflutren lipid microspheres, pneumococcal conj. 13-valent, senna, Saline lock IV AND sodium chloride (PF) AND sodium chloride (PF) AND sodium chloride 0.9 % Results/Medications Reviewed 11/27/21 10:31 AM: Laboratory, Microbiology, Pathology, Radiology, Cardiology, Medications and Transcriptions PHARMACOTHERAPY NOTE: Antimicrobial Therapy Follow-up Assessment / Plan: Ced Hernandez is a 33 y.o. male initiated on vancomycin for sepsis and renal abscess. Vancomycin trough goal is 15-20 mcg/mL. Based on drug level of 7.3, will change vancomycin to 1000 mg Q8h. Will monitor serum creatinine levels and urine output (if available) daily. Pharmacy will continue to follow, order levels, and make adjustments/recommendations as needed. Subjective: Current antibiotic regimen includes: Vancomycin 1000 mg q12h Piperacillin-tazobactam 3375 mg q8h Objective: Labs include: WBC (K/mcL) Date Value 11/26/2021 9.45 Creatinine (mg/dL) Date Value 11/26/2021 0.86 Estimated Creatinine Clearance: 103.5 mL/min (by C-G formula based on SCr of 0.86 mg/dL). Patient Tmax (last 24 hours): 102.8 F Micro: 11/24 Blood cultures: no growth to date x2 11/25 Urine culture: no growth 11/25 Body fluid from left kidney: Heavy MRSA Pharmacist: Levi Dorantes RPh,PharmD Contact Number: Vocera Infectious Disease Progress Note Subjective: Resting quietly Review of Systems: The following system(s) were reviewed: Constitutional, Cardiac, Pulmonary, GI, Dermatologic, Allergic, Musc Physical Examination: BP 126/81 (BP Location: Left arm, Patient Position: Lying) Pulse (!) 101 Temp 98.7 F (37.1 C) (Oral) Resp 16 Ht 5' 8 Wt 59.9 kg (132 lb 0.9 oz) SpO2 98% BMI 20.08 kg/m General: NAD; Alert and oriented x3 Eyes: Conjunctiva and sclera clear; EOMI Lungs: Clear without rales, rhonchi or wheezes; no increased respiratory effort Cardiovascular: RRR; no m/r/g Abdomen: Positive bowel sounds; soft; non tender Skin: No rashes Extremities: FROMX4, no c/c/e Psych: Mood and affect appropriate Results/Medications Reviewed: Current Facility-Administered Medications Medication Dose Route Frequency Provider Last Rate Last Admin acetaminophen (TYLENOL) tablet 650 mg 650 mg Oral Q4H PRN Nickolas Rowland MD 650 mg at 11/26/21 0743 enoxaparin (LOVENOX) syringe 40 mg 40 mg Subcutaneous Daily Nickolas Rowland MD 40 mg at 11/26/21 0743 melatonin Tab 5 mg 5 mg Oral Nightly PRN Nickolas Rowland MD 5 mg at 11/25/21 0013 naloxone (NARCAN) injection 0.1 mg 0.1 mg Intravenous PRN Nickolas Rowland MD And naloxone (NARCAN) injection 0.4 mg 0.4 mg Intravenous PRN iNckolas Rowland MD ondansetron (ZOFRAN-ODT) disintegrating tablet 4 mg 4 mg Oral Q6H PRN Nickolas Rowland MD Or ondansetron (ZOFRAN) injection 4 mg 4 mg Intravenous Q6H PRN Nickolas Rowland MD oxyCODONE (ROXICODONE) immediate release tablet 5 mg 5 mg Oral Q6H PRN Nickolas Rowland MD 5 mg at 11/26/21 0644 piperacillin-tazobactam (ZOSYN) IVPB 3.375 g (premix) 3.375 g Intravenous Q8H Nickolas Rowland MD 12.5 mL/hr at 11/26/21 1055 3.375 g at 11/26/21 1055 pneumococcal conj. 13-valent (PREVNAR-13) vaccine 0.5 mL 0.5 mL Intramuscular Prior To Discharge Nickolas Rowland MD senna (SENOKOT) tablet 8.6 mg 1 tablet Oral BID PRN Nickolas Rowland MD sodium chloride (PF) (NS) flush 5 mL 5 mL Intravenous PRN Nickolas Rowland MD And sodium chloride (PF) (NS) flush 5 mL 5 mL Intravenous Q8H POONAM Nickolas Rowland MD 5 mL at 11/25/21 1629 And sodium chloride 0.9% (NS) 0-150 mL/hr Intravenous PRN Nickolas Rowland MD Stopped at 11/26/21 0315 sodium chloride 0.9% (NS) 125 mL/hr Intravenous Continuous Nickolas Rowland MD 125 mL/hr at 11/26/21 1056 125 mL/hr at 11/26/21 1056 vancomycin (VANCOCIN) 1000 mg in sodium chloride (NS) 0.9% 250mL (vialmate) 1,000 mg Intravenous Q8H Levi Aaramirez, RPh,PharmD 250 mL/hr at 11/26/21 1826 1,000 mg at 11/26/21 1826 Lab Results Component Value Date WBC 9.45 11/26/2021 HGB 11.8 (L) 11/26/2021 HCT 37.0 (L) 11/26/2021 MCV 80.1 11/26/2021 PLT 369 11/26/2021 Results from last 7 days Lab Units 11/26/21 0809 SODIUM mmol/L 134* POTASSIUM mmol/L 4.3 CHLORIDE mmol/L 100 BUN mg/dL 9 CREATININE mg/dL 0.86 GLUCOSE mg/dL 90 CALCIUM mg/dL 8.4 Results from last 7 days Lab Units 11/26/21 0809 11/25/21 0022 11/24/21 1936 ALK PHOS U/L 80 < > 97 BILIRUBIN TOTAL mg/dL 0.4 < > 0.4 BILIRUBIN DIRECT mg/dL -- -- 0.1 TOTAL PROTEIN g/dL 6.6 < > 8.5* ALT U/L 15 < > 25 AST U/L 14 < > 21 < > = values in this interval not displayed. Cultures: mrsa Radiology: EKG 12-lead Result Date: 11/25/2021 Sinus tachycardia Rightward axis Borderline ECG Confirmed by Kell Flor ([id number]) on 11/25/2021 9:04:[address] Chest Without Contrast Result Date: 11/25/2021 EXAMINATION: CT CHEST WITHOUT CONTRAST HISTORY: ORDERING SYSTEM PROVIDED HISTORY: Cough, persistent; Respiratory illness, nondiagnostic xray; Sepsis; c, TECHNOLOGIST PROVIDED HISTORY: Illness/Other Reason for exam: shortness of breath Encounter Type: Initial Additional signs and symptoms: n/a ORDERING SYSTEM PROVIDED DIAGNOSIS CODES: N15.1 Renal abscess, left A41.9 Sepsis, due to unspecified organism, unspecified whether acute organ dysfunction present (HCC) R10.12 Left upper quadrant abdominal pain D64.9 Anemia, unspecified type B20 History of HIV infection (HCC) COMPARISON: Chest x-ray 11/24/2021. CT abdomen and pelvis 11/24/2021. TECHNIQUE: CT examination of the chest without IV contrast. Coronal and sagittal reformations were performed. Dose reduction techniques were achieved by using automated exposure control and/or adjustment of mA and/or kV according to patient size and/or use of iterative reconstruction technique. FINDINGS: The visualized portions of the thyroid and thoracic inlet are unremarkable. No enlarged supraclavicular or axillary lymphadenopathy by CT criteria. No enlarged mediastinal or hilar lymphadenopathy noted on this noncontrast study. The aorta and central pulmonary arteries are normal caliber. Heart size is within normal limits. No pericardial effusion. The trachea and central airways are patent. The lungs are clear without focal airspace consolidation. No pneumothorax or pleural effusion. Visualized portion of the upper abdomen unremarkable. No acute osseous abnormalities. No acute CT abnormality noted in the chest. [employer]/tde Workstation ID: [id number] XR Chest 1 View Result Date: 11/24/2021 EXAMINATION: XR CHEST PA/AP 06/14/2021 1:19 pm HISTORY: ORDERING SYSTEM PROVIDED HISTORY: Chest pain rule out pneumonia, TECHNOLOGIST PROVIDED HISTORY: Illness/Other Reason for exam: Chest pain rule out pneumonia Cancer History: no Surgery, RadiationHistory: no heart/lung surg Encounter Type: Unknown Additional signs and symptoms: unknown ORDERING SYSTEM PROVIDED DIAGNOSIS CODES: COMPARISON: None FINDINGS: The heart size is normal. No dense focal consolidation, pneumothorax or pleural effusion is seen on this single view of the chest. No acute osseous abnormality is seen. No radiographic evidence for acute cardiopulmonary disease on this single view of the chest. Workstation ID: [id number] CT Abscess Drainage Renal Result Date: 11/25/2021 EXAMINATION: CT ABSCESS DRAINAGE RENAL HISTORY: ORDERING SYSTEM PROVIDED HISTORY: ct guided drainage of renal abscess, TECHNOLOGIST PROVIDED HISTORY: Illness/Other Reason for exam: renal abscess Encounter Type: Initial Additional signs and symptoms: n/a ORDERING SYSTEM PROVIDED DIAGNOSIS CODES: N15.1 Renal abscess, left A41.9 Sepsis, due to unspecified organism, unspecified whether acute organ dysfunction present (HCC) R10.12 Left upper quadrant abdominal pain D64.9 Anemia, unspecified type B20 History of HIV infection (HCC) COMPARISON: CT abdomen and pelvis 11/24/2021. TECHNIQUE: Dose reduction techniques were achieved by using automated exposure control and/or adjustment of mA and/or kV according to patient size and/or use of iterative reconstruction technique. PROCEDURE: The risks (including bleeding, infection, and injury to adjacent structures), benefits, and alternatives to the procedure were discussed with the patient and informed consent was obtained. A time-out procedure was performed. The patient was placed on his right side on the CT table and the right perinephric collection was localized. The skin was prepped in the usual sterile fashion and 1% lidocaine was used to anesthetize the skin and subcutaneous tissues. Under CT guidance, a 15-gauge introducer needle was inserted into the collection with return of purulent material. A J-wire was inserted and the needle exchanged for serial dilators followed by a 10-Scottish pigtail catheter. The catheter was sutured in place and secured with a skin adhesive device. Catheter was then attached to a bulb suction device. The patient tolerated the procedure well. No immediate complications. PROCEDURAL SEDATION: Moderate sedation with continuous physiological monitoring was performed utilizing intravenous Versed and fentanyl with direct physician and RN supervision beginning at 0937 hours and ending at 1011 hours. CONCLUSION: CT-guided drain placement into left perinephric abscess. Procedural sedation. [facility]/lab Workstation ID: [id number] CT Abdomen Pelvis With IV Contrast Only Result Date: 11/24/2021 EXAMINATION: ENHANCED CT SCAN OF THE ABDOMEN AND PELVIS: 11/24/2021. HISTORY: Injury/Trauma or Illness?:Illness/Other How long have you had these symptoms (acute/chronic)?:Acute LUQ tenderness, hx of HIV COMPARISON FILMS: None. TECHNIQUE: 3.75 mm axial images from lung bases through ischial tuberosities following administration of intravenous contrast were obtained. Sagittal, coronal reconstructions were performed. Dose reduction techniques were achieved by using automated exposure control and/or adjustment of mA and/or kV according to patient size and/or use of iterative reconstruction technique. FINDINGS: Visualized lung bases, cardiac, posterior mediastinal structures seem normal. CT ABDOMEN: The liver, gallbladder, spleen, pancreas, adrenal glands, right kidney appears normal. There is a large abscess involving upper to midpole posterolateral aspect of the left kidney, extending beyond the renal capsule in the overlying retroperitoneal/pararenal space, measuring 3.6 x 6.0 cm with some septations, enhancement of the periphery as well as the septations with average Hounsfield units of 39. This results in some mass effect on the renal parenchyma, as well as slightly less enhancement of the renal parenchyma beneath the sepsis. The rest of the left kidney is normal. The abdominal aorta has normal caliber. There is no significant retroperitoneal or mesenteric adenopathy. The bowel loops are of normal caliber. Normal appendix is not seen with confidence. CT PELVIS: The bladder, prostate, seminal vesicles appear normal. There is no pelvic adenopathy. There are no focal fluid collections. The visualized osseous structures seem normal. 1. There is an abscess involving upper to mid to lower pole of the left kidney along its lateral border extending beyond the renal capsule in the overlying pararenal space. There is no hydronephrosis of the left kidney. 2. No nephro or ureterolithiasis. 3. Normal appendix is not seen but no secondary signs of acute appendicitis. [facility] Workstation ID: [id number] Assessment/Plan: 1)renal abscess 2)HIV 3)fever 4)tobacco abuse All labs and cultures reviewed. MRSA on abscess culture; continue vancomycin, stop zosyn. Check echocardiogram. Fever curve seems to be trending down. Await HIV genotype; he would benefit from restarting HAART, but this can be done as outpatient. Neo Lam M.D. COMPLEX DISCHARGE Date: 11/26/2021 Time: 4:26 PM Patient Name: Ced Hernandez Date of : 03/11/1988 Sex: Male [facility] dept following pt SPoke w pt in room. Pt is agreeable to using local pharmacy. He states that he has used the [facility] in [place]. He has filled antiretrovirals at the [facility]. Posed curious inquiry and he has no answer but is willing to have medications and care in [place] Pt address on record is outdated. He states living in [place] now. [facility] Pt demonstrated difficulty in conversing and providing details. He states a few people live with him in [place]. Discussed availability of services with [employer] including transportation. Information on AVS. Living Arrangements: Spouse/significant other Support Systems: Spouse/significant other Assistance Needed: no Type of Residence: Private residence Prior to Admission Home Care Services: No Patient expects to be discharged to:: home Current Home Equipment: None [facility] PROGRESS NOTE 11/26/2021 PATIENT: CED HERNANDEZ DATE OF : 03/11/1988 Assessment/Plan: Ced Hernandez is a 33 y.o. male patient of Freddy Samson MD with history of HIV not on antiretrovirals for 4 years, tobacco abuse presented with fever, cough, shortness of breath, body aches, left flank pain Sepsis Renal abscess Patient not on antiretroviral therapy for 4 years. T-max 101.6, HR 136 on presentation, normal lactic acid and white count. Febrile this morning--100.8 CTAP showed an abscess involving upper to mid to lower pole of the left kidney along its lateral border extending beyond the renal capsule in the overlying pararenal space. Blood cultures x2 pending, UA unremarkable and urine culture pending VIR consulted, s/p drainage placement 11/25, culture pending--growing GPC thus far Monitor drain output 2L fluid bolus given upon presentation, continue with NS @125 ml/hr Continue Vanc/Zosyn, ID consulted/following Patient was given IV voriconazole x1 dose given immunocompromised status, will hold further doses HIV HIV positive history. not on antiretroviral therapy for 4 years. Previously followed with [facility] for HIV treatment. CD4 266 and HIV viral quantification pending ID following Methamphetamine use with dependence Last smoked methamphetamine 11/24 UDS positive for amphetamines, cannabinoid, oxycodone Hyponatremia Sodium 130-->improving, 134 Monitor response to fluids Quality Measures DVT Prophylaxis: lovenox [place] Catheter: none Disposition Discharge Location: home Estimated Discharge Date: tbd Written and signed electronically by: Lee Chanel MD Subjective: Patient seen and examined. Pain at site of drain, otherwise no complaints Review of Systems: All systems reviewed and all negative except pertinent positives and negatives listed above. Physical Exam:/ BP 112/71 (BP Location: Right arm, Patient Position: Lying) Pulse (!) 110 Temp 98.6 F (37 C) (Oral) Resp 14 Ht 5' 8 Wt 59.9 kg (132 lb 0.9 oz) SpO2 96% BMI 20.08 kg/m General appearance in no acute distress. Head/Neck: Head- normocephalic. Neck- supple, non-tender, without lymphadenopathy Eyes: PERRL; EOMI ENT: Ears- hearing intact. Nose- normal and patent. Throat- mucous membranes moist, pharynx without lesions. Cardiovascular: regular rate and rhythm; normal S1, S2; no murmurs, rubs, clicks or gallops; no peripheral edema. Respiratory: lungs clear to auscultation; without wheezes, rales or rhonchi Abdomen: soft, non-tender, non-distended; positive bowel sounds. Left flank with drain in place Neurological: alert, oriented, normal speech; no focal findings or movement disorder noted Musculoskeletal: no significant deformity or tenderness to palpation Skin: normal coloration, texture and turgor; no lesions or eruptions Medications: Scheduled Meds: enoxaparin (LOVENOX) injection 40 mg Subcutaneous Daily piperacillin-tazobactam (ZOSYN) extended infusion 3.375 g Intravenous Q8H sodium chloride (PF) 5 mL Intravenous Q8H POONAM vancomycin 1,000 mg Intravenous Q12H Continuous Infusions: sodium chloride 0.9 % Stopped (11/26/215) sodium chloride 0.9 % 125 mL/hr (11/26/21 0552) PRN Meds:.acetaminophen, melatonin, nalOXone AND Notify physician AND naloxone, ondansetron OR ondansetron, oxyCODONE, pneumococcal conj. 13-valent, senna, Saline lock IV AND sodium chloride (PF) AND sodium chloride (PF) AND sodium chloride 0.9 % Results/Medications Reviewed 11/26/21 10:17 AM: Laboratory, Microbiology, Pathology, Radiology, Cardiology, Medications and Transcriptions [facility] PROGRESS NOTE 11/25/2021 PATIENT: CED HERNANDEZ DATE OF : 03/11/1988 Assessment/Plan: Ced Hernandez is a 33 y.o. male patient of Freddy Samson MD with history of HIV not on antiretrovirals for 4 years, tobacco abuse presented with fever, cough, shortness of breath, body aches, left flank pain Sepsis Renal abscess Patient not on antiretroviral therapy for 4 years. T-max 101.6, HR 136 on presentation, normal lactic acid and white count CTAP showed an abscess involving upper to mid to lower pole of the left kidney along its lateral border extending beyond the renal capsule in the overlying pararenal space. Blood cultures x2 pending, UA unremarkable and urine culture pending 2L fluid bolus given, continue with NS @125 ml/hr Continue Vanc/Zosyn, ID consulted Patient was given IV voriconazole x1 dose given immunocompromised status, will hold further doses HIV HIV positive history. not on antiretroviral therapy for 4 years. Previously followed with [facility] for HIV treatment. Consult ID for further recommendations and management Ordered CD4 and HIV viral quantification pending Methamphetamine use with dependence Last smoked methamphetamine 11/24 UDS positive for amphetamines, cannabinoid, oxycodone Hyponatremia Sodium 130 Monitor response to fluids Quality Measures DVT Prophylaxis: lovenox Perea Catheter: none Disposition Discharge Location: home Estimated Discharge Date: tbd Written and signed electronically by: Lee Chanel MD Subjective: Patient seen and examined. Pain at site of drain, otherwise no complaints Review of Systems: All systems reviewed and all negative except pertinent positives and negatives listed above. Physical Exam: BP 96/61 Pulse 93 Temp 98.4 F (36.9 C) (Oral) Resp 16 Ht 5' 8 Wt 55.8 kg (123 lb) SpO2 97% BMI 18.70 kg/m General appearance in no acute distress. Head/Neck: Head- normocephalic. Neck- supple, non-tender, without lymphadenopathy Eyes: PERRL; EOMI ENT: Ears- hearing intact. Nose- normal and patent. Throat- mucous membranes moist, pharynx without lesions. Cardiovascular: regular rate and rhythm; normal S1, S2; no murmurs, rubs, clicks or gallops; no peripheral edema. Respiratory: lungs clear to auscultation; without wheezes, rales or rhonchi Abdomen: soft, non-tender, non-distended; positive bowel sounds. Left flank with drain in place Neurological: alert, oriented, normal speech; no focal findings or movement disorder noted Musculoskeletal: no significant deformity or tenderness to palpation Skin: normal coloration, texture and turgor; no lesions or eruptions Medications: Scheduled Meds: [START ON 11/26/2021] enoxaparin (LOVENOX) injection 40 mg Subcutaneous Daily piperacillin-tazobactam (ZOSYN) extended infusion 3.375 g Intravenous Q8H sodium chloride (PF) 5 mL Intravenous Q8H POONAM vancomycin 1,000 mg Intravenous Q12H Continuous Infusions: sodium chloride 0.9 % Stopped (11/25/21 0355) sodium chloride 0.9 % 125 mL/hr (11/25/21 07) PRN Meds:.acetaminophen, melatonin, nalOXone AND Notify physician AND naloxone, ondansetron OR ondansetron, oxyCODONE, pneumococcal conj. 13-valent, senna, Saline lock IV AND sodium chloride (PF) AND sodium chloride (PF) AND sodium chloride 0.9 % Results/Medications Reviewed 11/25/21 4:16 PM: Laboratory, Microbiology, Pathology, Radiology, Cardiology, Medications and Transcriptions PHARMACOTHERAPY NOTE: Antimicrobial Therapy Initiation Assessment / Plan: Ced Hernandez is a 33 y.o. male initiated on antimicrobial therapy for sepsis. Patient initiated on vancomycin 1250mg x1 dose, then 1000mg q12h. Vancomycin trough goal is 15-20 mcg/mL. Will obtain level when at steady state or when clinically appropriate. Will monitor serum creatinine levels and urine output (if available) daily. Pharmacy will continue to follow, order levels, and make adjustments as needed. Please call pharmacy with questions. Current antibiotic regimen includes: vancomycin 1000mg q12h piperacillin-tazobactam 3.375g q8h Objective: Ht Readings from Last 1 Encounters: 11/24/21 5' 8 (172.7 cm) Wt Readings from Last 1 Encounters: 11/24/21 55.6 kg (122 lb 9.2 oz) [place] body weight: 68.4 kg (150 lb 12.7 oz) Labs include: WBC (K/mcL) Date Value 11/24/2021 9.37 Creatinine (mg/dL) Date Value 11/24/2021 1.11 Estimated Creatinine Clearance: 74.4 mL/min (by C-G formula based on SCr of 1.11 mg/dL). No intake or output data in the 24 hours ending 11/25/21 0003 Patient Tmax (last 24 hours): 101.6 F Pharmacist: Carina Hernandez PharmD, [facility] Contact Number: [facility] pharmacy: [phone] documented in this encounter [facility] 11-29-2021 Note Formatting of this n ote might be different from the original. Problem: Actual or potential alteration in health Goal: Absence of healthcare acquired conditions Outcome: Partially Met Goal: Knowledge of Interdisciplinary Plan of Care Outcome: Partially Met Goal: Knowledge of Enviroment Outcome: Partially Met Problem: Pain Goal: Manage acute pain Outcome: Partially Met Goal: Manage chronic pain Outcome: Partially Met Goal: Reduced pain sensation Outcome: Partially Met Goal: Achievement of comfort function goal Outcome: Partially Met Problem: Septic Shock, Risk of Goal: Absence of infection signs and symptoms Outcome: Partially Met Goal: goal Outcome: Partially Met [facility] 11-28-2021 Note Formatting of this n ote might be different from the original. Problem: Actual or potential alteration in health Goal: Absence of healthcare acquired conditions 11/28/2021 1214 by Hui Cramer RN Outcome: Partially Met 11/28/2021 1213 by Hui Cramer RN Outcome: Partially Met 11/28/2021 1211 by Hui Cramer RN Outcome: Partially Met Goal: Knowledge of Interdisciplinary Plan of Care 11/28/2021 1214 by Hui Cramer RN Outcome: Partially Met 11/28/2021 1213 by Hui Cramer RN Outcome: Partially Met 11/28/2021 1211 by Hui Cramer RN Outcome: Partially Met Goal: Knowledge of Enviroment 11/28/2021 1214 by Hui Cramer RN Outcome: Partially Met 11/28/2021 1213 by Hui Cramer RN Outcome: Partially Met 11/28/2021 1211 by Hui Cramer RN Outcome: Partially Met Problem: Pain Goal: Manage acute pain 11/28/2021 1214 by Hui Cramer RN Outcome: Partially Met 11/28/2021 1213 by Hui Cramer RN Outcome: Partially Met 11/28/2021 1211 by Hui Cramer RN Outcome: Partially Met Problem: Septic Shock, Risk of Goal: Absence of infection signs and symptoms 11/28/2021 1214 by Hui Cramer RN Outcome: Partially Met 11/28/2021 1213 by Hui Cramer RN Outcome: Partially Met 11/28/2021 1211 by Hui Cramer RN Outcome: Partially Met Goal: goal 11/28/2021 1214 by Hui Cramer RN Outcome: Partially Met 11/28/2021 1213 by Hui Cramer RN Outcome: Partially Met 11/28/2021 1211 by Hui Cramer RN Outcome: Partially Met Problem: Venous Thromboembolism, Risk of Goal: Absence of venous thromboembolism 11/28/2021 1214 by Hui Cramer RN Outcome: Partially Met 11/28/2021 1213 by Hui Cramer RN Outcome: Partially Met 11/28/2021 1211 by Hui Cramer RN Outcome: Partially Met Problem: Falls, Risk of Goal: Absence of falls 11/28/2021 1214 by Hui Cramer RN Outcome: Partially Met 11/28/2021 1213 by Hui Cramer RN Outcome: Partially Met 11/28/2021 1211 by Hui Cramer RN Outcome: Partially Met [facility] 11-28-2021 Note Formatting of this n ote might be different from the original. Spoke to IR about drain removal per Pt. Request. General rule is less than 10ml over three days for safe removal. Pt. Is considering leaving AMA. Attending notified. [facility] 11-27-2021 Note Formatting of this n ote might be different from the original. Problem: Actual or potential alteration in health Goal: Absence of healthcare acquired conditions Outcome: Met Goal: Knowledge of Interdisciplinary Plan of Care Outcome: Met Goal: Knowledge of Enviroment Outcome: Met Problem: Pain Goal: Manage acute pain Outcome: Met Goal: Manage chronic pain Outcome: Met Goal: Reduced pain sensation Outcome: Met Goal: Achievement of comfort function goal Outcome: Met Problem: Septic Shock, Risk of Goal: Absence of infection signs and symptoms Outcome: Met Goal: goal Outcome: Met Problem: Venous Thromboembolism, Risk of Goal: Absence of venous thromboembolism Outcome: Met Problem: Plan for Discharge Goal: Knowledge of discharge plan and instructions Outcome: Met Problem: Falls, Risk of Goal: Absence of falls Outcome: Met [facility] 11-26-2021 Hospital Discharge instructions Alina Jacob RN - 11/26/2021 4:57 PM EDT Please arrive to the Short Stay Unit at [facility] on November at 11am Park in the east parking lot off of [address] and enter at the EAST entrance. They will check you in and a doctor will evaluate your drain. [phone] A referral to infectious disease provider has been placed for you. Please follow up with: Dr Neo Lam [address] [facility] [address], [place] [id number] [employer] [phone] You have medical transportation available to you. Your ID is [id number] Please provide 48 hours notice for scheduling prior to appointments. The following attachments cannot be sent through Care Everywhere.Surgical Drain Care ([place])documented in this encounter [facility] 11-25-2021 Consult note Associated Order (s): IP CONSULT TO CARE MANAGEMENT COMPLEX DISCHARGE Date: 11/25/2021 Time: 2:11 PM Patient Name: Ced Hernandez Date of : 03/11/1988 Sex: Male [facility] consult for dc needs Pt very somnulent when visit attempted. Per chart review, pt had drain placement earlier today. From chart review[facility]. Pt also has notes from [facility]. Pt unable to attest to this at this time. Pt follows w Freddy Mali. Unclear when last visit occurred. [facility] will follow and speak with pt when he is able to engage. Living Arrangements: Spouse/significant other Support Systems: Spouse/significant other Assistance Needed: no Type of Residence: Private residence Prior to Admission Home Care Services: No Patient expects to be discharged to:: home Current Home Equipment: None [facility] 11-25-2021 Consult note Associated Order (s): IP CONSULT TO CARE MANAGEMENT COMPLEX DISCHARGE Date: 11/25/2021 Time: 2:11 PM Patient Name: Ced Hernandez Date of : 03/11/1988 Sex: Male [facility] consult for dc needs Pt very somnulent when visit attempted. Per chart review, pt had drain placement earlier today. From chart review, pt connected to ID. Most documents at [facility]. Pt also has notes from [facility]. Pt unable to attest to this at this time. Pt follows w Freddy Mali. Unclear when last visit occurred. [facility] will follow and speak with pt when he is able to engage. Living Arrangements: Spouse/significant other Support Systems: Spouse/significant other Assistance Needed: no Type of Residence: Private residence Prior to Admission Home Care Services: No Patient expects to be discharged to:: home Current Home Equipment: None Associated Order(s): IP CONSULT TO INFECTIOUS DISEASES INFECTIOUS DISEASES CONSULT NOTE Patient Name: Ced Hernandez Admit Date: [id number] MR #: [id number] : 03/11/1988 Physicians: Freddy Samson MD (Family); No ref. provider found (Referring) Chief Complaint/Reason for Visit: Fever, cough, short of breath, myalgia, flank pain History of Present Illness: Ced Hernandez is a 33 y.o. male with history of hiv who presents with one week flank pain, fever, found to have renal abscess. He is not on HAART, CD4 is over 200. I'm asked to evaluate and assist in management. History: Past Medical History: Diagnosis Date HIV disease ([facility]) 2011 HIV + - on antiretrovirals since HIV positive ([facility]) 2011 antiretrovirals Nephrolithiasis passed Tobacco abuse Past Surgical History: Procedure Laterality Date COLONOSCOPY COLPOSCOPY N/A 09/16/2015 Procedure: HIGH RESOLUTION ANOSCOPY ; Surgeon: Ezequiel Martines MD; Location: [facility]; Service: CT ABSCESS DRAINAGE RENAL 11/25/2021 CT ABSCESS DRAINAGE RENAL 11/25/[address] FULGURATION CONDYLOMA RECTAL WITH LASER N/A 09/16/2015 Procedure: CONDYLOMA RECTAL FULGURATION CO2 LASER; Surgeon: Ezequiel Martines MD; Location: [facility]; Service: WISDOM TOOTH EXTRACTION Family History: No TB Social History Tobacco Use Smoking status: Current Every Day Smoker Packs/day: 1.00 Years: 10.00 Pack years: 10.00 Vaping Use Vaping Use: Never used Substance Use Topics Alcohol use: Yes Comment: rarely Drug use: Yes Types: Marijuana, Methamphetamines Comment: occasionally- denies IVDA Allergy Information: I have reviewed the patient's allergies. Patient has no known allergies. Home Medications: Outpatient Medications as of 11/25/2021 Medication Sig dolutegravir (TIVICAY) 50 mg tablet Take 50 mg by mouth daily dronabinol (MARINOL) 5 MG capsule Take 5 mg by mouth 2 (two) times a day before meals Ran out--1 1/2 weeks ago Hospital Medications: Current Facility-Administered Medications Medication Dose Route Frequency Provider Last Rate Last Admin acetaminophen (TYLENOL) tablet 650 mg 650 mg Oral Q4H PRN Nickolas Rowland MD 650 mg at 11/25/21 1111 [START ON 11/26/2021] enoxaparin (LOVENOX) syringe 40 mg 40 mg Subcutaneous Daily Nickolas Rowland MD melatonin Tab 5 mg 5 mg Oral Nightly PRN Nickolas Rowland MD 5 mg at 11/25/21 0013 naloxone (NARCAN) injection 0.1 mg 0.1 mg Intravenous PRN Nickolas Rowland MD And naloxone (NARCAN) injection 0.4 mg 0.4 mg Intravenous PRN Nickolas Rowland MD ondansetron (ZOFRAN-ODT) disintegrating tablet 4 mg 4 mg Oral Q6H PRN Nickolas Rowland MD Or ondansetron (ZOFRAN) injection 4 mg 4 mg Intravenous Q6H PRN Nickolas Rowland MD oxyCODONE (ROXICODONE) immediate release tablet 5 mg 5 mg Oral Q6H PRN Nickolas Rowland MD 5 mg at 11/25/21 1111 piperacillin-tazobactam (ZOSYN) IVPB 3.375 g (premix) 3.375 g Intravenous Q8H Nickolas Rowland MD 12.5 mL/hr at 11/25/21 1100 3.375 g at 11/25/21 1100 pneumococcal conj. 13-valent (PREVNAR-13) vaccine 0.5 mL 0.5 mL Intramuscular Prior To Discharge Nickolas Rowland MD senna (SENOKOT) tablet 8.6 mg 1 tablet Oral BID PRN Nickolas Rowland MD sodium chloride (PF) (NS) flush 5 mL 5 mL Intravenous PRN Nickolas Rowland MD And sodium chloride (PF) (NS) flush 5 mL 5 mL Intravenous Q8H POONAM Nickolas Rowland MD 5 mL at 11/25/21 1629 And sodium chloride 0.9% (NS) 0-150 mL/hr Intravenous PRN Nickolas Rowland MD Stopped at 11/25/21 0355 sodium chloride 0.9% (NS) 125 mL/hr Intravenous Continuous Nickolas Rowland MD 125 mL/hr at 11/25/21 0721 125 mL/hr at 11/25/21 0721 vancomycin (VANCOCIN) 1000 mg in sodium chloride (NS) 0.9% 250mL (vialmate) 1,000 mg Intravenous Q12H Carina Hernandez, Nina 250 mL/hr at 11/25/21 1628 1,000 mg at 11/25/21 1628 Review of Systems: The following system(s) were reviewed and pertinent findings noted: Constitutional, Eyes, ENT, CV, Resp, GI, Neuro, Skin, Musc, , Heme/Lym Physical Examination: Vital Signs: BP 96/61 (BP Location: Right arm, Patient Position: Lying) Pulse 93 Temp 98.4 F (36.9 C) (Oral) Resp 16 Ht 5' 8 Wt 55.8 kg (123 lb) SpO2 97% BMI 18.70 kg/m General: No acute distress Head: Normocephalic, without obvious abnormality, atraumatic Eyes: PERRL, conjunctiva/corneas clear, EOM's intact Throat: Lips, mucosa without lesions Neck: Supple, symmetrical, trachea midline, no adenopathy; No thyromegaly Lungs: Clear to auscultation bilaterally, respirations unlabored,normal respiratory effort Cardiovascular: Regular rate and rhythm, S1 and S2 normal, no murmur, rub or gallop; no edema Abdomen: Soft, non-tender, bowel sounds active all four quadrants,no masses, no organomegaly Skin: Turgor normal, no rashes or lesions or nodules Musculoskeletal: Full range of motion of all extremities; no joint edema Neurologic: CNII-XII intact; grossly normal strength Psych: Mood and affect appropriate; alert and oriented x 3 Laboratory and Additional Data Reviewed: Lab Results Component Value Date WBC 8.18 11/25/2021 HGB 12.8 (L) 11/25/2021 HCT 40.9 (L) 11/25/2021 MCV 83.1 11/25/2021 PLT 276 11/25/2021 Lab Results Component Value Date GLUCOSE 118 (H) 11/25/2021 CALCIUM 8.2 (L) 11/25/2021 NA 130 (L) 11/25/2021 K 4.2 11/25/2021 CL 100 11/25/2021 BUN 13 11/25/2021 CREATININE 1.03 11/25/2021 Cultures: pending Radiology: EKG 12-lead Result Date: 11/25/2021 Sinus tachycardia Rightward axis Borderline ECG Confirmed by Kell Flor ([id number]) on 11/25/2021 9:04:[address] Chest Without Contrast Result Date: 11/25/2021 EXAMINATION: CT CHEST WITHOUT CONTRAST HISTORY: ORDERING SYSTEM PROVIDED HISTORY: Cough, persistent; Respiratory illness, nondiagnostic xray; Sepsis; c, TECHNOLOGIST PROVIDED HISTORY: Illness/Other Reason for exam: shortness of breath Encounter Type: Initial Additional signs and symptoms: n/a ORDERING SYSTEM PROVIDED DIAGNOSIS CODES: N15.1 Renal abscess, left A41.9 Sepsis, due to unspecified organism, unspecified whether acute organ dysfunction present (HCC) R10.12 Left upper quadrant abdominal pain D64.9 Anemia, unspecified type B20 History of HIV infection (HCC) COMPARISON: Chest x-ray 11/24/2021. CT abdomen and pelvis 11/24/2021. TECHNIQUE: CT examination of the chest without IV contrast. Coronal and sagittal reformations were performed. Dose reduction techniques were achieved by using automated exposure control and/or adjustment of mA and/or kV according to patient size and/or use of iterative reconstruction technique. FINDINGS: The visualized portions of the thyroid and thoracic inlet are unremarkable. No enlarged supraclavicular or axillary lymphadenopathy by CT criteria. No enlarged mediastinal or hilar lymphadenopathy noted on this noncontrast study. The aorta and central pulmonary arteries are normal caliber. Heart size is within normal limits. No pericardial effusion. The trachea and central airways are patent. The lungs are clear without focal airspace consolidation. No pneumothorax or pleural effusion. Visualized portion of the upper abdomen unremarkable. No acute osseous abnormalities. No acute CT abnormality noted in the chest. [employer] Workstation ID: [id number] XR Chest 1 View Result Date: 11/24/2021 EXAMINATION: XR CHEST PA/AP 06/14/2021 1:19 pm HISTORY: ORDERING SYSTEM PROVIDED HISTORY: Chest pain rule out pneumonia, TECHNOLOGIST PROVIDED HISTORY: Illness/Other Reason for exam: Chest pain rule out pneumonia Cancer History: no Surgery, RadiationHistory: no heart/lung surg Encounter Type: Unknown Additional signs and symptoms: unknown ORDERING SYSTEM PROVIDED DIAGNOSIS CODES: COMPARISON: None FINDINGS: The heart size is normal. No dense focal consolidation, pneumothorax or pleural effusion is seen on this single view of the chest. No acute osseous abnormality is seen. No radiographic evidence for acute cardiopulmonary disease on this single view of the chest. Workstation ID: [id number] CT Abscess Drainage Renal Result Date: 11/25/2021 EXAMINATION: CT ABSCESS DRAINAGE RENAL HISTORY: ORDERING SYSTEM PROVIDED HISTORY: ct guided drainage of renal abscess, TECHNOLOGIST PROVIDED HISTORY: Illness/Other Reason for exam: renal abscess Encounter Type: Initial Additional signs and symptoms: n/a ORDERING SYSTEM PROVIDED DIAGNOSIS CODES: N15.1 Renal abscess, left A41.9 Sepsis, due to unspecified organism, unspecified whether acute organ dysfunction present (HCC) R10.12 Left upper quadrant abdominal pain D64.9 Anemia, unspecified type B20 History of HIV infection ([facility]) COMPARISON: CT abdomen and pelvis 11/24/2021. TECHNIQUE: Dose reduction techniques were achieved by using automated exposure control and/or adjustment of mA and/or kV according to patient size and/or use of iterative reconstruction technique. PROCEDURE: The risks (including bleeding, infection, and injury to adjacent structures), benefits, and alternatives to the procedure were discussed with the patient and informed consent was obtained. A time-out procedure was performed. The patient was placed on his right side on the CT table and the right perinephric collection was localized. The skin was prepped in the usual sterile fashion and 1% lidocaine was used to anesthetize the skin and subcutaneous tissues. Under CT guidance, a 15-gauge introducer needle was inserted into the collection with return of purulent material. A J-wire was inserted and the needle exchanged for serial dilators followed by a 10-Scottish pigtail catheter. The catheter was sutured in place and secured with a skin adhesive device. Catheter was then attached to a bulb suction device. The patient tolerated the procedure well. No immediate complications. PROCEDURAL SEDATION: Moderate sedation with continuous physiological monitoring was performed utilizing intravenous Versed and fentanyl with direct physician and RN supervision beginning at 0937 hours and ending at 1011 hours. CONCLUSION: CT-guided drain placement into left perinephric abscess. Procedural sedation. [facility]/lab Workstation ID: [id number] CT Abdomen Pelvis With IV Contrast Only Result Date: 11/24/2021 EXAMINATION: ENHANCED CT SCAN OF THE ABDOMEN AND PELVIS: 11/24/2021. HISTORY: Injury/Trauma or Illness?:Illness/Other How long have you had these symptoms (acute/chronic)?:Acute LUQ tenderness, hx of HIV COMPARISON FILMS: None. TECHNIQUE: 3.75 mm axial images from lung bases through ischial tuberosities following administration of intravenous contrast were obtained. Sagittal, coronal reconstructions were performed. Dose reduction techniques were achieved by using automated exposure control and/or adjustment of mA and/or kV according to patient size and/or use of iterative reconstruction technique. FINDINGS: Visualized lung bases, cardiac, posterior mediastinal structures seem normal. CT ABDOMEN: The liver, gallbladder, spleen, pancreas, adrenal glands, right kidney appears normal. There is a large abscess involving upper to midpole posterolateral aspect of the left kidney, extending beyond the renal capsule in the overlying retroperitoneal/pararenal space, measuring 3.6 x 6.0 cm with some septations, enhancement of the periphery as well as the septations with average Hounsfield units of 39. This results in some mass effect on the renal parenchyma, as well as slightly less enhancement of the renal parenchyma beneath the sepsis. The rest of the left kidney is normal. The abdominal aorta has normal caliber. There is no significant retroperitoneal or mesenteric adenopathy. The bowel loops are of normal caliber. Normal appendix is not seen with confidence. CT PELVIS: The bladder, prostate, seminal vesicles appear normal. There is no pelvic adenopathy. There are no focal fluid collections. The visualized osseous structures seem normal. 1. There is an abscess involving upper to mid to lower pole of the left kidney along its lateral border extending beyond the renal capsule in the overlying pararenal space. There is no hydronephrosis of the left kidney. 2. No nephro or ureterolithiasis. 3. Normal appendix is not seen but no secondary signs of acute appendicitis. [facility] Workstation ID: [id number] Assessment and Plan:1)renal abscess 2)HIV 3)fever 4)tobacco abuse All labs and cultures reviewed. Continue empiric atb. Await cultures from vir drainage of abscess. To po atb as able. Check HIV genotype; he would benefit from restarting HAART. I appreciate the opportunity to participate in his care, and will follow along with you. Neo Lam M.D. documented in this encounter [facility] 11-25-2021 Consult note Associated Order (s): IP CONSULT TO INFECTIOUS DISEASES INFECTIOUS DISEASES CONSULT NOTE Patient Name: Ced Hernandez Admit Date: [id number] [id number] [id number] 03/11/1988 Physicians: Freddy Samson MD (Family); No ref. provider found (Referring) Chief Complaint/Reason for Visit: Fever, cough, short of breath, myalgia, flank pain History of Present Illness: Ced Hernandez is a 33 y.o. male with history of hiv who presents with one week flank pain, fever, found to have renal abscess. He is not on HAART, CD4 is over 200. I'm asked to evaluate and assist in management. History: Past Medical History: Diagnosis Date HIV disease ([facility]) 2011 HIV + - on antiretrovirals since HIV positive (HCC) 2011 antiretrovirals Nephrolithiasis passed Tobacco abuse Past Surgical History: Procedure Laterality Date COLONOSCOPY COLPOSCOPY N/A 09/16/2015 Procedure: HIGH RESOLUTION ANOSCOPY ; Surgeon: Ezequiel Martines MD; Location: [facility] [place]; Service: CT ABSCESS DRAINAGE RENAL 11/25/2021 CT ABSCESS DRAINAGE RENAL 11/25/2021 CT FULGURATION CONDYLOMA RECTAL WITH LASER N/A 09/16/2015 Procedure: CONDYLOMA RECTAL FULGURATION CO2 LASER; Surgeon: Ezequiel Martines MD; Location: [facility]; Service: WISDOM TOOTH EXTRACTION Family History: No TB Social History Tobacco Use Smoking status: Current Every Day Smoker Packs/day: 1.00 Years: 10.00 Pack years: 10.00 Vaping Use Vaping Use: Never used Substance Use Topics Alcohol use: Yes Comment: rarely Drug use: Yes Types: Marijuana, Methamphetamines Comment: occasionally- denies IVDA Allergy Information: I have reviewed the patient's allergies. Patient has no known allergies. Home Medications: Outpatient Medications as of 11/25/2021 Medication Sig dolutegravir (TIVICAY) 50 mg tablet Take 50 mg by mouth daily dronabinol (MARINOL) 5 MG capsule Take 5 mg by mouth 2 (two) times a day before meals Ran out--1 1/2 weeks ago Hospital Medications: Current Facility-Administered Medications Medication Dose Route Frequency Provider Last Rate Last Admin acetaminophen (TYLENOL) tablet 650 mg 650 mg Oral Q4H PRN Nickolas Rowland MD 650 mg at 11/25/21 1111 [START ON 11/26/2021] enoxaparin (LOVENOX) syringe 40 mg 40 mg Subcutaneous Daily Nickolas Rowland MD melatonin Tab 5 mg 5 mg Oral Nightly PRN Nickolas Rowland MD 5 mg at 11/25/21 0013 naloxone (NARCAN) injection 0.1 mg 0.1 mg Intravenous PRN Nickolas Rowland MD And naloxone (NARCAN) injection 0.4 mg 0.4 mg Intravenous PRN Nickolas Rowland MD ondansetron (ZOFRAN-ODT) disintegrating tablet 4 mg 4 mg Oral Q6H PRN Nickolas Rowland MD Or ondansetron (ZOFRAN) injection 4 mg 4 mg Intravenous Q6H PRN Nickolas Rowland MD oxyCODONE (ROXICODONE) immediate release tablet 5 mg 5 mg Oral Q6H PRN Nickolas Rowland MD 5 mg at 11/25/21 1111 piperacillin-tazobactam (ZOSYN) IVPB 3.375 g (premix) 3.375 g Intravenous Q8H Nickolas Rowland MD 12.5 mL/hr at 11/25/21 1100 3.375 g at 11/25/21 1100 pneumococcal conj. 13-valent (PREVNAR-13) vaccine 0.5 mL 0.5 mL Intramuscular Prior To Discharge Nickolas Rowland MD senna (SENOKOT) tablet 8.6 mg 1 tablet Oral BID PRN Nickolas Rowland MD sodium chloride (PF) (NS) flush 5 mL 5 mL Intravenous PRN Nickolas Rowland MD And sodium chloride (PF) (NS) flush 5 mL 5 mL Intravenous Q8H POONAM Nickolas Rowland MD 5 mL at 11/25/21 1629 And sodium chloride 0.9% (NS) 0-150 mL/hr Intravenous PRN Nickolas Rowland MD Stopped at 11/25/21 0355 sodium chloride 0.9% (NS) 125 mL/hr Intravenous Continuous Nickolas Rowland MD 125 mL/hr at 11/25/21 0721 125 mL/hr at 11/25/21 0721 vancomycin (VANCOCIN) 1000 mg in sodium chloride (NS) 0.9% 250mL (vialmate) 1,000 mg Intravenous Q12H Carina Hernandez, Nina 250 mL/hr at 11/25/21 1628 1,000 mg at 11/25/21 1628 Review of Systems: The following system(s) were reviewed and pertinent findings noted: Constitutional, Eyes, ENT, CV, Resp, GI, Neuro, Skin, Musc, , Heme/Lym Physical Examination: Vital Signs: BP 96/61 (BP Location: Right arm, Patient Position: Lying) Pulse 93 Temp 98.4 F (36.9 C) (Oral) Resp 16 Ht 5' 8 Wt 55.8 kg (123 lb) SpO2 97% BMI 18.70 kg/m General: No acute distress Head: Normocephalic, without obvious abnormality, atraumatic Eyes: PERRL, conjunctiva/corneas clear, EOM's intact Throat: Lips, mucosa without lesions Neck: Supple, symmetrical, trachea midline, no adenopathy; No thyromegaly Lungs: Clear to auscultation bilaterally, respirations unlabored,normal respiratory effort Cardiovascular: Regular rate and rhythm, S1 and S2 normal, no murmur, rub or gallop; no edema Abdomen: Soft, non-tender, bowel sounds active all four quadrants,no masses, no organomegaly Skin: Turgor normal, no rashes or lesions or nodules Musculoskeletal: Full range of motion of all extremities; no joint edema Neurologic: CNII-XII intact; grossly normal strength Psych: Mood and affect appropriate; alert and oriented x 3 Laboratory and Additional Data Reviewed: Lab Results Component Value Date WBC 8.18 11/25/2021 HGB 12.8 (L) 11/25/2021 HCT 40.9 (L) 11/25/2021 MCV 83.1 11/25/2021 PLT 276 11/25/2021 Lab Results Component Value Date GLUCOSE 118 (H) 11/25/2021 CALCIUM 8.2 (L) 11/25/2021 NA 130 (L) 11/25/2021 K 4.2 11/25/2021 CL 100 11/25/2021 BUN 13 11/25/2021 CREATININE 1.03 11/25/2021 Cultures: pending Radiology: EKG 12-lead Result Date: 11/25/2021 Sinus tachycardia Rightward axis Borderline ECG Confirmed by Kell Flor ([id number]) on 11/25/2021 9:04:[address] Chest Without Contrast Result Date: 11/25/2021 EXAMINATION: CT CHEST WITHOUT CONTRAST HISTORY: ORDERING SYSTEM PROVIDED HISTORY: Cough, persistent; Respiratory illness, nondiagnostic xray; Sepsis; c, TECHNOLOGIST PROVIDED HISTORY: Illness/Other Reason for exam: shortness of breath Encounter Type: Initial Additional signs and symptoms: n/a ORDERING SYSTEM PROVIDED DIAGNOSIS CODES: N15.1 Renal abscess, left A41.9 Sepsis, due to unspecified organism, unspecified whether acute organ dysfunction present (HCC) R10.12 Left upper quadrant abdominal pain D64.9 Anemia, unspecified type B20 History of HIV infection (HCC) COMPARISON: Chest x-ray 11/24/2021. CT abdomen and pelvis 11/24/2021. TECHNIQUE: CT examination of the chest without IV contrast. Coronal and sagittal reformations were performed. Dose reduction techniques were achieved by using automated exposure control and/or adjustment of mA and/or kV according to patient size and/or use of iterative reconstruction technique. FINDINGS: The visualized portions of the thyroid and thoracic inlet are unremarkable. No enlarged supraclavicular or axillary lymphadenopathy by CT criteria. No enlarged mediastinal or hilar lymphadenopathy noted on this noncontrast study. The aorta and central pulmonary arteries are normal caliber. Heart size is within normal limits. No pericardial effusion. The trachea and central airways are patent. The lungs are clear without focal airspace consolidation. No pneumothorax or pleural effusion. Visualized portion of the upper abdomen unremarkable. No acute osseous abnormalities. No acute CT abnormality noted in the chest. [employer] Workstation ID: [id number] XR Chest 1 View Result Date: 11/24/2021 EXAMINATION: XR CHEST PA/AP 06/14/2021 1:19 pm HISTORY: ORDERING SYSTEM PROVIDED HISTORY: Chest pain rule out pneumonia, TECHNOLOGIST PROVIDED HISTORY: Illness/Other Reason for exam: Chest pain rule out pneumonia Cancer History: no Surgery, RadiationHistory: no heart/lung surg Encounter Type: Unknown Additional signs and symptoms: unknown ORDERING SYSTEM PROVIDED DIAGNOSIS CODES: COMPARISON: None FINDINGS: The heart size is normal. No dense focal consolidation, pneumothorax or pleural effusion is seen on this single view of the chest. No acute osseous abnormality is seen. No radiographic evidence for acute cardiopulmonary disease on this single view of the chest. Workstation ID: [id number] CT Abscess Drainage Renal Result Date: 11/25/2021 EXAMINATION: CT ABSCESS DRAINAGE RENAL HISTORY: ORDERING SYSTEM PROVIDED HISTORY: ct guided drainage of renal abscess, TECHNOLOGIST PROVIDED HISTORY: Illness/Other Reason for exam: renal abscess Encounter Type: Initial Additional signs and symptoms: n/a ORDERING SYSTEM PROVIDED DIAGNOSIS CODES: N15.1 Renal abscess, left A41.9 Sepsis, due to unspecified organism, unspecified whether acute organ dysfunction present (HCC) R10.12 Left upper quadrant abdominal pain D64.9 Anemia, unspecified type B20 History of HIV infection ([facility]) COMPARISON: CT abdomen and pelvis 11/24/2021. TECHNIQUE: Dose reduction techniques were achieved by using automated exposure control and/or adjustment of mA and/or kV according to patient size and/or use of iterative reconstruction technique. PROCEDURE: The risks (including bleeding, infection, and injury to adjacent structures), benefits, and alternatives to the procedure were discussed with the patient and informed consent was obtained. A time-out procedure was performed. The patient was placed on his right side on the CT table and the right perinephric collection was localized. The skin was prepped in the usual sterile fashion and 1% lidocaine was used to anesthetize the skin and subcutaneous tissues. Under CT guidance, a 15-gauge introducer needle was inserted into the collection with return of purulent material. A J-wire was inserted and the needle exchanged for serial dilators followed by a 10-Scottish pigtail catheter. The catheter was sutured in place and secured with a skin adhesive device. Catheter was then attached to a bulb suction device. The patient tolerated the procedure well. No immediate complications. PROCEDURAL SEDATION: Moderate sedation with continuous physiological monitoring was performed utilizing intravenous Versed and fentanyl with direct physician and RN supervision beginning at 0937 hours and ending at 1011 hours. CONCLUSION: CT-guided drain placement into left perinephric abscess. Procedural sedation. [facility]/lab Workstation ID: [id number] CT Abdomen Pelvis With IV Contrast Only Result Date: 11/24/2021 EXAMINATION: ENHANCED CT SCAN OF THE ABDOMEN AND PELVIS: 11/24/2021. HISTORY: Injury/Trauma or Illness?:Illness/Other How long have you had these symptoms (acute/chronic)?:Acute LUQ tenderness, hx of HIV COMPARISON FILMS: None. TECHNIQUE: 3.75 mm axial images from lung bases through ischial tuberosities following administration of intravenous contrast were obtained. Sagittal, coronal reconstructions were performed. Dose reduction techniques were achieved by using automated exposure control and/or adjustment of mA and/or kV according to patient size and/or use of iterative reconstruction technique. FINDINGS: Visualized lung bases, cardiac, posterior mediastinal structures seem normal. CT ABDOMEN: The liver, gallbladder, spleen, pancreas, adrenal glands, right kidney appears normal. There is a large abscess involving upper to midpole posterolateral aspect of the left kidney, extending beyond the renal capsule in the overlying retroperitoneal/pararenal space, measuring 3.6 x 6.0 cm with some septations, enhancement of the periphery as well as the septations with average Hounsfield units of 39. This results in some mass effect on the renal parenchyma, as well as slightly less enhancement of the renal parenchyma beneath the sepsis. The rest of the left kidney is normal. The abdominal aorta has normal caliber. There is no significant retroperitoneal or mesenteric adenopathy. The bowel loops are of normal caliber. Normal appendix is not seen with confidence. CT PELVIS: The bladder, prostate, seminal vesicles appear normal. There is no pelvic adenopathy. There are no focal fluid collections. The visualized osseous structures seem normal. 1. There is an abscess involving upper to mid to lower pole of the left kidney along its lateral border extending beyond the renal capsule in the overlying pararenal space. There is no hydronephrosis of the left kidney. 2. No nephro or ureterolithiasis. 3. Normal appendix is not seen but no secondary signs of acute appendicitis. [facility] Workstation ID: [id number] Assessment and Plan:1)renal abscess 2)HIV 3)fever 4)tobacco abuse All labs and cultures reviewed. Continue empiric atb. Await cultures from vir drainage of abscess. To po atb as able. Check HIV genotype; he would benefit from restarting HAART. I appreciate the opportunity to participate in his care, and will follow along with you. Neo Lam M.D. [facility] 11-25-2021 Nurse procedure note Signed by: Carmen Astudillo; Performed at: 11/25/21 0934; Procedures: left kidney abscess drainage with drain placement Correct Patient: Yes; Correct Site: Yes; Correct Laterality: Yes; Correct Procedure: Yes; Correct Position: Yes [facility] 11-25-2021 Note Formatting of this n ote might be different from the original. Problem: Actual or potential alteration in health Goal: Absence of healthcare acquired conditions Outcome: Partially Met Goal: Knowledge of Interdisciplinary Plan of Care Outcome: Partially Met Goal: Knowledge of Enviroment Outcome: Partially Met Problem: Pain Goal: Manage acute pain Outcome: Partially Met Goal: Manage chronic pain Outcome: Partially Met Goal: Reduced pain sensation Outcome: Partially Met Goal: Achievement of comfort function goal Outcome: Partially Met Problem: Septic Shock, Risk of Goal: Absence of infection signs and symptoms Outcome: Partially Met Goal: goal Outcome: Partially Met Problem: Venous Thromboembolism, Risk of Goal: Absence of venous thromboembolism Outcome: Partially Met Problem: Plan for Discharge Goal: Knowledge of discharge plan and instructions Outcome: Partially Met [facility] 11-24-2021 History and physical note [facility] HISTORY AND PHYSICAL Patient Name: Ced Hernandez : 03/11/1988 MR #: [id number] Admit Date: 11/24/2021 Physicians: Freddy Samson MD (Family); No ref. provider found (Referring) Ced Hernandez is a 33 y.o. male patient of Freddy Samson MD with history of HIV not on antiretrovirals for 4 years, tobacco abuse presented with fever, cough, shortness of breath, body aches, left flank pain Sepsis Renal abscess Patient not on antiretroviral therapy for 4 years. T-max 101.6, HR 136 on presentation, normal lactic acid and white count CT abdomen showing There is an abscess involving upper to mid to lower pole of the left kidney along its lateral border extending beyond the renal capsule in the overlying pararenal space. Blood cultures x2 pending, ordered UA and urine cultures 2L fluid bolus given, continue with NS @125 ml/hr Started IV Zosyn in ED. Will continue. Ordered IV vancomycin IV voriconazole x1 dose ordered given immunocompromised status . consult ID for antibiotic management Chest [id number]. Given respiratory symptoms will check CT chest without contrast. ED discussed case with urology who recommends VIR consult. ED discussed with VIR. Consult VIR for CT guided abscess drainage AIDS HIV positive history. not on antiretroviral therapy for 4 years. Previously followed with [facility] for HIV treatment. Consult ID for further recommendations and management Ordered CD4 and HIV viral quantification Methamphetamine use with dependence Last smoked methamphetamine today. Ordered UDS Monitor for withdrawal Hyponatremia Sodium 130 Monitor response to fluids If no improvement or worsening can expand work up Admitted From: home Medication Reconciliation: Verified Code Status: full code Quality Measures DVT Prophylaxis: lovenox (ordered starting 11/26) [place] Catheter: absent Select if patient admitted to non-critical care location with primary problem that is cardiac in nature The following Vizient risk variables were noted and present on admission: Hyponatremia Please see assessment and plan for further details. Chief Complaint fever, cough, shortness of breath, body aches and fatigue History of Present Illness Ced Hernandez is a 33 y.o. male patient of Freddy Samson MD with history of HIV not on antiretrovirals for 4 years, tobacco abuse presented with fever, cough, shortness of breath, body aches, left flank pain for a week. He denies any hemoptysis. Cough with mild productive sputum. He has history of HIV and has not been on antiretroviral therapy for 4 weeks. Patient states he followed with [facility] for treatment. Patient states he had to go to [place] to fill his medications so he quit taking them. He denies any other complaints or concerns. Past Medical History Past Medical History: Diagnosis Date HIV disease (HCC) 2011 HIV + - on antiretrovirals since HIV positive (HCC) 2011 antiretrovirals Nephrolithiasis passed Tobacco abuse Past Surgical History Past Surgical History: Procedure Laterality Date COLONOSCOPY COLPOSCOPY N/A 09/16/2015 Procedure: HIGH RESOLUTION ANOSCOPY ; Surgeon: Ezequiel Martines MD; [place] [facility]; Service: FULGURATION CONDYLOMA RECTAL WITH LASER N/A 09/16/2015 Procedure: CONDYLOMA RECTAL FULGURATION CO2 LASER; Surgeon: Ezequiel Martines MD; Location: [facility]; Service: WISDOM TOOTH EXTRACTION Family History Family History Adopted: Yes Family history unknown: Yes Social History Social History Tobacco Use Smoking Status Current Every Day Smoker Packs/day: 1.00 Years: 10.00 Pack years: 10.00 Smokeless Tobacco Not on file Social History Substance and Sexual Activity Alcohol Use Yes Comment: rarely Social History Substance and Sexual Activity Drug Use Yes Types: Marijuana, Methamphetamines Comment: occasionally- denies IVDA Allergy Information I have reviewed the patient's allergies. Patient has no known allergies. Home Medications Home medications were reviewed. Review Of Systems All systems have been reviewed and are negative except as noted in HPI or below Physical Examination BP 113/61 (BP Location: Right arm, Patient Position: Lying) Pulse 93 Temp 98.7 F (37.1 C) (Oral) Resp 16 Ht 5' 8 Wt 62.1 kg (137 lb) SpO2 100% BMI 20.83 kg/m General Appearance: alert; acutely ill appearing; in mild acute distress HEENT: Head- normocephalic; Eyes- EOMI, sclera anicteric; Ears- hearing intact; Nose- no nasal discharge; Throat- mucous membranes moist Cardiovascular: regular rate and rhythm; normal S1, S2; no murmurs, rubs, clicks or gallops; no peripheral edema Respiratory: lungs clear to auscultation; without wheezes, rales or rhonchi; on room air Abdomen: soft, non-tender, non-distended; positive bowel sounds Neurological: oriented x 3; normal speech; no focal findings or movement disorder noted Musculoskeletal: no significant deformity or tenderness to palpation Skin: normal coloration; no obvious rashes, lesions or skin breakdown Psych: normal mood and affect Laboratory and Additional Data Reviewed Laboratory 11/25/21 12:22 AM Microbiology 11/25/21 12:22 AM Radiology 11/25/21 12:22 AM Cardiology 11/25/21 12:22 AM Medications 11/25/21 12:22 AM Transcriptions 11/25/21 12:22 AM [facility] 11-24-2021 History and physical note [facility] HISTORY AND PHYSICAL Patient Name: Ced Hernandez : 03/11/1988 MR #: [id number] Admit Date: 11/24/2021 Physicians: Freddy Samson MD (Family); No ref. provider found (Referring) Ced Hernandez is a 33 y.o. male patient of Freddy Samson MD with history of HIV not on antiretrovirals for 4 years, tobacco abuse presented with fever, cough, shortness of breath, body aches, left flank pain Sepsis Renal abscess Patient not on antiretroviral therapy for 4 years. T-max 101.6, HR 136 on presentation, normal lactic acid and white count CT abdomen showing There is an abscess involving upper to mid to lower pole of the left kidney along its lateral border extending beyond the renal capsule in the overlying pararenal space. Blood cultures x2 pending, ordered UA and urine cultures 2L fluid bolus given, continue with NS @125 ml/hr Started IV Zosyn in ED. Will continue. Ordered IV vancomycin IV voriconazole x1 dose ordered given immunocompromised status . consult ID for antibiotic management Chest [id number]. Given respiratory symptoms will check CT chest without contrast. ED discussed case with urology who recommends VIR consult. ED discussed with VIR. Consult VIR for CT guided abscess drainage AIDS HIV positive history. not on antiretroviral therapy for 4 years. Previously followed with [facility] for HIV treatment. Consult ID for further recommendations and management Ordered CD4 and HIV viral quantification Methamphetamine use with dependence Last smoked methamphetamine today. Ordered UDS Monitor for withdrawal Hyponatremia Sodium 130 Monitor response to fluids If no improvement or worsening can expand work up Admitted From: home Medication Reconciliation: Verified Code Status: full code Quality Measures DVT Prophylaxis: lovenox (ordered starting 11/26) [place] Catheter: absent Select if patient admitted to non-critical care location with primary problem that is cardiac in nature The following Vizient risk variables were noted and present on admission: Hyponatremia Please see assessment and plan for further details. Chief Complaint fever, cough, shortness of breath, body aches and fatigue History of Present Illness Ced Hernandez is a 33 y.o. male patient of Freddy Samson MD with history of HIV not on antiretrovirals for 4 years, tobacco abuse presented with fever, cough, shortness of breath, body aches, left flank pain for a week. He denies any hemoptysis. Cough with mild productive sputum. He has history of HIV and has not been on antiretroviral therapy for 4 weeks. Patient states he followed with [facility] for treatment. Patient states he had to go to [place] to fill his medications so he quit taking them. He denies any other complaints or concerns. Past Medical History Past Medical History: Diagnosis Date HIV disease (HCC) 2011 HIV + - on antiretrovirals since HIV positive (HCC) 2011 antiretrovirals Nephrolithiasis passed Tobacco abuse Past Surgical History Past Surgical History: Procedure Laterality Date COLONOSCOPY COLPOSCOPY N/A 09/16/2015 Procedure: HIGH RESOLUTION ANOSCOPY ; Surgeon: Ezequiel Martines MD; [place] [facility] [place]; Service: FULGURATION CONDYLOMA RECTAL WITH LASER N/A 09/16/2015 Procedure: CONDYLOMA RECTAL FULGURATION CO2 LASER; Surgeon: Ezequiel Martines MD; [place] [facility] [place]; Service: WISDOM TOOTH EXTRACTION Family History Family History Adopted: Yes Family history unknown: Yes Social History Social History Tobacco Use Smoking Status Current Every Day Smoker Packs/day: 1.00 Years: 10.00 Pack years: 10.00 Smokeless Tobacco Not on file Social History Substance and Sexual Activity Alcohol Use Yes Comment: rarely Social History Substance and Sexual Activity Drug Use Yes Types: Marijuana, Methamphetamines Comment: occasionally- denies IVDA Allergy Information I have reviewed the patient's allergies. Patient has no known allergies. Home Medications Home medications were reviewed. Review Of Systems All systems have been reviewed and are negative except as noted in HPI or below Physical Examination BP 113/61 (BP Location: Right arm, Patient Position: Lying) Pulse 93 Temp 98.7 F (37.1 C) (Oral) Resp 16 Ht 5' 8 Wt 62.1 kg (137 lb) SpO2 100% BMI 20.83 kg/m General Appearance: alert; acutely ill appearing; in mild acute distress HEENT: Head- normocephalic; Eyes- EOMI, sclera anicteric; Ears- hearing intact; Nose- no nasal discharge; Throat- mucous membranes moist Cardiovascular: regular rate and rhythm; normal S1, S2; no murmurs, rubs, clicks or gallops; no peripheral edema Respiratory: lungs clear to auscultation; without wheezes, rales or rhonchi; on room air Abdomen: soft, non-tender, non-distended; positive bowel sounds Neurological: oriented x 3; normal speech; no focal findings or movement disorder noted Musculoskeletal: no significant deformity or tenderness to palpation Skin: normal coloration; no obvious rashes, lesions or skin breakdown Psych: normal mood and affect Laboratory and Additional Data Reviewed Laboratory 11/25/21 12:22 AM Microbiology 11/25/21 12:22 AM Radiology 11/25/21 12:22 AM Cardiology 11/25/21 12:22 AM Medications 11/25/21 12:22 AM Transcriptions 11/25/21 12:22 AM documented in this encounter [facility] 11-24-2021 Note Associated Order(s): EKG 12-lead EKG 12-lead Date/Time: 11/24/2021 11:02 PM Performed by: Amisha Martinez DO Authorized by: Jarret Fsiher MD Interpreted by ED attending physician Comparison: not compared with previous ECG Previous ECG: no previous ECG available Rhythm: sinus tachycardia BPM: 124 Clinical impression: sinus tachycardia Comments: Sinus tachycardia, rate of 124, rightward axis, NE interval of 120, QRS duration of 80, QTC of 413, signs of early repolarization without ST segment elevations, normal T waves no ectopy [facility] 11-24-2021 Note Associated Order(s): Critical Care Critical Care Performed by: Jarret Fisher MD Authorized by: Jarret Fisher MD Total critical care time: 45 minutes Critical care time was exclusive of separately billable procedures and treating other patients and teaching time. Critical care was necessary to treat or prevent imminent or life-threatening deterioration of the following conditions: sepsis. Critical care was time spent personally by me on the following activities: review of old charts, ordering and review of laboratory studies, ordering and review of radiographic studies, examination of patient, development of treatment plan with patient or surrogate, obtaining history from patient or surrogate and discussions with consultants. [facility] Work Phone: 11-24-2021 Note Formatting of this n ote might be different from the original. ED Attestation: I have reviewed the resident's documentation. In addition, I have personally introduced myself to the patient, and have taken his history and performed an examination. I agree with the physical findings, management, clinical impression and disposition. In brief, Ced Hernandez is a 33 y.o. male who presents with a chief complaint of Shortness of Breath. This a 33-year-old male with a history of HIV, says he had previously been on antiretrovirals, but has not been on anything for several years, does have a history of methamphetamine abuse last smoked methamphetamine today, denies any IV drug use. Patient initially presented to the hospital today with chief complaint of shortness of breath, patient was found to be febrile with temperatures 101.6 and was tachycardic to 136. Because of his history of HIV that has not been treated for several years, I recommend we do a broad-spectrum work-up. He was complaining of the left lower quadrant/left upper quadrant abdominal pain as well. Given that he has a compromised immune system recommended a full septic work-up including chest x-ray urinalysis urine culture blood cultures and a CT of the abdomen pelvis. CT and abdomen pelvis was remarkable for an abscess of the kidney. We will start him on broad-spectrum antibiotics, given the source of infection, tachycardia and fever he does meet sepsis criteria. This case will be discussed with urology, anticipate admission to medicine service with urology consult, may also require VIR placement of a drain resident procedure attestation: Ced Hernandez had the following procedure done: EKG interpretation. I was available for the critical portion of the procedure, in addition to being immediately available in the ED for the remainder of the procedure. He tolerated the procedure well, with no major complications. Jarret Fisher MD ED Attending Physician (Please note that portions of this note have been completed with a voice recognition software. Efforts were made to correct any errors, but occasionally words are mis-transcribed.) [facility] 11-24-2021 Physician Emergency department Note [facility] INTENSIVE CARE STEP DOWN RESIDENT NOTE: NAME: Ced Hernandez CSN: [id number] 33 y.o. PCP: Freddy Samson MD History: Chief Complaint: Shortness of Breath HPI: 33-year-old male, reports a history of HIV has not been on antiviral therapy in years, presenting to the emergency department with a chief concern of shortness of breath, body aches and intermittent fevers and chills for approximately 1 week. He denied any personal history of asthma or COPD. Patient states that he has had a cough with productive white sputum. He states that he has had intermittent left lower rib pain and left upper quadrant abdominal pain. Patient stated that the pain was constant aching. He denied any exacerbating or alleviating factors for his symptoms. He stated that the left upper quadrant abdominal pain did not radiate. Patient reported that he was concerned for potential pneumonia. He denied ever having pneumonia in the past but that this could be why he is having a cough with shortness of breath. He denied any symptoms of nausea, vomiting, dysuria, hematuria, urinary frequency, constipation or diarrhea, lower extremity pain or lower extremity swelling. Patient denies taking any antiviral medications at this time or any medications at all. Patient did report a history of kidney stones with his last kidney stone occurring approximately 2 years ago. He states that the pain that he is experiencing currently does not feel similar to his kidney stone pain. The history was obtained from the patient. PMHx: Past Medical History: Diagnosis Date HIV disease ([facility]) 2011 HIV + - on antiretrovirals since HIV positive ([facility]) 2011 antiretrovirals Nephrolithiasis passed Tobacco abuse PMSx: Past Surgical History: Procedure Laterality Date COLONOSCOPY COLPOSCOPY N/A 09/16/2015 Procedure: HIGH RESOLUTION ANOSCOPY ; Surgeon: Ezequiel Martines MD; [place] [facility] [place]; Service: FULGURATION CONDYLOMA RECTAL WITH LASER N/A 09/16/2015 Procedure: CONDYLOMA RECTAL FULGURATION CO2 LASER; Surgeon: Ezequiel Martines MD; [place] [facility] [facility]; Service: WISDOM TOOTH EXTRACTION FAM. Hx: Family History Adopted: Yes Family history unknown: Yes SOC. Hx: Current every day smoker. Uses alcohol. Uses marijuana and methamphetamines denies IV drug use. MEDs: Previous Medications Medication Sig dolutegravir (TIVICAY) 50 mg tablet Take 50 mg by mouth daily dronabinol (MARINOL) 5 MG capsule Take 5 mg by mouth 2 (two) times a day before meals Ran out--1 1/2 weeks ago ALL: No Known Allergies ROS: Review of Systems Constitutional: Negative for chills and fever. HENT: Negative for rhinorrhea and sore throat. Eyes: Negative for visual disturbance. Respiratory: Positive for cough and shortness of breath. Cardiovascular: Negative for chest pain and palpitations. Gastrointestinal: Positive for abdominal pain and nausea. Negative for diarrhea and vomiting. Genitourinary: Negative for dysuria and hematuria. Musculoskeletal: Negative for arthralgias and joint swelling. Skin: Negative for rash. Neurological: Negative for light-headedness and headaches. Psychiatric/Behavioral: Negative for behavioral problems, confusion and suicidal ideas. Positives and pertinent negatives as per HPI. A complete 11 system ROS was performed as above. All other systems were reviewed and are negative. Physical Exam: Patient Vitals for the past 24 hrs: BP Temp Temp src Pulse Resp SpO2 Height Weight 11/24/217 -- -- -- -- 18 -- -- -- 11/24/212344 113/70 98.6 F (37 C) Oral 96 18 100 % 5' 8 55.6 kg (122 lb 9.2 oz) 11/24/213 113/61 -- -- 93 16 100 % -- -- 11/24/212138 -- 98.7 F (37.1 C) Oral -- -- -- -- -- 11/24/212129 113/82 -- -- 96 -- 100 % -- -- 11/24/212099 116/62 -- -- (!) 107 -- 99 % -- -- 11/24/212014 117/68 -- -- (!) 109 -- 100 % -- -- 11/24/21 194 -- -- -- (!) 116 -- 100 % -- -- 11/24/211847 -- -- -- -- -- -- 5' 8 62.1 kg (137 lb) 11/24/211842 123/72 (!) 101.6 F (38.7 C) Oral (!) 136 16 98 % 5' 8 62.1 kg (137 lb) Physical Exam Vitals and nursing note reviewed. Constitutional: Appearance: Normal appearance. He is ill-appearing and diaphoretic. Comments: Very thin male HENT: Head: Normocephalic and atraumatic. Nose: Nose normal. Mouth/Throat: Mouth: Mucous membranes are moist. Pharynx: No pharyngeal swelling or oropharyngeal exudate. Eyes: General: Lids are normal. No scleral icterus. Cardiovascular: Rate and Rhythm: Regular rhythm. Tachycardia present. Heart sounds: No murmur heard. Pulmonary: Effort: Pulmonary effort is normal. No respiratory distress. Breath sounds: No wheezing. Chest: Chest wall: No tenderness or crepitus. Abdominal: General: Bowel sounds are normal. Palpations: Abdomen is soft. Tenderness: There is abdominal tenderness (LUQ tenderness). There is left CVA tenderness. There is no right CVA tenderness, guarding or rebound. Musculoskeletal: Right lower leg: No edema. Left lower leg: No edema. Skin: General: Skin is warm. Findings: No rash. Neurological: General: No focal deficit present. Mental Status: He is alert and oriented to person, place, and time. Motor: Motor function is intact. Psychiatric: Attention and Perception: Attention normal. Mood and Affect: Mood normal. Behavior: Behavior normal. Behavior is cooperative. Laboratory & Radiological Imaging (if done): Labs Reviewed BASIC METABOLIC PANEL - Abnormal; Notable for the following components: Result Value Sodium 130 (*) Chloride 93 (*) Glucose 111 (*) All other components within normal limits Narrative: The eGFR should be used for monitoring renal function only and not for medication dosing. HEPATIC FUNCTION PANEL - Abnormal; Notable for the following components: Total Protein 8.5 (*) All other components within normal limits CBC WITH AUTO DIFFERENTIAL - Abnormal; Notable for the following components: Hemoglobin 13.0 (*) Platelets 411 (*) MPV 9.3 (*) Neutrophils Abs 7.15 (*) Monocytes Abs 0.94 (*) All other components within normal limits COVID-19/INFLUENZA A,B MOLECULAR - Normal Narrative: This test was performed under the FDA's Emergency Use Authorization (EUA). Testing was performed using the [employer] [facility] SARS-CoV-2 RT-PCR & Influenza A/B Nucleic Acid Test on the [facility] System. This test has not been approved for use in asymptomatic patients and its performance in this patient population has not been evaluated. Negative results do not rule out the presence of SARS-CoV-2, influenza A, and/or influenza B. Fact sheets for the EUA can be found at the following links: For Healthcare Providers: https://www.fda.gov/media/475975 /download For Patients: https://www.fda.gov/media/112959 /download LIPASE - Normal LACTIC ACID, PLASMA - Normal BLOOD CULTURE AEROBIC/ANAEROBIC BLOOD CULTURE AEROBIC/ANAEROBIC URINE AEROBIC CULTURE CBC AND DIFFERENTIAL Narrative: The following orders were created for panel order CBC w/ Diff. Procedure Abnormality Status --------- ------ CBC Auto Differential[[id number]] Abnormal Final result Please view results for these tests on the individual orders. URINALYSIS COMPREHENSIVE METABOLIC PANEL CBC MAGNESIUM LEVEL DRUGS OF ABUSE SCREEN, URINE HIV-1 VIRUS QUANTITATION T-HELPER CELLS CD4 CT Abdomen Pelvis With IV Contrast Only Final Result 1. There is an abscess involving upper to mid to lower pole of the left kidney along its lateral border extending beyond the renal capsule in the overlying pararenal space. There is no hydronephrosis of the left kidney. 2. No nephro or ureterolithiasis. 3. Normal appendix is not seen but no secondary signs of acute appendicitis. [facility] Workstation ID: [id number] XR Chest 1 View Final Result No radiographic evidence for acute cardiopulmonary disease on this single view of the chest. Workstation ID: [id number] CT Abscess Drainage Renal (Results Pending) CT Chest Without Contrast (Results Pending) Procedures: Procedures Not Applicable. ED Course / Medical Decision Making: ED Course as of 11/25/21 [id number], [id number] HGB(!): 13.0 [MT] 2033 Chest Xray: No radiographic evidence for acute cardiopulmonary disease on this single view of the chest. [MT] 2135 SODIUM(!): 130 [MT] 2210 CT ABD Pelvis: There is an abscess involving upper to mid to lower pole of the left kidney along its lateral border extending beyond the renal capsule in the overlying pararenal space. There is no hydronephrosis of the left kidney. No nephro or ureterolithiasis. Normal appendix is not seen but no secondary signs of acute appendicitis. [MT] ED Course User Index [MT] Amisha Martinez DO 33-year-old male, reports a history of HIV has not been on antiviral therapy in years, presenting to the emergency department with a chief concern of shortness of breath, body aches and intermittent fevers and chills for approximately 1 week. Differential diagnosis for this patient's symptoms did include pneumonia, diverticulitis, interabdominal abscess, hepatitis, pancreatitis, sepsis, nephrolithiasis. Clinical exam was concerning for intrathoracic versus intra-abdominal pathology given the patient's broad spectrum of complaints and ill appearance. Patient's work-up in the emergency department was significant for a left renal abscess which will require IR intervention. Patient was started on IV Zosyn he was given 2 L of IV fluids which meets the 30 cc/kg requirements for sepsis based on his weight. I did have a discussion with Dr. Olson, urologist, regarding the patient's presentation who stated that there would not be any acute urologic intervention. He stated if the patient is stable he will require IR drainage of this abscess and was agreeable with the plan to continue IV fluids and antibiotics. A discussion was had with [facility] IR regarding the patient's condition. They stated that if the patient is not hypotensive and requiring an emergent drainage with ICU care that it is likely [facility] IR capabilities can handle the patient's clinical case tomorrow. Patient's blood pressure was within normal limits without any episodes of hypotension while in the emergency department. Patient's tachycardia did improve with Tylenol and IV fluid hydration. Is determined that the patient was stable and could undergo IR procedure at [facility] after observation in the stepdown unit. A discussion was had with [facility] doc on-call regarding the patient's presentation, [facility] doc on-call Dr. Parks accepted the patient to their service. . . Clinical Impression: 1. Renal abscess, left 2. Sepsis, due to unspecified organism, unspecified whether acute organ dysfunction present (HCC) 3. Left upper quadrant abdominal pain 4. Anemia, unspecified type 5. History of HIV infection (HCC) Disposition: ED Disposition ED Disposition Hospitalize Condition -- Comment Reason for inpatient over two midnights: for iV antibiotics and VIR drainage of abscess Amisha Martinez DO Emergency Medicine Resident PGY-1 Patient seen and discussed with Dr. Fisher. (Please note that portions of this note have been completed with a voice recognition software. Efforts were made to correct any errors, but occasionally words are mis-transcribed.) Amisha Martinez DO Resident 11/25/2121 [facility] Work Phone: 11-24-2021 Emergency department Note [facility] INTENSIVE CARE STEP DOWN RESIDENT NOTE: NAME: Ced Hernadnez CSN: [id number] 33 y.o. PCP: Freddy Samson MD History: Chief Complaint: Shortness of Breath HPI: 33-year-old male, reports a history of HIV has not been on antiviral therapy in years, presenting to the emergency department with a chief concern of shortness of breath, body aches and intermittent fevers and chills for approximately 1 week. He denied any personal history of asthma or COPD. Patient states that he has had a cough with productive white sputum. He states that he has had intermittent left lower rib pain and left upper quadrant abdominal pain. Patient stated that the pain was constant aching. He denied any exacerbating or alleviating factors for his symptoms. He stated that the left upper quadrant abdominal pain did not radiate. Patient reported that he was concerned for potential pneumonia. He denied ever having pneumonia in the past but that this could be why he is having a cough with shortness of breath. He denied any symptoms of nausea, vomiting, dysuria, hematuria, urinary frequency, constipation or diarrhea, lower extremity pain or lower extremity swelling. Patient denies taking any antiviral medications at this time or any medications at all. Patient did report a history of kidney stones with his last kidney stone occurring approximately 2 years ago. He states that the pain that he is experiencing currently does not feel similar to his kidney stone pain. The history was obtained from the patient. PMHx: Past Medical History: Diagnosis Date HIV disease (HCC) 2011 HIV + - on antiretrovirals since HIV positive (HCC) 2012 antiretrovirals Nephrolithiasis passed Tobacco abuse PMSx: Past Surgical History: Procedure Laterality Date COLONOSCOPY COLPOSCOPY N/A 09/16/2015 Procedure: HIGH RESOLUTION ANOSCOPY ; Surgeon: Ezequiel Martines MD; [place] [facility]; Service: FULGURATION CONDYLOMA RECTAL WITH LASER N/A 09/16/2015 Procedure: CONDYLOMA RECTAL FULGURATION CO2 LASER; Surgeon: Ezequiel Martines MD; [place] [facility]; Service: WISDOM TOOTH EXTRACTION FAM. Hx: Family History Adopted: Yes Family history unknown: Yes SOC. Hx: Current every day smoker. Uses alcohol. Uses marijuana and methamphetamines denies IV drug use. MEDs: Previous Medications Medication Sig dolutegravir (TIVICAY) 50 mg tablet Take 50 mg by mouth daily dronabinol (MARINOL) 5 MG capsule Take 5 mg by mouth 2 (two) times a day before meals Ran out--1 1/2 weeks ago ALL: No Known Allergies ROS: Review of Systems Constitutional: Negative for chills and fever. HENT: Negative for rhinorrhea and sore throat. Eyes: Negative for visual disturbance. Respiratory: Positive for cough and shortness of breath. Cardiovascular: Negative for chest pain and palpitations. Gastrointestinal: Positive for abdominal pain and nausea. Negative for diarrhea and vomiting. Genitourinary: Negative for dysuria and hematuria. Musculoskeletal: Negative for arthralgias and joint swelling. Skin: Negative for rash. Neurological: Negative for light-headedness and headaches. Psychiatric/Behavioral: Negative for behavioral problems, confusion and suicidal ideas. Positives and pertinent negatives as per HPI. A complete 11 system ROS was performed as above. All other systems were reviewed and are negative. Physical Exam: Patient Vitals for the past 24 hrs: BP Temp Temp src Pulse Resp SpO2 Height Weight 11/24/217 -- -- -- -- 18 -- -- -- 11/24/21 2345 113/70 98.6 F (37 C) Oral 96 18 100 % 5' 8 55.6 kg (122 lb 9.2 oz) 11/24/213 113/61 -- -- 93 16 100 % -- -- 11/24/212138 -- 98.7 F (37.1 C) Oral -- -- -- -- -- 11/24/212129 113/82 -- -- 96 -- 100 % -- -- 11/24/212099 116/62 -- -- (!) 107 -- 99 % -- -- 11/24/212014 117/68 -- -- (!) 109 -- 100 % -- -- 11/24/211944 -- -- -- (!) 116 -- 100 % -- -- 11/24/211847 -- -- -- -- -- -- 5' 8 62.1 kg (137 lb) 11/24/211842 123/72 (!) 101.6 F (38.7 C) Oral (!) 136 16 98 % 5' 8 62.1 kg (137 lb) Physical Exam Vitals and nursing note reviewed. Constitutional: Appearance: Normal appearance. He is ill-appearing and diaphoretic. Comments: Very thin male HENT: Head: Normocephalic and atraumatic. Nose: Nose normal. Mouth/Throat: Mouth: Mucous membranes are moist. Pharynx: No pharyngeal swelling or oropharyngeal exudate. Eyes: General: Lids are normal. No scleral icterus. Cardiovascular: Rate and Rhythm: Regular rhythm. Tachycardia present. Heart sounds: No murmur heard. Pulmonary: Effort: Pulmonary effort is normal. No respiratory distress. Breath sounds: No wheezing. Chest: Chest wall: No tenderness or crepitus. Abdominal: General: Bowel sounds are normal. Palpations: Abdomen is soft. Tenderness: There is abdominal tenderness (LUQ tenderness). There is left CVA tenderness. There is no right CVA tenderness, guarding or rebound. Musculoskeletal: Right lower leg: No edema. Left lower leg: No edema. Skin: General: Skin is warm. Findings: No rash. Neurological: General: No focal deficit present. Mental Status: He is alert and oriented to person, place, and time. Motor: Motor function is intact. Psychiatric: Attention and Perception: Attention normal. Mood and Affect: Mood normal. Behavior: Behavior normal. Behavior is cooperative. Laboratory & Radiological Imaging (if done): Labs Reviewed BASIC METABOLIC PANEL - Abnormal; Notable for the following components: Result Value Sodium 130 (*) Chloride 93 (*) Glucose 111 (*) All other components within normal limits Narrative: The eGFR should be used for monitoring renal function only and not for medication dosing. HEPATIC FUNCTION PANEL - Abnormal; Notable for the following components: Total Protein 8.5 (*) All other components within normal limits CBC WITH AUTO DIFFERENTIAL - Abnormal; Notable for the following components: Hemoglobin 13.0 (*) Platelets 411 (*) MPV 9.3 (*) Neutrophils Abs 7.15 (*) Monocytes Abs 0.94 (*) All other components within normal limits COVID-19/INFLUENZA A,B MOLECULAR - Normal Narrative: This test was performed under the FDA's Emergency Use Authorization (EUA). Testing was performed using the [facility] SARS-CoV-2 RT-PCR & Influenza A/B Nucleic Acid Test on the [facility] System. This test has not been approved for use in asymptomatic patients and its performance in this patient population has not been evaluated. Negative results do not rule out the presence of SARS-CoV-2, influenza A, and/or influenza B. Fact sheets for the EUA can be found at the following links: For Healthcare Providers: https://www.fda.gov/media/670937 /download For Patients: https://www.fda.gov/media/617171 /download LIPASE - Normal LACTIC ACID, PLASMA - Normal BLOOD CULTURE AEROBIC/ANAEROBIC BLOOD CULTURE AEROBIC/ANAEROBIC URINE AEROBIC CULTURE CBC AND DIFFERENTIAL Narrative: The following orders were created for panel order CBC w/ Diff. Procedure Abnormality Status --------- ------ CBC Auto Differential[[id number]] Abnormal Final result Please view results for these tests on the individual orders. URINALYSIS COMPREHENSIVE METABOLIC PANEL CBC MAGNESIUM LEVEL DRUGS OF ABUSE SCREEN, URINE HIV-1 VIRUS QUANTITATION T-HELPER CELLS CD4 CT Abdomen Pelvis With IV Contrast Only Final Result 1. There is an abscess involving upper to mid to lower pole of the left kidney along its lateral border extending beyond the renal capsule in the overlying pararenal space. There is no hydronephrosis of the left kidney. 2. No nephro or ureterolithiasis. 3. Normal appendix is not seen but no secondary signs of acute appendicitis. [facility] Workstation ID: [id number] XR Chest 1 View Final Result No radiographic evidence for acute cardiopulmonary disease on this single view of the chest. Workstation ID: [id number] CT Abscess Drainage Renal (Results Pending) CT Chest Without Contrast (Results Pending) Procedures: Procedures Not Applicable. ED Course / Medical Decision Making: ED Course as of 11/25/21 0022 Mon Nov 24, [id number] HGB(!): 13.0 [MT] 2033 Chest Xray: No radiographic evidence for acute cardiopulmonary disease on this single view of the chest. [MT] 2135 SODIUM(!): 130 [MT] 2210 CT ABD Pelvis: There is an abscess involving upper to mid to lower pole of the left kidney along its lateral border extending beyond the renal capsule in the overlying pararenal space. There is no hydronephrosis of the left kidney. No nephro or ureterolithiasis. Normal appendix is not seen but no secondary signs of acute appendicitis. [MT] ED Course User Index [MT] Amisha Martinez DO 33-year-old male, reports a history of HIV has not been on antiviral therapy in years, presenting to the emergency department with a chief concern of shortness of breath, body aches and intermittent fevers and chills for approximately 1 week. Differential diagnosis for this patient's symptoms did include pneumonia, diverticulitis, interabdominal abscess, hepatitis, pancreatitis, sepsis, nephrolithiasis. Clinical exam was concerning for intrathoracic versus intra-abdominal pathology given the patient's broad spectrum of complaints and ill appearance. Patient's work-up in the emergency department was significant for a left renal abscess which will require IR intervention. Patient was started on IV Zosyn he was given 2 L of IV fluids which meets the 30 cc/kg requirements for sepsis based on his weight. I did have a discussion with Dr. Olson, urologist, regarding the patient's presentation who stated that there would not be any acute urologic intervention. He stated if the patient is stable he will require IR drainage of this abscess and was agreeable with the plan to continue IV fluids and antibiotics. A discussion was had with [facility] IR regarding the patient's condition. They stated that if the patient is not hypotensive and requiring an emergent drainage with ICU care that it is likely [facility] IR capabilities can handle the patient's clinical case tomorrow. Patient's blood pressure was within normal limits without any episodes of hypotension while in the emergency department. Patient's tachycardia did improve with Tylenol and IV fluid hydration. Is determined that the patient was stable and could undergo IR procedure at [facility] after observation in the stepdown unit. A discussion was had with [facility] doc on-call regarding the patient's presentation, [facility] doc on-call Dr. Parks accepted the patient to their service. . . Clinical Impression: 1. Renal abscess, left 2. Sepsis, due to unspecified organism, unspecified whether acute organ dysfunction present (HCC) 3. Left upper quadrant abdominal pain 4. Anemia, unspecified type 5. History of HIV infection (HCC) Disposition: ED Disposition ED Disposition Hospitalize Condition -- Comment Reason for inpatient over two midnights: for iV antibiotics and VIR drainage of abscess Amisha Martinez DO Emergency Medicine Resident PGY-1 Patient seen and discussed with Dr. Fisher. (Please note that portions of this note have been completed with a voice recognition software. Efforts were made to correct any errors, but occasionally words are mis-transcribed.) Amisha Martinez DO Resident 11/25/2121 Bed: 32 Expected date: Expected time: Means of arrival: Comments: Pt to ED concerned for pnemonia. Reports SOB, cough, body aches, fever and intermittent CP x 1 week. States he works around a lot of people, unknown sick contact. Denies medications HUB BORER. Pt is febrile and tachycardic in triage. documented in this encounter [facility] 11-24-2021 Emergency department Note Bed: 32 Expected date: Expected time: Means of arrival: Comments: [facility] 11-24-2021 Emergency department Triage note Pt to ED concerned for pnemonia. Reports SOB, cough, body aches, fever and intermittent CP x 1 week. States he works around a lot of people, unknown sick contact. Denies medications HUB BORER. Pt is febrile and tachycardic in triage. [facility] Evaluation + Plan note No data available for this section [facility] Diagnosis Psychosis, unspecified psychosis type- Primary Symptoms of depression Amphetamine use Passive suicidal ideations Suicidal ideation HIV infection, unspecified symptom status Psychosis, unspecified psychosis type Fentanyl use disorder, mild HIV (human immunodeficiency virus infection) Asymptomatic human immunodeficiency virus (HIV) infection status Asymptomatic bacteriuria Other nonspecific finding on examination of urine Fentanyl use disorder, mild [facility] Psychosis, unspecified (HCC)- Primary Unspecified psychosis Thoughts of harming others Amphetamine misuse Noncompliance with medication regimen Personal history of noncompliance with medical treatment, presenting hazards to health History of schizophrenia Personal history of schizophrenia Stimulant use disorder COVID-19 documented in this encounter [facility] Discharge instructions No data available for this section [facility] data available for this section [facility] Summary Purpose Family History No Family History Records FoundNo Family History Records FoundNo Family History Records FoundNo Family History Records FoundNo Family History Records Found Advance Directives No Advanced Directives Records FoundDocuments on File Type Date 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 Advance Directives and Livin g Will 11/24/2021 7:51 PM Latest Code Status on File Code Status Date Activated Date Inactivated Comments Full Code 11/25/2021 12:01 AM 11/29/2021 8:53 PM Full Code - Unverified 11/24/2021 11:26 PM 11/25/2021 12 :00 AM Latest Code Status on File Code Status Date Activated Date Inactivated Comments Full Code 09/03/2022 1:09 PM Latest Code Status on File Code Status Date Activated Date Inactivated Comments Full Code 09/03/2022 1:09 PM Latest Code Status on File Code Status Date Activated Date Inactivated Comments Full Code - Unverified 09/21/2023 4:11 PM 09/27/2023 8:2 2 PM Code Status History Code Status Date Activated Date Inactivated Comments Full Code - Unverified 11/03/2022 5:23 PM 11/05/2022 6:44 PM Full Code 11/25/2021 12:01 AM 11/29/2021 8:53 PM Full Code - Unverified 11/24/2021 11:26 PM 11/25/2021 12 :00 AM Reason for Referral Specialty Diagnoses / Procedures Referred By Shawn t Referred To Contact Infectious Diseases Diagnoses Renal abscess, left HIV infection, unspecified symptom status (HCC) Lee Chanel MD [address] [place] [address] Referral ID Status Reason Start Date Expiration Date V isits Requested Visits Authorized [id number] Authorized 11/28/2021 11/28/2022 1 1 Specialty Diagnoses / Procedures Referred By Contac t Referred To Contact Short Stay Unit Diagnoses Renal abscess, left Lee Chanel MD [address] [place] [address] [facility] [address] [place] [address] Referral ID Status Reason Start Date Expiration Date V isits Requested Visits Authorized [id number] Authorized 11/28/2021 11/28/2022 99 99 Specialty Diagnoses / Procedures Referred By Contac t Referred To Contact Procedures NO MECHANICAL DVT PROPHYLAXIS Katelyn Raymundo SALES ESTIMATOR-EXHIBIT ARTIST [address] [place] [address] Referral ID Status Reason Start Date Expiration Date V isits Requested Visits Authorized [id number] New Request 09/03/2022 09/28/2023 1 1 Specialty Diagnoses / Procedures Referred By Contac t Referred To Contact Procedures LOW RISK - NO PHARMACOLOGICAL DVT PROPHYLAXIS Katelyn Raymundo SALES ESTIMATOR-EXHIBIT ARTIST [address] [place] [phone] Referral ID Status Reason Start Date Expiration Date V isits Requested Visits Authorized [id number] New Request 09/03/2022 09/28/2023 1 1 Specialty Diagnoses / Procedures Referred By Contac t Referred To Contact Procedures DVT/VTE RISK ASSESSMENT Katelyn Raymundo SALES ESTIMATOR-EXHIBIT ARTIST [address] [phone] Referral ID Status Reason Start Date Expiration Date V isits Requested Visits Authorized [id number] New Request 09/03/2022 09/28/2023 1 1 Additional Source Comments (unrecognized sect ion and content) No Status Records FoundNo Status Records FoundNo Status Records FoundNo Status Records FoundNo Status Records Found INFORMATION SOURCE (unrecogn ized section and content) DATE CREATED AUTHOR AUTHOR'S ORGANIZ ATION 11/10/2022 [facility] DATE CREATED AUTHOR AUTHOR'S ORGANIZ ATION 11/24/2022 [facility] DATE CREATED AUTHOR AUTHOR'S ORGANIZ ATION 12/07/2022 [facility] DATE CREATED AUTHOR AUTHOR'S ORGANIZ ATION 10/14/2023 [facility] Reason for Visit (unrecogniz ed section and content) Specialty Diagnoses / Procedures Referred By Contac t Referred To Contact Diagnoses Renal abscess, left Sepsis (HCC) Referral ID Status Reason Start Date Expiration Date Visits Re quested Visits Authorized [id number] 1 1 Reason Comments Mental Health Problems Hallucinations Specialty Diagnoses / Procedures Referred By Contac t Referred To Contact [facility] [address] [place] [address] [facility] [address] [place] [address] Referral ID Status Reason Start Date Expiration Date Visits Re quested Visits Authorized [id number] 1 1 Reason Comments Psychiatric Evaluation Specialty Diagnoses / Procedures Referred By Contac t Referred To Contact Diagnoses COVID-19 Referral ID Status Reason Start Date Expiration Date Visits Re quested Visits Authorized [id number] 1 1 Scheduled Active and Recently Administ ered Medications (unrecognized section and content) Continuous Medication Order 11/27/2021 11/28/2021 11/29/2021 sodium chloride 0.9% (NS) (CANCELED) 125 mL/hr, Intravenous, Continuous, Starting on Wed11/25/21 at 0030 0235 (Rate/Dose Verify - Provider: Stefany Verduzco RN)0348 (Stopped - Provider: Stefany Verduzco, RN)0352 (New Bag - Provider: Stefany Verduzco RN)1046 (Rate/Dose Change - Provider: Hui Cramer, RN)1049 (Rate/Dose Verify - Provider: Hui Cramer, RN)1150 (Rate/Dose Verify - Provider: Hui Cramer, RN)1246 (Rate/Dose Change - Provider: Hui Cramer, RN)1434 (Stopped - Provider: Hui Cramer, RN) PRN Medication Order 11/27/2021 11/28/2021 11/29/2021 acetaminophen (TYLENOL) tablet 650 mg 650 mg, Oral, Every 4 hours PRN, mild pain, fever 100.4 F or greater, headaches, Starting on Wed11/24/21 at 2339 0016 (Given - Provider: Stefany Verduzco RN)1850 (Given - Provider: Hui Cramer, JESSIKA) 0911 (Given - Provider: Hui Cramer, RN)1414 (Given - Provider: Hui Cramer RN) iopamidoL (ISOVUE-370) 76 % injection 75 mL 75 mL, Intravenous, Once in imaging, contrast, Starting on 11/29/21 at 1246, For 1 dose melatonin Tab 5 mg 5 mg, Oral, Nightly PRN, Sleep, Starting on Wed11/24/21 at 2339 naloxone (NARCAN) injection 0.1 mg(Linked Group 2) 0.1 mg, Intravenous, As needed, opioid reversal, For respiratory rate less than or equal to 8 per minute., Starting on Wed11/24/21 at 2326, Mix nalOXone (NARCAN) 0.4 mg (1mL) with 9 mL of Normal Saline to total 10 mL. Administer 0.1 mg (2.5mL) IV Push every 2 minutes until respiratory rate is 10 or greater. naloxone (NARCAN) injection 0.4 mg(Linked Group 2) 0.4 mg, Intravenous, As needed, opioid reversal, patient is pulseless, breathless, and unresponsive, Starting on Wed11/24/21 at 2326, Call a code first, then administer naloxone dose undiluted IV Push over 30 seconds. ondansetron (ZOFRAN) injection 4 mg(Linked Group 3) 4 mg, Intravenous, Every 6 hours PRN, nausea, vomiting, Starting on Wed11/24/21 at 2322, Use oral route first, if tolerated. ondansetron (ZOFRAN-ODT) disintegrating tablet 4 mg(Linked Group 3) 4 mg, Oral, Every 6 hours PRN, nausea, vomiting, Starting on Wed11/24/21 at 2322, Use oral route first, if tolerated. Formulation requires tablet remain in sealed package until immediately prior to dose being administered. oxyCODONE (ROXICODONE) immediate release tablet 5 mg 5 mg, Oral, Every 6 hours PRN, moderate to severe pain, Starting on Wed11/24/21 at 2339 pneumococcal conj. 13-valent (PREVNAR-13) vaccine 0.5 mL 0.5 mL, Intramuscular, Prior To Discharge, administer vaccine prior to discharge, Starting on Wed11/25/21 at 0103, For 1 dose senna (SENOKOT) tablet 8.6 mg 8.6 mg (1 tablet), Oral, 2 times daily PRN, constipation, Starting on Wed11/24/21 at 2339 sodium chloride (PF) (NS) 0.9 % contrast line flush 10 mL(Linked Group 4) 10 mL, Intravenous, Once in imaging, contrast, Per licensed land surveyor (Radiology) for line patency check prior to contrast administration, Starting on 11/29/21 at 1246, For 1 dose sodium chloride (PF) (NS) 0.9 % contrast line flush 80 mL(Linked Group 4) 80 mL, Intravenous, Once in imaging, contrast, Per licensed land surveyor (Radiology), Starting on 11/29/21 at 1246, For 1 dose, 30 mL BEFORE contrast administration 50 mL AFTER contrast administration sodium chloride (PF) (NS) flush 5 mL(Linked Group 1) 5 mL, Intravenous, As needed, line care, Starting on Wed11/24/21 at 2318 sodium chloride 0.9% (NS)(Linked Group 1) 0-150 mL/hr, Intravenous, As needed, To flush line after IV infusions when no maintenance IV ordered or a compatibility issue. Infuse 20ml at the same rate as the secondary infusion, Starting on Wed11/24/21 at 2318, Run as Primary IV. NOT intended for KVO. 1042 (Return to Cabinet - Provider: Hui Cramer RN)1836 (Return to Cabinet - Provider: Hui Cramer, RN) 1115 (New Bag - Provider: Hui Cramer RN) Linked Groups Order Group 1: Saline lock IV (CANCELED) Routine, Continuous, Starting on Wed11/24/21 at 2320, Until Specified And sodium chloride (PF) (NS) flush 5 mLJump to med 5 mL, Intravenous, As needed, line care, Starting on Wed11/24/21 at 2318 And sodium chloride (PF) (NS) flush 5 mLJump to med 5 mL, Intravenous, Every 8 hours scheduled, First dose on Wed11/25/21 at 0030
Saline lock
And sodium chloride 0.9% (NS)Jump to med 0-150 mL/hr, Intravenous, As needed, To flush line after IV infusions when no maintenance IV ordered or a compatibility issue. Infuse 20ml at the same rate as the secondary infusion, Starting on Wed11/24/21 at 2318
Run as Primary IV. NOT intended for KVO.
Group 2: naloxone (NARCAN) injection 0.1 mgJump to med 0.1 mg, Intravenous, As needed, opioid reversal, For respiratory rate less than or equal to 8 per minute., Starting on Wed11/24/21 at 2326
Mix nalOXone (NARCAN) 0.4 mg (1mL) with 9 mL of Normal Saline to total 10 mL. Administer 0.1 mg (2.5mL) IV Push every 2 minutes until respiratory rate is 10 or greater.
And Notify physician (CANCELED) STAT, Until discontinued, Starting on Wed11/24/21 at 2330, Until Specified
Respiratory rate less than: 8
For respiratory rate less than or equal to 8, notify physician and/or appropriate staff for additional orders. And naloxone (NARCAN) injection 0.4 mgJump to med 0.4 mg, Intravenous, As needed, opioid reversal, patient is pulseless, breathless, and unresponsive, Starting on Wed11/24/21 at 2326
Call a code first, then administer naloxone dose undiluted IV Push over 30 seconds.
Group 3: ondansetron (ZOFRAN-ODT) disintegrating tablet 4 mgJump to med 4 mg, Oral, Every 6 hours PRN, nausea, vomiting, Starting on Wed11/24/21 at 2322
Use oral route first, if tolerated. Formulation requires tablet remain in sealed package until immediately prior to dose being administered.
Or ondansetron (ZOFRAN) injection 4 mgJump to med 4 mg, Intravenous, Every 6 hours PRN, nausea, vomiting, Starting on Wed11/24/21 at 2322
Use oral route first, if tolerated.
Group 4: sodium chloride (PF) (NS) 0.9 % contrast line flush 10 mLJump to med 10 mL, Intravenous, Once in imaging, contrast, Per licensed land surveyor (Radiology) for line patency check prior to contrast administration, Starting on 11/29/21 at 1246, For 1 dose And sodium chloride (PF) (NS) 0.9 % contrast line flush 80 mLJump to med 80 mL, Intravenous, Once in imaging, contrast, Per licensed land surveyor (Radiology), Starting on 11/29/21 at 1246, For 1 dose
30 mL BEFORE contrast administration 50 mL AFTER contrast administration
Scheduled Medication Order 09/06/2022 09/07/2022 09/08/2022 Nlgiztbtgpk-Tqegffddov-Wc nofov (BIKTARVY) 50-200-25 MG per tablet 1 tablet 1 tablet, Oral, DAILY, First dose on Wed09/04/22 at 1600, Until Discontinued, Administer 2 hours before or 6 hours after oral medications containing polyvalent cations (eg: Fe, Ca, Al, Mg, Zn) or sucralfate. Swallow whole; do not crush, split, or chew. 929 (Given - Provider: Porsha Godwin RN) 08 (Given - Provider: Caryl Najera RN) 925 (Given - Provider: Yamileth Lobo RN) OLANZapine (ZYPREXA ZYDIS) disintegrating tablet 10 mg (CANCELED) 10 mg, Oral, DAILY AT BEDTIME, First dose (after last modification) on Wed09/04/22 at 2100, Until Discontinued, Administer intact tablet to dissolve in mouth; do not split, crush, or chew. 2044 (Given - Provider: Amy Carlton RN - Comment: barcode will not scan) 2014 (Given - Provider: Garry Foley RN) OLANZapine (zyPREXA) tablet 10 mg 10 mg, Oral, DAILY AT BEDTIME, First dose on Wed09/08/22 at 2100, Until Discontinued PRN Medication Order 09/06/2022 09/07/2022 09/08/2022 Acetaminophen (TYLENOL) tablet 650 mg 650 mg, Oral, EVERY 4 HOURS NEEDED, Starting on Wed09/03/22 at 1308, Until Wed09/08/22 at 1529, Other, First-line for mild, moderate or severe pain, or oral temp > 101.5 F, Maximum dose of acetaminophen is 4000 mg from all sources in 24 hours. alum/mag hydrox.-simethicone oral suspension 30 mL 30 mL, Oral, EVERY 6 HOURS NEEDED, Starting on Estelita 09/03/22 at 1308, Until Wed09/08/22 at 1529, Indigestion, Per 5 mL is equivalent to: (Alum-Mag Hydroxide 200-225 mg and Simethicone 20 mg) and (Alum-Mag Hydroxide 200-200 mg and Simethicone 20 mg) Benztropine (COGENTIN) tablet 1 mg(Linked Group 1) 1 mg, Oral, EVERY 6 HOURS NEEDED, Starting on Estelita 09/03/22 at 1308, Until Wed09/08/22 at 1529, Extra-pyramidal Symptoms, Parkinsonism and/or dystonia Benztropine mesylate (COGENTIN) injection 1 mg(Linked Group 1) 1 mg, Intramuscular, EVERY 6 HOURS NEEDED, Starting on Estelita 09/03/22 at 1308, Until Wed09/08/22 at 1529, acute dystonic reaction, Notify physician if given IM. diphenhydrAMINE (BENADRYL) tablet 50 mg 50 mg, Oral, DAILY AT BEDTIME NEEDED, Starting on Estelita 09/03/22 at 1308, Until Wed09/08/22 at 1529, Insomnia, 1st line medication for insomnia 2039 (Given - Provider: Amy Carlton RN) 2226 (Given - Provider: Garry oFley RN) hydrOXYzine HCl (ATARAX) tablet 25 mg 25 mg, Oral, EVERY 6 HOURS NEEDED, Starting on Estelita 09/03/22 at 1308, Until Wed09/08/22 at 1529, Anxiety, Itching, FIRST line 2039 (Given - Provider: Amy Carlton RN) OLANZapine (ZYPREXA ZYDIS) disintegrating tablet 10 mg(Linked Group 2) 10 mg, Oral, EVERY 4 HOURS NEEDED, Starting on Estelita 09/03/22 at 1308, Until Wed09/08/22 at 1529, Agitation, Maximum cumulative dose of Olanzapine is 30mg per 24 hours. OLANZapine (ZYPREXA) injection 10 mg(Linked Group 2) 10 mg, Intramuscular, EVERY 4 HOURS NEEDED, Starting on Wed09/03/22 at 1308, Until Wed09/08/22 at 1529, Agitation and patient is unwilling or unable to take PO medication, Notify physician if given IM. DO NOT GIVE WITHIN 2 HOURS OF IM LORAZEPAM. Maximum cumulative dose of Olanzapine is 30mg per 24 hours. For IM inj: dissolve the contents of the supplied vial using 2.1 mL of Sterile Water for Injection. The resulting solution (5 mg/mL) should appear clear and yellow. Solution should be used within 1 hour of reconstitution, and any unused portion should be discarded. Polyethylene glycol (MIRALAX) packet 17 g 17 g, Oral, DAILY NEEDED, Starting on Wed09/03/22 at 1308, Until Wed09/08/22 at 1529, Constipation 1st Line Linked Groups Order Group 1: Benztropine (COGENTIN) tablet 1 mgJump to med 1 mg, Oral, EVERY 6 HOURS NEEDED, Starting on Wed09/03/22 at 1308, Until Wed09/08/22 at 1529, Extra-pyramidal Symptoms, Parkinsonism and/or dystonia Or Benztropine mesylate (COGENTIN) injection 1 mgJump to med 1 mg, Intramuscular, EVERY 6 HOURS NEEDED, Starting on Wed09/03/22 at 1308, Until Wed09/08/22 at 1529, acute dystonic reaction
Notify physician if given IM.
Group 2: OLANZapine (ZYPREXA ZYDIS) disintegrating tablet 10 mgJump to med 10 mg, Oral, EVERY 4 HOURS NEEDED, Starting on Wed09/03/22 at 1308, Until Wed09/08/22 at 1529, Agitation
Maximum cumulative dose of Olanzapine is 30mg per 24 hours.
Or OLANZapine (ZYPREXA) injection 10 mgJump to med 10 mg, Intramuscular, EVERY 4 HOURS NEEDED, Starting on Wed09/03/22 at 1308, Until Wed09/08/22 at 1529, Agitation and patient is unwilling or unable to take PO medication
Notify physician if given IM. DO NOT GIVE WITHIN 2 HOURS OF IM LORAZEPAM. Maximum cumulative dose of Olanzapine is 30mg per 24 hours. For IM inj: dissolve the contents of the supplied vial using 2.1 mL of Sterile Water for Injection. The resulting solution (5 mg/mL) should appear clear and yellow. Solution should be used within 1 hour of reconstitution, and any unused portion should be discarded.
Scheduled Medication Order 09/25/2023 09/26/2023 09/27/2023 ARIPiprazole (ABILIFY) tablet 5 mg 5 mg, Oral, Daily, First dose on Wed09/24/23 at 1300 0900 (Not Given - Provider: Elisa Junior RN - Reason: Patient/family refused - Comment: states did not agree with him yesterday ) 0900 (Not Given - Provider: Berna Kline RN - Reason: Patient/family refused) 0900 (Not Given - Provider: Enio Jorge, JESSIKA - Reason: Patient/family refused) bictegravir-emtricitabine -tenofovir (BIKTARVY) 50-200-25 mg per tablet 1 tablet 1 tablet, Oral, Daily, First dose on Wed09/22/23 at 0900, Do not crush, chew, or dissolve. Notify pharmacy if patient unable to swallow intact tablet. 0842 (Given - Provider: Elisa Junior RN) 0859 (Given - Provider: Berna Kline, JESSIKA) 0902 (Given - Provider: Enio Jorge, RN) cholecalciferol (vitamin D3) tablet 400 Units 400 Units, Oral, Daily, First dose on Wed09/22/23 at 0600 0637 (Given - Provider: Desiree Emmanuel, JESSIKA) 0606 (Given - Provider: Nitza Kelley, JESSIKA) 0619 (Given - Provider: Bridger Butts RN) doxycycline (VIBRAMYCIN) oral solid 100 mg 100 mg, Oral, 2 times daily, First dose on Wed09/23/23 at 2100, For 14 doses, Do not crush or open. Patient to sit up after administration for 30 minutes after taking and take with at least 8 ounces of water Take 1 hour before or 4 hours after metallic cations (e.g.antacids, aluminum,magnesium, calcium, ferrous sulfate), Indication: Skin & Soft Tissue Infection 0637 (Given - Provider: Desiree Emmanuel RN)2036 (Given - Provider: Nitza Kelley RN) 06 (Given - Provider: Nitza Kelley RN)2112 (Given - Provider: Bridger Butts RN) 0619 (Given - Provider: Bridger Butts RN) heparin (porcine) injection 5,000 Units 5,000 Units, Subcutaneous, Every 8 hours scheduled, First dose on Wed09/21/23 at 2200, Notify physician if patient refuses. 0639 (Not Given - Provider: Desiree Emmanuel RN - Reason: Patient/family refused)1442 (Not Given - Provider: Jaspreet Houston RN - Reason: Patient/family refused - Comment: notified Dr. monterroso)2200 (Not Given - Provider: Nitza Kelley RN - Reason: Patient/family refused) 0600 (Not Given - Provider: Nitza Kelley RN - Reason: Patient/family refused)1400 (Not Given - Provider: Berna Kline RN - Reason: Patient/family refused)2200 (Not Given - Provider: Bridger Butts RN - Reason: Patient/family refused) 0600 (Not Given - Provider: Bridger Butts RN - Reason: Patient/family refused)1400 (Not Given - Provider: Enio Jorge RN - Reason: Patient/family refused) nirmatrelvir-ritonavir (PAXLOVID) tablet therapy pack 3 tablet 3 tablet, Oral, Every 12 hours scheduled, First dose on Wed09/23/23 at 0000, For 10 doses, Administer ordered nirmatrelvir tablet(s) and ritonavir tablet at the same time. Do NOT CRUSH OR CHEW., Ordering is restricted to: ID Provider 0842 (Given - Provider: Elisa Junior RN)2036 (Given - Provider: Nitza Kelley RN) 09 (Given - Provider: Berna Kline RN)2117 (Given - Provider: Bridger Butts RN) 0900 (Not Given - Provider: Enio Jorge RN - Reason: Patient/family refused) sodium chloride (PF) (NS) flush 5 mL(Linked Group 1) 5 mL, Intravenous, Every 8 hours scheduled, First dose on Wed09/21/23 at 2200, Saline lock 0637 (Not Given - Provider: Desiree Emmanuel RN - Reason: Loss of IV access)1400 (Canceled Entry - Provider: Jaspreet Houston RN)2200 (Canceled Entry - Provider: Nitza Kelley RN - Comment: No IV access) 0600 (Canceled Entry - Provider: Nitza Kelley RN)1400 (Canceled Entry - Provider: Berna Kline, JESSIKA)2114 (Not Given - Provider: Bridger Butts RN - Reason: Loss of IV access) 0600 (Not Given - Provider: Bridger Butts RN - Reason: Loss of IV access)1400 (Not Given - Provider: Enio Jorge RN - Reason: Order parameters not met - Comment: No IV) PRN Medication Order 09/25/2023 09/26/2023 09/27/2023 acetaminophen (TYLENOL) tablet 650 mg 650 mg, Oral, Every 6 hours PRN, mild pain, fever 100.4 F or greater, Starting on Wed09/23/23 at 0010 aluminum-magnesium hydroxide-simethicone (MAALOX PLUS) 200-200-20 mg/5 mL suspension 30 mL 30 mL, Oral, 3 times daily PRN, heartburn, indigestion, Starting on Wed09/26/23 at 2041 2113 (Given - Provider: Bridger Butts RN) diazePAM (VALIUM) syringe 5 mg(Linked Group 2) 5 mg, Intramuscular, Every 6 hours PRN, agitation, Starting on Wed09/21/23 at 1329, NOT FOR SUBCUTANEOUS USE VESICANT LORazepam (ATIVAN) tablet 2 mg(Linked Group 2) 2 mg, Oral, Every 6 hours PRN, agitation, Starting on Wed09/21/23 at 1329 nicotine polacrilex (NICORETTE) gum 2 mg 2 mg, Mouth/Throat, Every 1 hour prn, smoking cessation, Starting on Wed09/27/23 at 0821, Nicotine Gum: [] May use to supplement nicotine patch therapy. [] Instruct patient to chew 1 piece of gum at a time. [] Chew slowly until it tingles, then place between cheek and gums. [] Instruct patient to repeat process until most of tingle is gone 0902 (Given - Provid er: Enio Jorge RN) ondansetron (ZOFRAN-ODT) disintegrating tablet 4 mg 4 mg, Oral, Every 6 hours PRN, nausea, vomiting, Starting on Wed09/23/23 at 0717, Orally disintegrating tablet: Open blister pack and place tablet on the tongue; tablet is formulated to dissolve on the tongue without water; do not split tablet. Formulation requires tablet remain in sealed package until immediately prior to dose being administered. sodium chloride (PF) (NS) flush 5 mL(Linked Group 3) 5 mL, Intravenous, As needed, line care, Starting on Wed09/20/23 at 1642 sodium chloride (PF) (NS) flush 5 mL(Linked Group 1) 5 mL, Intravenous, As needed, line care, Starting on Wed09/21/23 at 2048 sodium chloride 0.9% (NS)(Linked Group 3) 0-150 mL/hr, Intravenous, As needed, To flush line after IV infusions when no maintenance IV ordered or a compatibility issue. Infuse 20ml at the same rate as the secondary infusion, Starting on Wed09/20/23 at 1642, Run as Primary IV. NOT intended for KVO. sodium chloride 0.9% (NS)(Linked Group 1) 0-150 mL/hr, Intravenous, As needed, To flush line after IV infusions when no maintenance IV ordered or a compatibility issue. Infuse 20ml at the same rate as the secondary infusion, Starting on Wed09/21/23 at 204, Run as Primary IV. NOT intended for KVO. Linked Groups Order Group 1: Saline lock IV (CANCELED) Routine, Continuous, Starting on Wed09/21/23 at 2050, Until Specified And sodium chloride (PF) (NS) flush 5 mLJump to med 5 mL, Intravenous, As needed, line care, Starting on Wed09/21/23 at 204 And sodium chloride (PF) (NS) flush 5 mLJump to med 5 mL, Intravenous, Every 8 hours scheduled, First dose on Wed09/21/23 at 2200
Saline lock
And sodium chloride 0.9% (NS)Jump to med 0-150 mL/hr, Intravenous, As needed, To flush line after IV infusions when no maintenance IV ordered or a compatibility issue. Infuse 20ml at the same rate as the secondary infusion, Starting on Wed09/21/23 at 2049
Run as Primary IV. NOT intended for KVO.
Group 2: LORazepam (ATIVAN) tablet 2 mgJump to med 2 mg, Oral, Every 6 hours PRN, agitation, Starting on Wed09/21/23 at 1329 Or diazePAM (VALIUM) syringe 5 mgJump to med 5 mg, Intramuscular, Every 6 hours PRN, agitation, Starting on Wed09/21/23 at 1329
NOT FOR SUBCUTANEOUS USE VESICANT
Group 3: Insert peripheral IV (COMPLETED) KAYLEE, Once, On Wed09/20/23 at 1645, For 1 occurrence And Saline lock IV (CANCELED) KAYLEE, Once, On Wed09/20/23 at 1645, For 1 occurrence And sodium chloride (PF) (NS) flush 5 mLJump to med 5 mL, Intravenous, As needed, line care, Starting on Wed09/20/23 at 1642 And sodium chloride 0.9% (NS)Jump to med 0-150 mL/hr, Intravenous, As needed, To flush line after IV infusions when no maintenance IV ordered or a compatibility issue. Infuse 20ml at the same rate as the secondary infusion, Starting on Wed09/20/23 at 1642
Run as Primary IV. NOT intended for KVO.
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 This clinical summary was aggregated from multiple sources. Caution should be exercised in using it in the provision of clinical care. This summary normalizes information from multiple sources, and as a consequence, information in this document may materially change the coding, format and clinical context of patient data. In addition, data may be omitted in some cases. CLINICAL DECISIONS SHOULD BE BASED ON THE PRIMARY CLINICAL RECORDS. [facility] [employer] [facility]. provides no warranty or guarantee of the accuracy or completeness of information in this document.
--- NOTE | 2023-10-30 18:38 | EX.ED.DYSGE1 ---
HPI <MARY Tyson - Last Filed: 10/30/23 20:01> History of Present Illness Chief Complaint: General Illness Narrative Narrative: Patient is a 35-year-old male with history of schizophrenia, methamphetamine abuse who presents to the emergency department for multiple vague complaints. Per the patient, he was seen outside sitting on the road, he is homeless. The police stopped him and he started complaining of back pain, head pain and they brought him to the emergency department. Patient states that he is hungry, cold, and he has been sleeping outside for multiple nights. Patient was seen here yesterday for similar complaints. Patient is here for evaluation. Patient denies any suicidal, homicidal ideations. PFSH <MARY Tyson - Last Filed: 10/30/23 20:01> [facility] Medical History Arthritis PTSD (post-traumatic stress disorder) Home Medications NK 10/29/23 [History Last Taken Unknown] ondansetron 4 mg disintegrating tablet 4 mg PO Q6H PRN nausea and vomiting #10 tabs 10/29/23 [Rx Last Taken Unknown] Allergy/AdvReac Type Severity Reaction Status Date / Time strawberry AdvReac Mild Hives Verified 10/29/23 08:38 Social History Smoking Status: Current every day smoker tobacco type: cigarettes ROS <MARY Tyson - Last Filed: 10/30/23 20:01> ROS ED ROS Narrative Constitutional: Negative for fever, chills, weight loss. Positive for weakness Eyes: Negative for vision loss, vision change, double vision ENT: Negative for any sore throat, ear pain, congestion Cardiovascular: Negative for any chest pain, tightness, palpitations Respiratory: Negative for any cough, sputum production, hemoptysis, dyspnea, dyspnea on exertion, orthopnea Gastrointestinal: Negative for any abdominal pain, nausea, vomiting, diarrhea, constipation, blood in stool, blood in vomit : Negative for any urinary frequency, dysuria, retention, blood in urine Muscle skeletal: Negative for any neck pain. Positive back pain Neurological: Negative for any syncope, dizziness. Positive for headache Skin: Negative for any rashes, itching, abrasions, lacerations Psychiatric: Negative for any depression, stress, suicidal ideation, homicidal ideation. Positive for anxiety Hematologic: Negative for any excessive bruising, easy bleeding EXAM <MARY Tyson - Last Filed: 10/30/23 20:01> Physical Exam Narrative Exam Narrative: Vital signs reviewed. Patient is alert and orient x 4, patient is answering all questions appropriately. Patient states that his plan was to stay here and to get a bus ride in the morning. Patient denies any other injury. HEET: Head normocephalic atraumatic, TMs clear bilaterally. Posterior pharynx is clear, moist mucous membranes. Nares clear bilaterally. Pupils are equal round reactive to light. Negative for any hemotympanum, septal hematoma. Neck: Supple with no lymphadenopathy or tenderness. No signs of meningismus. Cardiac: Regular rate and rhythm no murmurs gallops or rubs, equal peripheral pulses bilaterally. Respiratory: Lungs clear to auscultation bilaterally. No chest tenderness. Abdomen: Soft, nontender, nondistended. No abdominal bruit or pulsatile masses. No hepatosplenomegaly Extremities: No peripheral edema, no signs of gross trauma or deformity. Active full range of motion of all extremities. Neuro: Cranial nerves II through XII intact, no focal neurological deficits. NIH stroke scale 0 Skin: Clean dry and intact with no rash, purpura, petechiae, vesicles or pustules. Backs/flank: No CVA tenderness, no midline spinal tenderness, no deformity. Psych: Normal mood and affect. No SI, HI or acute psychosis. Const Vital Signs: 10/30/23 18:00 10/30/23 18:14 Temperature 97.8 F Temperature Source Temporal Pulse Rate 101 H Respiratory Rate 18 Respiratory Effort Normal Respiratory Pattern Normal Blood Pressure 151/78 H Blood Pressure Mean 102 Pulse Ox 99 Oxygen Delivery Method Room Air Positive well nourished and well developed General Appearance ED: well developed <Dr. Faraz Hall DO - Last Filed: 10/30/23 22:12> Physical Exam Const Vital Signs: 10/30/23 18:00 10/30/23 18:14 Temperature 97.8 F Temperature Source Temporal Pulse Rate 101 H Respiratory Rate 18 Respiratory Effort Normal Respiratory Pattern Normal Blood Pressure 151/78 H Blood Pressure Mean 102 Pulse Ox 99 Oxygen Delivery Method Room Air MDM <MARY Tyson - Last Filed: 10/30/23 20:01> [facility] Treatment and Re-Evaluation :: Differential diagnosis includes however is not limited to: Homelessness, migraine headache, chronic back pain, hunger, methamphetamine abuse, sequelae of schizophrenia Patient appears generally well, patient appears nontoxic, vital signs are stable. Presenting to the emergency department for complaints of generalized back pain, intermittent headache, patient also states that he is homeless at this time. He states he quit methamphetamines however he was seen here yesterday for using methamphetamines. At this time, patient's physical examination is unremarkable, patient's complaints are general and vague. Patient will be given fluids orally, patient also be given food. We will reevaluate after the patient has eaten. After patient ate, patient was able to get some sleep. Patient was given a Powerade. I spoke with the patient at length and I woke him up. Patient at this time has no medical emergency. I spoke with the patient he has any other complaints he said no. He will now be discharged. Patient states is it okay if I wait in the lobby, I told her that is okay. If he needs water he is more than welcome to come back to the ER to get water. Patient needs to find a homeless snf, he also needs to abide by the rules at the homeless snf. He needs to quit using methamphetamines. Patient verbally understands and is stable for discharge. <Dr. Faraz Hall DO - Last Filed: 10/30/23 22:12> [facility] Narrative Medical decision making narrative: Differential diagnosis includes however is not limited to: Homelessness, migraine headache, chronic back pain, hunger, methamphetamine abuse, sequelae of schizophrenia Patient appears generally well, patient appears nontoxic, vital signs are stable. Presenting to the emergency department for complaints of generalized back pain, intermittent headache, patient also states that he is homeless at this time. He states he quit methamphetamines however he was seen here yesterday for using methamphetamines. At this time, patient's physical examination is unremarkable, patient's complaints are general and vague. Patient will be given fluids orally, patient also be given food. We will reevaluate after the patient has eaten. After patient ate, patient was able to get some sleep. Patient was given a Powerade. I spoke with the patient at length and I woke him up. Patient at this time has no medical emergency. I spoke with the patient he has any other complaints he said no. He will now be discharged. Patient states is it okay if I wait in the lobby, I told her that is okay. If he needs water he is more than welcome to come back to the ER to get water. Patient needs to find a homeless snf, he also needs to abide by the rules at the homeless snf. He needs to quit using methamphetamines. Patient verbally understands and is stable for discharge. This patient was seen with a PA/MANAGER OPERATIONS AND PROCUREMENT Individually assessed they patient including history and physical. I have reviewed everything on the chart that is available and agree with the documentation provided by the PA/MANAGER OPERATIONS AND PROCUREMENT including discussion about the assessment, treatment plan, discussion, and return precautions. Homeless patient presenting for generalized symptoms which are all chronic. Physical exam unremarkable. Patient was given a meal. Able to drink fluids. I do not believe he needs any further testing and it does appear that he was here yesterday and had labs done which were all normal. Patient discharged home and in stable condition. Discharge Plan Triage Chief Complaint: General Illness ED Midlevel Provider: Pete Birmingham ED Provider: Faraz Hall Dx/Rx/DC Orders Clinical Impression: History of drug abuse Instructions: ED Drug Abuse Prescriptions: No Action NK ondansetron 4 mg tablet,disintegrating 4 mg PO Q6H PRN (Reason: nausea and vomiting) Qty: 10 0RF Primary Care Provider: Care Physician,No Primary Referrals: Laurie Diane [Emergency Nurse] - Care Physician,No Primary [Primary Care Provider] - Activity Restrictions/Additional Instructions: Follow-up outpatient Disposition Disposition: Home, Self Care Discharge Date/Time: 10/30/23 20:13
== END 2023-10-30 20:13 | disposition home or self-care (01) ==
PROVIDERS: Emergency Provider Student in an Organized Health Care Education/Training Program; Visit Provider Student in an Organized Health Care Education/Training Program
DX: M54.9 Dorsalgia, unspecified (principal); Z59.00 Homelessness unspecified; R51.9 Headache, unspecified; F17.210 Nicotine dependence, cigarettes, uncomplicated; Z87.898 Personal history of other specified conditions
CPT/HCPCS: 99282

== ENCOUNTER 2023-10-31 04:44 | Emergency (ER) | payer MEDICAID, SELFPAY ==
[2023-10-31 04:47] VITALS: BP 111/93; PULSE 76; RESP 16; TEMP 36.3; O2SAT 97; BMI 20.7
--- NOTE | 2023-10-31 04:49 | EKG12_ITS ---
Test Reason : CP Blood Pressure : / mmHG Vent. Rate : 083 BPM Atrial Rate : 083 BPM P-R Int : 152 ms QRS Dur : 076 ms QT Int : 370 ms P-R-T Axes : 069 075 065 degrees QTc Int : 434 ms Normal sinus rhythm with sinus arrhythmia Normal ECG Confirmed by Mitchel Fortune ([id number]), editor at large JASWANT SOTO ([id number]) on 11/01/2023 10:33:34 AM Referred By: Confirmed By:Mitchel Fortune
--- OUTSIDE RECORDS SUMMARY | 2023-10-31 05:03 | XMS RPT_ITS | CCD ---
Author Name Unknown Address [id number] [place] [address] Organization [facility] Care Team Providers Care Explosive Ordnance Specialist Name Role Phone SUNNY LAI Unavailable Unavailabl court Samson MD, Freddy Barnhart Primary Care Provider Self, Self Primary Care Provider Unavailabl e CONSULT, ADDICTION MEDICINE Consulting Unav ailable SELF, SELF Primary Care Unavailable ALESSANDRO HENSON Attending Unavailable IZA JOLLEY Admitting Unavailable Meagan Irwin Primary Care Physician [phone] Stephen Marsh Attending Unavailabl tSephen Baker Admitting Unavailabl Meagan Cleaning Primary Care Unavailable Boogie Martinez Attending Unavailable No, Physician Primary Care Provider [facility] Primary Care Provider NO, PHYSICIAN Primary Care Unavailable PIOTR HURST Attending Unava ilable NO, PHYSICIAN Primary Care Unavailable LINDSAY TAFOYA Attending Unavailable NO, PHYSICIAN Primary Care Unavailable [facility] Consulting Unavai SAURAV Bateman Admitting [...] (2 sources) Penicillin; Translations: [penicillin] Drug Allergy [facility] (2 sources) Penicillins; Translations: [PENICILLINS] Drug allergy (disorder) 3 [facility] Repository (1 source) No Known Medication Allergies; Translations: [No Known Medication Allergies] Propensity to adverse reactions (disorder) [facility] Rep[facility] (1 source) Penicillins Propensity to adverse reactions to drug 3 [facility] Medications Current Medications Medication Drug Class(es) [...] [degF] Liliana Toledo DO Work Phone: [facility] 09-27-2023 15:19-0500 Diastolic blood pressure 74 mm[Hg] Liliana Earlmilagrosourav DO Work Phone: [facility] 09-27-2023 15:19-0500 Heart rate 81 /min Liliana Earlallisoneleki DO Work Phone: [facility] 09-27-2023 15:19-0500 Respiratory rate 18 /min Liliana Earlmilagrosourav DO Work Phone: [facility] 09-27-2023 15:19-0500 SaO2% (BldA) [Mass fraction] 97 % Liliana Earlmilagrosourav DO Work Phone: [facility] 09-27-2023 15:19-0500 Systolic blood pressure 114 mm[Hg] Liliana Earlmilagrosourav DO Work Phone: [facility] 09-27-2023 03:58-0500 Body mass index (BMI) [Ratio] 21.58 kg/m2 Liliana Earlnoérm DO Work Phone: [facility] 09-27-2023 03:58-0500 Body weight 62.5 kg Liliana Earlnoérm DO Work Phone: [facility] 09-21-2023 21:53-0500 Body height 170.2 cm Liliana Earlallisoncarmelo DO Work Phone: [facility] 09-21-2023 09:00-0500 SaO2% (BldA) [Mass fraction] 136 % Liliana Earlmilagromariahki DO Work Phone: [facility] 09-21-2023 09:00-0500 SaO2% (BldA) [Mass fraction] 85 % Liliana Madyearleneki DO Work Phone: [facility] 11-13-2022 14:06-0400 Body temperature 98.6 [degF] Boogie Martinez [facility] 03-17-2023 14:06-0400 Diastolic blood pressure 91 mm[Hg] Boogie Martinez [facility] 11-13-2022 14:06-0400 Heart rate 105 /min Boogie Martinez [facility] 11-13-2022 14:06-0400 Respiratory rate 16 /min Boogie Martinez [facility] 11-13-2022 14:06-0400 SaO2% (BldA) [Mass fraction] 99 % Boogie Martinez [facility] 11-13-2022 14:06-0400 Systolic blood pressure 146 mm[Hg] Boogie Martinez [facility] 09-08-2022 06:34-0500 Body temperature 97.81 [degF] Horace Henry MD Work Phone: [facility] 09-08-2022 06:34-0500 Diastolic blood pressure 79 mm[Hg] Horace Henry MD Work Phone: [facility] 09-08-2022 06:34-0500 Heart rate 64 /min Horace Henry MD Work Phone: [facility] 09-08-2022 06:34-0500 Respiratory rate 16 /min Horace Henry MD Work Phone: [facility] 09-08-2022 06:34-0500 SaO2% (BldA) [Mass fraction] 98 % Horace Henry MD Work Phone: [facility] 09-08-2022 06:34-0500 Systolic blood pressure 127 mm[Hg] Horace Henry MD Work Phone: [facility] 09-03-2022 13:21-0500 Body height 170.2 cm Horace Henry MD Work Phone: [facility] 09-03-2022 13:21-0500 Body mass index (BMI) [Ratio] 18.97 kg/m2 Horace Henry MD Work Phone: [facility] 09-03-2022 13:21-0500 Body weight 54.93 kg Horace Henry MD Work Phone: [facility] 11-29-2021 09:07-0400 Respiratory rate 16 /min Jarret Fisher MD Work Phone: [facility] 11-29-2021 07:25-0400 Body temperature 98.71 [degF] Jarret Fisher MD Work Phone: [facility] 11-29-2021 07:25-0400 Diastolic blood pressure 79 mm[Hg] Jarret Fisher MD Work Phone: [facility] 11-29-2021 07:25-0400 Heart rate 82 /min Jarret Fisher MD Work Phone: [facility] 11-29-2021 07:25-0400 SaO2% (BldA) [Mass fraction] 98 % Jarret Fisher MD Work Phone: [facility] 11-29-2021 07:25-0400 Systolic blood pressure 122 mm[Hg] Jarret Fisher MD Work Phone: [facility] 11-29-2021 03:15-0400 Body mass index (BMI) [Ratio] 19.98 kg/m2 Jarret Fisher MD Work Phone: [facility] 11-29-2021 03:15-0400 Body weight 59.6 kg Jarret Fisher MD Work Phone: [facility] 11-25-2021 09:12-0400 Body height 172.7 cm Jarret Fisher MD Work Phone: [facility] Encounters Encounter Date Encounter Type Care Provider Facility Start: 09-20-2023 End: 09-27-2023 ambulatory PHYSICIAN ALIRIO [facility] Start: 09-20-2023 End: 09-27-2023 Emergency department patient visit Torsten Scott Ld EVANS Work Phone: [facility] Start: 01-18-2023 End: 01-20-2023 Emergency department patient visit PHYSICIAN ALIRIO [facility] Start: 11-14-2022 End: 11-23-2022 Evaluation and management of inpatient Stephen Marsh Facility:[facility] Start: 11-13-2022 End: 11-14-2022 Emergency department patient visit Boogie Martinez Facility:[facility] Start: 11-13-2022 End: 11-13-2022 Emergency department patient visit Boogie Martinez [facility] Start: 11-03-2022 End: 11-05-2022 Evaluation and management of inpatient PHYSICIAN ALIRIO [facility] Start: 11-02-2022 ambulatory Mitchel Trevino [facility] Work Phone: [facility] [place] Start: 11-02-2022 Patient encounter procedure Mitchel Trevino [facility] Work Phone: [facility] [place] Start: 10-23-2022 End: 10-25-2022 Emergency department patient visit PHYSICIAN ALIRIO [facility] Start: 10-20-2022 End: 10-21-2022 Emergency department patient visit PHYSICIAN [facility] Start: 09-01-2022 End: 09-08-2022 Evaluation and management of inpatient ADDICTION MEDICINE CONSULT Facility:[facility] Start: 09-01-2022 End: 09-08-2022 Evaluation and management [...] 09-05-2022 Hemoglobin glycosylated a1c Katelyn Gonzales s ADMITTING COORDINATOR-HELP DESK REP Work Phone: Start: 09-05-2022 Lipid panel Katelyn Raymundo ADMITTING COORDINATOR-C CASTER OPERATOR Work Phone: Start: 09-02-2022 SARS-CoV-2 (COVID-19) RNA [...] chem analyzers pr date Flaca Mu Benavides ADMITTING COORDINATOR-HELP DESK REP Work Phone: Start: 09-01-2022 Basic metabolic panel [...] Author Start: 10-23-2032 Tetanus vaccination [facility]ETANUS [facility] Start: 07-07-2023 Tetanus vaccination TETANUS [facility] Start: 11-06-2022 End: 11-06-2022 Patient encounter procedure 11/06/2022 Office Visit Infectious Diseases Raf Garner MD, PhD [address] [place] [address] Infectious Diseases Care [facility] Start: 04-30-2022 Influenza vaccination INFLUENZA VACCINE (#1) [facility] Start: 03-11-2007 Zoster vaccine hzv live for subcutaneous use ZOSTER (SHINGLES) VACCINE (1 of 2) [facility] Start: 03-11-1994 PNEUMOCOCCAL VACCINE SERIES (1 - PCV) PNEUMOCOCCAL VACCINE SERIES (1 - PCV) [facility] Start: 09-11-1988 COVID-19 VACCINE (#1) COVID-19 VACCINE (#1) [facility] End: 09-23-2023 Aerobic microbial culture Wound Aerobic Culture Microbiology Routine Once for 1 Occurrences starting 09/23/2023 until 09/23/2023 [facility] Work Phone: Immunizations Immunization Date Immunization Notes Care Provider [facility] 10-23-2022 tetanus toxoid, redu flako diphtheria toxoid, and acellular pertussis vaccine, adsorbed Liliana Toledo DO Work Phone: [facility] 11-25-2021 pneumococcal vaccine , unspecified formulation Jarret Fisher MD Work Phone: [facility] 06-05-2020 influenza, injectabl e, quadrivalent, preservative free Jarret Fisher MD Work Phone: [facility] 06-05-2020 influenza virus vaccine, unspecified formulation Horace Henry MD Work Phone: [facility] 07-07-2013 influenza, injectabl e, quadrivalent, preservative free Jarret Fisher MD Work Phone: [facility] 07-07-2013 tetanus toxoid, redu flako diphtheria toxoid, and acellular pertussis vaccine, adsorbed Jarret Fisher MD Work Phone: [facility] 06-21-2009 influenza virus vaccine, live, attenuated, for intranasal use Jarret Fisher MD Work Phone: [facility] 05-23-2008 hepatitis A and hepatitis B vaccine Jarret Fisher MD Work Phone: [facility] 05-23-2008 tuberculin skin test ; purified protein derivative solution, intradermal Jarret Fisher MD Work Phone: [facility] 01-09-2008 yellow fever vaccine Nancy Fisher MD Work Phone: [facility] 11-02-2007 typhoid capsular polysaccharide vaccine Jarret Fisher MD Work Phone: [facility] 08-08-2007 hepatitis A and hepatitis B vaccine Jarret Fisher MD Work Phone: [facility] 08-08-2007 influenza virus vaccine, live, attenuated, for intranasal use Jarret Fisher MD Work Phone: [facility] 08-08-2007 poliovirus vaccine, inactivated Jarret Fisher MD Work Phone: [facility] 07-01-2007 hepatitis A and hepatitis B vaccine Jarret Fisher MD Work Phone: [facility] 07-01-2007 measles, mumps and rubella virus vaccine Jarret Fisher MD Work Phone: [facility] 07-01-2007 meningococcal polysaccharide (groups A, C, Y and W-135) diphtheria toxoid conjugate vaccine (MCV4P) Jarret Fisher MD Work Phone: [facility] 07-01-2007 meningococcal polysaccharide vaccine (MPSV4) Jarret Fisher MD Work Phone: [facility] 07-01-2007 tetanus and diphther ia toxoids, adsorbed, preservative free, for adult use (2 Lf of tetanus toxoid and 2 Lf of diphtheria toxoid) Jarret Fisher MD Work Phone: [facility] 07-01-2007 tetanus toxoid, redu flako diphtheria toxoid, and acellular pertussis vaccine, adsorbed Jarret Fisher MD Work Phone: [facility] 08-30-2005 tetanus toxoid, redu flako diphtheria toxoid, and acellular pertussis vaccine, adsorbed Jarret Fisher MD Work Phone: [facility] 05-11-2002 diphtheria and tetan us toxoids, adsorbed for pediatric use Jarret Fisher MD Work Phone: [facility] 05-11-2002 varicella virus vaccine Jonathon Fisher MD Work Phone: [facility] 05-11-2002 zoster vaccine, unspecified formulation Horace Henry MD Work Phone: [facility] 04-15-1999 hepatitis B vaccine, pediatric or pediatric/adolescent dosage Jarret Fisher MD Work Phone: [facility] 03-14-1999 measles, mumps and rubella virus vaccine Jarret Fisher MD Work Phone: [facility] 11-15-1998 hepatitis B vaccine, pediatric or pediatric/adolescent dosage Jarret Fisher MD Work Phone: [facility] 10-09-1998 hepatitis B vaccine, pediatric or pediatric/adolescent dosage Jarret Fisher MD Work Phone: [facility] 03-13-1993 diphtheria, tetanus toxoids and acellular pertussis vaccine, unspecified formulation Jarret Fisher MD Work Phone: [facility] 03-13-1993 poliovirus vaccine, inactivated Jarret Fisher MD Work Phone: [facility] 02-08-1991 haemophilus influenz ae type b vaccine, PRP-T conjugate Jarret Fisher MD Work Phone: [facility] 01-26-1991 measles, mumps and rubella virus vaccine aJrret Fisher MD Work Phone: [facility] 01-26-1991 poliovirus vaccine, inactivated Jarret Fisher MD Work Phone: [facility] 06-07-1989 diphtheria, tetanus toxoids and acellular pertussis vaccine, unspecified formulation Jarret Fisher MD Work Phone: [facility] 01-21-1989 poliovirus vaccine, inactivated Jarret Fisher MD Work Phone: [facility] 09-30-1988 diphtheria, tetanus toxoids and acellular pertussis vaccine, unspecified formulation Jarret Fisher MD Work Phone: [facility] 08-23-1988 diphtheria, tetanus toxoids and acellular pertussis vaccine, unspecified formulation Jarret Fisher MD Work Phone: [facility] 07-24-1988 diphtheria, tetanus toxoids and acellular pertussis vaccine, unspecified formulation Jarret Fisher MD Work Phone: [facility] 07-24-1988 poliovirus vaccine, inactivated Jraret Fisher MD Work Phone: [facility] 06-05-1988 poliovirus vaccine, inactivated Jarret Fisher MD Work Phone: [facility] Payers Date Payer Category Payer Self-pay 2022 Unknown FILIPE DENT xx [id number] 2022-Present [address] [address] [place] [address] [id number] 2020 Medicaid FILIPE RAY Ruiz [employer] [employer] [place] [id number] 2020-Present [phone] [address] [address] [place] [address] [id number] 2020 Unknown [id number] 1988 Unknown [id number] 1988 Unknown [id number] 1988 Unknown [id number] 1988 Unknown [id number] 1988 Unknown [id number] 1988 Unknown [id number] 1988 Unknown [id number] Unknown [id number] Unknown [id number] Social History Date Type Detail Facility Start: 11-24-2021 End: 10-20-2022 Tobacco smoking status NHIS Smokes tobacco daily [facility] Start: 11-24-2021 End: 09-25-2023 Cigarettes smoked current (pack per day) - Reported 1 [facility] Start: 11-25-2021 Alcohol intake Current drinker of alcohol (finding) [facility] Start: 09-16-2015 History SDOH Alcohol Comment rarely [facility] Start: 03-11-1988 Sex Assigned At Not on file [facility] Start: 11-14-2021 End: 09-01-2022 Exposure to SARS-CoV-2 (event) Not sure [facility] History of tobacco use Cigarette Smoker [facility] Start: 09-01-2022 Tobacco use and exposure Smokeless tobacco non-user [facility] Start: 09-01-2022 End: 09-22-2023 Alcohol intake Ex-drinker (finding) [facility] Start: 09-03-2022 History SDOH Alcohol Frequency 1 [facility] Start: 09-03-2022 History SDOH Alcohol Std Drinks 0 [facility] Tobacco smoking status No Smokin g Status Entered [facility] Start: 09-22-2023 End: 09-25-2023 Sex Assigned At Male [facility] Has the [email or web address], [employer], or water Calvin threatened to shut off services in your [...] Assessment Result Facility 11-13-2022 Functional Status N/A [facility] Clinical Notes 11-24-2021 to 09-27-2023 Quick Note [...] [facility] 09-27-2023 Miscellaneous Notes Patient discharge, patient missing earnings and necklace with a cross. Stated they removed it down in the ED. Called ED they did not have it check in room and drawer, called security. Security made a report with patient, if found [facility]. Problem: Actual or potential alteration in health [...] collateral as reportedly the patient had alleged senior living stability until relapsing on stimulants. Continue No AMA and associated monitoring per [facility] policy. to follow up on 09/27/2023 [...] not want to see current psychiatrist at [facility]) and does not want medication management. [...] Diazepam IM for agitation -Discussed case with human resources coordinator at [facility]. No [facility] beds available. Voicemail left with [facility] clinic for assistance with follow up -Patient declines want for rehabilitative services, voluntary inpatient psychiatric admission, or referral/transfer to Mental Health or Addiction rehabilitative facilities -Continue No AMA with lethality precautions and 1:1 monitoring given elopement risk Please call/page/secure chat or reconsult with acute concerns. Darshana Amador CNP, PMHNP Pager: [phone] 09/26/2023 5:01 PM Problem: Actual or potential [...] discharge plan and instructions Outcome: Partially Met [facility] EM[facility] Attending Note (remainder of ED [...] at the following links: For Healthcare Providers: https://www.fda.gov/media/726852 /download For Patients: https://www.fda.gov/media/036902 /download BASIC METABOLIC PANEL - Abnormal; Notable for the following components: Glucose 102 (*) BUN/Creatinine Ratio 20.9 (*) All other components within normal limits Narrative: [facility] Laboratory Services has implemented the eGFR [...] Procedure Abnormality Status --------- ------ CBC Auto Differential[[id number]] Final result Please view results for these tests on the individual orders. CBC WITH AUTO DIFFERENTIAL No orders to display Clinical Impression: 1. Thoughts of harming others 2. Amphetamine misuse 3. Noncompliance with medication regimen 4. History of schizophrenia José Miguel Suero, ED Attending Physician [facility] Associated Problem(s): Stimulant use disorder [...] has a follow up appointment with the [facility] on 09/30/23. He is connected with the human resources coordinator with the [facility] (who was called and would like to assist with permanent housing for patient). Patient is future-oriented and reports protective factors of a will to live and his cats. Patient has been given homelessness resources and has a spot in a nursing home for today. Ced Hernandez's risk factors for [...] not prescribe on discharge -Discussed case with human resources coordinator at [facility] this admission. No [facility] beds available. Homeless hotline provided to patient -[facility] Mental Health clinic called, and patient [...] this note, and there can unfortunately be shift nurse manager errors. documented in this encounter [facility] 09-27-2023 Note Formatting of this n [...] Achievement of comfort function goal Outcome: Completed [facility] 09-27-2023 Note Formatting of this n [...] Patient waiting for cab at this time. [facility] 09-27-2023 History of Present illness Narrative [...] Lou DO 5 mg at 09/24/23 1524 zxfciiqqqwx-icbhjwgjypgwz-skerct vir (BIKTARVY) 50-200-25 mg per tablet 1 [...] injection 5,000 Units 5,000 Units Subcutaneous Q8H [facility] Lila Medrano MD 5,000 Units at [...] will be going to inpatient psych at [facility] facility. Finish out 5 day course of Paxlovid. Continue one week course of doxycycline. Prognosis is good for short term recovery. Ok for dc from ID perspective. Neo Lam M.D. Behavioral Health Progress Note Patient Name: Ced Hernandez Admit Date: 1211003 MR #: [id number] : 03/11/1988 Perpetual Assessment Ced Hernandez is a 35 y.o. male with past medical history significant for HIV, nephrolithiasis, tobacco use who initially presented to the [facility] emergency department on 09/20/2023 via CPD after [...] hospitalization. Plan was for transfer to the [facility] but patient incidentally tested positive for COVID [...] has a follow up appointment with the [facility] on 09/30/23. He is connected with the human resources coordinator with the [facility] (who was called and would like to assist with permanent housing for patient). Patient is future-oriented and reports protective factors of a will to live and his cats. Patient has been given homelessness resources and has a spot in a nursing home for today. Ced Hernandez's risk factors for [...] risk factors including follow up appointment with [facility] and housing, patient does not meet criteria for involuntary psychiatric hospitalization. -Discontinue aripiprazole given intolerance and patient preference. Given patient is not psychotic at this time and he does not want to take psychiatric medications, it is difficult to justify further anti-psychotic use. -Continue Lorazepam PO and Diazepam IM for agitation. Do not prescribe on discharge -Discussed case with human resources coordinator at [facility] this admission. No [facility] beds available. Homeless hotline provided to patient -[facility] Mental Health clinic called, and patient [...] continues to be to re-establish with the [facility] housing program and find a place for [...] today. Also thankful for intake appointment at [facility] on . Denies further needs to want [...] minutes on this encounter today. This includes ayen-sj-nccf time spent with the patient, time spent [...] Lou DO 5 mg at 09/24/23 1524 boiogacwgop-rqnvhibgqobdy-pizqxz vir (BIKTARVY) 50-200-25 mg per tablet 1 [...] will be going to inpatient psych at [facility] facility. Continue 5 day course of Paxlovid. Continue one week course of doxycycline. Prognosis is good for short term recovery. Neo Lam M.D. 5-day course. [facility] Assessment and Plan Ced Hernandez is a 35 y.o. male patient of [facility] with history of schizophrenia, HIV, substance abuse [...] days before he can be transferred to [facility] psychiatric unit ID consulted given immunocompromised state and possible need for Paxlovid. Started on Paxlovid Right axillary furuncle/wound cellulitis Noted swelling and wound in R axilla Wound culture, continue doxycycline Monitor Patient now thinks that he absolutely does not need a psych hospitalization. He refuses to go to [facility]. He is hoping to talk to behavioral [...] Lou DO 5 mg at 09/24/23 1524 npjlxsuwnrl-gksgafghzbcgg-vnhiuf vir (BIKTARVY) 50-200-25 mg per tablet 1 [...] will be going to inpatient psych at [facility] facility. Continue 5 day course of Paxlovid. Continue one week course of doxycycline. Prognosis is good for short term recovery. Neo Lam M.D. 5-day course. [facility] Assessment and Plan Ced Hernandez is a 35 y.o. male patient of [facility] with history of schizophrenia, HIV, substance abuse presented to [facility] with psychiatric evaluation. Psychiatric evaluation Schizophrenia [...] days before he can be transferred to [facility] psychiatric unit ID consulted given immunocompromised state [...] Ced Hernandez Admit Date: [id number] MR #: [id number] : 03/11/1988 Information within this note was taken from the Behavioral Medicine progress note from 09/24/2023, and information was updated as able and where appropriate. Perpetual Assessment Ced Hernandez is a 35 y.o. male with past medical history significant for HIV, nephrolithiasis, tobacco use who initially presented to the [facility] emergency department on 09/20/2023 via CPD after [...] hospitalization. [facility] Hospital but patient incidentally tested positive for COVID [...] not want to see current psychiatrist at [facility]) and does not want medication management. [...] Diazepam IM for agitation -Discussed case with human resources coordinator at [facility]. No [facility] beds available. Voicemail left with [facility] clinic for assistance with follow up [...] previous psychiatrist he was seeing at the [facility]. He is largely uncooperative, irritable, terse, demanding [...] Lou DO 5 mg at 09/24/23 1524 ediopsgtkhx-burnqupodhkqx-yawddi vir (BIKTARVY) 50-200-25 mg per tablet 1 [...] will be going to inpatient psych at [facility] facility. Continue 5 day course of Paxlovid. Continue one week course of doxycycline. Prognosis is good for short term recovery. Neo Lam M.D. [facility] [place] Assessment and Plan Ced Hernandez is a 35 y.o. male patient of [facility] with history of schizophrenia, HIV, substance abuse presented to [facility] with psychiatric evaluation. Psychiatric evaluation Schizophrenia [...] days before he can be transferred to [facility] psychiatric unit ID consulted given immunocompromised state [...] Ced Hernandez Admit Date: 1211003 MR #: [id number] : 03/11/1988 Information within this note was taken from the Behavioral Medicine progress note from 09/23/2023, and information was updated as able and where appropriate. Perpetual Assessment Ced Hernandez is a 35 y.o. male with past medical history significant for HIV, nephrolithiasis, tobacco use who initially presented to the [facility] emergency department on 09/20/2023 via CPD after [...] hospitalization. Plan was for transfer to the [facility] but patient incidentally tested positive for COVID [...] not want to see current psychiatrist at [facility]) and has been inconsistent with his [...] Diazepam IM for agitation -Discussed case with human resources coordinator at [facility]. No [facility] beds available. Voicemail left with [facility] clinic for assistance with follow up [...] to contact. Hopes to go to the [facility] on discharge. Declines follow-up with the [facility], stating he does not want to see his current psychiatrist. Nursing staff declines any issues throughout the day. Spoke with patient's human resources coordinator at the [facility], Pete Aldana. He states patient was stable for a long time but started using substances again, causing decompensation. Reports there are no beds at the [facility] for patient to use and will likely have to use the homeless hotline to find nursing home. I also called the mental health clinic at the [facility] for information and left a voicemail. [...] minutes on this encounter today. This includes nmto-ho-knun time spent with the patient, time spent [...] Hernandez Date of : 03/11/1988 Discharge Plan: [facility] once medically cleared Discharging Transportation Plan: ambulance Discharge Plan Status: DBA left a VM with pt's dad to follow-up on if he would like to be the pt's surrogate decision maker. Asked for a call back to discuss. [facility] [place] Assessment and Plan Ced Hernandez is a 35 y.o. male patient of [facility] with history of schizophrenia, HIV, substance abuse presented to [facility] with psychiatric evaluation. Psychiatric evaluation Schizophrenia [...] days before he can be transferred to [facility] psychiatric unit ID consulted given immunocompromised state [...] Levi DO 650 mg at 09/23/23 0227 skrjoxppgow-qpebizuovffwr-nexxjl vir (BIKTARVY) 50-200-25 mg per tablet 1 [...] will be going to inpatient psych at [facility] facility. Continue 5 day course of Paxlovid. Agree with addition of doxycycline. Prognosis is good for short term recovery. Neo Lam M.D. Per Sera Ye [phone] at [facility] patient follows with Yellow Team Jewel Rodriguez at [facility] he has a [facility] housing BENOIT Aldana [phone] if planning to admit to [facility] we will need to contact them and that is done through [facility] Progress Note Patient Name: Ced Hernandez Admit Date: 1211003 MR #: [id number] : 03/11/1988 Perpetual Assessment Ced Hernandez is a 35 y.o. male with past medical history significant for HIV, nephrolithiasis, tobacco use who initially presented to the [facility] emergency department on 09/20/2023 via CPD after [...] hospitalization. Plan was for transfer to the [facility] but patient incidentally tested positive for COVID [...] PM Ashley Leslie MD 09/23/2023 2:56 PM [facility] [place] Assessment and Plan Ced Hernandez is a 35 y.o. male patient of [facility] with history of schizophrenia, HIV, substance abuse presented to [facility] with psychiatric evaluation. Psychiatric evaluation Schizophrenia [...] days before he can be transferred to [facility] psychiatric unit Will consult ID given immunocompromised [...] normal coloration Psych: normal mood and affect [facility] reviewing ED work list noted that pt does not have a PCP. Upon further review, pt is being held for SI/HI. Substance abuse, mental health and Find-a-doc resources added to AVS. No further needs seen. Will remain available. 09/21/23 0828 Patient Information Source of Information Chart Does Patient have a PCP? No Interventions Community Resources Medication Resources;Health education;Substance abuse;Mental health services [facility] attempted to meet with pt at bedside and he was asleep. [facility] will attempt again later. Addendum: [facility] met with pt at bedside who refused PCP scheduling at this time. Pt stated he would work on this when he goes home. [facility] verbalized understanding. documented in this encounter [facility] 09-27-2023 Hospital course Narrative [facility] [place] -- [facility] Ced Hernandez Admitted: 09/20/2023 Discharge Date: 09/27/23 PCP Handoff Recommended Outpatient Testing Go to emergency intake on 09/30/23 at 1400 with [facility] Get to homeless nursing home room before midnight 09/27 Results Pending At Discharge none Clinical Summary Ced Hernandez is a 35 y.o. male patient of [facility] with history of schizophrenia, HIV, substance abuse presented to [facility] with psychiatric evaluation. Psychosis Stimulant use disorder [...] self-preservation. He has an appointment with the [facility] on 09/30/2023 and connected with the powerhouse electrician apprentice with the [facility] who will assist with permanent housing for patient. He has called for homelessness resources and has a spot at nursing home today. Given his improvement without further signs of psychotic decompensation and modification of risk factors including [facility] and [facility] he does not meet criteria for involuntary psychiatric hospitalization. Discontinue Abilify. Do not prescribe any benzodiazepines on discharge. No VOA beds available. Homeless hotline provided patient. Already has follow-up appointment with [facility] mental health clinic. Declines rehabilitative services, voluntary inpatient psychiatric admission or referral/transfer to mental health or addiction rehabilitation facilities. Discontinue no AMA HIV Noncompliant with antiretroviral therapy Continue Biktarvy- continue on discharge- states he fills this medication at [facility] CD4 count 266 ID consulted. Appreciate input. [...] They have already scheduled patient with a [facility] mental health clinic on 09/30/2023 at 2 PM. Patient called nursing home hotline 09/27 and they told him he has a room until midnight. States he will need to stop his place together as things. Conditional discharge orders placed. No admitted discontinue by behavioral health. AVS updated. Nursing to see about coming him to pharmacy and then homeless nursing home Discharge Medications Discharge Medications New Medications Details doxycycline hyclate 100 MG capsule Commonly known as: VIBRAMYCIN Take 1 (one) capsule (100 mg total) by mouth 2 (two) times a day First home dose due 9PM 09/27/23 for 3 days . Quantity: 6 capsule Modified Medications Details lwfozwvqlcn-chfsgmbrzrexr-egzgob vir 50-200-25 mg per tablet Commonly known [...] Biktarvy 50-200-25 mg per tablet Generic drug: ltyqyeyogst-pyoedhmlkffex-bncbyp vir You also have another medication with the same name that you need to continue taking as instructed. buprenorphine-nalOXone 8-2 mg Film Commonly known as: SUBOXONE escitalopram oxalate 20 MG tablet Commonly known as: LEXAPRO OLANZapine 10 MG tablet Commonly known as: ZYPREXA paliperidone 3 MG 24 hr tablet Commonly known as: YONATAN Physician(s) Follow [facility]) - [address] [place] [address] Follow up on 09/30/2023 Please attend your Mental Health intake in person at the [facility] at 2:00pm on [...] BH Condition at Discharge: Stable Disposition: Homeless nursing home I reviewed discharge recommendations with the patient in person. Patient instructions, including activity, were given to the patient/family at discharge via provider instructions. On day of discharge I saw Ced Hernandez and spent: > 30 minutes on discharge. Completed by: Liliana Toledo on 09/27/23, 2:28 PM documented in this encounter [facility] 09-27-2023 Hospital Discharge instructions Liliana Toledo DO - 09/27/2023 2:22 PM EST Please attend your Mental Health intake in person at the [facility] at 2:00pm on [...] from the original note were not included. [facility] FIND A PROVIDER: Connecting with a Primary Care Provider or Family Doctor is important for your continued health. [email or web address]-m-[email or web address] and search primary care You may also call [phone], or Or Call our Patient Service Center at [phone] to get set up with a primary care provider Wednesday-Wednesday 7am-5:30pm [facility] URGENT CARE LOCATIONS: [email or web address] SAME DAY APPOINTMENT CENTERS: *[facility] Express Appointment Center: (use only if you are established with an [facility] provider) Address: [facility], [place] [id number] [address] [address] [address] [phone] *[facility] Medicine [place]- Walk in Primary Care Address: [address] [place] [address] *[facility]- Walk in Family Practice Wednesday-Wednesday 9-5pm Address: [address] [facility] *https://www.killeen.[facility]/public health/programs/health-resources -lists/ Mental Health is health..... our emotional health can range from thriving to struggling. There are things that you can do to strengthen your mental health, for more details go to https://www.mentalhealthishealth .us/ and obtain resources for substance abuse, disaster relief, LGBTQ, teens and more. [facility] Mental [facility] Centers All have mental health counseling, psychiatry, case management, and substance abuse treatment [facility] Central: [address] [facility] [address]; [phone] Central: [address] [facility] [address] [facility] [address]; 754- North: [address] [facility] [address] [facility] [address]; [phone] West: [address] [facility] [address] [facility] [address] [facility] [address]; [phone] [facility] [address] [facility] [address] North Community Counseling Four locations to choose from: West: [address] [place] [address]; [phone] The Bridge: [address] [place] [address]; [phone] South: [address] [place] [address]; [phone] North: [address] [place] [address]; [phone] [facility] [address] [facility] [address] WALK IN HOURS AT [facility] WEDNESDAY-WEDNESDAY 16 [address] [facility] AT 8:00 AM Mental Health and Crisis Hotline: call 988 or Mental Health & Counseling Services: [facility] Behavioral Health: [phone] [facility] Access: [phone] hour mental health & substance abuse services (walk-ins [facility]) [facility]: [phone] [facility]: [phone] [facility]: [phone] [facility] [place] [phone] Primary One: [phone] or [phone] [facility]: [phone] [facility], [phone] Access [place]: [phone] ([facility]) [phone] ([facility]) [phone] ([facility]) [phone] ([facility]) [facility] Public Works Technician: [phone]- mental health, support, food/homemaker support for the community, transport for seniors, accepts most insurances (sliding scale) [place] [phone]- case management, anger management, senior programs, AOD counseling schizophrenic anonymous, support groups for families of the mental ill (sliding scale) [facility]: [phone]- anger management, AOD counseling/education, At a Loss Support Group Directions for Youth & Families: [phone]- behavioral health, AOD, violence, aggression, teen , child abuse/neglect Emotions Anonymous: [phone] [facility]: [phone]- outpatient children/adult counseling (sliding scale) [facility] Crime/Trauma Assistance Program: [phone] (sliding scale) [facility] [phone] [facility]: [phone] [facility] [phone] Counseling LTD: [phone] [facility]: [phone] [facility] Counseling & Consultation [phone] [facility]: [phone]- comprehensive mental health, AOD prevention/treatment/recovery [facility] Counseling Services: [phone]- AOD evaluation/counseling, mental health [facility] Services: [phone]- outpatient mental health & AOD abuse/counseling [facility] Services: [phone]- outpatient counseling, AOD services for all ages [facility]: [phone] [facility] [phone] [facility] [phone] Children & Adolescent Mental Health Services: [facility]: [phone] [facility] Behavioral Health: [phone] [facility]: [phone] [facility]: [phone] [facility] in the [facility] Offers providers and parents resources to help children thrive and deal with some common issues that affect children s lives. Explore topics related to health and wellness, social-emotional skills, and school readiness. Managing Asthma, Autism, Divorce, Parents in Senior Living, Eating Well, Grief, Handling Emergencies [facility]. [facility].org Counseling on a sliding scale or free: Child/Adult Guidance Center: [phone] [facility]- mental health, AOD counseling, accepts Medicaid [facility] [phone] [facility] [phone] [facility]: [phone]- counseling for adults and families, AOD services, [facility] Recovery Services: [phone]- mental health, anger management, DV counseling [facility] Board: [phone]- mental health, counseling for DV/sex offenders [employer]: [phone]: therapeutic offender program (cannot have a pending DV charge) Javier Montanez & Osorio: [phone]- outpatient therapy and counseling [facility]: [phone]- counseling only [facility] Services: [phone] [facility] [phone]- has a psychiatrist, sees both children and adults [facility]: [phone]- counseling and psychiatry, AOD counseling & hypnotherapy [facility] Counseling Services: [phone] [facility] Psychological Services: [phone] [facility] Family Focus: [phone] [facility]: [phone]- children, adult & family counseling Grieving Resources [facility] Grief Support Services Offers several grief support classes, support groups and one-on-one counseling for kids and parents of all ages at several different locations in [facility]. They have teen groups, preschool groups, infant loss groups and more. [address] [place], [place] [address] [place] [address]: [place]: Toll-free [employer].[facility].Growish/zpkebdoc-nxr-fdoa tors/support/kvoyl-fdrrodv-hqhgy s [facility] Provides grief support [...] camps and support offered to schools. [address] [place], [place] [address] [facility]: [facility].org/killeen Alive in My Heart Supports families impacted by and loss by connecting them to each other (through grief support) and to community resources in [facility]. Visit the website for contact information. [address], [place] [address] [facility].Bitium Mercer Baljit This summer program is a free, week-long, overnight grief camp for children and teens who have experienced the of a parent, sibling, or primary caregiver. It s full of activities such as swimming, hiking, games and crafts, while having structured grief group counseling sessions with trained, licensed professionals. The camp takes place at [facility] karlee in [facility], operating under [employer] [place] Brother [employer] of [facility]. Administration Office: [address] [place] [address] community healthOSSIANIX Companions on a Journey Grief Support Open [...] newsletter, grief workshops, retreats and educational classes. [address] [place] [address] [facility].org The [facility] Program: The [facility] is a [facility]-accredited behavioral health agency, that offers comprehensive and [...] be referred by a physician or organization [facility] Office: [address] [facility], [facility] B, [place] [id number] BitLit [facility] Substance Abuse Rehabilitation Resources Mental Health is health..... Our emotional health can range from thriving to struggling. There are things that you can do to strengthen your mental health, for more details go to https://www.mentalhealthishealth .us/ and obtain resources for substance abuse, disaster relief, LGBTQ, teens and more. [facility] Department of Health Alcohol and Drug Resources: https://www.killeen.[facility]/public ealt/programs/Mcwocta-qcl-Rood- Abuse/Htvtjya-nvg-Ytux-Program/ https://www.FindLocalTreatment.c om/ Substance Use Navigator: Doctors [facility]: [phone] Additional Community Resources for substance use: Scan bar QR code to be linked with application for free Narcan Kit Addiction affects everyone Support groups for families and addicts INPATIENT CENTERS [facility] [address] [place] [address] [facility] [address] [place], [place] [address] [place] [address] [place], [place] [address]25 [facility] [address] [place] [address] [address] (P) [phone] [employer] [address] [facility] [place], [place] [address] (P) [phone] WALK-IN CENTERS [facility] [address] [facility] [phone] http://wexner medical centerChina Intelligent Transport System Group/ [facility], [facility] Program [address] Walk-ins on Wednesday (1pm-2pm) [phone] [facility] Offer 22/03 assessments [facility] ([phone]) and [place] ([phone]) OUTPATIENT CENTERS [facility] (Several Locations) [address] [place], [place] [address] (P) [phone] (Walk-ins welcomed) [facility] [address] [place] [address] [facility] D[facility] [address] [place] [address] Port [address] [place] [address] [facility] [address] [place] [address] [facility] [address] [facility] [address] [place] [address] (Walk-ins welcomed) [facility] [address] [place] [address] [facility] [address] [place] [address] [facility] Medical Services (Methadone Treatment) [address] [place], [place] [address] (U) [phone] [facility] [place] (Methadone Treatment) [address] [place], [place] [address] (P) [phone] [facility] Suboxone/Methadone Clinics [facility] [address] [place] [address] [facility] [address] [place] [address] [facility] [address] [place] [address] [facility] Outpatient Addiction Medicine [address] [facility] [address] [address] [facility] [address] [place] [address] [facility] [address] [place] [address] [facility] [place], [place] [address] [place] [address] [place] Suboxone Doctor [address] [place] [address] [facility] [place] [address] [place] [address] Opioid Treatment Options & Harm Reduction when [...] Naloxone is available free from several locations (https://www.killeen.gov/public health/programs/Pjcdqtd-jmi-Psbj -Abuse/Kyskdy-sj-Hhwdulng/), by mail (https://[employer].Bitium/[place]) or with a prescription from your doctor. [...] year. We're here for you any time. [facility] Housing Resources: https://[facility].LaTherm/ Central Hotlines for Shelters & Crisis Housing Families and Single Adults: Victims of Domestic Violence: Youth: Street Card: [facility]/ [facility] ([facility]) Resource Lists These neighborhood resource lists are extremely helpful in finding resources in and around your neighborhood. They provide detailed listings of free and low cost health care, vision care, dental care, prescription help, food pantries, transportation, job help, transportation, resources and much more. They are updated frequently and reviewed by the [facility] social work team. www.killeen.[facility]/publichealth/pr ograms/cuerfr-xmubbmucw-bdqeu *[facility] [address] [place] [address] Https://[employer]/ *Coalition on Homelessness and Housing in [place] [address] General: Housing Information Line: *Coalition for the Homeless [address] [place] [address] *[employer]unte[employer] of [place] 76 [place] [phone] *PhoneAndPhone Housing [facility] for [place] and [facility] Simply type in your city, state and zip code to find a list of affordable homes and rentals in your neighborhood. [facility] *[facility] Senior Options Https://officeonaging.org/ *Homeless Families [facility] [address] [id number] https://homelessfamiliesfoundati on.org/ *[facility]- single 1 bedroom occupancy & emergency family, men's & women's nursing home services available [phone] (women housing) [phone] (men housing) https://www.ywcacolumbus.org/patrick t-we-do/dxiykbi-grlux-tr-need/yw nr-wsrimy-lrfqso/ [facility] Residences Helps low-income families, single persons and seniors find quality affordable housing throughout [place]. Also assists homeless and people with disabilities. Visit the website for additional contact and location information. [phone] Utility Resources: *[facility] Payment Assistance Customers who have received a disconnect notice or are unable to pay their electric bill can call the toll-free number to set up a payment extension or a discount plan. Customers who have special needs or medical conditions can request a medical certification form. *[facility] Is a multi-service omar-based agency that serves families and seniors in [place] and [facility]. [facility] helps working-poor families stabilize and become self-sufficient through case management, training, food and emergency assistance. They also offer supportive services and community-impact opportunities for low-income seniors. [place] [address] *[facility] Department Utilities Discount Programs Offers a utility discount for water and sewer bricklayer charges for people with a low income. Seniors age 60 and older with limited income may qualify for a discount on electricity and/or water bills. Go online to complete the application offered in both Mauritian and Maldivian. [address] [place] [address] *[facility] Payment & Billing Assistance Programs Offers several programs for customers with a low income, including extended payment plans, discounted programs and services for those with medical needs. Visit the website for more information about each program. Physical Address: [address] [place] [address] Payment Mailing Address: [facility] [id number] [place] [address] *IMPACT Community Action [address] [place] [address] General: Emergency Assistance: AMP (Achieve More & Gibson): or *[facility] ([facility]) Pride Centers & Neighborhood Social Workers Pride Centers are one-stop shops for city services, dedicated to protecting the health, safety and welfare of families living in the area. These centers house basic city services in one place, which include the Neighborhood Social Workers. Call first to make an appointment. Main [facility] Neighborhood Social Work Helpline God s Hygiene Help Center Provides free hygiene products and other items to individuals and families once every thirty days. Individuals must bring an ID. Visit the website for open hours. FREE LUNCH is served every Wednesday by the [facility] dispensary food truck [facility] [address] https://www.[facility] hospitalpe[facility].org/frees [facility] Free Store Hours: Wednesday - Wednesday 10:00am [...] on a monthly basis. The organization s regional marketing manager selects which hygiene items are included in the bags, with some opting for a fixed set of products while others vary the contents each month. Our hygiene bags can be a personal care kit, a cleaning kit, or a combination of both. We work mdnn-at-gpsb with the managers to determine which hygiene [...] Our centers are located within a secure [facility], stocked with a diverse range of 20 different products. Once a month, individuals in the community masonic home area can visit our hygiene center and fill out a client form to select up to 6 items they need. Our friendly counts include 234 beds at the [facility] staff members will then fill a [...] that a reality. FOOD ASSISTANCE RESOURCES: https://www.findhelp.org/ https://dex6gsmb.org/killeen/fo od/ Welcome to [place] Benefits *Use this site to manage or apply for healthcare, exceptional children's teacher, food and walton benefits. Https://benefits.[place].gov/ Food Pantries https://www.foodpantries.org/ci/ ms-[facility]'s On-Site Pantry *[address], [place] [address] *[address], [place] [address] iYogi For iRidge [facility] [address] , [place] [address] [facility] Food Pantry [address] [place] [address] Food Distribution Center - [facility] pantry [address] [place] [address] The All People's Fresh Market [address] [place] [address] [facility] - Food Pantry [address] [place] [address] [place] [facility]ry [address] [place] [address] [facility] [address] [place] [address] [facility] Food Pantry [address] [place] [address] [place] [facility] [address] [place] [address] [facility] Food Pantry [address] [place] [address] [facility] [address], [place] [address] [facility] [place] Food Pantry [address] [place] [address] The following are meal delivery services: -Meals on Wheels [phone] -COAAA (14 meals to 60 and older) [phone] -Senior Options [phone] -JOIN [phone] (appointment only) -Global Meals [phone] -Simply EZ Home Delivered Meals [phone] Request walton, medical or food assistance: https://jfs.[place].gov/ocomm/apply forbenefits.stm Locate your local food bank based on county: Https://MEETiiN.org/foodba nks/ Supplemental Nutrition Assistance Program (SNAP) The [...] To see if you qualify please visit: https://ssp.benefits.[place].gov/ap spssp/indexOHLanding.jsp or call [phone] Prescription/Medication Assistance Help Go to RxAssist.org, a non-profit organization that maintains a comprehensive directory of drug assistance programs. You can type in the name of the drug you are taking and it will give you all information on any drug assistance programs, as well as a link to applications. Other helpful websites include: www.staterGigaomplans.us/[place].html Mat.org GoodRx.com Needymeds.org Familywize.org Rxhope.com ValEvisors.Growish (also available as a phone hilton) [facility] By appointment only Call [phone] [place] [address] http://www.dzilth-na-o-dith-hle health center.or raffi PIRES OF THE [facility] [address] [place] [address] *[facility] Department: or [phone] www.[facility].killeen.[facility] *[facility]: [phone] *Haute App $4 list (you do not have to have a membership to fill here): https://Gamemaster.org/download/all_fil es_&_forms/employee_resources/rx _information/Rx%20Walmart.pdf *JackPot Rewards $4 list: https://www.Suncore/cp/4-pre scriptions/4542214 *Target $4/$10 list: https://tgtfiles.Limonetik/kev barros/YNBP06-312997_XzKwempkupOvu t_NM10.pdf TRANSPORTATION [facility] Transportation Services Members who have Medicaid or Medicare through [facility] who have an appointment that is over 30 miles away can call Member Services to schedule a free ride to health appointments. If traveling less than 30 miles from your home, you can get transportation for certain services through the local [facility] department of job and family services ([facility]) Non-Emergency Transportation (NET) program Members can call directly 48 hours (two business days) in advance at or (TTY ) to schedule transportation. Roving Planet/member/ eng/benefits/transportation.aspx Service County Directory: physicians care surgical hospital.[facility] shanthi.[facility] Transportation Services [place] Blue Cross and Blue Shield members can receive free rides to and from their doctor's office, pharmacy, and other providers of covered services. Call [employer] toll-free at a minimum of two full business days (48 hours) prior to your scheduled routine appointment. For an urgent/same day appointment or facility discharge, members may call the [employer] toll-free reservation line at , 24 hours a day, seven days a week. Xfjrut5Eeqr will try to find a ride for the member. KeepTrax/ms/medicaid/benefits/ transportation Bikes for All People (B4AP) Provides affordable access to bicycles and cycling-related resources to those who rely on bikes as their sole means of transportation. They offer new and pre-owned bikes, parts, tools and cycling gear, free maintenance classes, an open repair shop and group rides. They also accept donations. [address] [place] [address] [facility] Transportation Provides round trip coverage for covered services 30+ miles away. In addition, [facility] offers up to 15 round-trip visits (30 one-way trips) per member per 12-month period to covered healthcare/dental appointments, WIC appointments, food palomino, food pantries, food clinics, and grocery stores, and re-determination appointments with your [facility] Job & Family Services top steep tender. Members can call directly 48 hours (two business days) in advance at or TDD/TTY to schedule transportation. Members with questions or problems with transportation services may call [facility] Member Services at or TDD/TTY. Novast.Growish/members/pr dicaid/benefits-services/benefit o-ddqyrms-ybfihieql.htmlJob & Family Service [facility] Directory: physicians care surgical hospital.[place].[facility].stm [facility] Insurance Transportation Children and adults in [facility] who have Medicaid or Medicare through [facility] or if the health appointment is over 30 miles away can call Member Services to schedule a free ride to health appointments (including WIC appointments), food palomino, food pantries, food clinics, and grocery stores. Member Services: or TTY or 711 24-Hour Nurse Advice Line: or TTY or 710 24-Hour Behavioral Health Crisis Line: or TTY or 711 The Bouqs Company/oh/members/contac t-us/mycare [facility] Transit Dejamor Offers a shared-ride service for people with disabilities, and rides must be scheduled in advance. This handicapped and wheelchair accessible van can provide vmym-ne-rftb service for eligible customers. Customers must complete the online application and have it signed by a physician to get the VISENZE ADA card. VISENZE Pass Sales Office [address] [place] [address] or TTY VISENZE Mobility Services Facility [address] [place] [address] [employer] Mobility Services: [employer]/services/[place]-mainstrea m Discount Fairs: [employer]/riding-[place]/discount-fa res [facility] ([facility]) Pride Centers & Neighborhood Social Workers Pride Centers are one-stop shops for city services, dedicated to protecting the health, safety and welfare of families living in the area. These centers house basic city services in one place, which include the Neighborhood Social Workers. Call first to make an appointment. Main [facility] Neighborhood Social Work Helpline [facility] Department of Job & Family Services ([facility]) Transportation Services Transportation services are provided for non-emergency medical appointments for children and adults with Medicaid. Families may use the transportation services multiple times once they are approved. [address] [address] Transportation Unit: [facility]/medic po-riesawf-sfnjlipi Free Bright.md Provides free donated vehicles to struggling families to assist them in their transition from dependency to self-sufficiency. Zevan [employer] operates the largest free non-profit car-donation / distribution program in the nation and has awarded over 9000 free vehicles nationwide. For more information, visit their website. 2359 Media.CloudHelix Transportation Services Iotum GameMaki members get 30 one-way (15 round) trips each calendar year. No approval needed. Rides are available for doctor appointments, job interviews, food palomino, grocery stores, Women Infants and Children (WIC) appointments and more. Call Djhfkz2Bamn at (TTY: ) a minimum of two full business days (48 hours) prior to your scheduled routine appointment. Anpath Group/medicaid/[place]/coverag e/transportation [facility] A non-profit ame, dedicated to providing non-emergency, long-distance ground transportation to financially disadvantaged, ambulatory patients who are traveling for treatment. They use the following resources for assisting patients: gas cards, bus, train and airline tickets. Trips within a local area or community is typically not handled, but exceptions are made on a dvrs-gg-ypyk basis. Visit the website for contact information. [address] [place] [address] [place] [employer] [facility] Regional Planning Commission ([facility]) Offers information and local resources about local biking events and trails, bicycle safety, promotes bicycling in [facility]. They also provide a [facility] Home Repair program low- and moderate-income homeowners, home energy efficiency and safety services at no cost to income-eligible homeowners and renters, and information on air quality. [address] [place], [place] [id number] or TTY Home Repair: Free Home Energy Efficiency & Safety Services: [facility].org Dent Transportation Services For Dent members they can call the number below to schedule a free ride. Thrive Metrics offers emergency medical transportation, non-emergency medical transport and non-emergency non-medical transportation; food palomino, food pantries, food clinics, and grocery stores. Patients who are in wheelchairs may have unlimited transportation to and from medical appointments each year. [place], [place] [address] Call to arrange transportation or if you have questions: or TTY/[place] Relay or 711 Member Services: or TTY/[place] Relay or 712 WinLocal.Growish/members/[place]/ en-US/mem/medicaid/overvw/coverd /services/Pages/transport.aspx Private Companies that Transport Children with Wheelchairs & Special Needs Critical Care Transport [address] [place] [address] criticalcorewell health butterworth hospitalport.[facility] Note: NNP5Jvzl does not recommend or endorse any specific company. We encourage families to carefully review and evaluate all services. Jcoyg7Xnsw Provides medical transportation assistance to moms. To see if you qualify, call StepOne at . [facility]/healthy-co mmunity/qxhuf2insw killeen.[facility]/celebrate-one/Rides 4Baby [facility] Transportation [place] Medicaid plan covers eligible families, women of [...] pantries, food clinics, and grocery stores. or 143 TT FoxyTunes.Growish/[place]/medicaid /community-plan Housing / Shelters / Utilities Central Hotlines for Shelters & Crisis Housing Families and Single Adults: Victims of Domestic Violence: Youth: Street Card: [facility].org/ AEP [place] & Urban Tax Service and Bookkeeping Neighbor to Neighbor Program Provides help for [...] will help you with the application process. SEVENROOMS AEP [place]: Shicon/info/community/payme ntAssistancePrograms/Earnest montero.aspx [facility] Payment Assistance Customers who have received a disconnect notice or are unable to pay their electric bill can call the toll-free number to set up a payment extension or a discount plan. Customers who have special needs or medical conditions can request a medical certification form. Shicon/save/residential/pay ments Affordable Housing Online Simply type in your city, state and zip code to find a list of affordable homes and rentals in your neighborhood. The Echo System Offers supportive services to men, women, young [...] readiness skills training and supported living. [address] [address] sgxyx184.org [employer]ortex [employer] Technologies Offers support programs for veterans and their family, such as temporary financial assistance, a walton marcelina to support minor children of veterans who are eligible for Dutch Fetch MD membership. They also offer youth programming, award college scholarships, and list discounts and services and places to find counseling and mental health support. National Headquarters: [address] [address] Preferred Systems Solutions.org Contact Information: legion.org/contact Apprishernando Financial Counseling Offers counseling, education and advice on housing issues to new and existing homeowners including dealing with rental issues, preventing foreclosure, and bankruptcy counseling. 690 [facility], [facility] [address] [id number] or Smart Holograms Association for the Developmentally Disabled (ADD) & Caitlin Lawrence [facility] Services Provides residential, recreational, respite/home care and work training services to children and adults with intellectual and developmental disabilities. [address] [place], [place] [address]court Bob[place]field[place], [place] [id number] [facility] Breathing Association Offers chronic obstructive [...] for households who are medically needy. [address] [place], [place] [address] breathing[facility] Provides guidance and supportive services to young adults who left foster care in [place] at ages 18, 19 or 20 as they transition to adulthood. They offer services in housing, education, employment and help youth with getting health insurance, finding a doctor or improving physical or mental health in any way. [place] Counties: [place], [place], [place], [place], [place], [facility], [place], [place], [place], [place], [place], [place], [place], Counts Include 234 Beds At The [facility], [place], [place], [facility] Region Counties: [place], [facility] [place], [place], [place], Carmela, Vini, Andrei, Malika, Tarun, [place], Jose Angel, Adiel, Jose Alberto, Leyda, Frank, Jered, Brooke, [facility].[place].gov [facility] Offers multiple programs in [place] individuals, youth and families in zip codes [address], [address], [address], [address], and [address]. Their [facility] Food Pantry helps families in need to have healthy meals; COMPASS provides limited rent and utility assistance; their uvi-fj-gzlfzl and summer programs provide academic enrichment services for K-12 youth. [address] [place] [address] [facility].org/ministries Leila Mcmanus Provides family-focused mental health treatment [...] referrals must come from the courts, the [facility] or another referring agency. [facility] [address] [address] Offerings: Same Day Access, Permanent Family Solutions Network (PFSN), Foster Care, Bridges, Clinical community Based Programs, Outpatient, Medication Management [place] [address] Offerings: Residential programs, Outpatient counseling, and Training [facility] ([place]) [address] [place] [address] Offerings: Same Day Access, The [facility], Outpatient Counseling, Home-Based Services, and Multisystemic Therapy Team (MST) [facility] [address] [place] [address] Offerings: Transitional Living Facility [address], [place], [place] [address] Intake/Referral: [facility] Provides a variety of social service programs to residents living in the [employer]. Some of the programs available are a community food pantry, emergency assistance, holiday assistance, senior transportation and more. [address] [place] [address] [facility] Public Works Technician Is a multi-service o[place]-based agency that serves families and seniors in [place] and [facility]. [facility] Public Works Technician helps working-poor families stabilize and become self-sufficient through case management, training, food and emergency assistance. They also offer supportive services and community-impact opportunities for low-income seniors. [place] [address] [place], [place] [id number] [facility] [place] [address] [place], [place] [id number] [place] [address] [place] [id number] [place] Physical Address: [address] [place] [address] Mailing Address: [address], [place], [place] [address] [facility] [address] [place] [address] Intelligent Fingerprinting.Bitium [facility] Human Needs ([facility]) Connects people in need in the [facility] district with community resources. Services include summer lunches, school supply distribution, walton assistance (rent, utilities, prescription, etc.), distribution of household items, znffs-r-ewziqm and more. [address], [place], [place] [address] LifeShield Security.com/[facility].org [facility] Nursing Home & Services Serves: Single Adults & Families Provides free, confidential emergency nursing home and supportive services, including support groups and therapeutic groups, to community members in [facility] who are victims of a domestic violence situation and need help. A free, confidential 24-hour crisis line is available for those who may have questions or concerns about domestic violence and for those who are in search of a safe home. [address] [place], [place] [address] [facility]/clftwz-asa-syuSelect [facility]ty [facility] A neighborhood-based community center that serves the near east and near south neighborhoods of [place], [place]. They offer soft skills training, employment assistance, financial education training and emergency housing programs to help access rent or mortgage assistance, food nutrition programs, utility services, health care, parenting workshops and more. Additionally they offer tire builder heavy service programs, summer programs, and exceptional children's teacher for ages six-weeks through vejk-plryh-xut. [address] [place], [place] [address] [place] state health systemCyberCity 3D, Inc..Bitium [facility] ([facility]) A nonprofit organization that creates and preserves affordable housing in the [place], [place] area. Find home listings on their website. Vuclip is a subsidiary of [facility]. [address] [place], [place] [id number] Archiver's.Bitium [facility]: ESL Consulting [place] Municipal Hospital Code Enforcement Division Provides inspection and enforcement for rental housing when landlords do not fix problems. Enforces housing codes such as maintenance and safety issues (leaks, plumbing, broken fixtures and appliances, pest problems, leaking roof, gutters and downspouts, chipping and peeling paint, flood, etc.), high grass and weeds, trash, and vacant structures. To address a problem, call the [facility] or enter a complaint online at their website. 311.[facility]/development/Code-En forcement [facility] Department Utilities Discount Programs Offers a utility discount for water and sewer bricklayer charges for people with a low income. Seniors age 60 and older with limited income may qualify for a discount on electricity and/or water bills. Go online to complete the application offered in both Mauritian and Maldivian. [address] [place] [address] [facility]/utilities/customers /Icqsoyg-Lpqlgykr-Npeuqzvc [facility] Housing Division / Homeowner Assistance Programs Provides assistance to residents on issues such as unsafe buildings, unsanitary conditions, carbon monoxide inspections, high weeds, lastex operator refusal to make repairs and animal maintenance. Their homeowner assistance program include: down payment assistance, acquisition and relocation due to a federally funded projects, roof replacement, deaf modification, and other programs assisting individuals and families to remain in their homes and live independently in a safe and sound environment. [address] [place] [address] [facility]/development/Housing -Division [facility]/development/housing -division/Homeowner-Assistance Coalition on Homelessness & Housing in [place] (COHNEO) Supports [place] residents and organizations seeking guidance on landlord-tenant law and the Fair Housing Act. If you need free legal advice on how to deal with a specific issue, email them or call them using the Housing Information Line. [address] [place] [address] General: Housing Information Line: Synergy [employer] [facility] Payment & Billing Assistance Programs Offers several programs for customers with a low income, including extended payment plans, discounted programs and services for those with medical needs. Visit the website for more information about each program. Physical Address: [address] [place] [address] Payment Mailing Address: [address], [place], [place] [address] [employer]/njzuc-frl-hh yments/financial-support [facility] ([facility]) Offers a wide variety of individualized programs and services designed to promote self-advocacy, increase independence, and enhance the lives of individuals living with developmental and intellectual disabilities. Some services include transportation, housing, job training, art, in-home support and more. [address] [place] [address] sac-osage hospitalKiggit.Bitium [place] [facility] the [facility]eless ([facility]) Advocates services for those experiencing homelessness, educates the [facility] community about homelessness, and actively works to reduce hate crimes. They also provide homeless persons with a Street Card , that lists information on most needed services in [facility] for which they may be eligible. [address] [id number] Emergency Nursing Home: western state hospitalYumit.org Street Card: SCREEMO.org/?page_id=43 #page-content [facility] [address] A [place]-based organization that serves low-income, homeless, and under-served individuals and families. They provide free, routine outpatient health and wellness services through the [facility] Medical Extruding Press Operator, hot meals and pre-packed lunches for kids, after school programs, holiday help, and lblg-vi-jevnlo supply giveaways. They also have shower and laundry times throughout the week and other supportive services for homeless people. Visit the website for contact information. [address] [place] [address] columbusdreamcenter.org LifeShield Security.com/cbusdreamcenter [facility] ([facility]) Provides low-income and Section 8 housing and helps people access decent, safe and affordable housing. They can help Section 8 families become homeowners and become economically independent of housing assistance. They also offer care coordination services, homeownership and self-sufficiency programs for residents. [address] [address] [employer] Additional Contact Information: [employer]/Home/Contact [facility] ([facility]) Healthy Homes Program Provides assistance and advice on creating a safe home environment. This program is for eligible residents in [place] and [place]. Services include: Phone consultations Mandatory lead inspections for homes with lead poisoned children Free HEPA vacuum loan for lead hazard clean-up Community presentations and displays of healthy home educational information at fairs and special events Referrals to services for landlords, tenants, and homeowners [address] [place], [place] [id number] killeen.[facility]/publichealth/progra ms/healthy-homes [facility] Provides affordable housing and childcare to student parents. Qualified participants attend an accredited college or university full-time while residing in the [facility]. The student parents receive supportive services through the [employer] ACCESS Collaborative program to help them stay in school and maintain their grades while also providing for the needs of their children. [facility] ([facility]) Management [address] [place] [address] or TT cpoimpact.org/scholarhouse.aspx [facility] (CUL) A community?based, non?profit, advocacy organization that [...] - Empowering small and minority business [address] [place], [place] [address] cul.org Community Development for All People (CD4AP) & All People's Fresh Market This [place]mar-based organization provides free produce, clothing and household items to families in need, affordable housing on the [place], youth development, nutrition education and more. They also have two Fresh Market locations, which have free fresh food 5 days a week. Go online to find out more information about different programs. Physical Address: [address] [place] [address] Mailing Address: [address], [place] [address] All People's Fresh Market Address: [address] [place] [address] PingThings Market Address: [address] [place] [address] Main Free Store Aileron [employer]rapeutics.Bitium Community Housing Network (CHN) Provides housing assistance to people experiencing homelessness, mental illness, addiction, and other trauma related issues. [facility] collaborates with a network of partners to offer residents access to services like service coordination with case management, crisis intervention, healthcare, counseling, food access, employment training, benefit assistance and more. [address] [address] [facility].org Community Mediation Services ([facility]) of [facility] Offers an alternative to the court system by providing an impartial administrative assistant receptionist who helps work out conflicts. They provide problem-solving services for domestic and family issues, divorce, neighborhood conflicts, tenant-landlord disputes to prevent eviction, workplace issues and consumer rights disputes. Services are offered on a sliding fee scale. [address] [phone] [facility] ([facility]) Provides Section 8 and low-income affordable housing in [place] and other [facility] throughout [place]. [address] [address] Main Office: 24-Hour Maintenance Hotline: Safety TipLine (to anonymously report suspicious or criminal activity on or near a [facility] property): Resident Services (for referrals for eviction prevention, childhood initiatives, basic needs and more): cpst. mary[facility].org Community Nursing Home Board (CSB) Provides information on nursing home beds during winter weather, warming stations, and services to people living on the streets, in public rasmussen, under bridges, in vehicles and abandoned buildings ([facility] Outreach). [address] [place], [address], [place], [place] [address] Homeless Hotline, 24-hour line: [facility] Outreach, 24-hour line: csb.org/Get-Help Consumer Financial Protection Mccreary (CFPB) Offers financial education tools for kids and adults, answers common questions, and provides tips that help consumers navigate their financial choices. Topics that are covered include loans, fraud and scams, savings, paying for college and more. or TTY/TTD Ask CFPB: Tynker.gov/ask-cfpb Free Bulk Publications: angela.Urgeo.gov/CFPBPubs/CFPBPubs .php Tynker.gov Creative Housing Provides accessible and affordable housing for people with disabilities in the [facility]. People served by the [facility] Board of Developmental Disabilities should contact their hvac service tech regarding housing waiting list information. Also, they provide accessible renovation and construction services through their program Bevalley. [facility] [place], [place] [address] dreamsha.re.Bitium Disaster Assistance Improvement Program (DAIP) Provides disaster survivors with information, support, services, and a means to access and apply for disaster assistance. The site also provides resources to help you learn how to prepare for, respond to, and recover from disasters. [facility] Disaster Assistance Helpline: (also for 711 & VRS) or TT disasterassistance.gov Do More [facility] Offers financial assistance for families who need [...] for additional contact information. [address] Julianna 1981, [place], [place] [address] thewashington county memorial hospitaloreundation.org [facility] A licensed foster care agency serving youth with developmental disabilities. They offer several services including foster care, in-home services, residential services, respite care and developmental services. They support children and adults living in [facility]. [address] [place], [place] [id number] or Toll-free Aquapdesigns/[facility]/[place] ECHO Residential Support Provides support to individuals so that they may live where they want and with whomever they choose. ECHO helps in a variety of ways including housekeeping, money management, finding housing, transportation, and serves as a friendly face to support and encourage people with developmental disabilities to make their own decisions. [address] [facility], [address], [place], [place] [id number] Aqua-tools Energy Saving Ideas Click here for energy saving ideas from [facility]. Click here for low/no cost energy saving tips from [facility]. EveryoneOn Find low-cost Internet, affordable computers and/or free digital literacy training courses in your area. [address] [place] [address], [place] everyoneon.org [facility] Department of Job & Family Services (S) Provides information about food assistance ([place] Direction Card / EBT), [place] assistance, medical assistance (like Medicaid), job training, emergency assistance (PRC), help with paying for exceptional children's teacher and more. Each center serves certain zip codes. People outside of [facility] should visit their local [facility] Department of Job and Family Services. Refugees and immigrants can apply for services as well. [facility] [address] [place], [place] [address] [facility] [address] [place], [place] [address] [facility] [address] [place], [place] [address] Call to apply for SNAP/OWF [place] assistance/Medicaid benefits Batch Mixing Truck Driver: Medical Transportation: Workforce Development: jfs.[facility] Self-Service [place] Benefits Portal: benefits.[place].gov [facility] Law Library Is a [facility] law library that offers free legal clinic, legal research guides, legal forms and self-help legal resources for the public. [address] [facility], 10th floor, [place] [id number] lawlibrary.cascadiaGlobal MailExpressuntDoNever Campus Love.go v [place] Buffing Wheel Raker Portal: [place]legalhelp.Bitium [facility] ([facility]) Offers many services and resources, some of them include: / certificates Plumbing inspections Low cost healthcare and immunization clinics Community training on naloxone and opioid overdoses Lead inspection Free home radon test kits [address] [place], [place] [address] or TTY/TDD Weekend, Holiday and After Hours Emergency Hotline: [facility] In Need (GRIN) A community wide, [place]-based organization committed to helping the residents of the [facility] in a time of need with a hand-up . They help provide food through their food pantry (by appointment), diapers, utility assistance, school supplies, holiday gifts and meals, and summer lunches. Physical Address: [address] [place] [address] Mailing Address: [address], [place] [id number] [address] ([facility]) A omar-based organization that provides opportunities and offer supportive services for youth and families living in the [facility]. Some of their initiatives have included annual school supply giveaways, financial literacy and credit holiness classes, and help with house maintenance and getting affordable housing. [address] [phone] [employer] [facility] Is a settlement house located in [place] on the near [place] side of [place], [place]. They provide emergency financial assistance (e.g., rent, utilities, prescriptions, and other critical needs), offers access to a mobile medical unit access from The Breathing Association, and case management services. Provides emergency food assistance to households living within the service area (zip codes [address], [address], and [address]). Other services available at the pantry: home delivery to people with disabilities, and diapers are available. They also provide educational services such as preschool, after-school, summer day camp and team sport programming. [address] [phone] [facility] hospitalFenergoSaint [facility] Offers employment and job training programs, social and education programs for people with developmental disabilities and other barriers to employment. They also offer supportive living, art, health and wellness programs, and a variety of activities in community settings including volunteering, recreation and leisure, and community awareness. At their [facility] Stores are thrift clothing, furniture, vehicles, art and more. Visit the website or call for center and store locations in [facility]. [address] [id number] or [facility] PetersburgAlve Technology.PopularMedia [facility] affordable homes to people with a low income who are first-time homebuyers. Participants must go through a screening process and demonstrate their ability to repay a mortgage and help build their home. They also offer a low cost home repair program to current homeowners in [facility] and [facility]. [address] [phone] Home Repair Program: MC2.Bitium [facility] ReStore A discount home improvement store open to the public. Shop or donate gently used furniture, home accessories, building materials and appliances. The money they make goes to [facility]. Visit the website for store hours. [address] [place], [place] [address] [address] [place], [place] [address] [address] [place], [place] [phone] CopaCast/restore Twyla Seymour of [place] Serves: Single Adult Women & Families A omar-based group of community houses serving those in the inner city of [place], [place]. Their program Girls With Attitude celebrate, empower, and mentor women of all ages via community outreach, study groups, and celebrations. [address] [phone] [employer] International.Growish/Leona Healthy Homes Healthy Homes is one portion of the Healthy Neighborhoods, Healthy Families initiative (HNHF) started by [facility]'s [facility]. The goal is to address vacant and abandoned properties in the [address], [address] and [address] zip codes on the [place], in order to provide safe and healthy homes for individuals to live in. Programs include home wholesale buyer assistance, education, housing rehabilitation and marcelina home repair for existing homeowners. Mailing Address: [address] [address], [place] [address] DivvyHQlafene health center.Bitium [place] Food Pantry Provides eligible individuals with canned and boxed food, bread, produce, and personal care items, as well as utility assistance. These services are offered to residents who live in the [facility]. [address] [place], [place] [id number] [facility] Homeless Families Foundation (HFF) Serves: Families Serves children and their families living in poverty, helping them to get housing and resources, while providing educational after-school/summer programming and support for kids grades K-8. They also host Supporting Partnerships to Assure Ready Kids (SPARK) a program for three and ddus-dfec-hoh children, not enrolled in Pre-K, who will soon enter Kindergarten. [address] [phone] Homeless & Emergency Nursing Home: homelessfamiliesfoundation.org Homeownership Preservation Foundation (HPF): Foreclosure & Financial Counseling Hotline For people who may be in danger of facing foreclosure, they offer free and confidential assistance from a financial counselor. The financial counselor helps review your ability to afford a mortgage now or plan for one later, how to sustain it, as well as get help with navigating the homebuying process. [facility]-certified counselors can work with individuals to find a solution and set up a plan of action. [address] [place] [address] [place] [address].[facility] Homeport Provides a list of low-cost rental properties and homes, offers money management help for people who have fallen behind on mortgage payments, and offers homebuyer education, credit and budget counseling for a minimal fee. They can also help people buy a home and assist with down payments. [address] [place], [place] [id number] Find Housing: homeportliving.org Education: homeportlearning.org homeportohio.org Sobrr on [facility] Stellar [employer]ote[employer] [facility] ([facility]) Provides affordable redeveloped housing on the [place], [place]. They also offer renter and homebuyer education programs, one-on-one budget, credit and financial counseling sessions, and can provide down payment assistance and mortgage counseling to prevent foreclosure. [address] [place], [place] [id number] [facility].org Tahira Quijano Serves: Youth & Teens Works with [facility]'s youth ages 12 to 24 and families who are dealing with issues like abuse, violence, neglect, poverty, and homelessness. Programs include: Crisis Nursing Home - Provides emergency nursing home and crisis intervention for youth ages 12 [...] location where that assistance can occur. [address] [place], [place] [address] YOP Shop: [address] [place] [phone] 24-Hour Crisis Hotline: [facility] g.h. bing, md, cancer centercicayda HUD (Housing & Urban Development) Resource Exchange Architect Lists [facility] rentals and homes online throughout [place]. The [facility] office in [place] services [address] [facility] in but[place] and [facility]. The [facility] website provides useful information on avoiding foreclosure, home improvements, buying homes, housing discrimination and more. [place] Field Office ([facility]) [address] [facility], 7th Floor, [place] [phone] resources.[facility].gov [facility] in [place]: [facility].gov/[facility]/[place] [employer] Community Action Provides income-based case management services, emergency assistance services, financial services, computer literacy and workforce development programs. Most of the programs are for [facility] residents living at or below 125% of [...] and refrigerator/freezer replacement through their AEP Program [address] [place] [address] General: Emergency Assistance: AMP (Achieve More & Gibson): or impactCozi Group.org AMP website: jfs.[facility] regional hospital[facility].gov/amp Joint Organization for [facility] Needs (JOIN) Provides limited financial assistance for water and gas/fuel for low-income people whose utilities have been shut-off or have a shut-off notice. Also, they offer toiletries, cleaning supplies, disposable diapers, one time certificates and monetary contributions. Makes referrals to community agencies who assist in the prevention of repeat crises. [address] [place], [place] [address] [facility]/taisha [facility] Resource Center Serves those who are homeless and have a substance use disorder by offering services and resources (like mentoring, food, clothing, documentation/ID assistance, laundry and shower services, a cooling and heating station, and more) and making referrals to other community service providers. Visit the website to see all the services and resources they provide. [address] [place], [place] [address] [facility].Bitium [facility] Youth [place] Supports youth ages who identify as LGBTQ+. They offer a range of programs and activities, including discussion groups, a housing program, social activities and leadership training. [address] [place], [place], [address] Crystal Clear Vision.Bitium Buffing Wheel Raker Society of [place] (LAS) Provides free civil legal assistance and guidance to low income residents and senior citizens of [place] and [facility]. Buffing Wheel Raker attorneys may be able to help you with the following types of cases or legal problems: consumer law, family law, housing, foreclosure, public benefits, reentry, seniors, tax, veterans, education and Brief Advice clinics. [place] Office: (serves [facility]) [address] [place], [place] [address] Intake: or Toll-free General Inquiries: or Toll-free [place] Office: (serves [facility] and [facility]) [address] [place] [phone] or Toll-free community hospital south.org [facility] for [facility] ([facility]) A one-stop shop for housing resources in [facility]. They assist low-income people and anyone needing to find more affordable housing, or those who are at risk of utility disconnection. They also offer financial coaching, personal finance classes and foreclosure prevention services. Physical Address: [address] [place] [address], [address], [place] [address] Mailing Address: Julianna [address] [place] [address] Toll-free or lcchousing.org Long-Term Care Homes [facility] Caitlin Lawrence [address] [place], [place] [address] [facility] centerlar[facility]aming[facility] Aristocrat Conyngham [address] [place], [place] [address] Xelor Softwareherkimer memorial hospital.[facility] Children[facility] Home [address] [place], [place] [address] yeaddiss.[facility] Filling Home [address] [place] [address] [phone] fillinghome.[facility] [address] [place] [phone] eating recovery center [facility] behavioral [facility] for children and adolescents.[facility] [address] [place] [address] progenyfamilytrainingcenter.org [facility] [address] [address] [address] [facility] Ucha.se [facility] ([facility]) A omar-based organization that serves individuals, families and [facility] [place] members. They offer transitional housing for previously incarcerated women, low-income families and individuals, and females with substance use disorders. They also provide free meals, finance, employment, education, life coaching, hair and beauty salon services, as well as host a summer day camp, offer homework help and mentoring for at-risk youth ages 7-17. [address] [place], [place] [phone] Recovery Program: Imperative Energyunitypoint health[facility].Bitium [address] [place] [address] Ucha.se [facility] Centeron: Thought Network S.A.[facility].Growish [address] (formerly known as [facility]) This comprehensive information and referral service connects those in need with thousands of social service, government and community resources. They help find a solution to any need. Free and confidential, available throughout [facility] 24 hours a day, 7 days a week. Information Referral: or Homeless Hotline: Foodline: or text Food to mountain west medical centerPrepared Responsewardsboro.Bitium/211centralo paulao Tenriism Public Works Technician (LSS) Serves: Single Adults & Families Offers services to provide for the basic needs of all people, including nursing home, affordable housing for seniors, food, health care, case management, services; support for women, men and their children escaping intimate partner violence (CHOICES), transitional job training and more. They provide services in multiple [facility] in [place]. Visit the website for detailed information about each program, location and contact information. [address], [address], [place] [address] 24-hour crisis line (Domestic Violence): [facility], edwin shaw.Bitium Pantry Locations: HireHive/foodpantrie s/services/pantry-locations List of [facility] Locations: Alta Rail Technologysalt lake behavioral health hospitalVictiv.Bitium/contact-us/ locations Making Home Affordable Offers no-cost, HUD-approved housing counseling on foreclosure prevention, budgeting, refinancing, mortgage assistance, avoiding scams and more. Services are offered in multiple languages. [facility] Diana Specializes in the treatment of people [...] referred by a physician or organization [address] [address] [address] [place] [address] 715 [place], [place] [address] [address] [address] Intri[employer]lex [employer] [facility] ([facility] Teaching Opportunity [place] by Connecting Hearts) This program is for [...] receive access to housing and clothing assistance. [facility]0 [place] [phone] [facility] – miamiSapient.Bitium Mental Health [facility] ([facility]) Offers advocacy, and mental health services, support groups for people struggling with various mental health challenges, workplace and community educational programs, professional training and an online resource directory. Their free, confidential Ombudsman Program for residents of [facility] offers a caring, knowledgeable mental health professional who helps individuals and their family members resolve problems related to mental health services. They listen to concerns or complaints and can help parents and families find needed community resources. Long-term Care Ombudsman Program [facility] Support Groups Free Mental Health Screening Online Mental Health & Recovery Services Directory [address] [place] [address] Mental Health Clara: Ombudsman Program: [facility] hospitalo.org [facility] Regional Planning Commission ([facility]) Offers information and local resources about local biking events and trails, bicycle safety, promotes bicycling in [facility]. They also provide a [facility] Home Repair program low- and moderate-income homeowners, home energy efficiency and safety services at no cost to income-eligible homeowners and renters, and information on air quality. [address] [place] [address] or TTQ Home Repair: Free Home Energy Efficiency & Safety Services: mor.org Phantom Pay Offers a low cost tool Nextanceing library, that has over 5,000 tools. Yearly low-cost membership is offered on a sliding scale, based upon income. The only restrictions to become a member is to live in [facility] and own your home or have permission from the property lastex operator (no income restrictions). They also offer free home repair and maintenance to income-eligible seniors and people with disabilities. [facility]0 [place] [phone] National Technical Systems Move to [place] Provides access to affordable rental homes for very low income households with children ages 13 and under in [place], [place], [facility] [facility] and [place] school districts. They offer workshops and coaching on reaching your financial, career, educational and wellness goals for you and your family. Visit the website for contact and application information. movelandmark medical centerHalobander.Bitium [facility] Helps low-income families, single persons and seniors find quality affordable housing throughout [place]. Also assists homeless and people with disabilities. Visit the website for additional contact and location information. piggott community hospitalces.org [facility].org/bus iness-services/supportive-housin i-lohpacwj-agkfoqkv [facility] Bridges A charitable organization that helps match families in need with local businesses, volunteers and service organizations that offer resources such as food, volunteering, clothing, supplies and more. [address] [place], [place] [address] [place] neighborhoodbridges.org/communit y/BigMerged With Swedish Hospitalnut-oh [place]: neighborhoodbridges.org/communit y/emiliano-oh [place]: neighborhoodbridges.org/communit y/gahanna-oh [place] neighborhoodbridges.org/communit y/[place]-oh [place] neighborhoodbridges.org/communit y/pataskala-oh [place] neighborhoodbridges.org/communit y/hzdat-wdrwczbbq-ym [place] neighborhoodbridges.org/communit y/olentangy-oh [place]: neighborhoodbridges.org/communit y/[facility] neighborhoodbridges.org/communit y/fargo-oh Office of the [place] Consumers' Household Appliances Salesperson (OCC) Provides a variety of free education materials to help consumers understand current utility (like electric, natural gas, telephone and water) issues. They also provide free knowledgeable outreach and education professionals to talk about a variety of topics to groups. [address] [place], [place] [phone] or [facility].[place].[facility] Consumer Assistance: [facility].[place].gov/utilityassistance [place] Department of [employer] Energy Assistance Programs Provides heating and cooling assistance and utility discounts, with eligibility based on household income. The HEAP program offers a one-time payment for utility customers during the winter and summer throughout [place]. Call or download an application from the website. They also provide weatherization services. [address] [phone] or TDD Applied StemCell.[place].[facility]/Foursquares/portal/ gov/development/individual/energ y-assistance/energy-assistance [facility] () Lead Poisoning Prevention Program Provides lead poisoning prevention programs throughout [place]. [place] residents have access to resources to test for lead and help families with the cost of lead repair work. [address] [place], [place] [address] [facility].[place].[facility]/wps/portal/gov/chi st. [facility]/ sbeg-ggr-hszwswum/Childhood-Lead -Poisoning [facility] Serves: Single Adults & Families, Youth & Teens Provides counseling and treatment services for children and adults, and parenting support, respite care, domestic violence nursing home, and foster care services, as well as substance abuse and addiction recovery that include peer support and housing, and more throughout [place]. Visit the website for additional contact and location information. Crisis Line: [facility].org [place] Housing Finance Agency ([place]) Helps the development, [...] your lender for a foreclosure resolution. [address] [phone] or Toll-free or TDD [facility] Legal Help Helps [place]ans access the civil justice system. They provide plain language legal help information, interactive self-help tools and connections to local legal and community resources that can help people resolve their legal issues. 88 [facility], [address], [place] [phone] [facility].Bitium [facility] ([facility]) Extension Works with families and children, farmers and business owners, community leaders and elected officials to build better lives, better businesses and better communities in [place]. Many programs fall into four categories, including; 4-H Development: clubs, school enrichment, after-school and STEM programming for a minimal fee Community Development: HUD-certified home wholesale buyer education, free money management, renter education, investing, and student loan debt workshops Agriculture & Natural Resources: urban agriculture education programs Family & Consumer Sciences: nutritional education programs (EFNEP and SNAP-Ed) [facility]0 [place], [place] [address] [facility] Office: cascadia.[facility]/home extension.[facility] (Formerly [place] AgreeYa Mobility - Onvelopteche regional medical center) Located inside [facility], the [facility] offers programs to assist [facility] families who are temporarily in need. Those programs include: Osvgk-T-Efpoop, Free Shop (offers new and gently-used clothing, household and personal care items), [place] Free Shops, Bed Donation Program, Back to School Outreach and Emergency Household Assistance. [address] [place] [address] [facility] Opportunity Port Started by [facility] as an initiative aimed at expanding employment and housing opportunities for residents of [place] and [facility] by sealing their criminal records. Opportunity Port does not provide legal advice but helps former offenders seal their record. If a person qualifies, they are connected with an trial attorney and if the mirror painter approves the application, the court will remove past offenses from public view. Visit their website for more information. opportunityport.org PALS A Material Mix Provide support to individuals with developmental disabilities by building on the foundation of physical activity and life skills (PALS). They offer adult day services, residential services, life skill classes, activities and vocational training programs. [address] [address] [employer] NancyW[place], [place] [phone] [place] [address] [place], [place] [address] [place] [address] [place], [place] [address] Art Outside the Lines [address] [place] [address] niiu Pro [facility]hemy [facility] Local attorneys answer legal questions free of charge. Click below for a list of free legal clinic locations and times. [facility].org/get-involve d/trial attorney/xsh-viyx-lwarmzw/ Public Utilities Commission [facility] ([facility]) Energy Assistance Programs Assistance is available for both gas and electric bills. The assistance may be in the form of a reduction of heating bills and/or a set amount based on household income. The [facility] website gives information on how to sign up, who is eligible and what programs are available (including a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 Substance use History Nicotine: 1 ppd historically Alcohol: historically denied ; BAL: negative Illicit substances: endorses meth and cannabis use; UDS: + amphematine, cannabis Rehab: [facility]; [facility] 10/2022; [facility] Medical History: I have reviewed the patient's other history as below: Past Medical History: Diagnosis Date HIV disease (HCC) 2011 HIV + - on antiretrovirals since HIV positive ([facility]) 2011 antiretrovirals Nephrolithiasis passed Tobacco abuse Past Surgical History: Procedure Laterality Date COLONOSCOPY COLPOSCOPY N/A 09/16/2015 Procedure: HIGH RESOLUTION ANOSCOPY ; Surgeon: Ezequiel Martines MD; Location: [facility] Main OR; Service: CT ABSCESS DRAINAGE RENAL 11/25/2021 CT ABSCESS DRAINAGE RENAL 11/25/2021 CT FULGURATION CONDYLOMA RECTAL WITH LASER N/A 09/16/2015 Procedure: CONDYLOMA RECTAL FULGURATION CO2 LASER; Surgeon: Ezequiel Martines MD; Location: [facility] Main OR; Service: WISDOM TOOTH EXTRACTION Family History: Family History Adopted: Yes Family history unknown: Yes Allergy Information: I have reviewed the patient's allergies. Penicillins Home Medications: Outpatient Medications as of 09/20/2023 Medication Sig alxtsczrlfv-bdxkpctkgdozv-qzpurh vir (BIKTARVY) 50-200-25 mg per tablet Take 1 (one) tablet by mouth daily . CHOLECALCIFEROL, VITAMIN D3, ORAL Take 1 capsule by mouth once daily . zokgsgxlvqa-zophvyzmjaluh-glgdsl vir (Biktarvy) 50-200-25 mg per tablet Take [...] 09/21/2023. The patient is physically located at [facility]. I, Marlon Hannah DO , am physically located at [facility] ED. The on-site histologist is in the patient's room and facilitated the visit on the patient's behalf. I personally visualized this patient through audiovisual technology on the same calendar day as the Resident's jypk-kd-goug evaluation.I have reviewed the history, physical, diagnosis [...] Associated Order(s): ED CONSULT TO PSYCH - SITE MEDICAL DIRECTOR ED Inside Sales Account Manager Behavioral Health Initial Assessment Date: 09/21/2023 Time: 4:22 AM Patient Name: Ced Hernandez Date of : 03/11/1988 Sex: Male Admit Date/Time: 09/20/2023 4:32 PM GENERAL INFORMATION General Information Automatic Spooler Operator Needs: Not needed Information Provided By: Pt, records Patient Support System: I barely have any support Current Living Arrangements: with friend/roommate Type of Residence: Private residence Name and Contact of Collateral Provider: Stewart (friend) [phone] LEGAL STATUS Medical Hold Date Signed 09/20/23 [...] was last hospitalized 2 months ago at [facility]. Per records, pt was psychiatrically hospitalized at least 4 times last year. Per records, pt was hospitalized at [facility] at the end of April for psychosis. Per records, pt has a history of testing positive for amphetamines, however, when he was at [facility] in April he only tested positive for [...] PSS to speak with his friend Stewart ([phone]). Stewart stated that he last spoke to [...] Hospitalizations: [facility]; [facility]; [facility]; [facility] 09/2022 Current Psychiatric Medications: none ALCOHOL/DRUG ABUSE HISTORY Alcohol/Drug Abuse History Current Alcohol Use (Frequency): Denies Current Drug Use: Yes Drug Type: meth; pt also tested positive for marijuana Frequency of Drug Use: whenever my friend buys it for me History/Current Alcohol/Drug Treatment: [facility]; [facility] 10/2022 MENTAL STATUS EVALUATION Mental Status [...] Violent Episode: Per records 10/2022, recently in snf for several days on criminal damage charges [...] Conflict Resolution (Coping Skills): No Cultural and Mosque Beliefs: No Access to Weapons: No TREATMENT [...] to firearms. documented in this encounter [facility] 09-22-2023 Consult note Associated Order (s): [...] Ced Hernandez Admit Date: 1211003 MR #: [id number] : 03/11/1988 Physicians: [facility] (Family); No ref. provider found (Referring) Chief [...] Past Medical History: Diagnosis Date HIV disease ([facility]) 2011 HIV + - on antiretrovirals since HIV positive ([facility]) 2011 antiretrovirals Nephrolithiasis passed Tobacco abuse Past Surgical History: Procedure Laterality Date COLONOSCOPY COLPOSCOPY N/A 09/16/2015 Procedure: HIGH RESOLUTION ANOSCOPY ; Surgeon: Ezequiel Martines MD; Location: [facility] Main OR; Service: CT ABSCESS DRAINAGE RENAL 11/25/2021 CT ABSCESS DRAINAGE RENAL 11/25/2021 CT FULGURATION CONDYLOMA RECTAL WITH LASER N/A 09/16/2015 Procedure: CONDYLOMA RECTAL FULGURATION CO2 LASER; Surgeon: Ezequiel Martines MD; Location: [facility] Main OR; Service: WISDOM TOOTH EXTRACTION Family [...] Outpatient Medications as of 09/22/2023 Medication Sig rxkvjjcjsvx-dpcyehnhffclf-ojaihy vir (BIKTARVY) 50-200-25 mg per tablet Take 1 (one) tablet by mouth daily . CHOLECALCIFEROL, VITAMIN D3, ORAL Take 1 capsule by mouth once daily . uxleibbhmbl-gxaaeafrmukiq-zxpwru vir (Biktarvy) 50-200-25 mg per tablet Take [...] Route Frequency Provider Last Rate Last Admin hwyffrmnjiu-plrnnzrbzdxvi-uyqdqm vir (BIKTARVY) 50-200-25 mg per tablet 1 [...] will be going to inpatient psych at [facility] facility. Start 5 day course of Paxlovid. Prognosis is good for short term recovery. I appreciate the opportunity to participate in his care, and will follow along with you. Neo Lam M.D. [facility] 09-22-2023 Consult note Associated Order (s): IP CONSULT TO CARE MANAGEMENT Care Management Consult Note Date: 09/22/2023 Time: 4:03 PM Patient Name: Ced Hernandez Date of : 03/11/1988 Reason for Consult: Discharge Needs Discharge Plan: Undetermined: home or to nursing home COVID + presents barrier to nursing home acceptance. Discharging Transportation Plan: Pt will request [facility] [phone]. [facility] typically gives a 3 hour window [...] told [facility] living with roommate. Pt told [facility] he wants resources for a nursing home. Does not engage about being homeless or what supports he has in his life. Per chart review, pt has documented roommate or SO that called [facility] for him PCP possibly with [facility]. Pt formerly had PCP with [facility]. Insurance [facility] managed medicaid; possible [facility] coverage. Street card given to pt along with instructions for phoning the nursing home board on [facility]. [facility] will continue to follow [facility] 09-22-2023 Consult note Associated Order (s): IP CONSULT TO BEHAVIORAL HEALTH Behavioral Health Consult Patient Name: Ced Hernandez Admit Date: 1211003 MR #: [id number] : 03/11/1988 Referring Provider: No ref. provider found Primary Care Provider: [facility] Assessment Ced Hernandez is a 35 y.o. male with past medical history significant for HIV, nephrolithiasis, tobacco use who initially presented to the [facility] emergency department on 09/20/2023 via [facility] after [...] hospitalization. Plan was for transfer to the [facility] but patient incidentally tested positive for COVID [...] tobacco use who initially presented to the [facility] emergency department on 09/20/2023 via [facility] after [...] hospitalization. Plan was for transfer to the [facility] but patient incidentally tested positive for COVID and was medically admitted. Psychiatry has been consulted to follow while patient is on the medical floor. On review of documentation, it appears that patient is previously known to psychiatric services at [facility]. Prior to this presentation, he was most recently evaluated in April 2023 when he presented to the [facility] emergency department via [facility] on a pink slip due to paranoia after walking into a police patient reporting house, putting air into his russell to make him move, and threatening his boyfriend. Urine drug screen at that time was positive for cannabis. [facility] was [facility] [facility] On review of records available through care everywhere, it appears that patient was psychiatrically admitted to [facility] in August 2022. He presented to the ED on a pink slip with hallucinations and delusions. He was admitted to 5 CASTER OPERATOR and started on olanzapine. According to discharge [...] going on. Past Psychiatric History Per 09/21/2023 vice president of software engineering note with updates as applicable: Past diagnoses: Stimulant Use Disorder, Opioid Use Disorder, PTSD, Adjustment Disorder, unspecified psychosis, substance induced psychosis, cannabis use disorder, schizophrenia, bipolar disorder, schizoaffective disorder, bipolar subtype; adjustment disorder with anxiety and depressed mood, major depressive disorder, brief psychotic disorder Past medications: Ritalin, Zyprexa, escitalopram, paliperidone [facility]; [facility]; [facility] 09/2022 Past suicide attempts: Pt endorses but states does not want to talk about it. Per chart review - possibly walked into traffic. Past self injurious behavior: Has pulled out sutures from scalp following self inflected laceration Outpatient linkage: [facility] psych[facility] in 2007. The patient otherwise denies any previous psychiatric problems or diagnoses, inpatient or outpatient mental health care, suicide attempts, use of psychotropic medications, or any self injurious behavior. Family Psychiatric History Adopted The patient otherwise denies any family history of mental illness or treatment, psychiatric hospitalizations, suicide attempts, or substance problems. 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[employer] Education: some college Sexual orientation: homosexual Marital Status: no record of marriage per chart Children: historically denied Legal History:has been incarcerated for attempted breaking and entering Trauma History: emotional abuse in childhood History: Per chart, was honorably discharged from the [facility] in 2008 Baptist: Historically reported raised Caodaism-non practicing and believes in the theory of relativity Access to firearms: Unable to assess on this interview; historically denied Substance use History Urine drug screen positive for amphetamines and cannabis. BAL negative. Nicotine: 1 ppd historically Alcohol: historically denied ; BAL: negative Illicit substances: endorses meth and cannabis use; UDS: + amphematine, cannabis Rehab: [facility]; [facility] 10/2022; [facility] Social History Socioeconomic History Marital status: Single [...] ANOSCOPY ; Surgeon: Ezequiel Martines MD; Location: [facility] Main OR; Service: CT ABSCESS DRAINAGE RENAL 11/25/2021 CT ABSCESS DRAINAGE RENAL 11/25/2021 CT FULGURATION CONDYLOMA RECTAL WITH LASER N/A 09/16/2015 Procedure: CONDYLOMA RECTAL FULGURATION CO2 LASER; Surgeon: Ezequiel Martines MD; Location: [facility] Main OR; Service: WISDOM TOOTH EXTRACTION Family History: Family History Adopted: Yes Family history unknown: Yes Allergy Information: I have reviewed the patient's allergies. Penicillins Home Medications: Outpatient Medications as of 09/22/2023 Medication Sig bnitgbqjief-nhnffqiftczme-awkpdx vir (BIKTARVY) 50-200-25 mg per tablet Take 1 (one) tablet by mouth daily . CHOLECALCIFEROL, VITAMIN D3, ORAL Take 1 capsule by mouth once daily . fnkvejfkwxm-juxuvlcslljrw-aiyfai vir (Biktarvy) 50-200-25 mg per tablet Take [...] tests/procedures; referring and communicating with other health home care scheduler; documenting clinical information in the EMR; independently interpreting results and communicating results to the patient/family/caregiver and care coordination. [facility] 09-22-2023 Note Formatting of this n [...] plan and instructions Outcome: Partially Met [facility] 09-21-2023 Emergency department Note Pt in bed sleeping. Respirations even and unlabored no distress noted See continuous monitoring charting [facility] 09-21-2023 Emergency department Note Pt in [...] by C/L PSS spoke to Iza at [facility], , who confirmed there are male beds available. Demographic information given. Requested referral be faxed to [phone]. Requesting COVID test and vitals within the last 4 hours. Pt informed of transfer to psychiatric hospital. Pt requesting to go to [facility]. PSS attempting to engage with pt. Pt [...] on ED cot comfortably in blue gown. assembly worker out of room. Inside Sales Account Manager in room. Pt sleeping, eyes closed resp [...] Jacket Shirt Pants Shoes Underwear Earrings Necklace [facility] ED Resident Note: NAME: Ced Hernandez 35 y.o. CSN: [id number] PCP: No, Physician History: Chief Complaint: Psychiatric [...] ANOSCOPY ; Surgeon: Ezequiel Martines MD; Location: [facility] Main OR; Service: CT ABSCESS DRAINAGE RENAL 11/25/2021 CT ABSCESS DRAINAGE RENAL 11/25/2021 CT FULGURATION CONDYLOMA RECTAL WITH LASER N/A 09/16/2015 Procedure: CONDYLOMA RECTAL FULGURATION CO2 LASER; Surgeon: Ezequiel Martines MD; Location: [facility] Main OR; Service: WISDOM TOOTH EXTRACTION FAM. [...] fenta, weed MEDs: Previous Medications Medication Sig gvnfqvijsew-pjcskkwshhjhf-stylvb vir (BIKTARVY) 50-200-25 mg per tablet Take 1 (one) tablet by mouth daily . CHOLECALCIFEROL, VITAMIN D3, ORAL Take 1 capsule by mouth once daily . npmkhscaixv-akpjwjdwiybil-uxuxaz vir (Biktarvy) 50-200-25 mg per tablet Take [...] other components within normal limits Narrative: [facility] Services has implemented the eGFR [...] Procedure Abnormality Status --------- ------ CBC Auto Differential[[id number]] Final result Please view results for these [...] weeks ago when the patient was at [facility]. Once patient is treated for his psychiatric [...] specified. Aysha Reed D.O. Emergency Medicine PGY-2 [facility] (Please note that portions of this note [...] this time. documented in this encounter [facility] 09-21-2023 Emergency department Note Report has been called to 6th floor RN [facility] 09-21-2023 Emergency department Note Meal tray delivered [facility] 09-21-2023 History and physical note [facility] [place] [place] [facility] Patient Name: Ced Hernandez : 03/11/1988 MR #: [id number] Admit Date: 09/20/2023 Physicians: [facility] (Family); No ref. provider found (Referring) Ced Hernandez is a 35 y.o. male patient of [facility] with history of schizophrenia, HIV, substance abuse presented to [facility] with psychiatric evaluation. Psychiatric evaluation Schizophrenia [...] days before he can be transferred to [facility] Residence prior to admission: house [...] planned he will be transferred to the [facility] for [facility] unit admission. Past Medical History Past Medical History: Diagnosis Date HIV disease ([facility]) 2011 HIV + - on antiretrovirals since HIV positive ([facility]) 2011 antiretrovirals Nephrolithiasis passed Tobacco abuse Past Surgical History Past Surgical History: Procedure Laterality Date COLONOSCOPY COLPOSCOPY N/A 09/16/2015 Procedure: HIGH RESOLUTION ANOSCOPY ; Surgeon: Ezequiel Martines MD; Location: [facility] Main OR; Service: CT ABSCESS DRAINAGE RENAL 11/25/2021 CT ABSCESS DRAINAGE RENAL 11/25/2021 CT FULGURATION CONDYLOMA RECTAL WITH LASER N/A 09/16/2015 Procedure: CONDYLOMA RECTAL FULGURATION CO2 LASER; Surgeon: Ezequiel Martines MD; Location: [facility] Main OR; Service: WISDOM TOOTH EXTRACTION Family [...] flat affect, denies homicidal or suicidal ideation [facility] 09-21-2023 History and physical note [facility] [facility] Patient Name: Ced Hernandez : 03/11/1988 MR #: [id number] Admit Date: 09/20/2023 Physicians: [facility] (Family); No ref. provider found (Referring) Ced Hernandez is a 35 y.o. male patient of [facility] with history of schizophrenia, HIV, substance abuse presented to [facility] with psychiatric evaluation. Psychiatric evaluation Schizophrenia [...] days before he can be transferred to [facility] Residence prior to admission: house [...] planned he will be transferred to the [facility] for [facility] admission. Past Medical History Past Medical History: Diagnosis Date HIV disease ([facility]) 2011 HIV + - on antiretrovirals since HIV positive ([facility]) 2011 antiretrovirals Nephrolithiasis passed Tobacco abuse Past Surgical History Past Surgical History: Procedure Laterality Date COLONOSCOPY COLPOSCOPY N/A 09/16/2015 Procedure: HIGH RESOLUTION ANOSCOPY ; Surgeon: Ezequiel Martines MD; Location: [facility] Main OR; Service: CT ABSCESS DRAINAGE RENAL 11/25/2021 CT ABSCESS DRAINAGE RENAL 11/25/2021 CT FULGURATION CONDYLOMA RECTAL WITH LASER N/A 09/16/2015 Procedure: CONDYLOMA RECTAL FULGURATION CO2 LASER; Surgeon: Ezequiel Martines MD; Location: [facility] Main OR; Service: WISDOM TOOTH EXTRACTION Family [...] suicidal ideation documented in this encounter [facility] 09-21-2023 Note Formatting of this n ote is different from the original. [facility] EMERGENCY DEPARTMENT Attending Note (remainder of ED [...] at the following links: For Healthcare Providers: https://www.fda.gov/media/421466 /download For Patients: https://www.fda.gov/media/619122 /download BASIC METABOLIC PANEL - Abnormal; Notable for the following components: Glucose 102 (*) BUN/Creatinine Ratio 20.9 (*) All other components within normal limits Narrative: [facility] has implemented the eGFR [...] Procedure Abnormality Status --------- ------ CBC Auto Differential[[id number]] Final result Please view results for these tests on the individual orders. CBC WITH AUTO DIFFERENTIAL No orders to display Clinical Impression: 1. Thoughts of harming others 2. Amphetamine misuse 3. Noncompliance with medication regimen 4. History of schizophrenia José Miguel Suero, ED Attending Physician [facility] EMERGENCY DEPARTMENT [facility] Work Phone: 09-21-2023 Emergency department Note PSS informed of plan of care of medical admission to being COVID positive. Pt states he has a headache. RN, Victoria informed. [facility] 09-21-2023 Emergency department Note At risk tray ordered [facility] 09-21-2023 Emergency department Note Covid results positive; unable to transfer for psychiatric treatment. Per protocol, will need medical admission for further management by C/L [facility] 09-21-2023 Evaluation + Plan note Associated [...] assistance with connection to addiction rehabilitative services [facility] 09-21-2023 Evaluation + Plan note Associated [...] has a follow up appointment with the [facility] on 09/30/23. He is connected with the human resources coordinator with the [facility] (who was called and would like to assist with permanent housing for patient). Patient is future-oriented and reports protective factors of a will to live and his cats. Patient has been given homelessness resources and has a spot in a nursing home for today. Ced Hernandez's risk factors for [...] not prescribe on discharge -Discussed case with human resources coordinator at [facility] this admission. No [facility] beds available. Homeless hotline provided to patient -[facility] Mental Health clinic called, and patient has an emergency intake on 09/30/23 at 1400 -Patient continues to decline want for rehabilitative services, voluntary inpatient psychiatric admission, or referral/transfer to Mental Health or Addiction rehabilitative facilities -Discontinue no-AMA [facility] 09-21-2023 Emergency department Note PSS spoke to Iza at [facility], , who confirmed there are male beds available. Demographic information given. Requested referral be faxed to [phone]. Requesting COVID test and vitals within the last 4 hours. [facility] 09-21-2023 Emergency department Note Pt informed of transfer to psychiatric hospital. Pt requesting to go to [facility]. [facility] 09-21-2023 Note Formatting of this n [...] any interventions. Signed out to afternoon team. [facility] Work Phone: 09-21-2023 Consult note Associated Order (s): IP CONSULT TO BEHAVIORAL HEALTH Behavioral Health Consult Patient Name: Ced Hernandez Admit Date: 1211003 MR #: [id number] : 03/11/1988 Referring Provider: No ref. provider found Primary Care Provider: [facility] Assessment Ced Hernandez is a 35 y.o. [...] primary psychosis; but has been admitted at [facility] with psychotic features and UDS was negative [...] hospitalizations: [facility]; [facility]; [facility]; [facility] 09/2022 Past suicide attempts: Pt endorses but states does not want to talk about it. Per chart review - possibly walked into traffic. Past self injurious behavior: Has pulled out sutures from scalp following self inflected laceration Outpatient linkage: [facility] in 2007. The patient otherwise denies any previous psychiatric problems or diagnoses, inpatient or outpatient mental health care, suicide attempts, use of psychotropic medications, or any self injurious behavior. Family Psychiatric History Adopted per chart review. 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[employer] Education: some college Sexual orientation: homosexual Marital Status: no record of marriage per chart Children: historically denied Legal History:has been incarcerated for attempted breaking and entering Trauma History: emotional abuse in childhood History: Per chart, was honorably discharged from the [facility] in 2008 Baptist: Historically reported raised Caodaism-non practicing and believes in the theory of relativity Access to firearms: Unable to assess on this interview; historically denied Substance use History Nicotine: 1 ppd historically Alcohol: historically denied ; BAL: negative Illicit substances: endorses meth and cannabis use; UDS: + amphematine, cannabis Rehab: [facility]; [facility] 10/2022; [facility] Medical History: I have reviewed the patient's other history as below: Past Medical History: Diagnosis Date HIV disease (HCC) 2011 HIV + - on antiretrovirals since HIV positive (HCC) 2011 antiretrovirals Nephrolithiasis passed Tobacco abuse Past Surgical History: Procedure Laterality Date COLONOSCOPY COLPOSCOPY N/A 09/16/2015 Procedure: HIGH RESOLUTION ANOSCOPY ; Surgeon: Ezequiel Martines MD; Location: [facility] Main OR; Service: CT ABSCESS DRAINAGE RENAL 11/25/2021 CT ABSCESS DRAINAGE RENAL 11/25/2021 CT FULGURATION CONDYLOMA RECTAL WITH LASER N/A 09/16/2015 Procedure: CONDYLOMA RECTAL FULGURATION CO2 LASER; Surgeon: Ezequiel Martines MD; Location: [facility] Main OR; Service: WISDOM TOOTH EXTRACTION Family History: Family History Adopted: Yes Family history unknown: Yes Allergy Information: I have reviewed the patient's allergies. Penicillins Home Medications: Outpatient Medications as of 09/20/2023 Medication Sig hqcpzwaeqde-bhfjpudmmrwzg-ibibbx vir (BIKTARVY) 50-200-25 mg per tablet Take 1 (one) tablet by mouth daily . CHOLECALCIFEROL, VITAMIN D3, ORAL Take 1 capsule by mouth once daily . apkoxgdowut-pqcvadmxvhdfw-hbmlfl vir (Biktarvy) 50-200-25 mg per tablet Take [...] 09/21/2023. The patient is physically located at [facility]. I, Marlon Hannah, , am physically located at [facility] ED. The on-site histologist is in the patient's room and facilitated the visit on the patient's behalf. I personally visualized this patient through audiovisual technology on the same calendar day as the Resident's zskk-hi-slka evaluation.I have reviewed the history, physical, diagnosis [...] DO ED Psychiatrist - Behavioral Health. [facility] 09-21-2023 Emergency department Note PSS attempting to engage with pt. Pt gave permission for PSS to contact his roommate, however he does not know her phone number and does not have a phone. Pt unable to provide any other collateral contact. Pt is lethargic and has difficulty staying awake. [facility] Emergency department Note . [facility] 09-21-2023 Emergency department Note Meal tray delivered [facility] Emergency department Note At Risk meal tray ordered [facility] 09-21-2023 Emergency department Note Patient back in room. [facility] 09-21-2023 Emergency department Note Patient given snacks. Denies further needs at this time. Resting on ED cot comfortably in blue gown. [facility] 09-21-2023 Emergency department Note assembly worker out of room. [facility] 09-21-2023 Emergency department Note Inside Sales Account Manager in room. [facility] 09-21-2023 Consult note Associated Order (s): ED CONSULT TO PSYCH - SITE MEDICAL DIRECTOR ED Inside Sales Account Manager Behavioral Health Initial Assessment Date: 09/21/2023 Time: 4:22 AM Patient Name: Ced Hernandez Date of : 03/11/1988 Sex: Male Admit Date/Time: 09/20/2023 4:32 PM GENERAL INFORMATION General Information Automatic Spooler Operator Needs: Not needed Information Provided By: Pt, records Patient Support System: I barely have any support Current Living Arrangements: with friend/roommate Type of Residence: Private residence Name and Contact of Collateral Provider: Stewart (friend) [phone] LEGAL STATUS Medical Hold Date Signed 09/20/23 [...] Overview Deleted 05/25/2023 3:55 PM by Ashley Lwe LISW Moderate episode of recurrent major depressive [...] was last hospitalized 2 months ago at [facility]. Per records, pt was psychiatrically hospitalized at least 4 times last year. Per records, pt was hospitalized at [facility] at the end of April for psychosis. Per records, pt has a history of testing positive for amphetamines, however, when he was at [facility] in April he only tested positive for [...] PSS to speak with his friend Stewart ([phone]). Stewart stated that he last spoke to [...] and Zyprexa, per records) Previous Psychiatric Hospitalizations: [facility]23; [facility]; [facility] 08[facility]; [facility] 09/2022 Current Psychiatric Medications: none ALCOHOL/DRUG ABUSE HISTORY Alcohol/Drug Abuse History Current Alcohol Use (Frequency): Denies Current Drug Use: Yes Drug Type: meth; pt also tested positive for marijuana Frequency of Drug Use: whenever my friend buys it for me History/Current Alcohol/Drug Treatment: [facility]; [facility] 10/2022 MENTAL STATUS EVALUATION Mental Status [...] Violent Episode: Per records 10/2022, recently in [place] for several days on criminal damage charges [...] Conflict Resolution (Coping Skills): No Cultural and Mosque Beliefs: No Access to Weapons: No TREATMENT [...] ideation, housing, and no access to firearms. [facility] 09-21-2023 Emergency department Note Pt sleeping, eyes closed resp easy. [facility] 09-21-2023 Emergency department Note Pt sleeping resp easy. [facility] 09-20-2023 Emergency department Note Pt up at cart side eating a banana. Pt denies c/o or need at this time [facility] 09-20-2023 Emergency department Note PSS attempted to meet with pt to complete an assessment. Pt was lethargic and unable to stay awake. Pt will be assessed once he is able to participate in a meaningful way. [facility] 09-20-2023 Emergency department Note Received pt after report resting quietly on cart, eyes closed resp easy. Pt cooperative with assessment and vs. Pt provided with warm blanket for comfort. [facility] 09-20-2023 Emergency department Note Meal tray delivered [facility] 09-20-2023 Emergency department Note Meal tray ordered for patient [facility] 09-20-2023 Emergency department Note Urine and blood work sent to lab. [facility] 09-20-2023 Note Formatting of this n [...] this note, and there can unfortunately be shift nurse manager errors. [facility] Work Phone: 09-20-2023 Emergency department Note Pt changed into blue gown Pt belongings Black bag Jacket Shirt Pants Shoes Underwear Earrings Necklace [facility] 09-20-2023 Physician Emergency department Note [facility] ED Resident Note: NAME: Ced Hernandez 35 y.o. CSN: [id number] PCP: No, Physician History: Chief Complaint: Psychiatric [...] ANOSCOPY ; Surgeon: Ezequiel Martines MD; Location: [facility] Main OR; Service: CT ABSCESS DRAINAGE RENAL 11/25/2021 CT ABSCESS DRAINAGE RENAL 11/25/2021 CT FULGURATION CONDYLOMA RECTAL WITH LASER N/A 09/16/2015 Procedure: CONDYLOMA RECTAL FULGURATION CO2 LASER; Surgeon: Ezequiel Martines MD; Location: [facility] Main OR; Service: WISDOM TOOTH EXTRACTION FAM. [...] fenta, weed MEDs: Previous Medications Medication Sig pycvqjbdrjc-trcstejglmdae-tsumtb vir (BIKTARVY) 50-200-25 mg per tablet Take 1 (one) tablet by mouth daily . CHOLECALCIFEROL, VITAMIN D3, ORAL Take 1 capsule by mouth once daily . cgvrskhfepd-ykigctknenbmr-mpqxyc vir (Biktarvy) 50-200-25 mg per tablet Take [...] other components within normal limits Narrative: [facility] has implemented the eGFR [...] Procedure Abnormality Status --------- ------ CBC Auto Differential[[id number]] Final result Please view results for these [...] weeks ago when the patient was at [facility]. Once patient is treated for his psychiatric [...] specified. Aysha Reed D.O. Emergency Medicine PGY-2 [facility] (Please note that portions of this note have been completed with a voice recognition software. Efforts were made to correct any errors, but occasionally words are mis-transcribed.) Aysha Reed DO Resident 09/21/23226 [facility] 09-20-2023 Emergency department Triage note Patient [...] eu, calm cooperative at this time. [facility] 11-02-2022 History of Present illness Narrative [facility] OP RX OUTREACH ADVANCED: Call Information: Date and Time of Contact: 11/02/2022 2:32 PM Method of Contact: By Phone Contact Type: Prescriptions Contactor: [facility] OP Contactee: Patient Contact Outcome: Left message and Call back later Shipping/Pickup: Medication Name: Biktarvy Contact Info: Specialty ([place]) [phone] [facility] [phone] [facility] [phone] [place] [phone] Bedside Delivery ([facility]) [phone] [facility] OP RX OUTREACH ADVANCED: Call Information: Date and Time of Contact: 11/04/2022 9:21 AM Method of Contact: By Phone Contact Type: Prescriptions [facility] Contactee: Patient Contact Outcome: Left message and Follow-up Shipping/Pickup: Medication Name: Biktarvy 50-200-25mg Contact Info: Specialty (Jenae) [phone] [facility] [phone] [facility] [phone] [place] [phone] Bedside Delivery ([facility]) [phone] documented in this encounter [facility] 11-02-2022 History of Present illness Narrative [facility] RX OUTREACH ADVANCED: Call Information: Date and Time of Contact: 11/02/2022 2:32 PM Method of Contact: By Phone Contact Type: Prescriptions [facility]actor: [facility] Contactee: Patient Contact Outcome: Left message and Call back later Shipping/Pickup: Medication Name: Biktarvy Contact Info: Specialty (Jenae) [phone] [facility] [phone] [facility] [phone] [facility] [phone] Bedside Delivery ([facility]) [phone] [facility] RX OUTREACH ADVANCED: Call Information: Date and Time of Contact: 11/04/2022 9:21 AM Method of Contact: By Phone Contact Type: Prescriptions [facility]actor: [facility] Contactee: Patient Contact Outcome: Left message and Follow-up Shipping/Pickup: Medication Name: Biktarvy 50-200-25mg Contact Info: Specialty ([place]) [phone] [facility] [phone] [facility] [phone] [facility] [phone] Bedside Delivery ([facility]) [phone] [facility] RX OUTREACH ADVANCED: Call Information: Date and Time of Contact: 11/09/2022 11:59 AM Method of Contact: By Phone Contact Type: Prescriptions [facility]actor: [facility] Contactee: Patient Contact Outcome: Left message Shipping/Pickup: Medication Name: Biktarvy Contact Info: Specialty (Jenae) [phone] [facility] [phone] [facility] [phone] [facility] [phone] Bedside Delivery ([facility]) [phone] documented in this encounter [facility] 09-08-2022 Miscellaneous Notes Problem: Patient Care Overview [...] Adequate for Discharge Goal: Develops/Participates in Therapeutic [place] to Support Successful Transition Outcome: Adequate for [...] out of unit for discharge via LYFT. [id number] Patient observed in bed and appears to [...] Progressing Toward Goal Goal: Develops/Participates in Therapeutic [place] to Support Successful Transition Outcome: Progressing Toward [...] Information Nursing Note Per Tour of Duty 4145-4121 Patient Daily Goal(s): Psychiatric Assessment Reported and [...] results for Hepatitis Battery. HIV(+) Sexual precautions. 9650-0531: Pt. denied SI/HI/AVH and pain. Pt. Was [...] independent Sleep Number of hours this shift: Grey Roll Worker 9hrs Non-pharmacological interventions and effectiveness: mindfulness Additional [...] Progressing Toward Goal Goal: Develops/Participates in Therapeutic [place] to Support Successful Transition Outcome: Progressing Toward [...] in daily routine. Outcome: Progressing Toward Goal 3358-7981: Pt. Had an irritable edge this morning during news anchor. Pt. was dismissive and shrugged when asked if he wanted to participate in the news anchor. Pt. was med compliant. Pt. allowed for the PCT to draw his labs this morning. Pt. was visible at times during this shift. This evening pt. was approached again and pt. did answer news anchor questions. Pt. denied SI/HI/AVH and pain. Pt. [...] in Response to Life Stressors Outcome: Ongoing 0282-7210 Patient presented with flat affect and isolative [...] Ongoing Nursing Note Per Tour of Duty 4972-8517 Patient Daily Goal(s): pt does not voice [...] Total Time: 15 min of group time Wafer Fabrication Operator: HOOD Murphy Department: Patient [facility] Clinical Users Topic Discussed/Skill Practiced: Comfort Cart-Patients [...] HOOD Murphy 09/04/2022 Recreational Therapy Assessment Attempt THREAD TOOL GRINDER SET UP OPERATOR attempted to complete RT assessment at [...] keys and various lanyard charms and burroughs clinical informatics physician in locker #10. Closet: Blue adidas shoes. Belongings at bedside: Black CK pajama pants, charisma crew neck sweatshirt and green beanie. Belongings sent to security: $402.00. Pt admitted to [address] room 542 from ED via wheelchair [...] Overarching Goals (Adult) Goal: Develops/Participates in Therapeutic [place] to Support Successful Transition Outcome: Progressing Toward [...] to home. documented in this encounter [facility] 09-08-2022 Note Formatting of [...] Adequate for Discharge Goal: Develops/Participates in Therapeutic [place] to Support Successful Transition Outcome: Adequate for [...] in daily routine. Outcome: Adequate for Discharge [facility] 09-08-2022 Note Formatting of this n ote [...] out of unit for discharge via LYFT. [facility] 09-08-2022 History of Present illness Narrative Images from the original note were not included. [facility] Delivery Note: The following medications were Delivered to the nurse's station: handed to nurse JESSIKA Rojas Bedside Delivery: [phone] [facility] Bedside Delivery: [phone] East: [phone] Images from the original note were not included. [facility] Note: [facility] received [facility] prescription(s) for the following medications: Total cost: No cost. Medication reconciliation was completed with Logan Wharton. The prescription(s) will be delivered to the patient's bedside on 09/08/22. Andrew Mejias RP Specialty ([place]) [phone] [place] [phone] [facility] [phone] [place] [phone] [place] [phone] [place] [phone] Bedside Delivery ([facility]) [phone] SOCIAL WORK DISCHARGE NOTE: Met with patient to discuss discharge planning, including follow up appointments. Patient declined to complete safety plan and declined referral for AOD services at discharge. Patient was cooperative with meeting with treatment team. Patient was informed that information would be provided in discharge paperwork for [facility]OD services and [facility]. Patient was provided with referrals to substance abuse treatment. Patient declined referral to tobacco cessation counseling Patient declined to provide collateral information to ensure readiness for discharge. Follow up Appointments: see AVS for details Discharge instructions faxed to all outpatient treatment providers listed in the AVS for continuity of care; confirmation received. Social Work Note assembly worker met with patient in the milieu [...] by Treatment Team, following member present: nurse, social media executive, faculty physician, resident physician. Subjective/Interval History/ROS Interval [...] (from the past 24 hour(s)). MEDICATIONS Scheduled: Rbvwzukjpda-Jopndsjejl-Tzmexsl (BIKTARVY) 50-200-25 MG per tablet 1 tablet, [...] and neither restless nor sedated Speech: fluent Maldivian, average rate and rhythm, quiet volume, whining [...] fentanyl use who is admitted to [facility] with a diagnosis of Psychosis, unspecified psychosis [...] no apparent paranoia / delusion. VSS. PSYCHOTHERAPY 79887 (16-37 minutes) Time spent specifically on therapy: 20 minutes Participants: Patient, attending psychiatrist Location: [address] [place] [address] Therapeutic Intervention Type: behavior modifying psychotherapy, supportive [...] by Treatment Team, following member present: nurse, social media executive, faculty physician Subjective/Interval History/ROS Reason for admission: Patient is a 34 y.o. male with a past psychiatric history notable for Adjustment disorder with depression, PTSD by report, and depression by report, presenting today with hallucinations. Patient presented to the ED involuntarily on a [place] Slip (application for involuntary admission) on 09/01/2022 [...] (from the past 24 hour(s)). MEDICATIONS Scheduled: Payparlyadz-Fhaulvdqxq-Tqlbkdf (BIKTARVY) 50-200-25 MG per tablet 1 tablet, [...] and neither restless nor sedated Speech: fluent Maldivian, average rate and rhythm, quiet volume, whining [...] fentanyl use who [facility] with a diagnosis of Psychosis, unspecified psychosis [...] by Treatment Team, following member present: nurse, social media executive, faculty physician, resident physician. Subjective/Interval History/ROS Interval [...] HDL Cholesterol 103 <130 mg/dL MEDICATIONS Scheduled: Uwlhqmatpsf-Ttscdpdrkv-Ollctbr (BIKTARVY) 50-200-25 MG per tablet 1 tablet, [...] and neither restless nor sedated Speech: fluent Maldivian, average rate and rhythm, quiet volume, whining [...] use, fentanyl use who is admitted to [facility] with a diagnosis of Psychosis, unspecified [...] condition. Iza Jolley DO Social Work Note Inside Sales Account Manager attempted to meet with patient in patient's room. Patient was in bed upon approach. Patient refused to cooperate with interview at this time. SW will attempt to meet with patient at a later date and time. SOCIAL WORK INITIAL ASSESSMENT: Christiano Hernandez is a 34 y.o., male admitted to [facility] due to hallucinations, depression. Patient was subsequently admitted to [facility] after evaluation for further stabilization and safety. PRESENTING PROBLEM: Christiano Hernandez is a 34 y.o. male with a past psychiatric history notable for Adjustment disorder with depression, PTSD by report, and depression by report, presenting today with hallucinations. Patient presented to the ED involuntarily on a [place] Slip (application for involuntary admission) on 09/01/2022 [...] further Self-injurious behavior: none Psychiatrist (current): none clerk manager (current): none Therapist/Counselor (current): none Past psychiatric medications: none Psychotherapy: none History of Trauma: Unable to assess Current home environment: Lives alone in apartment Concerns about current home environment: no Leisure and Recreation: Unable to assess Service History: yes - honorably discharged ([employer] [phone]) Mosque/Spiritual concerns: Yes, describe: Spiritual- believes in manifesting [...] Health Care to be Provided by: RANDY clerk manager: RANDY Other aftercare treatment considerations: Has Financial Resources for: Aftercare: yes - DENT - DENT Medication: yes - DENT - DENT Discharge Barriers/Limitations: Lack of Stable Housing: Poor support system: x No/Limited outpatient providers: Poor Insight/Judgment: x Non-adherence with outpatient treatment: x Lack of transportation: Financial Limitations: Medical Directives: Power of Candle Wrapper?: No Living Will?: No Has Guardian?: No [...] presented to the ED involuntarily on a [place] Slip (application for involuntary admission) on 09/01/2022 [...] not. Prior Psychiatric Admissions: Yes Current Active [facility] Linkage: No History of: other, see comments [...] alone (has cats) Where are you from? [facility] Typical Daily Routine: It looked like this. [...] to review list of coping skills and [place] the coping skills they have already found [...] Shanita Roe OTR/L Occupational Therapist License #: [id number] Pager#: [phone] 09/04/2022 PROGRESS NOTE/TREATMENT REVIEW 09/04/2022 TREATMENT TEAM Reviewed by Treatment Team, following member present: nurse, social media executive, faculty physician, resident physician. Subjective/Interval History/ROS Interval [...] and neither restless nor sedated Speech: fluent Maldivian, rapid rate and rhythm, quiet volume, whining [...] use, fentanyl use who is admitted to [facility] with a diagnosis of Psychosis, unspecified [...] emotional reactivity Motor Activity: restless Speech: fluent Maldivian, average rate and rhythm, appropriate volume, normal [...] further questions. Name: Juliana Barber RPH Phone: [phone] Date/Time: 09/01/2022 5:35 PM This Peer Recovery Supporter (PRS) attempted to see Mr. Hernandez. Upon talking with RN, they said he has been sleeping and didn't wake up to eat. ED addiction medicine team will follow up at a later time. PRS will work in conjunction with [Addiction Medicine or MAT] Team for any care coordination concerns. BECKY Anders, [facility] PEER RECOVERY SUPPORTER ED Addiction Medicine Consult Service Available Wednesday-Wednesday, 8-4 Reachable by [email or web address] chat or phone, at [phone] documented in this encounter [facility] 09-08-2022 Note Formatting of this n ote might be different from the original. 4786-9967 Patient observed in bed and appears to have slept 6 hours 30 min. No distress noted. [facility] 09-07-2022 Note Formatting of this n ote [...] interventions and effectiveness: bedtime routine Additional Information [facility] 09-07-2022 Note Formatting of this n ote might be different from the original. Problem: Patient Care Overview Goal: Plan of Care Review Outcome: Ongoing Goal: Individualization & Mutuality Outcome: Ongoing Goal: Discharge Needs Assessment Outcome: Ongoing Goal: Interdisciplinary Rounds/Family Conf Outcome: Ongoing [facility] 09-07-2022 Note Formatting of this n ote [...] Ongoing Goal: Interdisciplinary Rounds/Family Conf Outcome: Ongoing [facility] 09-07-2022 Note Formatting of this n ote might be different from the original. 2300-730 pt care assumed , no concerns voiced during this shift. Safety checks maintained, pt slept for 8.5hrs. [facility] 09-06-2022 Note Formatting of this n ote [...] Progressing Toward Goal Goal: Develops/Participates in Therapeutic [place] to Support Successful Transition Outcome: Progressing Toward [...] in daily routine. Outcome: Progressing Toward Goal [facility] 09-06-2022 Note Formatting of this n ote might be different from the original. Unit Specific Patient Information Nursing Note Per Tour of Duty 6744-1075 Patient Daily Goal(s): Psychiatric Assessment Reported and [...] results for Hepatitis Battery. HIV(+) Sexual precautions. [facility] 09-06-2022 Note Formatting of this n ote might be different from the original. 4213-4443: Pt. denied SI/HI/AVH and pain. Pt. Was med compliant. Pt. Stated that he was alright but appeared to be depressed. Pt. Reported a BM yesterday. No issues to note. Will continue to monitor. [facility] 09-06-2022 Note Formatting of this n ote might be different from the original. Nursing Note Per Tour of Duty 1900-230 Patient Daily Goal(s): refer to care plan [...] independent Sleep Number of hours this shift: Grey Roll Worker 9hrs Non-pharmacological interventions and effectiveness: mindfulness Additional Information [facility] 09-05-2022 Note Formatting of this n ote [...] Progressing Toward Goal Goal: Develops/Participates in Therapeutic [place] to Support Successful Transition Outcome: Progressing Toward [...] in daily routine. Outcome: Progressing Toward Goal [facility] 09-05-2022 Note Formatting of this n ote might be different from the original. 3151-9458: Pt. Had an irritable edge this morning during news anchor. Pt. was dismissive and shrugged when asked if he wanted to participate in the news anchor. Pt. was med compliant. Pt. allowed for the PCT to draw his labs this morning. Pt. was visible at times during this shift. This evening pt. was approached again and pt. did answer news anchor questions. Pt. denied SI/HI/AVH and pain. Pt. was calm and visible on the unit. Pt. appeared to be depressed. [facility] 09-05-2022 Note Formatting of this n ote might be different from the original. Problem: Overarching Goals (Adult) Goal: Optimized Coping Skills in Response to Life Stressors 09/05/2022 1215 by Porsha Godwin RN Outcome: Not Met This Shift 09/05/2022 1203 by Porsha Godwin RN Outcome: Ongoing [facility] 09-05-2022 Note Formatting of this n ote might be different from the original. Problem: Overarching Goals (Adult) Goal: Optimized Coping Skills in Response to Life Stressors Outcome: Ongoing [facility] 09-05-2022 Note Formatting of this n ote might be different from the original. 1102-3653 Patient presented with flat affect and isolative to room. Patient refused his evening scheduled Zyprexa. No PRNs given. Patient slept 10 hrs. Patient denied anxiety/depression/SI/HI/AVH. Safety checks maintained per orders. [facility] 09-04-2022 Note Formatting of this n [...] Response Clinical Practice Guideline (CPG) Outcome: Ongoing [facility] 09-04-2022 Note Formatting of this n ote might be different from the original. Nursing Note Per Tour of Duty 2518-9230 Patient Daily Goal(s): pt does not voice [...] hours this shift: Day Shift 10 hrs [facility] 09-04-2022 Group counseling note CORE Programming Group Therapy Progress Note Group Topic: Comfort Cart Date: 09/04/2022 Start Time: 1315 End Time: 1330 Total Time: 15 min of group time Wafer Fabrication Operator: HOOD Murphy Department: Patient Mgmt [place] Clinical [...] the time of intervention HOOD Murphy 09/04/2022 [facility] 09-04-2022 Note Formatting of this n ote might be different from the original. Recreational Therapy Assessment Attempt THREAD TOOL GRINDER SET UP OPERATOR attempted to complete RT assessment at this time, however, patient was with another provider upon approach. Will continue to monitor and complete assessment as appropriate. Time In: 1105 Time Out: 1105 I used a protective facemask during today's patient interaction. JANIYA Jenkins [facility] 09-04-2022 Note Formatting of this n [...] active role in daily routine. Outcome: Ongoing [facility] 09-04-2022 Consult note Associated Order (s): IP [...] and hallucinations. PT with h/o HIV sins 0214-1295 on ART for 6 years but stopped [...] will sign off Raf Garner MD, PhD [facility]-Infectious Diseases [facility] Work Phone: 09-04-2022 Consult note Associated Order [...] and hallucinations. PT with h/o HIV sins 2451-7994 on ART for 6 years but stopped [...] No edema CURRENT HOSPITALIZATION/LOS: Admit Date: 09/01/2022 [facility] Hospital LOS: 2 days MEDICAL HISTORY: No [...] MEDICINE Consult Note Patient: Christiano Hernandez, 03/11/1988, [id number] Jaw Skinner Flaca Benavides, MAY-HELP DESK REP, Emergency Addiction Medicine [phone] Date of patient encounter: 09/01/2022. Reason for [...] a 34 y.o. male admitted to [facility] Emergency Department for a mental health evaluation. [...] Bun/Creat/Cl/CO2/Glucose: 14/1.13/102/30/87 (09/01 1416) Signed, Flaca Benavides, ADMITTING COORDINATOR-HELP DESK REP Emergency Addiction Medicine [phone] (This note was written in part using [...] by phone. Onelia Shelton DO, MPH Clinical Glass Washer Department of Hospital and Emergency Medicine [employer] [employer] ED CONSULT TO ADDICTION MEDICINE - Social [...] illicit substance use. All street drugs in [facility] are currently being laced with fentanyl. 3. [...] Consult Service Available Wednesday-Wednesday, 8-4 Reachable by [email or web address] chat or phone, at [phone] Recovery is for everyone. Every person, every family, every community. documented in this encounter [facility] 09-04-2022 Note Formatting of this n ote might be different from the original. 23:00-07:00 Patient slept for about 8 hrs, no issues noted or reported, stayed in room all night. Safety checks completed as ordered. [facility] 09-03-2022 Note Formatting of this n ote [...] SI/HI AVH. Safety checks completed as ordered. [facility] 09-03-2022 Note Formatting of this n ote might be different from the original. Problem: Patient Care Overview Goal: Plan of Care Review Outcome: Progressing Toward Goal Goal: Individualization & Mutuality Outcome: Progressing Toward Goal Goal: Discharge Needs Assessment Outcome: Progressing Toward Goal Goal: Interdisciplinary Rounds/Family Conf Outcome: Progressing Toward Goal [facility] 09-03-2022 Note Formatting of this n ote might be different from the original. Patient has blue head phones, anime lanyard with 3 keys and various lanyard charms and burroughs clinical informatics physician in locker #10. Closet: Blue adidas shoes. Belongings at bedside: Black CK pajama pants, charisma crew neck sweatshirt and green beanie. Belongings sent to security: $402.00. [facility] 09-03-2022 Note Formatting of this n ote might be different from the original. Pt admitted to [address] room 542 from ED via wheelchair with voluntary consent. Pt cooperative with height/weight, vitals, assessment, skin check, questions, and education. Pt denies SI/HI, hallucinations, and pain, remained calm and cooperative throughout admission, denies abnormal symptoms. Pt states they are here because I guess I'm crazy. RN oriented pt to unit, room, and rules. All questions answered. [facility] 09-03-2022 Note Formatting of this n ote might be different from the original. Problem: Overarching Goals (Adult) Goal: Adheres to Safety Considerations for Self and Others Outcome: Met This Shift Problem: Overarching Goals (Adult) Goal: Develops/Participates in Therapeutic [place] to Support Successful Transition Outcome: Progressing Toward Goal Problem: Cognitive Impairment (Psychotic Signs/Symptoms) (Adult) Goal: Improved Thought Clarity/Organization Outcome: Progressing Toward Goal [facility] 09-02-2022 Note Formatting of this n ote might be different from the original. I certify that this patient requires inpatient services at this time. I anticipate the expected length of stay will include at least two midnights. Inpatient services are due to the following medical concerns psychosis. Plans for post hospitalization care will be discharge to home. [facility] 09-02-2022 History and physical note PSYCHIATRY ADMISSION DOCUMENTATION PHYSICAL EXAM AND TREATMENT RECOMMENDATIONS COVID EXPOSURE/IMMUNOSUPPRESSION SCREENING Has the patient tested positive for COVID-19 within the last 90 days? no Has the patient been in close contact with anyone confirmed to have COVID-19 infection within the last 14 days? No Is the patient immunosuppressed? HIV. [place]/suppressor quant (CD4) lab pending, may require a [...] w/ RPR reflex Toxicology screen COVID-19 PCR [place]/suppressor quant (CD4) HIV viral load quant UA [...] plan with faculty attending, Dr. Bhupinder Raymundo, ADMITTING COORDINATOR-HELP DESK REP SUMMARY OF CLINICAL PRESENTATION Christiano Hernandez is a 34 y.o. male with history of Adjustment Disorder with depressed mood vs. Depression and PTSD who presented to the [facility] ED on 09/01/22 for evaluation of hallucinations. [...] reports feeling left out from his social [place] and wonders if he still has friends. [...] route As directed PRN for Opioid Reversal. [place] into the nose as directed. Call 911. [...] reflex unremarkable/WNL UDS + amphetamines/methamphetamines, Fentanyl, cannabinoids [place]/suppressor quant (CD4): CD4/CD4 dual 26.7% CD8/CD4 dual [...] and neither restless nor sedated Speech: fluent Maldivian, average rate and rhythm, appropriate volume, normal [...] nurse practitioner, Katelyn Raymundo. Bhupinder Gallagher MD [facility] Work Phone: 09-02-2022 History and physical note PSYCHIATRY ADMISSION DOCUMENTATION PHYSICAL EXAM AND TREATMENT RECOMMENDATIONS COVID EXPOSURE/IMMUNOSUPPRESSION SCREENING Has the patient tested positive for COVID-19 within the last 90 days? no Has the patient been in close contact with anyone confirmed to have COVID-19 infection within the last 14 days? No Is the patient immunosuppressed? HIV. Edgewood/suppressor quant (CD4) lab pending, may require a [...] w/ RPR reflex Toxicology screen COVID-19 PCR Edgewood/suppressor quant (CD4) HIV viral load quant UA [...] plan with faculty attending, Dr. Bhupinder Raymundo, ADMITTING COORDINATOR-HELP DESK REP SUMMARY OF CLINICAL PRESENTATION Christiano Hernandez is a 34 y.o. male with history of Adjustment Disorder with depressed mood vs. Depression and PTSD who presented to the [facility] ED on 09/01/22 for evaluation of hallucinations. [...] reports feeling left out from his social [place] and wonders if he still has friends. [...] route As directed PRN for Opioid Reversal. [place] into the nose as directed. Call 911. [...] reflex unremarkable/WNL UDS + amphetamines/methamphetamines, Fentanyl, cannabinoids Edgewood/suppressor quant (CD4): CD4/CD4 dual 26.7% CD8/CD4 dual [...] and neither restless nor sedated Speech: fluent Maldivian, average rate and rhythm, appropriate volume, normal [...] Bhupinder Gallagher MD documented in this encounter [facility] 09-02-2022 Physician Emergency department Note Signout: Christiano [...] The patient presents with: pink slipped by children counselor with concerns for AH/VH. Believes someone is in his russell being held captive. Pending studies and plan include: psych consulted The expected disposition is: pink slipped Srini Long MD, PhD 09/02/22719 [facility] Work Phone: 09-02-2022 Emergency department Note Signout: [...] The patient presents with: pink slipped by children counselor with concerns for AH/VH. 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 Attempts at proofreading were [...] Attending Physician Department of Emergency Medicine [facility] Horace Henry MD 09/01/22 1037 EMERGENCY [...] use all morning today. 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 He is [place] service-connected [...] psych eval This note was dictated with Moodswiing dictation software. Every effort was made to correct edits but please excuse any incorrections. I discussed the patient with the attending physician, Dr. Henry. Chris Díaz MD Resident 09/03/2252 Patient brought in by [facility], girlfriend called 911, girlfriend states hes been having auditory and visual hallucinations. Patient is pinkslipped. Patient states he does abuse meth, last use was today documented in this encounter [facility] 09-02-2022 Emergency department Note Pt has been [...] items but denies need at this time [facility] 09-02-2022 Emergency department Note Pt exits his [...] penis to his mouth. Staff made aware. [facility] 09-02-2022 Emergency department Note This RN attempts to have a conversation with the pt as he is continuously yelling out im so fucking frustrated where is the psychiatrist . Pt unable to engage in conversation and begins yelling at this RN. [facility] 09-02-2022 Emergency department Note Pt getting increasingly frustrated stating where the fuck is the psychiatrist . Psych team and MD notified [facility] 09-01-2022 Emergency department Note Pt provided food and drinks as requested. [facility] 09-01-2022 Emergency department Note Pts pants taken and placed in belongings [facility] 09-01-2022 Hospital Discharge instructions HOOD Jerry - 09/01/2022 3:49 PM EST Some local options for substance use treatment: [facility] [address] [place], [place] *Detox, Partial Hospitalization, Intensive Outpatient, Outpatient. Medicaid, Medicare, and private insurance. Walk-in appointments for detox and outpatient services Wednesday-Wednesday, 04-10. [facility] [address] [facility], 4th Floor [place], [place] [phone] *Walk-ins for ASSESSMENTS, Wednesday-Wednesday, 03-30. Will screen and arrange treatment at the appropriate level of care. Walk-ins for DETOX, 22/03. [facility] [phone] *Call for help finding treatment, including detox. [facility] *Needle exchange, fentanyl test strips, and harm reduction resources. HIV testing, STI testing, PrEP, Hep C testing. [address] Tuesdays and Wednesdays, 4-8 Saturdays, 04-30 For help finding other resources (addiction treatment, behavioral health treatment, food assistance, community resources), visit www.relink.org. [facility] [address] [facility] 4[address] [phone] *Multiple locations. Central Intake at this location. [facility] [address] [phone] *Walk-in assessments Mondays, Tuesdays, and at 8 AM. Assessments start at 1 PM. [facility] [address] [facility] [phone] *Walk-in assessments Wednesday and Wednesday-, and Wednesday-12. Only available for people who are eligible for Medicaid, and live on the [place]. [facility] [address] [facility] [phone] *Men only. Walk-in Wednesday-Wednesday from 04-10 to apply for admission. [facility] [address] [facility] [phone] *Medicare, Private Insurance, Caresource. [address] [phone] *Medicare, Private Insurance, Caresource. [address] [phone] *Medicare and private insurance only. [facility] [place] [facility] [facility] [phone] [facility] ([facility]) [address] [facility] [phone] *Home-based treatment. [facility] [address] *Intensive Outpatient only. [facility] [address] [phone] *Walk-in assessments . & Wed. 8:00-9:00 [facility] [phone] [facility] [address] [phone] *If you want counseling, call to schedule an appointment. If you want MAT for opiates, bring a valid photo ID and insurance card, arrive at 6 am Wednesday-Wednesday, the first 3-5 people will be seen starting at 7 am. Be prepared to stay until 1 pm. You must be in withdrawal when you come. [facility] (women only) [address] [phone] *Walk-in Tuesdays at 8:30 or 12:30. Walk-in at 8:30. Bring photo ID and insurance information. [facility] [address] [phone] *Partial Hospitalization Program and Intensive Outpatient Program. [facility] [address] [facility] [phone] [facility] [phone] [facility] [address] [facility]. [phone] [facility] [address] [facility] [address] [phone] [facility] [address] [facility]. [phone] *PHP Wed-Wed, 9-2:20, includes lunch and transportation [address] [phone] *Outpatient services and recovery housing services for men and women. *Has Suboxone provider, individual counseling, and groups. *Medicaid plans only. Alcoholics Anonymous www.aacentral[place].org [phone] Narcotics Anonymous www.nacentral[place].org [phone] Cocaine Anonymous www.caohio.org [phone] Marijuana Anonymous www.marijuana-anonymous.org 708-276-1677 Smart Recovery www.smartrecovery.org [place] Quit Line (smoking) https://[place].quitlogix.org 874-WDCE-HNH ([phone]) [facility] s National Helpline 22/03 Treatment Exchange Architect 4-580-701-HELP (2411) 12-Step Education: Please consider attending a 12-Step [...] call to schedule or confirm your appointment: [facility] [address] [facility] [phone] *Walk-in screenings Wednesday-Wednesday at 8:00-12:00. [facility] [address] [phone] *Addiction Services, walk-in assessments . & Wed. 8:00-9:00. *Mental Health Services, walk-in assessments Wed-Wed 8:00-11:30. [facility] [address] [facility] [phone] [facility], [facility]) [phone] [facility] 299 [facility]. [phone] [facility] Fredrick Arizmendi [address] [phone] [facility] [address] [phone] [phone] Helpful phone numbers: Free Crisis Hotline: 4-413-377-TALK ( ) 22/03 Crisis Line: Text or Call 989 [facility] [place]: [phone] (free counseling) 24-hour crisis text hotline: Text the word 4hope to 185-867 for crisis support. Texting this number is free if you have Verizon, T-Mobile, AT&T or Sprint. [place] [facility], Homeless Nursing Home Intake Hotline: 281.251.8589 If you feel unsafe at any time, [...] presented to the ED involuntarily on a [place] Slip (application for involuntary admission) on 09/01/2022 with concern for hallucinations which has been occurring for an unknown amount of time. PSYCHOSOCIAL ISSUES: Substance use, Lack of community supports, lack of insight into nature of illness has NO advanced directive - not interested in additional information RECOMMENDATIONS: * Continue to follow up with your outpatient psychiatric treatment providers [facility] * Your medications have been adjusted during your stay. Continue to take medications as prescribed and follow-up with your outpatient provider as needed for medication management and continued treatment. Your attending psychiatrist during this hospitalization was Dr. Henson and your Inside Sales Account Manager was DINO Quinones; They can be reached at the appropriate senior front end engineer as identified: p - [phone]; NP - [phone]; 4NP - [phone]; 5NP - [phone] If in the event you are unable to follow through with aftercare or are in acute crisis our [facility]al [facility] Immediate Care ([facility]) clinic is available to serve you. The Behavioral Health Immediate Care clinic ([facility]) is in outpatient behavioral health program that [...] schedule an in-person or virtual appointment call [phone]. Walk-in appointments also available Wednesday - Wednesday 11:00 a.m. to 5:30 p.m. or until appointments are full. Location [facility] 1st Floor (check-in at [facility] desk upon arrival) [address] [place] [address] Terms of services: Receive [facility] services for two months or until appointment with ongoing outpatient provider, whichever is sooner. Payment: Most Medicare, Medicaid, and private insurance is accepted. Self-pay also available. Other Resources Include: The Warm Line: 252-120-RLLB (5638) 10pm - 2am Daily Peer Center - (Peer support drop-in center) Consider for additional support and socialization. Call for additional information or activity information. EAST Location - [address] [place] [address] [place] # [phone] M - F (7am to 11pm) Sat/Sun 9am - 9pm Holidays 9am-7pm NORTH Location - [address] [place] [address] # [phone] M - T (10am to 6pm) Sat 11am - 5pm Closed Sundays and Holidays Housing: Call for a nursing home bed at # if needed. If you have an income: Consider [employer] # [phone] or Herve Zelaya Seymour ( Jenni) # [phone] [facility]The National [place] for Mental Illness ( patient and family education offered) [facility] [address] [facility], [address] [place] [address] - Email Address: mail@[email or web address] Website: http://www.[facility] regional medical centerLoginza.or g If Appropriate: Chemical Dependency Treatment Options/ Recommendations: (Call if interested - They will want to hear from you directly) Call [place] #[phone], [place] #[phone], [place] #[phone], [facility] #[phone] or go to the [facility] Drug and Alcohol program [address] [facility] [phone] Go on Mon, Tue, or [...] services. Support groups: Alcoholics Anonymous # or [phone]; Narcotics Anonymous #429.641.7670; Al-Anon #[phone] Residential - [facility]) # [phone] [place], [place]) # [phone] [facility] # [phone] [facility] - [place] # [phone] [facility] # [phone] or [phone] [facility] # [phone] If needed: Resources for Smoking Cessation: [place] Tobacco Quit Line - -NOW ( ) is a toll-free telephone counseling service that connects those who want to quit using tobacco with trained counselors who guide and support them through the process. Dutch Cancer Society s Kick the Habit - Call the Dutch Cancer Society s quit line at for resources or to talk with a counselor near you. [place] Heart Association - Provides tools for quitting and tips on how to handle stress associated with quitting. Visit http://www.americanheart.org for smoking-related cardiovascular diseases information. Dutch Lung Association, [place] From Smoking (FFS) - An online program specifically for those who want to quit smoking. Visit http://www.ffsonline.org/ or call 444-766-0620. Smokefree.gov - An online guide that includes professional support, a twwg-pc-dqmw plan for quitting and tips for fighting the urge to smoke. Go to www.smokefree.gov for more information. The [facility] [employer] Tobacco Cessation Clinic - Provides individual counseling andpersonal follow-up for those who wish to stop smoking or stop using any form of tobacco. Individualsmay refer themselves to the clinic or be referred by their dentist, dental hygienist, physician, nurse or other healthcare professional. For more information, visit http://dent.[facility].edu/Outreach/tob acco_cessation_clinic.php. The following are warning signs of [...] Numbers: Free Crisis Hotline: 988 Suicide Hotline: 152.423.9923 Seniors Suicide Hotline: 681.432.3083 [facility] Youth Psychiatric Crisis Line: 602.247.9892 Mental [facility]: [phone] (free counseling) [facility] Access Hotline: 615-542-VNIB (460-260-5705) 24-hour crisis text hotline: Text the word start to 778-042 for crisis support. Texting this number is [...] Auto 0.99 0.83 - 3.57 K/uL Abs [place] Auto 0.50 0.24 - 0.93 K/uL Abs [...] Result Value Ref Range CD4/CD3 Dual (T Edgewood)% 26.7 (L) 32.0 - 62.0 % CD4/CD3 Dual (T [place]) 320 266 - 2,213 ABS/mm3 CD8/CD3 DUAL (T SUPPRESSOR)% 56.7 (H) 11.0 - 40.0 CD8/CD3 DUAL (T SUPPRESSOR) 680 91 - 1,428 ABS/mm3 [place] Suppressor Ratio 0.5 HIV VIRAL LOAD RNA [...] 15 mg/dL = Small (A) Negative Specific [place] Urine 1.025 >1.001 - <1.035 Blood Urine [...] by contacting your treatment team doctor and/or social media executive at: Second Floor: Third Floor: Fourth Floor: Fifth Floor: Medication Safety Take your medication every day, even if feeling well. Do not take extra doses or skip doses. Keep a list of your medications, including iyeq-van-sfxlhud, herbal, vitamin, and dietary supplements. Also, include [...] be, or are . Prescribed medications and qwcm-hur-cwfecse substances, such as acetaminophen (Tylenol), Ibuprofen, and aspirin can be dangerous and cause if not used correctly. Please be sure to read labels and use as directed. Be sure to attend appointments and receive recommended tests after discharge from the hospital. documented in this encounter [facility] 09-01-2022 Consult note Associated Order (s): IP CONSULT TO ADDICTION MEDICINE Consult Note Patient: Christiano Hernandez, 03/11/1988, [id number] Jaw Skinner Flaca Benavides, MAY-HELP DESK REP, Emergency Addiction Medicine [phone] Date of patient encounter: 09/01/2022. Reason for [...] a 34 y.o. male admitted to [facility] Emergency Department for a mental health evaluation. [...] Bun/Creat/Cl/CO2/Glucose: 14/1.13/102/30/87 (09/01 1416) Signed, Flaca Benavides, ADMITTING COORDINATOR-HELP DESK REP Emergency Addiction Medicine [phone] (This note was written in part using [...] by phone. Onelia Shelton DO, MPH Clinical Glass Washer Department of Hospital and Emergency Medicine [phone]/epic chat [facility] 09-01-2022 Emergency department Note This RN assumes care of patient at this time. [facility] 09-01-2022 Consult note Formatting of th is [...] illicit substance use. All street drugs in [facility] are currently being laced with fentanyl. 3. [...] Reachable by IHIS chat or phone, at [phone] Recovery is for everyone. Every person, every family, every community. 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 Attempts at proofreading were [...] Attending Physician Department of Emergency Medicine [facility] Horace Henry MD 09/01/22 1037 [facility] Work Phone: 09-01-2022 Physician Emergency department Note [...] use all morning today. 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 He is [employer] service-connected [...] psych eval This note was dictated with Moodswiing dictation software. Every effort was made to correct edits but please excuse any incorrections. I discussed the patient with the attending physician, Dr. Henry. Chris Díaz MD Resident 09/03/2252 [facility] Work Phone: 09-01-2022 Emergency department Note Patient brought in by [facility], girlfriend called 911, girlfriend states hes been having auditory and visual hallucinations. Patient is pinkslipped. Patient states he does abuse meth, last use was today [facility] 11-29-2021 Hospital course Narrative DISCHARGE SUMMARY Patient: Ced Hernandez Date of : 03/11/1988 Site: [facility] Family Provider: Freddy Samson MD Admit Date: [...] MD, Address: [address] / [place] [address] Follow Up: Neo Lam MD [address] [facility] [id number] Schedule an appointment as soon as possible for a visit in 1 week(s) [facility] Clinical Decision Unit [address] [facility] [address] Follow up please come to shortstay unit (SSU) on 12/04/21 at 11 am to get repeat CT and consider removal of RUDY drain by YUNIEL Gallagher MD [address] [place] [address] Schedule an appointment as soon as [...] 8:03 PM documented in this encounter [facility] 11-29-2021 Note Formatting of this n ote might be different from the original. Removed pt's IV and tele. RUDY drain clean, dry, and intact. Pt refused CT scan stated he was leaving. Provided discharge instructions. Answered all questions. Pt has no concerns or questions and is waiting for his ride to come. [facility] 11-29-2021 Miscellaneous Notes Removed pt's IV [...] of falls Outcome: Met Signed by: Carmen Astuidllo; Performed at: 11/25/21 0934; Procedures: left kidney [...] Sinus tachycardia, rate of 124, rightward axis, IA interval of 120, QRS duration of 80, [...] are mis-transcribed.) documented in this encounter [facility] 11-29-2021 Note Formatting of this n [...] of Goal: goal Outcome: Partially Met [facility] 11-29-2021 History of Present illness Narrative [...] (vialmate) 1,000 mg Intravenous Q8H Levivaleri Dorantes [facility],PharmD Stopped at 11/29/21 1320 Lab Results Component [...] acute CT abnormality noted in the chest. Tutor Assignment/Simplify Workstation ID: [id number] XR Chest 1 View [...] unspecified type B20 History of HIV infection ([facility]) COMPARISON: CT abdomen and pelvis 11/24/2021. TECHNIQUE: [...] exchanged for serial dilators followed by a 10-Armenian pigtail catheter. The catheter was sutured in [...] placement into left perinephric abscess. Procedural sedation. [facility]/lab Workstation ID: [id number] CT Abdomen Pelvis With [...] but no secondary signs of acute appendicitis. [facility] Workstation ID: [id number] Assessment/Plan: 1)renal abscess 2)HIV [...] in Direct Patient Care: 15 Narrative: The teacher instrumental provided information regarding spiritual care services, 24x7 availability, and how to request additional visits. Rev. Hazel Jones MDiv, [facility] Welder Machine Operator Pastoral Care Department, [facility] To call a teacher instrumental: [facility] Past[facility] Call [phone] Patients Response to Pastoral Care: Expressed Gratitude [...] Connection Facilitated Interventions Explained Role of the Welder Machine Operator Spiritual and Emotional Outcomes Appreciative Resources Provided Bereavement Resources Spiritual Plan of Care Continue Healing Process Patient's Mosque Needs Assessment Mosque Connection Mosque Home Amish Affiliation Local Taoism Name Mosque Resources Mosque Rituals Mosque Materials Provided Expressed Outcomes Family / Caregiver [...] discharged to:: home Current Home Equipment: None [facility] 11/28/2021 PATIENT: CED HERNANDEZ DATE [...] (vialmate) 1,000 mg Intravenous Q8H Levi Jayna [facility],PharmD 250 mL/hr at 11/28/21 1115 1,000 mg [...] axis Borderline ECG Confirmed by Kell Flor ([id number]) on 11/25/2021 9:04:[address] Chest Without [...] unspecified type B20 History of HIV infection ([facility]) COMPARISON: Chest x-ray 11/24/2021. CT abdomen and [...] acute CT abnormality noted in the chest. Tutor Assignment/Simplify Workstation ID: [id number] XR Chest 1 View [...] exchanged for serial dilators followed by a 10-Armenian pigtail catheter. The catheter was sutured in [...] placement into left perinephric abscess. Procedural sedation. [facility]/lab Workstation ID: [id number] CT Abdomen Pelvis With [...] but no secondary signs of acute appendicitis. [facility] Workstation ID: [id number] Assessment/Plan: 1)renal abscess 2)HIV [...] (vialmate) 1,000 mg Intravenous Q8H Levi Jayna, [facility],PharmD 250 mL/hr at 11/27/21 1050 1,000 mg [...] unspecified type B20 History of HIV infection ([facility]) COMPARISON: CT abdomen and pelvis 11/24/2021. TECHNIQUE: [...] exchanged for serial dilators followed by a 10-Armenian pigtail catheter. The catheter was sutured in [...] placement into left perinephric abscess. Procedural sedation. Tutor Assignment/lab Workstation ID: [id number] CT Abdomen Pelvis With [...] but no secondary signs of acute appendicitis. [facility] Workstation ID: [id number] Assessment/Plan: 1)renal abscess 2)HIV 3)fever 4)tobacco abuse All labs and cultures reviewed. MRSA on abscess culture; continue vancomycin, to po atb as able, hopefully next couple days. Await echocardiogram. Fever curve improved. Await HIV genotype; he would benefit from restarting HAART, but this can be done as outpatient. Neo Lam M.D. POST [facility] [place]/27/[place]21 PATIENT: CED HERNANDEZ DATE [...] syringe 40 mg 40 mg Subcutaneous Daily Nickloas Rowland MD 40 mg at 11/26/21 0743 [...] acute CT abnormality noted in the chest. Tutor Assignment/tde Workstation ID: [id number] XR Chest 1 View [...] exchanged for serial dilators followed by a 10-Armenian pigtail catheter. The catheter was sutured in [...] placement into left perinephric abscess. Procedural sedation. [facility]/lab Workstation ID: [id number] CT Abdomen Pelvis With [...] but no secondary signs of acute appendicitis. [facility] Workstation ID: [id number] Assessment/Plan: 1)renal abscess 2)HIV [...] Hernandez Date of : 03/11/1988 Sex: Male [facility] dept following pt SPoke w pt in room. Pt is agreeable to using local pharmacy. He states that he has used the [facility] in [place]. He has filled antiretrovirals at the [facility]. Posed curious inquiry and he has no answer but is willing to have medications and care in [place] Pt address on record is outdated. He states living in [place] now. [facility] Pt demonstrated difficulty in conversing and providing details. He states a few people live with him [facility]. Discussed availability of services with [facility] including transportation. Information on AVS. Living Arrangements: Spouse/significant other Support Systems: Spouse/significant other Assistance Needed: no Type of Residence: Private residence Prior to Admission Home Care Services: No Patient expects to be discharged to:: home Current Home Equipment: None [facility] [place] 11/26/2021 PATIENT: CED HERNANDEZ DATE [...] therapy for 4 years. Previously followed with [facility] for HIV treatment. CD4 266 and HIV [...] Microbiology, Pathology, Radiology, Cardiology, Medications and Transcriptions [facility] [place] 11/25/2021 PATIENT: CED HERNANDEZ DATE [...] 11/24/21 55.6 kg (122 lb 9.2 oz) [place] body weight: 68.4 kg (150 lb 12.7 oz) Labs include: WBC (K/mcL) Date Value 11/24/2021 9.37 Creatinine (mg/dL) Date Value 11/24/2021 1.11 Estimated Creatinine Clearance: 74.4 mL/min (by C-G formula based on SCr of 1.11 mg/dL). No intake or output data in the 24 hours ending 11/25/21 0003 Patient Tmax (last 24 hours): 101.6 F Pharmacist: Carina Hernandez PharmD, [facility] Contact Number: [facility] pharmacy: [phone] documented in this encounter [facility] 11-29-2021 Note Formatting of this n [...] Met Goal: goal Outcome: Partially Met [facility] 11-28-2021 Note Formatting of this n [...] infection signs and symptoms 11/28/2021 1214 by Hiu Cramer RN Outcome: Partially Met 11/28/2021 1213 [...] Outcome: Partially Met 11/28/2021 1211 by Hui rCamer RN Outcome: Partially Met Problem: Falls, Risk of Goal: Absence of falls 11/28/2021 1214 by Hui Cramer RN Outcome: Partially Met 11/28/2021 1213 by Hui Cramer RN Outcome: Partially Met 11/28/2021 1211 by Hui Cramer RN Outcome: Partially Met [facility] 11-28-2021 Note Formatting of this n ote might be different from the original. Spoke to IR about drain removal per Pt. Request. General rule is less than 10ml over three days for safe removal. Pt. Is considering leaving AMA. Attending notified. [facility] 11-27-2021 Note Formatting of this n [...] Goal: Absence of falls Outcome: Met [facility] 11-26-2021 Hospital Discharge instructions Alina Jacob RN - 11/26/2021 4:57 PM EDT Please arrive to the Short Stay Unit at [facility] on November at 11am Park in the east parking lot off of [address] and enter at the EAST entrance. They will check you in and a doctor will evaluate your drain. [phone] A referral to infectious disease provider has been placed for you. Please follow up with: Dr Neo Lam [address] [facility] [address], [place] [id number] [employer] [phone] You have medical transportation available to you. Your ID is [id number] Please provide 48 hours notice for scheduling prior to appointments. The following attachments cannot be sent through Care Everywhere.Surgical Drain Care (Maldivian)documented in this encounter [facility] 11-25-2021 Consult note Associated Order (s): IP CONSULT TO CARE MANAGEMENT COMPLEX DISCHARGE Date: 11/25/2021 Time: 2:11 PM Patient Name: Ced Hernandez Date of : 03/11/1988 Sex: Male [facility] consult for dc needs Pt very somnulent when visit attempted. Per chart review, pt had drain placement earlier today. From chart review[facility]. Pt also has notes from [facility]. Pt unable to attest to this at this time. Pt follows w Freddy Mali. Unclear when last visit occurred. [facility] will follow and speak with pt when he is able to engage. Living Arrangements: Spouse/significant other Support Systems: Spouse/significant other Assistance Needed: no Type of Residence: Private residence Prior to Admission Home Care Services: No Patient expects to be discharged to:: home Current Home Equipment: None [facility] 11-25-2021 Consult note Associated Order (s): IP CONSULT TO CARE MANAGEMENT COMPLEX DISCHARGE Date: 11/25/2021 Time: 2:11 PM Patient Name: Ced Hernandez Date of : 03/11/1988 Sex: Male [facility] consult for dc needs Pt very somnulent when visit attempted. Per chart review, pt had drain placement earlier today. From chart review, pt connected to [place]. Most documents at [facility]. Pt also has notes from [facility]. Pt unable to attest to this at this time. Pt follows w Freddy Mali. Unclear when last visit occurred. [facility] will follow and speak with pt when [...] Ced Hernandez Admit Date: 3271001 MR #: [id number] : 03/11/1988 Physicians: Freddy Samson MD (Family); [...] Past Medical History: Diagnosis Date HIV disease ([facility]) 2011 HIV + - on antiretrovirals since HIV positive ([facility]) 2011 antiretrovirals Nephrolithiasis passed Tobacco abuse Past Surgical History: Procedure Laterality Date COLONOSCOPY COLPOSCOPY N/A 09/16/2015 Procedure: HIGH RESOLUTION ANOSCOPY ; Surgeon: Ezequiel Martines MD; Location: [facility] Main OR; Service: CT ABSCESS DRAINAGE RENAL 11/25/2021 CT ABSCESS DRAINAGE RENAL 11/25/[address] FULGURATION CONDYLOMA RECTAL WITH LASER N/A 09/16/2015 Procedure: CONDYLOMA RECTAL FULGURATION CO2 LASER; Surgeon: Ezequiel Martines MD; Location: [facility] Main OR; Service: WISDOM TOOTH EXTRACTION Family [...] acute CT abnormality noted in the chest. Tutor Assignment/iFormularye Workstation ID: [id number] XR Chest 1 View [...] unspecified type B20 History of HIV infection ([facility]) COMPARISON: CT abdomen and pelvis 11/24/2021. TECHNIQUE: [...] exchanged for serial dilators followed by a 10-Armenian pigtail catheter. The catheter was sutured in [...] but no secondary signs of acute appendicitis. [facility] Workstation ID: [id number] Assessment and Plan:1)renal abscess 2)HIV 3)fever 4)tobacco abuse All labs and cultures reviewed. Continue empiric atb. Await cultures from vir drainage of abscess. To po atb as able. Check HIV genotype; he would benefit from restarting HAART. I appreciate the opportunity to participate in his care, and will follow along with you. Neo Lam M.D. documented in this encounter [facility] 11-25-2021 Consult note Associated Order (s): IP CONSULT TO INFECTIOUS DISEASES INFECTIOUS DISEASES CONSULT NOTE Patient Name: Ced Hernandez Admit Date: 3271001 [facility] #[facility] [id number] [id number] : 03/11/1988 Physicians: Freddy Samson MD (Family); [...] Past Medical History: Diagnosis Date HIV disease ([facility]) 2011 HIV + - on antiretrovirals since HIV positive (HCC) 2011 antiretrovirals Nephrolithiasis passed Tobacco abuse Past Surgical History: Procedure Laterality Date COLONOSCOPY COLPOSCOPY N/A 09/16/2015 Procedure: HIGH RESOLUTION ANOSCOPY ; Surgeon: Ezequiel Martines MD; Location: [facility] Main OR; Service: CT ABSCESS DRAINAGE RENAL 11/25/2021 CT ABSCESS DRAINAGE RENAL 11/25/2021 CT FULGURATION CONDYLOMA RECTAL WITH LASER N/A 09/16/2015 Procedure: CONDYLOMA RECTAL FULGURATION CO2 LASER; Surgeon: Ezequiel Martines MD; Location: [facility] Main OR; Service: WISDOM TOOTH EXTRACTION Family [...] acute CT abnormality noted in the chest. Tutor Assignment/Simplify Workstation ID: [id number] XR Chest 1 View [...] unspecified type B20 History of HIV infection ([facility]) COMPARISON: CT abdomen and pelvis 11/24/2021. TECHNIQUE: [...] exchanged for serial dilators followed by a 10-Armenian pigtail catheter. The catheter was sutured in [...] placement into left perinephric abscess. Procedural sedation. [facility]/lab Workstation ID: [id number] CT Abdomen Pelvis With [...] but no secondary signs of acute appendicitis. [facility] Workstation ID: [id number] Assessment and Plan:1)renal abscess 2)HIV 3)fever 4)tobacco abuse All labs and cultures reviewed. Continue empiric atb. Await cultures from vir drainage of abscess. To po atb as able. Check HIV genotype; he would benefit from restarting HAART. I appreciate the opportunity to participate in his care, and will follow along with you. Neo Lam M.D. [facility] 11-25-2021 Nurse procedure note Signed by: Carmen Astudillo; Performed at: 11/25/21 0934; Procedures: left kidney abscess drainage with drain placement Correct Patient: Yes; Correct Site: Yes; Correct Laterality: Yes; Correct Procedure: Yes; Correct Position: Yes [facility] 11-25-2021 Note Formatting of this n [...] plan and instructions Outcome: Partially Met [facility] 11-24-2021 History and physical note [facility] [place] [facility] [place] Patient Name: Ced Hernandez : 03/11/1988 MR #: [id number] Admit Date: 11/24/2021 Physicians: Freddy Samson MD [...] . consult ID for antibiotic management Chest [id number]. Given respiratory symptoms will check CT chest without contrast. ED discussed case with urology who recommends VIR consult. ED discussed with VIR. Consult VIR for CT guided abscess drainage AIDS HIV positive history. not on antiretroviral therapy for 4 years. Previously followed with [facility] for HIV treatment. Consult ID for further [...] 4 weeks. Patient states he followed with [facility] for treatment. Patient states he had to go to [place] to fill his medications so he quit [...] ANOSCOPY ; Surgeon: Ezequiel Martines MD; Location: [facility] Main OR; Service: FULGURATION CONDYLOMA RECTAL WITH LASER N/A 09/16/2015 Procedure: CONDYLOMA RECTAL FULGURATION CO2 LASER; Surgeon: Ezequiel Martines MD; Location: [facility] Main OR; Service: WISDOM TOOTH EXTRACTION Family [...] 12:22 AM Transcriptions 11/25/21 12:22 AM [facility] 11-24-2021 History and physical note [facility] [place] [facility] [place] Patient Name: Ced Hernanedz : 03/11/1988 MR #: [id number] Admit Date: 11/24/2021 Physicians: Freddy Samson MD [...] . consult ID for antibiotic management Chest l-[id number]. Given respiratory symptoms will check CT chest without contrast. ED discussed case with urology who recommends VIR consult. ED discussed with VIR. Consult VIR for CT guided abscess drainage AIDS HIV positive history. not on antiretroviral therapy for 4 years. Previously followed with [facility] for HIV treatment. Consult ID for further [...] Patient states he had to go to [place] to fill his medications so he quit [...] ANOSCOPY ; Surgeon: Ezequiel Martines MD; Location: [facility] Main OR; Service: FULGURATION CONDYLOMA RECTAL WITH LASER N/A 09/16/2015 Procedure: CONDYLOMA RECTAL FULGURATION CO2 LASER; Surgeon: Ezequiel Martines MD; Location: [facility] Main OR; Service: WISDOM TOOTH EXTRACTION Family [...] 12:22 AM documented in this encounter [facility] 11-24-2021 Note Associated Order(s): EKG 12-lead EKG 12-lead Date/Time: 11/24/2021 11:02 PM Performed by: Amisha Martinez DO Authorized by: Jarret Fisher MD Interpreted by ED attending physician Comparison: not compared with previous ECG Previous ECG: no previous ECG available Rhythm: sinus tachycardia BPM: 124 Clinical impression: sinus tachycardia Comments: Sinus tachycardia, rate of 124, rightward axis, IA interval of 120, QRS duration of 80, QTC of 413, signs of early repolarization without ST segment elevations, normal T waves no ectopy [facility] 11-24-2021 Note Associated Order(s): Critical Care [...] or surrogate and discussions with consultants. [facility] Work Phone: 11-24-2021 Note Formatting of [...] errors, but occasionally words are mis-transcribed.) [facility] 11-24-2021 Physician Emergency department Note [facility] INTENSIVE CARE STEP DOWN RESIDENT NOTE: NAME: Ced Hernandez CSN: [id number] 33 y.o. PCP: Freddy Samson MD History: [...] Past Medical History: Diagnosis Date HIV disease ([facility]) 2011 HIV + - on antiretrovirals since HIV positive ([facility]) 2011 antiretrovirals Nephrolithiasis passed Tobacco abuse PMSx: Past Surgical History: Procedure Laterality Date COLONOSCOPY COLPOSCOPY N/A 09/16/2015 Procedure: HIGH RESOLUTION ANOSCOPY ; Surgeon: Ezequiel Martines MD; Location: [facility] Main OR; Service: FULGURATION CONDYLOMA RECTAL WITH LASER N/A 09/16/2015 Procedure: CONDYLOMA RECTAL FULGURATION CO2 LASER; Surgeon: Ezequiel Martines MD; Location: [facility] Main OR; Service: WISDOM TOOTH EXTRACTION FAM. [...] at the following links: For Healthcare Providers: https://www.fda.gov/media/830823 /download For Patients: https://www.fda.gov/media/096791 /download LIPASE - Normal LACTIC ACID, PLASMA - Normal BLOOD CULTURE AEROBIC/ANAEROBIC BLOOD CULTURE AEROBIC/ANAEROBIC URINE AEROBIC CULTURE CBC AND DIFFERENTIAL Narrative: The following orders were created for panel order CBC w/ Diff. Procedure Abnormality Status --------- ------ CBC Auto Differential[[id number]] Abnormal Final result Please view results for [...] but no secondary signs of acute appendicitis. [facility] Workstation ID: [id number] XR Chest 1 View [...] and antibiotics. A discussion was had with [facility] IR regarding the patient's condition. They stated that if the patient is not hypotensive and requiring an emergent drainage with ICU care that it is likely [facility] IR capabilities can handle the patient's clinical case tomorrow. Patient's blood pressure was within normal limits without any episodes of hypotension while in the emergency department. Patient's tachycardia did improve with Tylenol and IV fluid hydration. Is determined that the patient was stable and could undergo IR procedure at [facility] after observation in the stepdown unit. A discussion was had with [facility] doc on-call regarding the patient's presentation, [facility] doc on-call Dr. Parks accepted the patient [...] mis-transcribed.) Amisha Martinez DO Resident 11/25/2121 [facility] Work Phone: 11-24-2021 Emergency department Note [facility] INTENSIVE CARE STEP DOWN RESIDENT NOTE: NAME: Ced Hernandez CSN: [id number] 33 y.o. PCP: Freddy Samson MD History: [...] ANOSCOPY ; Surgeon: Ezequiel Martines MD; Location: [facility] Main OR; Service: FULGURATION CONDYLOMA RECTAL WITH LASER N/A 09/16/2015 Procedure: CONDYLOMA RECTAL FULGURATION CO2 LASER; Surgeon: Ezequiel Martines MD; Location: [facility] Main OR; Service: WISDOM TOOTH EXTRACTION FAM. [...] at the following links: For Healthcare Providers: https://www.fda.gov/media/109504 /download For Patients: https://www.fda.gov/media/285612 /download LIPASE - Normal LACTIC ACID, PLASMA - Normal BLOOD CULTURE AEROBIC/ANAEROBIC BLOOD CULTURE AEROBIC/ANAEROBIC URINE AEROBIC CULTURE CBC AND DIFFERENTIAL Narrative: The following orders were created for panel order CBC w/ Diff. Procedure Abnormality Status --------- ------ CBC Auto Differential[[id number]] Abnormal Final result Please view results for [...] but no secondary signs of acute appendicitis. [facility] Workstation ID: [id number] XR Chest 1 View [...] and antibiotics. A discussion was had with [facility] IR regarding the patient's condition. They stated that if the patient is not hypotensive and requiring an emergent drainage with ICU care that it is likely [facility] IR capabilities can handle the patient's clinical case tomorrow. Patient's blood pressure was within normal limits without any episodes of hypotension while in the emergency department. Patient's tachycardia did improve with Tylenol and IV fluid hydration. Is determined that the patient was stable and could undergo IR procedure at [facility] after observation in the stepdown unit. A discussion was had with [facility] doc on-call regarding the patient's presentation, [facility] doc on-call Dr. Parks accepted the patient [...] of people, unknown sick contact. 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 Pt is febrile and tachycardic in triage. documented in this encounter [facility] 11-24-2021 Emergency department Note Bed: 32 Expected date: Expected time: Means of arrival: Comments: [facility] 11-24-2021 Emergency department Triage note Pt to ED concerned for pnemonia. Reports SOB, cough, body aches, fever and intermittent CP x 1 week. States he works around a lot of people, unknown sick contact. 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 Pt is febrile and tachycardic in triage. [facility] Evaluation + Plan note No data available for this section [facility] Diagnosis Psychosis, unspecified psychosis type- Primary Symptoms of depression Amphetamine use Passive suicidal ideations Suicidal ideation HIV infection, unspecified symptom status Psychosis, unspecified psychosis type Fentanyl use disorder, mild HIV (human immunodeficiency virus infection) Asymptomatic human immunodeficiency virus (HIV) infection status Asymptomatic bacteriuria Other nonspecific finding on examination of urine Fentanyl use disorder, mild [facility] Diagnosis Psychosis, unspecified (HCC)- Primary Unspecified psychosis Thoughts of harming others Amphetamine misuse Noncompliance with medication regimen Personal history of noncompliance with medical treatment, presenting hazards to health History of schizophrenia Personal history of schizophrenia Stimulant use disorder COVID-19 documented in this encounter [facility] Discharge instructions No data available for this section [facility] No data available for this section [facility] Summary Purpose Family History No Family History Records FoundNo Family History Records FoundNo Family History Records FoundNo Family History Records FoundNo Family History Records Found Advance Directives No Advanced Directives Records FoundDocuments on File Type Date Recorded 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 Expl 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 Advance Directives and Livin g [...] symptom status (HCC) Lee Chanel MD [address] [place] [address] Referral ID Status Reason Start Date Expiration Date V isits Requested Visits Authorized [id number] Authorized 11/28/2021 11/28/2022 1 1 Specialty Diagnoses / Procedures Referred By Contac t Referred To Contact Short Stay Unit Diagnoses Renal abscess, left Lee Chanel MD [address] [place] [address] [facility] [address] [place] [address] Referral ID Status Reason Start Date Expiration Date V isits Requested Visits Authorized [id number] Authorized 11/28/2021 11/28/2022 99 99 Specialty Diagnoses / Procedures Referred By Contac t Referred To Contact Procedures NO MECHANICAL DVT PROPHYLAXIS Katelyn Raymundo ADMITTING COORDINATOR-HELP DESK REP [address] [place] [address] Referral ID Status Reason Start Date Expiration Date V isits Requested Visits Authorized [id number] New Request 09/03/2022 09/28/2023 1 1 Specialty Diagnoses / Procedures Referred By Contac t Referred To Contact Procedures LOW RISK - NO PHARMACOLOGICAL DVT PROPHYLAXIS Katelyn Raymundo ADMITTING COORDINATOR-HELP DESK REP [phone] [place] [phone] Referral ID Status Reason Start Date Expiration Date V isits Requested Visits Authorized [id number] New Request 09/03/2022 09/28/2023 1 1 Specialty Diagnoses / Procedures Referred By Contac t Referred To Contact Procedures DVT/VTE RISK ASSESSMENT Katelyn Raymundo ADMITTING COORDINATOR-HELP DESK REP [phone] [phone] Referral ID Status Reason Start Date Expiration Date V isits Requested Visits Authorized [id number] New Request 09/03/2022 09/28/2023 1 1 Additional Source Comments (unrecognized sect ion and content) No Status Records FoundNo Status Records FoundNo Status Records FoundNo Status Records FoundNo Status Records Found INFORMATION SOURCE (unrecogn ized section and content) DATE CREATED AUTHOR AUTHOR'S ORGANIZ ATION 11/10/2022 [facility] DATE CREATED AUTHOR AUTHOR'S ORGANIZ ATION 11/24/2022 [facility] DATE CREATED AUTHOR AUTHOR'S ORGANIZ ATION 12/07/2022 [facility] DATE CREATED AUTHOR AUTHOR'S ORGANIZ ATION 10/14/2023 [facility] Reason for Visit (unrecogniz ed section and content) Specialty Diagnoses / Procedures Referred By Contac t Referred To Contact Diagnoses Renal abscess, left Sepsis (HCC) Referral ID Status Reason Start Date Expiration Date Visits Re quested Visits Authorized [id number] 1 1 Reason Comments Mental Health Problems Hallucinations Specialty Diagnoses / Procedures Referred By Contac t Referred To Contact [facility] [address] [place] [address] [facility] [address] [place] [address] Referral ID Status Reason Start Date Expiration Date Visits Re quested Visits Authorized [id number] 1 1 Reason Comments Psychiatric Evaluation Specialty Diagnoses / Procedures Referred By Contac t Referred To Contact Diagnoses COVID-19 Referral ID Status Reason Start Date Expiration Date Visits Re quested Visits Authorized [id number] 1 1 Scheduled Active and Recently Administ [...] mL, Intravenous, Once in imaging, contrast, Per chief passenger ship steward/stewardess (Radiology) for line patency check prior to contrast administration, Starting on 11/29/21 at 1246, For 1 dose sodium chloride (PF) (NS) 0.9 % contrast line flush 80 mL(Linked Group 4) 80 mL, Intravenous, Once in imaging, contrast, Per chief passenger ship steward/stewardess (Radiology), Starting on 11/29/21 at 1246, For [...] mL, Intravenous, Once in imaging, contrast, Per chief passenger ship steward/stewardess (Radiology) for line patency check prior to contrast administration, Starting on 11/29/21 at 1246, For 1 dose And sodium chloride (PF) (NS) 0.9 % contrast line flush 80 mLJump to med 80 mL, Intravenous, Once in imaging, contrast, Per chief passenger ship steward/stewardess (Radiology), Starting on 11/29/21 at 1246, For 1 dose
30 mL BEFORE contrast administration 50 mL AFTER contrast administration
Scheduled Medication Order 09/06/2022 09/07/2022 09/08/2022 Oenjymojtor-Kfusmxrbpj-Zd nofov (BIKTARVY) 50-200-25 MG per tablet 1 [...] Carlton RN) 2226 (Given - Provider: Garry Foley RN) hydrOXYzine HCl (ATARAX) tablet 25 mg [...] Reason: Patient/family refused)2200 (Not Given - Provider: Brdiger Butts RN - Reason: Patient/family refused) 0600 [...]
Care Teams (unrecognized sec tion and content) Explosive Ordnance Specialist Relationship Specialty Start Date End Date Self, Self PCP - General Other 08/30/22 Explosive Ordnance Specialist Relationship Specialty Start Date End Date Self, Self PCP - General Other 08/30/22 Explosive Ordnance Specialist Relationship Specialty Start Date End Date No, Physician [facility] PCP - General 10/10/22 09/20/[address] [address] PCP - General 09/21/23 FOR RECORDS PERTAINING [...] BE BASED ON THE PRIMARY CLINICAL RECORDS. [facility] [place]. provides no warranty or guarantee of the accuracy or completeness of information in this document."
--- NOTE | 2023-10-31 05:10 | RAD_ITS ---
EXAM: XR CHEST, 2 VIEWS CLINICAL INDICATION: chest pain TECHNIQUE: Frontal and lateral views of the chest. COMPARISON: No relevant prior studies available. FINDINGS: LUNGS AND PLEURAL SPACES: Unremarkable. No consolidation or edema. No pneumothorax. No effusion. HEART: Unremarkable. Cardiac silhouette not enlarged. MEDIASTINUM: Central airways and mediastinal contour are unremarkable. BONES/JOINTS: Unremarkable. No acute fracture. SOFT TISSUES: Unremarkable. RAD/Chest PA and Lateral IMPRESSION: No radiographic evidence of acute cardiopulmonary disease. Electronically Signed: Neil Willis MD at 5:47 EST ,
[2023-10-31 05:24] LABS: Amphetamine Urine VISTA NEGATIVE (<1000 ng/mL); Barbiturate Urine VISTA NEGATIVE (< 200 ng/mL); Benzodiazepine Urine VISTA NEGATIVE (< 200 ng/mL); Cocaine Urine VISTA NEGATIVE (< 300 ng/mL); Ecstacy Urine VISTA NEGATIVE (< 500 ng/mL); Methadone Urine VISTA NEGATIVE (< 300 ng/mL); PCP Urine VISTA NEGATIVE (< 25 ng/mL); THC Urine VISTA NEGATIVE (< 50 ng/mL); Vista UDS pH Range 5
[2023-10-31 06:20] VITALS: BP 118/72; PULSE 78; RESP 18; TEMP 36.7; O2SAT 98
--- NOTE | 2023-10-31 06:40 | EX.ED.DYSGE1 ---
HPI History of Present Illness Chief Complaint: Chest Pain Informant: patient Narrative Narrative: Patient is a 35-year-old male with history of drug abuse who is currently homeless and was seen in the ER on October 28 and as well. He presents today with vague complaints but does states that he has had intermittent chest discomfort. He reports that he has used methamphetamines and cocaine in the past but that has been multiple days. He denies any sick symptoms or recent trauma but as he has felt intermittent chest discomfort presents for evaluation. He denies any recent travel surgery or history of DVT/PE [facility] Medical History Arthritis PTSD (post-traumatic stress disorder) Home Medications NK 10/29/23 [History Last Taken Unknown] Allergy/AdvReac Type Severity Reaction Status Date / Time Penicillins Allergy Rash Verified 10/31/23 04:55 Social History Smoking Status: Current every day smoker tobacco type: cigarettes ROS ROS ED Constitutional Constitutional ED: Denies chills or fever(s) Eyes Eyes: Denies change in vision ENT ENT ED: Denies sore throat Cardiovascular Cardiovascular: Reports chest pain; Denies palpitations or racing heartbeat Respiratory/Chest Respiratory/Chest: Denies cough or dyspnea Gastrointestinal Gastrointestinal: Denies abdominal pain, diarrhea, nausea or vomiting Genitourinary Genitourinary ED: Denies dysuria Musculoskeletal Musculoskeletal: Denies back pain or myalgias Integumentary Denies rash Neurologic Neurologic: Denies headache(s) Hematologic/Lymphatic Hematologic/Lymphatic: Denies easy bleeding or easy bruising EXAM Physical Exam Const Vital Signs: 10/31/23 04:47 10/31/23 05:01 10/31/23 06:20 Temperature 97.4 F L 98.1 F Temperature Source Oral Temporal Pulse Rate 76 78 Respiratory Rate 16 18 Respiratory Effort Normal Blood Pressure 111/93 H 118/72 Blood Pressure Mean 99 87 Pulse Ox 97 98 Oxygen Delivery Method Room Air Room Air 10/31/23 06:51 Temperature 98.7 F Temperature Source Pulse Rate 65 Respiratory Rate 16 Respiratory Effort Blood Pressure 123/68 H Blood Pressure Mean 86 Pulse Ox 98 Oxygen Delivery Method Positive well nourished and well developed General Appearance ED: well developed HEENT HEENT Narrative: Normocephalic atraumatic Eyes PERRL and EOMs intact bilaterally General Eye ED: Negative for scleral icterus Neck supple Neck Narrative: No nuchal rigidity or meningeal signs Chest Wall palpation of chest normal Chest Narrative: No bony deformity or crepitance Resp normal respiratory effort and clear to auscultation bilaterally Cardio regular rate and regular rhythm Rate: other Other Details: Heart is regular rate and rhythm without murmurs rubs or gallops Radial and carotid pulses are equal and symmetric Extremity normal to inspection Extremity Narrative: No asymmetric edema no pitting edema negative Homans' sign bilaterally No splinter hemorrhages to suggest endocarditis Neuro oriented x3 and CN's II-XII intact bilaterally Sensorium / Orientation: alert Motor Exam: strength 5/5 throughout Psych Psych Narrative: Patient has a flat affect Skin no rashes or lesions noted Skin Narrative: No signs of overlying cellulitis or splinter hemorrhages MDM MDM MDM Narrative Medical decision making narrative: Patient presented to the ER with stable vitals. He had multiple vague complaints but ultimately his main concern was intermittent chest discomfort. He is low risk for cardiovascular disease and has been seen in the ER twice with normal blood work on October 28 therefore I felt on the need to check a drug screen as he does admit to previous cocaine and methamphetamine use as well as EKG and chest x-ray. EKG showed normal sinus rhythm and this goes against acute coronary syndrome or cardiac dysrhythmia. Chest x-ray revealed no acute lung pathology going against pneumothorax or pneumonia as the cause of his chest discomfort. The patient's vitals remained stable and he was able to sleep in the ER. He did not have a murmur on exam there are no splinter hemorrhages and therefore my concern for endocarditis from drug abuse is low as well. Therefore at this time with stable vitals and negative workup I do not feel there is need for further evaluation in the ER and he is otherwise safe for discharge History & Record Review Discussion w/independent historian: Patient Lab Data Attestation: I reviewed the patient's lab results. Labs: Laboratory Results - last 24 hr 10/31/23 05:02 Urine Opiates Screen NEGATIVE Urine Methadone Screen NEGATIVE Ur Barbiturates Screen NEGATIVE Ur Phencyclidine Scrn NEGATIVE Ur Amphetamines Screen NEGATIVE MDMA (Ecstasy) Screen NEGATIVE U Benzodiazepines Scrn NEGATIVE Urine Cocaine Screen NEGATIVE U Cannabinoids Screen NEGATIVE Ur Drug Screen Comment Radiography Diagnostic Testing: Clinical Impression(s) from Imaging Studies Chest X-Ray 10/31/23 05:10 IMPRESSION: No radiographic evidence of acute cardiopulmonary disease. Electronically Signed: Neil Willis MD at 5:47 EST , Chest x-ray as interpreted by the emergency medicine physician reveals no acute infiltrate pneumothorax or pleural effusion or widening of the mediastinum Discharge Plan Triage Chief Complaint: Chest Pain ED Provider: José Miguel Ricketts Dx/Rx/DC Orders Clinical Impression: Acute nonspecific chest pain with low risk of coronary artery disease, History of drug abuse Instructions: ED Chest Pain, Uncertain Cause Prescriptions: No Action NK Primary Care Provider: Care Physician,No Primary Referrals: Herve Villafana MD [STAFF PHYSICIAN] - Care Physician,No Primary [Primary Care Provider] - Disposition Disposition: Home, Self Care Discharge Date/Time: 10/31/23 06:52
[2023-10-31 06:51] VITALS: BP 123/68; PULSE 65; RESP 16; TEMP 37.1; O2SAT 98
== END 2023-10-31 06:52 | disposition home or self-care (01) ==
PROVIDERS: Emergency Provider Emergency Medicine; Visit Provider Emergency Medicine
DX: R07.9 Chest pain, unspecified (principal); F14.11 Cocaine abuse, in remission; F15.11 Other stimulant abuse, in remission; F17.210 Nicotine dependence, cigarettes, uncomplicated; Z59.00 Homelessness unspecified
CPT/HCPCS: 71046; 80307; 93005; 99282